=== PATIENT | male | born 1975 | race Caucasian/White ===

== ENCOUNTER 2020-06-25 10:58 | Outpatient (RCR) | payer OTHER, SELFPAY ==
[2019-12-23 09:50] VITALS: BMI 25.1
== END 2020-08-31 23:59 ==
LOC: IMMUN 10:58
PROVIDERS: PCP Nurse Practitioner; Visit Provider Family Medicine
DX: Z23 Encounter for immunization (principal)
CPT/HCPCS: 0001A; 0002A; 91300

== ENCOUNTER 2021-03-31 08:37 | Outpatient (CLI) | payer OTHER, SELFPAY ==
[2021-03-31 10:05] LABS: Absolute Lymphocyte Count 1.73 X10^3/uL (0.83-4.51); Absolute Neutrophil Count 3.6 X10^3/uL (2.0-7.7); Basophil# 0.06 X10^3/uL; Eosinophil# 0.15 X10^3/uL; Eosinophils% 2.5 % (0-5); Hematocrit 44.5 % (40-54); Lymphocyte # 1.73 X10^3/ul (0.83-4.51); Lymphocyte % 28.6 % (19-41); Mean Corp Hgb Conc 33.7 g/dL (32-36); Mean Corpuscular Hgb 28.5 pg (27.0-32.0); Mean Corpuscular Volume 84.6 fL (80-94); Mean Platelet Vol. 10.9 fl (6.2-12.0); Monocyte# 0.47 X10^3/uL; Monocyte% 7.8 % (0-10); NRBC Flagged by Analyzer 0 % (0-5); Neutrophil % 59.4 % (47-70); Platelet Count 275 K/mm3 (150-450); RBC Distribution Width CV 12.5 % (11.6-14.6); RBC Distribution Width SD 38.2 fl (35.1-43.9); Red Blood Count 5.26 M/mm3 (4.6-6.2); White Blood Count 6.1 K/mm3 (4.4-11.0)
[2021-03-31 10:33] LABS: AST(SGOT) 21 U/L (15-37); Alanine Aminotransfer ALT/SGPT 39 U/L (16-61); Alkaline Phosphatase 79 U/L (45-117); Anion Gap 7 (5-15); BUN 16 mg/dL (7-18); BUN/Creat Ratio 16.6 RATIO (10-20); Calcium,Total 9.4 mg/dL (8.5-10.1); Chloride 102 mmol/L (98-107); Creatinine, Serum 0.96 mg/dL (0.70-1.30); EST Glomerular Filtration Rate 91 mL/min (>60); Est Glom Filt Rate - Afr Amer 110 mL/min (>60); Glucose 110 mg/dL (74-106); Potassium 4.6 mmol/L (3.5-5.1); Sodium Level 137 mmol/L (136-145)
[2021-04-03 20:07] LABS: QNTFERON TB Mitogen Value > 10.00 IU/mL (.); QNTFERON TB Nil Value 0.02 IU/mL (.); QNTFERON TB1+ Ag Value 0.05 IU/mL (.); QNTFERON TB2+ Ag Value 0.09 IU/mL (.)
[2021-04-04 12:15] LABS: QNTIFERON TB Positive Criteria Negative (Negative)
== END 2021-03-31 23:59 | disposition short-term general hospital (02) ==
PROVIDERS: PCP Nurse Practitioner; Referring Provider Nurse Practitioner; Visit Provider Dermatology Pediatric Dermatology
DX: L40.0 Psoriasis vulgaris (principal); M25.50 Pain in unspecified joint; Z79.899 Other long term (current) drug therapy
CPT/HCPCS: 36415; 80053; 85025; 86480

== ENCOUNTER 2021-05-10 14:42 | Outpatient (CLI) | payer OTHER, SELFPAY | END 2021-05-10 23:59 | disposition home or self-care (01) | LOC: IMMUN 05-11 14:53 | PROVIDERS: PCP Nurse Practitioner; Visit Provider Family Medicine | DX: Z23 Encounter for immunization (principal) ==

== ENCOUNTER 2025-01-30 07:21 | Day surgery (SDC) | payer OTHER, SELFPAY ==
[2025-01-30] VITALS (9 sets, daily range): BP systolic 122–152; BP diastolic 82–95; PULSE 77–89; RESP 16–18; TEMP 36.1–36.7; O2SAT 95–97; BMI 26.1
--- OUTSIDE RECORDS SUMMARY | 2025-01-30 07:39 | XMS RPT_ITS | CCD ---
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 Name Role Phone Laura Lua Unavailable Daev Babb Unavailable Kymberly Mike Unavailable Unavailable Unavailable Unavailable Tom Clark Unavailable Unavailable BULL Garcia Unavailable Unavailable No Doctor Assigned, Nodr Admitting Unavail able No Doctor Assigned, Nodr Attending Unavail able No Doctor Assigned, Nodr Primary Care Unavail able Shirley Gibbs Unavailable Unavailable Nelly Johnson Unavailable Unavailable Grace West Unavailable Rhonda Meraz Unavailable Unavailable Keyla Haji Unavailable BULL Garcia Unavailable Unavailable Tom Clark Unavailable Unavailable Kelsy Juarez Unavailable Tom Tinoco Unavailable Unavailable Lillie Bradshaw Unavailable Unavailable Slarb, Kim Unavailable Unavailable Laura Lua CNP Unavailable Kelsy Juarez Unavailable Dave Babb MD Unavailable Tom Tinoco LPN Unavailable Unavailable Unavailable Unavailable Keyla Haji MD Unavailable Era Dunn Unavailable [phone] araceli Carvajal Unavailable Unavailable Chanell Laura Unavailable Dania Queen Unavailable Carla Ventura LPN Unavailable Unavailable Slarb HRIS COORDINATOR, Kim Unavailable Unavailable Sania Mobley CNP Unavailable Sania Mobley CNP Unavailable Chanell Laura Unavailable Itz WOODSKandyyn Unavailable Jack BRUNER, Janetteludya Unavailable Unavailable Keyla Haji MD Unavailable BEHZAD Bridges Unavailable Indira Staley CMA Unavailable Unavailable Chanell Laura Referring Unavailable Sania Mobley CNP Attending Unavailable Sania Mobley CNP Consulting Unavailable Friend, Ronny Attending Unavailable Care Physician, No Primary Referring Unava ilable Care Physician, No Primary Primary Care Unava ilable Medications Completed/Discontinued Medications Medication Drug Class(es) Dates Sig (Normalized) Sig (Original) amLODIPine 10 mg oral tablet (20 sources) Dihydropyridine Calcium Channel Rosendo Start: 07-31-2022 take 1 tablet by mouth once daily amLODIPine 10 mg oral tablet 1 (one) Tablet daily for 30 days Quantity: 30 {Tablet} Refills: 6 Ordered: 31-Jul-2022 Sania Mobley CNP Start : 31-Jul-2022 Active Start: 01-23-2022 take 1 tablet by jasvir th once daily amLODIPine Besylate 10 MG Oral Tablet 1 (one) Tablet daily for 30 days Quantity: 30 {Tablet} Refills: 3 Ordered: 23-Jan-2022 Sania Mobley CNP Start : 23-Jan-2022 Active Start: 12-07-2020 take 1 tablet by jasvir th once daily amLODIPine Besylate 10 MG Oral Tablet 1 (one) Tablet daily for 30 days Quantity: 30 {Tablet} Refills: 3 Ordered: 07-Dec-2020 Laura Lua Start : 07-Dec-2020 Active Start: 10-05-2020 take 1 tablet by jasvir th once daily amLODIPine Besylate 10 MG Oral Tablet 1 (one) Tablet daily for 30 days Quantity: 30 {Tablet} Refills: 3 Ordered: 05-Oct-2020 Keyla Haji MD Start : 05-Oct-2020 Active Start: 07-27-2020 take 1 tablet by jasvir th once daily amLODIPine Besylate 5 MG Oral Tablet 1 (one) Tablet daily for 30 days Quantity: 30 {Tablet} Refills: 3 Ordered: 27-Jul-2020 Laura Lua CNP, CNP, Mary E Start : 27-Jul-2020 Active Start: 03-30-2020 take 1 tablet by jasvir th once daily amLODIPine Besylate 5 MG Oral Tablet 1 (one) Tablet daily for 0 days Quantity: 30 {Tablet} Refills: 3 Ordered: 30-Mar-2020 Otto SIDDIQIKim Start : 30-Mar-2020 Active amoxicillin 500 mg oral tablet (15 sources) Penicillin-class Antibacterial Start: 05-01-2022 End: 07-04-2022 take 1 tablet by mouth twice daily amoxicillin 500 mg oral tablet 1 (one) tablet bid for 0 days Quantity: 20 {Tablet} Refills: 0 Ordered: 04-Jul-2022 Audrey NEERUCarla Start : 01-May-2022 End : 04-Jul-2022 Inactive amoxicillin 875 mg / clavulanate 125 mg oral tablet (20 sources) Penicillin-class Antibacterial Start: 01-02-2020 End: 01-12-2020 take 1 tablet by mouth twice daily Amoxicillin-Pot Clavulanate 875-125 MG Oral Tablet 1 (one) Tablet BID for 10 days Quantity: 20 {Tablet} Refills: 0 Ordered: 02-Jan-2020 Lillie Bradshaw LPN Start : 02-Jan-2020 End : 12-Jan-2020 Inactive Comments: J32.9 Start: 05-20-2018 End: 06-03-2018 take 1 tablet by mouth twice daily at mealtime Amoxicillin-Pot Clavulanate 875-125 MG Oral Tablet 1 (one) Tablet PO BID for 14 days Quantity: 28 {Tablet} Refills: 0 Ordered: 20-May-2018 Nelly Johnson Start : 20-May-2018 End : 03-Jun-2018 Inactive Comments: Take with food Comment on above: Take with food J32.9 24 hr amphetamine aspartate 2.5 mg / amphetamine sulfate 2.5 mg / dextroamphetamine saccharate 2.5 mg / dextroamphetamine sulfate 2.5 mg extended release oral capsule (20 sources) Central Nervous System Stimulant Start: take 1 capsule by mouth every twenty-four hours in the morning dextroamphetamin e-amphetamine 10 mg oral Capsule, Extended Release 24 hr 1 (one) Capsule in am for 0 days Quantity: 30 {Capsule} Refills: 0 Ordered: 08-Jan-2023 Keyla Haji MD Start : 08-Jan-2023 Active Comments: Disp: thirtyDx: F98.8fill for 03-06-23 Start: 10-05-2022 take 1 capsule by mo uth every twenty-four hours in the morning dextroamphetamine-amphetamine 10 mg oral Capsule, Extended Release 24 hr 1 (one) Capsule in am for 0 days Quantity: 30 {Capsule} Refills: 0 Ordered: 05-Oct-2022 Keyla Haji MD Start : 05-Oct-2022 Active Comments: Disp: thirtyDx: F98.8fill for 12-02-22 Start: 07-25-2022 take 1 capsule by mo ut every twenty-four hours in the morning dextroamphetamine-amphetamine 10 mg oral Capsule, Extended Release 24 hr 1 (one) Capsule in am and 12 pm for 0 days Quantity: 60 {Capsule} Refills: 0 Ordered: 25-Jul-2022 Keyla Haji MD Start : 25-Jul-2022 Active Comments: Disp: sixtyDx: F98.8OARS reviewed last filled 04-17 Start: 07-04-2022 take 1 capsule by mo ut every twenty-four hours in the morning dextroamphetamine-amphetamine 10 mg oral Capsule, Extended Release 24 hr 1 (one) Capsule in am and 12 pm for 0 days Quantity: 60 {Capsule} Refills: 0 Ordered: 04-Jul-2022 Keyla Haji MD Start : 04-Jul-2022 Active Comments: Disp: sixtyDx: F98.8 Start: 04-24-2022 take 1 capsule by mo ut every twenty-four hours in the morning dextroamphetamine-amphetamine 10 mg oral Capsule, Extended Release 24 hr 1 (one) Capsule in am and 12 pm for 0 days Quantity: 60 {Capsule} Refills: 0 Ordered: 24-Apr-2022 Keyla Haji MD Start : 24-Apr-2022 Active Comments: Disp: sixtyDx: F98.8pt not tolerate immediate release Start: 01-02-2022 take 1 capsule by mo ut every twenty-four hours in the morning Amphetamine-Dextroamphet ER 10 MG Oral Capsule Extended Release 24 Hour 1 (one) Capsule in am and 12 pm for 0 days Quantity: 60 {Capsule} Refills: 0 Ordered: 02-Jan-2022 Keyla Haji MD Start : 02-Jan-2022 Active Comments: Disp: sixtyDx: F98.8pt not tolerate immediate release Start: 11-23-2021 take 1 capsule by mo uth once daily Amphetamine-Dextroamphet ER 10 MG Oral Capsule Extended Release 24 Hour 1 (one) Capsule qd for 0 days Quantity: 30 {Capsule} Refills: 0 Ordered: 23-Nov-2021 Keyla Haji MD Start : 23-Nov-2021 Active Comments: Disp: ThirtyDx: F98.8 Start: 06-30-2021 take 1 capsule by mo uth once daily Amphetamine-Dextroamphet ER 10 MG Oral Capsule Extended Release 24 Hour 1 (one) Capsule qd for 0 days Quantity: 30 {Capsule} Refills: 0 Ordered: 30-Jun-2021 Keyla Haji MD Start : 30-Jun-2021 Active Comments: Disp: ThirtyDx: F98.8fill 08-26-21 Start: 11-15-2020 take 1 capsule by mo uth once daily Amphetamine-Dextroamphet ER 10 MG Oral Capsule Extended Release 24 Hour 1 (one) Capsule qd for 0 days Quantity: 30 {Capsule} Refills: 0 Ordered: 15-Nov-2020 Keyla Haji MD Start : 15-Nov-2020 Active Comments: Disp: ThirtyDx: F98.8 Start: 10-05-2020 take 1 capsule by mo ut once daily Amphetamine-Dextroamphet ER 10 MG Oral Capsule Extended Release 24 Hour 1 (one) Capsule qd for 0 days Quantity: 30 {Capsule} Refills: 0 Ordered: 05-Oct-2020 Keyla Haji MD Start : 05-Oct-2020 Active Comments: Disp: ThirtyDx: F98.8 Start: 03-09-2020 End: 03-30-2020 take 1 capsule by mouth once daily Amphetamine-Dextroamphet ER 10 MG Oral Capsule Extended Release 24 Hour 1 (one) Capsule daily as directed for 0 days Quantity: 30 {Capsule} Refills: 0 Ordered: 30-Mar-2020 Kim Menjivar LPN Start : 09-Mar-2020 End : 30-Mar-2020 Inactive Comments: Disp: ThirtyDx: F98.8 Start: 01-13-2020 take 1 capsule by mo uth once daily Adderall XR 10 MG Oral Capsule Extended Release 24 Hour 1 (one) Capsule daily as directed for 0 days Quantity: 14 {Capsule} Refills: 0 Ordered: 13-Jan-2020 Keyla Haji MD Start : 13-Jan-2020 Active Start: 11-03-2019 End: 01-07-2020 take 1 tablet by mouth once daily Amphetamine-Dextroamphetamine 10 MG Oral Tablet 1 (one) Tablet qd for 0 days Quantity: 30 {Tablet} Refills: 0 Ordered: 07-Jan-2020 BULL Garcia LPN Start : 03-Nov-2019 End : 07-Jan-2020 Inactive Comments: Dx: F98.8Disp: Thirty Start: 01-30-2019 take 1 tablet by jasvir th once daily Amphetamine-Dextroamphetamine 10 MG Oral Tablet 1 (one) Tablet qd for 0 days Quantity: 30 {Tablet} Refills: 0 Ordered: 30-Jan-2019 Keyla Haji MD Start : 30-Jan-2019 Active Comments: Dx: F98.8thirty Start: 05-02-2018 take 1 tablet by jasvir th once daily Amphetamine-Dextroamphetamine 10 MG Oral Tablet 1 (one) Tablet qd for 0 days Quantity: 30 {Tablet} Refills: 0 Ordered: 02-May-2018 BULL Garcia Start : 02-May-2018 Active Comments: Dx: F98.8thirty Comment on above: Dx: F98.8thirty Dx: F98.8Disp: Thirt y Disp: ThirtyDx: F98. 8 Disp: ThirtyDx: F98. 8fill 08-26-21 Disp: sixtyDx: F98.8 pt not tolerate immediate release Disp: sixtyDx: F98.8 Disp: sixtyDx: F98.8 OARS reviewed last filled 04-17 Disp: thirtyDx: F98. 8fill for 12-02-22 Disp: thirtyDx: F98. 8fill for 03-06-23 ascorbic acid 60 mg / beta carotene 5000 unt / copper sulfate 40 mg / dl-alpha tocopheryl acetate 30 unt / sodium selenite 0.04 mg / zinc oxide 40 mg oral tablet (20 sources) Vitamin C Start: 10-24-19 19 End: 03-30-19 21 take 1 tablet by mouth once daily QC Mens Daily Multivitamin Oral Tablet 1 (one) Tablet daily for 0 days Quantity: 30 {Tablet} Refills: 0 Ordered: 30-Mar-2020 Otto SIDDIQIKim Start : 23-Oct-2018 End : 30-Mar-2020 Inactive cholecalciferol 0.05 mg oral capsule (20 sources) Vitamin D Start: 11-24-19 20 End: 01-13-20 20 take 1 tablet by mouth once daily Vitamin D3 50 MCG (2000 UT) Oral Tablet Chewable 1 (one) Tablet daily for 0 days Quantity: 30 {Tablet} Refills: 0 Ordered: 13-Jan-2020 BULL Garcia LPN Start : 24-Nov-2019 End : 13-Jan-2020 Inactive Start: 10-23-2018 End: 06-27-2021 take 1 capsule by mouth once daily Vitamin D3 Super Strength 50 MCG (2000 UT) Oral Capsule 1 (one) Capsule daily for 0 days Quantity: 30 {Capsule} Refills: 0 Ordered: 27-Jun-2021 Otto SIDDIQIKim Start : 10-Feb-2020 End : 27-Jun-2021 Inactive clotrimazole 10 mg oral lozenge (20 sources) Azole Antifungal Start: 05-20-2018 End: 06-03-2018 Clotrimazole 10 MG Mouth/Throat Lozenge 1 (one) Jennifer PO 5 x daily for 14 days Quantity: 70 {Jennifer} Refills: 0 Ordered: 20-May-2018 Nelly Johnson Start : 20-May-2018 End : 03-Jun-2018 Inactive crisaborole 0.02 mg/mg topical ointment (20 sources) Start: 04-10-2018 End: 11-24-2019 Eucrisa 2 % External Ointment 1 (one) Application Application daily for 0 days Quantity: 2 {Applicator} Refills: 0 Ordered: 24-Nov-2019 Tom Tinoco LPN Start : 10-Apr-2018 End : 24-Nov-2019 Inactive DULoxetine 60 mg delayed release oral capsule (20 sources) Serotonin and Norepinephrine Reuptake Inhibitor Start: 12-06-2022 take 1 capsule by mouth once daily DULoxetine 60 mg oral capsule,delayed release (enteric coated) 1 Capsule daily for 0 days Quantity: 30 {Capsule} Refills: 6 Ordered: 06-Dec-2022 Sania Mobley CNP Start : 06-Dec-2022 Active Start: 10-10-2022 take 1 capsule by mo [facility] once daily DULoxetine 30 mg oral capsule,delayed release (enteric coated) 1 Capsule daily for 0 days Quantity: 30 {Capsule} Refills: 3 Ordered: 10-Oct-2022 Sania Mobley CNP Start : 10-Oct-2022 Active Start: 09-18-2022 take 1 capsule by [facility] once daily DULoxetine 30 mg oral capsule,delayed release (enteric coated) 1 Capsule daily for 0 days Quantity: 30 {Capsule} Refills: 0 Ordered: 18-Sep-2022 Sania Mobley CNP Start : 18-Sep-2022 Active Start: 04-21-2022 End: 07-31-2022 take 1 capsule by mouth once daily DULoxetine 60 mg oral capsule,delayed release (enteric coated) 1 (one) Capsule daily for 0 days Quantity: 30 {Capsule} Refills: 0 Ordered: 31-Jul-2022 Slarb NEERU Kim Start : 21-Apr-2022 End : 31-Jul-2022 Inactive Start: 01-23-2022 take 1 capsule by [facility] once daily DULoxetine HCl 60 MG Oral Capsule Delayed Release Particles 1 (one) Capsule daily for 0 days Quantity: 30 {Capsule} Refills: 0 Ordered: 23-Jan-2022 Sania Mobley CNP Start : 23-Jan-2022 Active Start: 10-31-2021 take 1 capsule by [facility] once daily DULoxetine HCl 60 MG Oral Capsule Delayed Release Particles 1 (one) Capsule daily for 0 days Quantity: 30 {Capsule} Refills: 0 Ordered: 31-Oct-2021 Sania Mobley CNP Start : 31-Oct-2021 Active Start: 09-20-2021 take 1 capsule by [facility] once daily DULoxetine HCl 60 MG Oral Capsule Delayed Release Particles 1 (one) Capsule daily for 0 days Quantity: 30 {Capsule} Refills: 0 Ordered: 20-Sep-2021 Sania Mobley CNP Start : 20-Sep-2021 Active Start: 06-27-2021 take 1 capsule by [facility] once daily DULoxetine HCl 60 MG Oral Capsule Delayed Release Particles 1 (one) Capsule daily for 0 days Quantity: 30 {Capsule} Refills: 0 Ordered: 27-Jun-2021 Slarb HRIS COORDINATOR, Kim Start : 27-Jun-2021 Active lactic acid 50 mg/ml topical lotion (20 sources) Start: 10-01-2020 End: 06-27-2021 Lac-Hydrin Five 5 % External Lotion 1 (one) Application bid for 0 days Quantity: 1 {Bottle} Refills: 0 Ordered: 27-Jun-2021 Kim Menjivar LPN Start : 01-Oct-2020 End : 27-Jun-2021 Inactive levothyroxine sodium 0.075 mg oral tablet (20 sources) l-Thyroxine Start: 08-12-2022 levothyroxine 75 mcg oral tablet 1 (one) tablet daily except 2 on Sundays for 0 days Quantity: 34 {Tablet} Refills: 6 Ordered: 12-Aug-2022 Sania Mobley CNP Start : 12-Aug-2022 Active Start: 07-31-2022 End: 07-31-2022 Synthroid 75 mcg oral tablet 1 (one) Tablet 1 daily except 2 on Sundays for 90 days Quantity: 94 {Tablet} Refills: 1 Ordered: 31-Jul-2022 Sania Mobley CNP Start : 31-Jul-2022 End : 31-Jul-2022 Discontinued Start: 04-21-2022 Synthroid 75 m cg oral tablet 1 (one) Tablet 1 daily except 2 on Sundays for 90 days Quantity: 94 {Tablet} Refills: 1 Ordered: 21-Apr-2022 Grace West DO Start : 21-Apr-2022 Active Comments: REYES No generics Start: 10-26-2021 Synthroid 75 M CG Oral Tablet 1 (one) Tablet 1 daily except 2 on Sundays for 90 days Quantity: 94 {Tablet} Refills: 1 Ordered: 26-Oct-2021 Sania Mobley CNP Start : 26-Oct-2021 Active Comments: REYES No generics Start: 07-04-2021 take 1 tablet by jasvir th once daily Synthroid 75 MCG Oral Tablet 1 (one) Tablet 1 daily for 90 days Quantity: 90 {Tablet} Refills: 1 Ordered: 04-Jul-2021 Yanaelida Laura Start : 04-Jul-2021 Active Comments: REYES No generics Start: 07-27-2020 take 1 tablet by jasvir th once daily, then take 2 tablets by mouth once Synthroid 75 MCG Oral Tablet 1 (one) Tablet 1 daily except 2 q MWF for 30 days Quantity: 112 {Tablet} Refills: 3 Ordered: 01-Oct-2020 Laura Lua CNP, CNP, Mary E Start : 01-Oct-2020 Active Comments: REYES No generics Start: 04-05-2020 take 1 tablet by jasvir th once daily, then take 2 tablets by mouth once Synthroid 75 MCG Oral Tablet 1 (one) Tablet 1 daily except 2 q MW for 0 days Quantity: 112 {Tablet} Refills: 3 Ordered: 05-Apr-2020 Laura Lua CNP, CNP, Mary E Start : 05-Apr-2020 Active Comments: REEYS No generics Start: 11-24-2019 take 1 tablet by jasvir th once daily, then take 2 tablets by mouth once, then take 2 tablets by mouth Synthroid 75 MCG Oral Tablet 1 (one) Tablet 1 daily except 2 q Sunday and 2 on Sun for 0 days Quantity: 112 {Tablet} Refills: 3 Ordered: 10-Feb-2020 Laura Lua CNP, CNP, Mary E Start : 10-Feb-2020 Active Comments: REYES No generics Start: 10-23-2018 take 1 tablet by jasvir th once daily, then take 2 tablets by mouth once Synthroid 75 MCG Oral Tablet 1 (one) Tablet 1 daily and 2 q Sunday for 0 days Quantity: 112 {Tablet} Refills: 3 Ordered: 23-Oct-2018 Laura Lua CNP, CNP, Mary E Start : 23-Oct-2018 Active Comments: REYES No generics Start: 07-15-2018 take 1 tablet by jasvir th once daily Synthroid 75 MCG Oral Tablet 1 (one) Tablet daily as directed for 0 days Quantity: 90 {Tablet} Refills: 3 Ordered: 15-Jul-2018 Laura Lua CNP, CNP, Mary E Start : 15-Jul-2018 Active Comments: REYES No generics Start: 10-17-2017 End: 04-10-2018 take 1 tablet by mouth once daily Levothyroxine Sodium 75 MCG Oral Tablet 1 (one) Tablet Tablet daily for 0 days Quantity: 30 {Tablet} Refills: 3 Ordered: 10-Apr-2018 Kymberly Mike Start : 17-Oct-2017 End : 10-Apr-2018 Discontinued Comment on above: REYES No generics lisinopril 10 mg oral tablet (11 sources) Angiotensin Converting Enzyme Inhibitor Start: 12-20-2022 take 1 tablet by mouth once daily lisinopriL 10 mg oral tablet 1 Tablet daily for 0 days Quantity: 30 {Tablet} Refills: 2 Ordered: 20-Dec-2022 Sania Mobley CNP Start : 20-Dec-2022 Active Start: 09-18-2022 take 1 tablet by jasvir th once daily lisinopriL 10 mg oral tablet 1 Tablet daily for 0 days Quantity: 30 {Tablet} Refills: 2 Ordered: 18-Sep-2022 Sania Mobley CNP Start : 18-Sep-2022 Active LORazepam 0.5 mg oral tablet (11 sources) Benzodiazepine Start: 01-09-2023 take 1 tablet by mouth once daily as needed LORazepam 0.5 mg oral tablet 1 (one) tablet daily as needed for anxiety for 0 days Quantity: 15 {Tablet} Refills: 0 Ordered: 09-Jan-2023 Sania Mobley CNP Start : 09-Jan-2023 Active Comments: Medication taken as needed. SANDRA bagley Start: 11-06-2022 take 1 tablet by jasvir th once daily as needed LORazepam 0.5 mg oral tablet 1 (one) tablet daily as needed for anxiety for 0 days Quantity: 15 {Tablet} Refills: 0 Ordered: 06-Dec-2022 Sania Mobley CNP Start : 06-Dec-2022 Active Comments: Medication taken as needed. SANDRA chasefteen Start: 09-18-2022 take 1 tablet by jasvir th once daily as needed LORazepam 0.5 mg oral tablet 1 (one) tablet daily as needed for anxiety for 0 days Quantity: 15 {Tablet} Refills: 0 Ordered: 18-Sep-2022 Sania Mobley CNP Start : 18-Sep-2022 Active Comments: Medication taken as needed. USMANRRS jeniferfihenrry Comment on above: Medication taken as needed. MAXIMOS yudi metroNIDAZOLE 500 mg oral tablet (20 sources) Nitroimidazole Antimicrobial Start: 06-28-19 19 End: 07-08-19 19 take 1 mg by mouth twice daily MetroNIDAZOLE 500 MG Oral Tablet 1 (one) Milligram bid for 10 days Quantity: 20 {Milligram} Refills: 0 Ordered: 27-Jun-2018 Grace West DO Start : 27-Jun-2018 End : 07-Jul-2018 Inactive QC Mens Daily Multivitamin Oral Tablet (20 sources) Start: 10-24-19 End: 03-30-19 21 take 1 tablet by mouth once daily QC Mens Daily Multivitamin Oral Tablet 1 (one) Tablet daily for 0 days Quantity: 30 {Tablet} Refills: 0 Ordered: 30-Mar-2020 Otto SIDDIQIKim Start : 23-Oct-2018 End : 30-Mar-2020 Inactive Start: 10-23-2018 take 1 tablet by jasvir th once daily QC Mens Daily Multivitamin Oral Tablet 1 (one) Tablet daily for 0 days Quantity: 30 {Tablet} Refills: 0 Ordered: 30-Jan-2019 BULL Garcia LPN Start : 23-Oct-2018 Active Start: 10-23-2018 take 1 tablet by jasvir th once daily QC Mens Daily Multivitamin Oral Tablet 1 (one) Tablet daily for 0 days Quantity: 30 {Tablet} Refills: 0 Ordered: 23-Oct-2018 Laura Lua CNP, CNP, Mary E Start : 23-Oct-2018 Active rosuvastatin calcium 5 mg oral tablet (20 sources) HMG-CoA Reductase Inhibitor Start: 09-18-2022 take 1 tablet by mouth at bedtime rosuvastatin 5 mg oral tablet 1 (one) Tablet at bedtime for 90 days Quantity: 45 {Tablet} Refills: 3 Ordered: 18-Sep-2022 Sania Mobley CNP Start : 18-Sep-2022 Active Comments: Mail order. Start: 07-31-2022 rosuvastatin 5 mg oral tablet 1 (one) Tablet every other night for 90 days Quantity: 45 {Tablet} Refills: 3 Ordered: 31-Jul-2022 Sania Mobley CNP Start : 31-Jul-2022 Active Comments: Mail order. Start: 07-31-2022 rosuvastatin 5 mg oral tablet 1 (one) Tablet every other night for 30 days Quantity: 30 {Tablet} Refills: 2 Ordered: 31-Jul-2022 Sania Mobley CNP Start : 31-Jul-2022 Active Start: 01-23-2022 Rosuvastatin C alcium 5 MG Oral Tablet 1 (one) every other night (5 MG) Start : 23-Jan-2022 Inactive Start: 07-04-2021 Rosuvastatin C alcium 5 MG Oral Tablet 1 (one) Tablet every other night for 90 days Quantity: 45 {Tablet} Refills: 3 Ordered: 04-Jul-2021 Laura Lua Start : 04-Jul-2021 Active Comments: Mail order. Start: 07-27-2020 Rosuvastatin C alcium 5 MG Oral Tablet 1 (one) Tablet every other night for 30 days Quantity: 30 {Tablet} Refills: 2 Ordered: 01-Oct-2020 Laura Lua CNP, CNP, Mary E Start : 01-Oct-2020 Active Start: 02-10-2020 take 1 tablet by jasvir th once, then take 2 tablets by mouth Rosuvastatin Calcium 5 MG Oral Tablet 1 (one) Tablet every other night for 0 days Quantity: 60 {Tablet} Refills: 2 Ordered: 10-Feb-2020 Otto SIDDIQI Kim Start : 10-Feb-2020 Active Comment on above: Mail order. sertraline 100 mg oral tablet (20 sources) Serotonin Reuptake Inhibitor Start: 12-07-2020 End: 01-06-2021 Sertraline HCl 100 MG Oral Tablet 1 1/2 (one and a half) Tablet daily for 30 days Quantity: 45 {Tablet} Refills: 0 Ordered: 07-Dec-2020 Laura Lua Start : 07-Dec-2020 End : 06-Jan-2021 Inactive Start: 07-27-2020 Sertraline HCl 100 MG Oral Tablet 1 1/2 (one and a half) Tablet daily for 30 days Quantity: 45 {Tablet} Refills: 3 Ordered: 27-Jul-2020 Laura Lua CNP, CNP, Mary E Start : 27-Jul-2020 Active Start: 11-24-2019 Sertraline HCl 100 MG Oral Tablet 1 1/2 (one and a half) Tablet daily for 30 days Quantity: 45 {Tablet} Refills: 3 Ordered: 24-Nov-2019 Laura Lua CNP, CNP, Mary E Start : 24-Nov-2019 Active Start: 10-23-2018 Sertraline HCl 100 MG Oral Tablet 1 1/2 (one and a half) Tablet daily for 30 days Quantity: 45 {Tablet} Refills: 3 Ordered: 23-Oct-2018 Laura Lua CNP, CNP, Mary E Start : 23-Oct-2018 Active Start: 07-15-2018 Sertraline HCl 100 MG Oral Tablet 1 1/2 (one and a half) Tablet daily for 30 days Quantity: 45 {Tablet} Refills: 3 Ordered: 15-Jul-2018 Laura Lua CNP, CNP, Mary E Start : 15-Jul-2018 Active Start: 04-10-2018 Sertraline HCl 100 MG Oral Tablet 1 1/2 (one and a half) Tablet daily for 30 days Quantity: 45 {Tablet} Refills: 3 Ordered: 10-Apr-2018 Laura Lua CNP, CNP, Mary E Start : 10-Apr-2018 Active tacrolimus 0.001 mg/mg topical ointment (20 sources) Calcineurin Inhibitor Immunosuppressant Tacrolimus 0.1 % External Ointment (0.1 %) Inactive Problems Active Problems Problem Classification Problem Date Documented Date Episodic/Chronic Abdominal pain (20 sources) Acute abdominal pain; Translations: [Abdominal pain, acute] Resolved: 9 06-27-2018 Episodic Allergic reactions (20 sources) Fingertip eczema; Translations: [Eczema of tip of finger] 02-10-2020 Episodic Comment on above: can use vaseline and cotton glove at night ,and or crazy glue and keep hands clean go back to derm, see if there is anything else they can do to help. 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 Anxiety disorders (20 sources) Anxiety; Translations: [Mixed anxiety and depressive disorder] 04-10-2018 Chronic Comment on above: continue sertralineS ees Carlie Mercado at [facility] continue sertralinen o longer sees Carlie daniels [facility] stable on duloxetine [facility]. restart duloxetine, increase to 60mg in 4-6 weeks if tolerating since 30mg dose was not completely effective-short course prn lorazepamno longer sees Carlie daniels [facility] given to Dr. Bridges to discuss medical marijuana (decided not to go) increase duloxetine 60mg - prn lorazepam has been effective. using sparinglyno longer sees Carlie Mercado at [facility] given to Dr. Bridges to discuss medical marijuana (decided not to go) Attention-deficit conduct and disruptive behavior disorders (20 sources) Adult attention deficit hyperactivity disorder ; Translations: [Attention deficit disorder (ADD) in adult] 04-10-2018 Chronic Comment on above: had adderall in [place], will have him retakequestionaire and then refer to DB had adderall in [facility] er, will have him retake questionaire and then refer to DB had Adderall in [facility] erOARRS reviewed not able to pull any information as far as when last filled bc was in [place] controlled substance signed 05-02-18 had Adderall in [facility] er, duran VyasOARMEKHI reviewed not able to pull any information as far as when last filled bc was in [place] controlled substance signed 05-02-18 had Adderall in [facility] er, duran Vyas talk about taking regularly take and work with .01-30-19 OARRS reviewed not able to pull any information as far as when last filled bc was in [place] controlled substance signed 05-02-18 had Adderall in [facility] er, duran Vyas right now off medication because BP up. he want try something different. not good at taking meds regularly talka federico whalen but he is not complaitn all the time and not good side effects thompson consider add vyvanse right now fujnction well with routine and need to work up rest with MARY07-31-19 OARRS reviewed not able to pull any information as far as when last filled bc was in [place] 07-31-19 drug sccreen and controlled substance will need to be done with next fu d/t Covid-19 pandemic patient doing virtual visit today had Adderall in [facility] er, will give3 him name on someone who does CBT. best is dolores. he feels perform okay but still having issues and notice not have the focus. willrecheck BP he wilmonitor at home will try XR amuybe not have as many side effects consider [id number] OARRS reviewed, controlled substance form completed and drug screen done had Adderall in [facility] er, sees Asael right now off medication because BP up. he want try something different. not good at taking meds regularly talka federico Whalen but he is not compliant all the time and not good side effects thompson consider add vyvanse right now fujnction well with routine and need to work up rest with [id number] OARRS reviewed, controlled substance form completed and drug screen done had Adderall in [place], will give him name on someone who does CBT. best is dolores. been off with higher Bp now better and treated noticing affecting work changed jobs really wants to get back on before start. if notice anxious on it will try -14-14 OARRS reviewed, controlled substance form completed had Adderall in [place], will give him name on someone who does CBT. best is dolores. been off with higher Bp now his lifestyole better and BP down. will try the second dose. the rapid relase makes hoffmann so have to do twice a day [id number] OARRS reviewed last filled 30 days -, controlled substance form completed 4- due for drug screen not taking second on e but knows should talk about vyvanse. not want to do right now07-16 OARRS reviewed last filled 30 days 8-, controlled substance form completed 4- due for drug screen not taking second on e but knows should talk about vyvanse. not want to do right now7 OARRS reviewed last filled 30 days 8-, controlled substance form completed - drug screen 4- Contraceptive and procreative management (20 sources) H/O: vasectomy; Translations: [History of vasectomy] 12-24-2017 Episodic Comment on above: 11-05-15 Dr. Da rodriguez Disorders of lipid metabolism (20 sources) Hypercholesterolemia; Translations: [Hypercholesteremia] 02-10-2020 Chronic Comment on above: was not consistent on rosuvastatin 5mg every other nightrecheck lipidsnot consistent with meds in past on rosuvastatin 5mg every other nightrecheck lipids - ordered Jan 2022, not done yetnot consistent with meds in past Essential hypertension (20 sources) Hypertensive disorder; Translations: [Hypertension] 03-30-2020 Chronic Comment on above: improved with BP med amlodipine 10mg-bp h igh today, going to check at home and call if stays elevatedimproved with BP med amlodipine 10mg qhs- bp still elevated. not consistent with taking med but is going to get new BP machine and start checking it routinely. he is to call if systolic remains >130. If so, would start 2nd agent if taking amlodipine consistently. would add lisinopril 5mg dailyimproved with BP med amlodipine 10mg qhs- bp still elevated. not consistent with taking med but is going to get new BP machine and start checking it routinely. he is to call if systolic remains >130. If so, would start 2nd agent if taking amlodipine consistently. would add lisinopril 10mg dailyimproved with BP med start 2nd agent if t aking amlodipine consistently. add lisinopril 10mg dailyamlodipine 10mg qhs-bp still elevated. not consistent with taking med, new BP machine and start checking it routinely. systolic has been >140-150 stable today, no ross nges in medamlodipine 10mg qhs-monitoring BP at home, improved after adding lisinopril Genitourinary symptoms and ill-defined conditions (20 sources) Increased frequency of urination; Translations: [Urinary frequency] 07-31-2022 Episodic Headache; including migraine (20 sources) Headache; Translations: [Headache] Resolved: 9 05-20-2018 Episodic Comment on above: uses aleve x3 then i mprove Intestinal infection (20 sources) Infectious diarrheal disease; Translations: [Diarrhea, infectious, adult] Resolved: 9 06-27-2018 Episodic Malaise and fatigue (20 sources) Fatigue; Translations: [Fatigue] Resolved: 9 10-31-2017 Episodic Comment on above: labs reviewed adding testosterone, noted low D Mycoses (20 sources) Candidiasis of mouth; Translations: [Thrush, oral] Resolved: 9 05-20-2018 Episodic Nutritional deficiencies (20 sources) Vitamin D deficiency; Translations: [Vitamin D deficiency] 04-10-2018 Chronic Comment on above: Adding Standard proc ess Vitamin D3 K Other circulatory disease (20 sources) Elevated blood pressure; Translations: [Elevated blood pressure reading] Resolved: 3 07-31-2019 Episodic Other ear and sense organ disorders (20 sources) Wax in ear canal; Translations: [Wax in ear] 04-05-2020 Episodic Comment on above: use debrox then come as nurse visit and clean out Other ear and sense organ disorders (20 sources) Excessive cerumen in ear canal ; Translations: [Ceruminosis] Resolved: 3 10-01-2020 Episodic Other eye disorders (20 sources) Red eye; Translations: [Red eye] Resolved: 9 10-31-2017 Episodic Other gastrointestinal disorders (20 sources) Hemorrhagic diarrhea ; Translations: [Bloody diarrhea] Resolved: 9 06-27-2018 Episodic Other infections; including parasitic (20 sources) Personal history of other infectious and parasitic diseases; Translations: [History of Clostridium difficile intestinal infection] 10-23-2018 Episodic Comment on above: related to amoxicill in for sinusitis Other lower respiratory disease (20 sources) Cough; Translations: [Cough] Resolved: 9 05-20-2018 Episodic Other nervous system disorders (20 sources) Numbness of upper limb; Translations: [Arm numbness] 07-31-2019 Episodic Comment on above: ? thoracic outlet Other non-traumatic joint disorders (20 sources) Joint pain; Translations: [Arthralgia] Resolved: 9 10-31-2017 Episodic Other non-traumatic joint disorders (20 sources) Hip pain; Translations: [Hip pain, left] Resolved: 2 11-24-2019 Episodic Other nutritional; endocrine; and metabolic disorders (20 sources) Body mass index 25-29 - overweight; Translations: [BMI 25.0-25.9,adult] Resolved: 0 04-10-2018 Chronic Other nutritional; endocrine; and metabolic disorders (20 sources) Body mass index 25-29 - overweight; Translations: [BMI 25.0-25.9,adult] Resolved: 2 06-01-2020 Episodic Other nutritional; endocrine; and metabolic disorders (20 sources) Overweight in adulthood with body mass index of 25 or more but less than 30; Translations: [BMI 25.0-25.9,adult] Resolved: 3 06-01-2020 Episodic Other screening for suspected conditions (not mental disorders or infectious disease) (20 sources) Elevated C-reactive protein; Translations: [CRP elevated] Resolved: 9 04-22-2019 Episodic Comment on above: on 06-27 was 9.3, will repeat in 6 weks, ? related to cdiff or thyroid Other skin disorders (20 sources) Changes in skin texture; Translations: [Skin texture changes] Resolved: 9 04-10-2018 Episodic Other skin disorders (20 sources) Dry skin; Translations: [Dry skin] 12-10-2020 Episodic Other skin disorders (20 sources) Xeroderma; Translations: [Dry skin] 07-31-2022 Episodic Other upper respiratory disease (20 sources) Allergic rhinitis; Translations: [Allergic rhinitis] 01-31-2022 Chronic Other upper respiratory disease (20 sources) Pain in throat Episodic Other upper respiratory infections (20 sources) Chronic sinusitis, unspecified; Translations: [Bacterial sinusitis] Resolved: 0 05-20-2018 Chronic Other upper respiratory infections (20 sources) Sore throat symptom; Translations: [Sinusitis] Resolved: 0 05-20-2018 Episodic Residual codes; unclassified (20 sources) Body mass index (BMI) 24.0-24.9, adult; Translations: [Body mass index 20-24 - normal] Resolved: 2 10-31-2017 Episodic Residual codes; unclassified (20 sources) Influenza-like symptoms; Translations: [Flu-like symptoms] Resolved: 9 05-20-2018 Episodic Residual codes; unclassified (20 sources) Non-smoker; Translations: [Nonsmoker] 06-01-2020 Episodic Residual codes; unclassified (6 sources) Viral syndrome; Translations: [Flu-like symptoms] Resolved: 9 07-01-2018 Episodic Spondylosis; intervertebral disc disorders; other back problems (20 sources) Low back pain; Translations: [Low back pain] Resolved: 9 10-31-2017 Episodic Comment on above: chronic for 5-6 year s has had MRI in past with bulging disc. was told to go to pt and exercise. chronic for 5-6 year s has had MRI in past with bulging disc. was told to go to pt and exercise, neg st leg Thyroid disorders (20 sources) Hypothyroidism; Translations: [Hypothyroid] 04-10-2018 Chronic Comment on above: Has not been taking thyroid med since Oct 2017 Has not been taking thyroid med since Oct 2017 , has not been taking for awhile pretty complaint on meds synthroid 75mcg exce pt Sundays takes 150mcg Unclassified (20 sources) Attention deficit disorder (ADD) in adult Unclassified (20 sources) BMI 24.0-24.9, adult; Translations: [Body mass index 20-24 - normal] Resolved: 0 06-27-2018 Unclassified (20 sources) Nonsmoker; Translations: [Non-smoker] 04-10-2018 Unclassified (20 sources) Unclassified (20 sources) BMI 25.0-25.9,adult Unclassified (20 sources) BMI 23.0-23.9, adult; Translations: [Body mass index 20-24 - normal] Resolved: 9 10-23-2018 Unclassified (20 sources) History of Clostridium difficile colitis Unclassified (20 sources) CRP elevated Unclassified (20 sources) Hip pain, left Unclassified (20 sources) Hypercholesteremia Unclassified (20 sources) Eczema of tip of finger Unclassified (9 sources) BMI 26.0-26.9,adult Unclassified (9 sources) Ceruminosis Unclassified (4 sources) BMI 21.0-21.9, adult Past or Other Problems Problem Classification Problem Date Documented Da te Episodic/Chronic Bacterial infection; unspecified site (1 source) Bacterial upper respiratory infection; Translations: [Sinusitis, bacterial] Resolved: 06-27-2018 07-01-2018 Episodic Chronic kidney disease (9 sources) Chronic kidney disease Mood disorders (20 sources) Mood disorders Other screening for suspected conditions (not mental disorders or infectious disease) (20 sources) Elevated C-reactive protein; Translations: [CRP elevated] Resolved: 10-23-2018 10-23-2018 Comment on above: on 06-27 was 9.3, will repeat in 6 weks, ? related to cdiff or thyroid Unclassified (20 sources) Arthralgia Unclassified (20 sources) Skin texture changes Unclassified (20 sources) Unspecified Diagnosis Resolved: 04-29-2018 04-10-2018 Unclassified (20 sources) Flu-like symptoms Unclassified (20 sources) Thrush, oral Unclassified (20 sources) Sinusitis, bacterial Unclassified (20 sources) Diarrhea, infectious, adult Unclassified (20 sources) Abdominal pain, acute Unclassified (20 sources) Elevated blood pressure reading Unclassified (20 sources) Arm numbness Unclassified (14 sources) Wax in ear Results Test Name Value Interpretation Reference Range Facility LIPID PANEL ([id number])Ordered B y: Bark Scaler on 08-11-2022 Cholesterol [Mass/Vol] 156 mg/dL Normal 100-199 [facility]; [facility] Work Phone: Comment on above: PATIENT WAS FASTINGP ERFORMED BY: LACEY [facility] [id number] Chen RoadDublin [place] [id number] Cholesterol in HDL [Mass/Vol] 39 mg/dL Abnormal [facility]; [facility] Work Phone: Comment on above: PATIENT WAS FASTINGP ERFORMED BY: CB [facility] [id number] RoadDublin [place] [id number] Triglyceride [Mass/Vol] 100 mg/dL Normal 0-149 [facility]; [facility] Work Phone: Comment on above: PATIENT WAS FASTINGP ERFORMED BY: CB [facility] [id number] [address] RoadDublin [place] [id number] LIPID PANEL ([id number]) 19 mg/dL Normal 5-40 Compr ehensive [facility]; [facility] Work Phone: Comment on above: PATIENT WAS FASTINGP ERFORMED BY: CB [facility] [id number] [address] RoadDublin [place] [id number] LIPID PANEL ([id number]) 98 mg/dL Normal 0-99 Compr ens[facility]; [facility] Work Phone: Comment on above: PATIENT WAS FASTINGP ERFORMED BY: CB [facility] [id number] RoadDublin [place] [id number] LIPID PANEL ([id number]) 2.5 {ratio} Normal 0.0-3.[address] [facility]; [facility] Work Phone: Comment on above: LDL/HDL Ratio Men Wo men 1/2 Avg.Risk 1.0 1.5 Avg.Risk 3.6 3.2 2X Avg.Risk 6.2 5.0 3X Avg.Risk 8.0 6.1 PATIENT WAS FASTINGP ERFORMED BY: LACEY [facility] [address] [facility] [place] [id number] METABOLIC PANEL, COMPREHENSI VE ([id number])Ordered By: Bark Scaler on 08-11-2022 Albumin [Mass/Vol] 4.5 g/dL Normal 4.0-5.0 [facility]; [facility] Work Phone: Comment on above: PATIENT WAS FASTINGP ERFORMED BY: LACEY [facility] Tywtgo[address] [facility] [place] [id number] Albumin/Globulin [Mass ratio] 1.8 {ratio} Normal 1.2-2.2 [facility]; [facility] Work Phone: Comment on above: PATIENT WAS FASTINGP ERFORMED BY: LACEY Nikolai Alvarezlin[address] [facility] [place] [id number] ALP [Catalytic activity/Vol] 80 U/L Normal 44-121 [facility]; [facility] Work Phone: Comment on above: PATIENT WAS FASTINGP ERFORMED BY: LACEY Alvarezlin[address] [facility] [place] [id number] ALT [Catalytic activity/Vol] 16 U/L Normal 0-44 [facility]; [facility] Work Phone: Comment on above: PATIENT WAS FASTINGP ERFORMED BY: LACEY [facility] [id number] [facility] [place] [id number] AST [Catalytic activity/Vol] 17 U/L Normal 0-40 [facility]; [facility] Work Phone: Comment on above: PATIENT WAS FASTINGP ERFORMED BY: LACEY [facility] Knahya[address] [facility] [place] [id number] Bilirubin [Mass/Vol] 0.7 mg/dL Normal 0.0-1.2 [facility]; [facility] Work Phone: Comment on above: PATIENT WAS FASTINGP ERFORMED BY: LACEY [facility] Xitdxg4099 [address] RoadAtrium Health Cabarrusin [place] [id number] Calcium [Mass/Vol] 9.8 mg/dL Normal 8.7-10.2 [facility]; [facility] Work Phone: Comment on above: PATIENT WAS FASTINGP ERFORMED BY: LACEY [facility] Rraadg69[address] RoadDublin [place] [id number] Chloride [Moles/Vol] 102 mmol/L Normal 96-106 [facility]; [facility] Work Phone: Comment on above: PATIENT WAS FASTINGP ERFORMED BY: [facility] [id number] RoadDublin [place] [id number] CO2 [Moles/Vol] 26 mmol/L Normal 20-29 [facility]; [facility] Work Phone: Comment on above: PATIENT WAS FASTINGP ERFORMED BY: [facility] [id number] RoadDublin [place] [id number] Creatinine [Mass/Vol] 1.00 mg/dL Normal 0.76-1.27 [facility]; [facility] Work Phone: Comment on above: PATIENT WAS FASTINGP ERFORMED BY: LACEY [facility] Mvbioe[address] [facility] [place] [id number] GFR/1.73 sq M.predicted among non-blacks MDRD (S/P/Bld) [Vol rate/Area] 95 mL/min/{1.73_m2} Normal Comprehensiv e [facility]; [facility] Work Phone: Comment on above: PATIENT WAS FASTINGP ERFORMED BY: [facility] Iehyei[address] RoadDublin [place] [id number] Globulin (S) [Mass/Vol] 2.5 g/dL Normal 1.5-4.5 [facility]; [facility] Work Phone: Comment on above: PATIENT WAS FASTINGP ERFORMED BY: [facility] Dnlbyg6992 [address] RoadDublin [place] [id number] Glucose [Mass/Vol] 87 mg/dL Normal 70-99 [facility]; [facility] Work Phone: Comment on above: PATIENT WAS FASTINGP ERFORMED BY: CB [facility] Xilxpt83[address] RoadDublin [place] [id number] Potassium [Moles/Vol] 4.8 mmol/L Normal 3.5-5.2 [facility]; [facility] Work Phone: Comment on above: PATIENT WAS FASTINGP ERFORMED BY: CB [facility] Iuotdc23[address] RoadDublin [place] [id number] Protein [Mass/Vol] 7.0 g/dL Normal 6.0-8.5 [facility]; [facility] Work Phone: Comment on above: PATIENT WAS FASTINGP ERFORMED BY: CB [facility] Kvibue[address] RoadDublin [place] [id number] Sodium [Moles/Vol] 141 mmol/L Normal 134-144 [facility]; [facility] Work Phone: Comment on above: PATIENT WAS FASTINGP ERFORMED BY: CB [facility] Penndd25[address] RoadDublin [place] [id number] Urea nitrogen [Mass/Vol] 11 mg/dL Normal 6-24 [facility]; [facility] Work Phone: Comment on above: PATIENT WAS FASTINGP ERFORMED BY: CB [facility] [id number] RoadDublin [place] [id number] Urea nitrogen/Creatinine [Mass ratio] 11 mg/mg Normal 9-20 [facility]; [facility] Work Phone: Comment on above: PATIENT WAS FASTINGP ERFORMED BY: CB [facility] Yxsfrm075[address] RoadDublin [place] [id number] TSH (THYROID STIMULATING HOR NIKI) ([id number])Ordered By: Bark Scaler on 08-11-2022 TSH Qn 4.330 {uIU/mL} Normal 0.450-4.500 [facility]; [facility] Work Phone: Comment on above: PATIENT WAS FASTINGP ERFORMED BY: CB [facility] [id number] RoadDublin [place] [id number] Urinalysis, Office ([id number])Or dered By: Kim Menjivar on 07-31-2022 Bilirubin Ql (U) Negative Normal Comprehe nsive [facility]; [facility] Work Phone: Glucose Test strip (U) [Mass/Vol] Negative Normal [facility]; [facility] Work Phone: Hemoglobin Ql (U) Negative Normal Compreh ensive [facility]; [facility] Work Phone: Ketones Ql (U) Negative Normal Comprehens rita [facility]; [facility] Work Phone: Leukocyte esterase Test strip Ql (U) Negative Normal [facility]; [facility] Work Phone: Nitrite Ql (U) Negative Normal Comprehens rita [facility]; [facility] Work Phone: pH (U) 6 [pH] Abnormal [facility]; [facility] Work Phone: Protein Ql (U) Negative Normal Comprehens rita [facility]; [facility] Work Phone: Specific gravity (U) [Rel density] 1.030 1 Abnormal [facility]; [facility] Work Phone: Urobilinogen (24H U) [Mass/Time] Normal Normal [facility]; [facility] Work Phone: Urine Drug Screen -Medicare (Office - Urine Drug Screen 9 Panel) ([id number])Ordered By: Indira Staley on 07-17-2022 Barbiturates Ql (S/P/Bld) n Normal [facility]; [facility] Work Phone: Benzodiazepines Ql (U) n Normal [facility]; [facility] Work Phone: Benzoylecgonine Confirm Ql n Normal [facility]; [facility] Work Phone: Cannabinoids Confirm Ql (U) n Normal [facility]; [facility] Work Phone: Methadone [Mass/Vol] n Normal [facility]; [facility] Work Phone: Methamphetamine Ql Positive Normal Compre hensive [facility]; [facility] Work Phone: Opiates Ql (U) n Normal Comprehens rita [facility]; [facility] Work Phone: TSH (THYROID STIMULATING HOR NIKI) ([id number])Ordered By: Bark Scaler on 10-24-2021 TSH Qn 5.570 {uIU/mL} Abnormal 0.450-4.500 Comprehen sive [facility]; [facility] Work Phone: Comment on above: August 23 repeat; PATIE NT NOT FASTINGPERFORMED BY: [facility] LabRagingWire[address] [place] [id number] CBC, Platelets & Auto Diff ( [id number])Ordered By: Bark Scaler on 06-30-2021 Basophils (Bld) [#/Vol] 0.1 10*3/uL Normal 0.0-0.2 [facility]; [facility] Work Phone: Comment on above: PATIENT WAS FASTINGP ERFORMED BY: [facility]Gly[facility] Kwfjfw[address] Homesin [place] [id number] Basophils/100 WBC (Bld) 1 % Normal [facility]; [facility] Work Phone: Comment on above: PATIENT WAS FASTINGP ERFORMED BY: [facility] LabGly[facility] Ghajaz[address] Homesblin [place] [id number] Eosinophils (Bld) [#/Vol] 0.2 10*3/uL Normal 0.0-0.4 [facility]; [facility] Work Phone: Comment on above: PATIENT WAS FASTINGP ERFORMED BY: [facility] LabGlySure Ydbmap[address] [employer] Information TechnologyDublin [place] [id number] Eosinophils/100 WBC (Bld) 3 % Normal [facility]; [facility] Work Phone: Comment on above: PATIENT WAS FASTINGP ERFORMED BY: Lil Monkey Butt[address] [place] [id number] Erythrocyte distribution width (RBC) [Ratio] 12.5 % Normal 11.6-15.4 [facility]; [facility] Work Phone: Comment on above: PATIENT WAS FASTINGP ERFORMED BY: [facility] Bftnvs7045 [address] RoadDublin [place] [id number] Hematocrit (Bld) [Volume fraction] 45.7 % Normal 37.5-51.0 [facility]; [facility] Work Phone: Comment on above: PATIENT WAS FASTINGP ERFORMED BY: [facility] Vssgnx26[address] Roadblin [place] [id number] Hemoglobin (Bld) [Mass/Vol] 15.6 g/dL Normal 13.0-17.7 [facility]; [facility] Work Phone: Comment on above: PATIENT WAS FASTINGP ERFORMED BY: [facility] Ujexrn22[address] Roadblin [place] [id number] Immature granulocytes (Bld) [#/Vol] 0.0 10*3/uL Normal 0.0-0.1 [facility]; [facility] Work Phone: Comment on above: PATIENT WAS FASTINGP ERFORMED BY: [facility] [id number] [address] RoadDublin [place] [id number] Immature granulocytes/100 WBC (Bld) 0 % Normal [facility]; [facility] Work Phone: Comment on above: PATIENT WAS FASTINGP ERFORMED BY: [facility] Daqbza5[address] RoadDublin [place] [id number] Lymphocytes (Bld) [#/Vol] 2.1 10*3/uL Normal 0.7-3.1 [facility]; [facility] Work Phone: Comment on above: PATIENT WAS FASTINGP ERFORMED BY: [facility] Aqpyvp0752 [address] RoadDublin [place] [id number] Lymphocytes/100 WBC (Bld) 35 % Normal [facility]; [facility] Work Phone: Comment on above: PATIENT WAS FASTINGP ERFORMED BY: CB [facility] [id number] [address] RoadDublin [place] [id number] MCH (RBC) [Entitic mass] 29.4 pg Normal 26.6-33.0 [facility]; [facility] Work Phone: Comment on above: PATIENT WAS FASTINGP ERFORMED BY: LACEY [facility] Yplhmp1048 Chen RoadDublin [place] [id number] MCHC (RBC) [Mass/Vol] 34.1 g/dL Normal 31.5-35.7 [facility]; [facility] Work Phone: Comment on above: PATIENT WAS FASTINGP ERFORMED BY: CB [facility] Bweosm8779 Chen RoadDublin [place] [id number] MCV (RBC) [Entitic vol] 86 fL Normal 79-97 [facility]; [facility] Work Phone: Comment on above: PATIENT WAS FASTINGP ERFORMED BY: CB [facility] Eajulm9828 [address] RoadDublin [place] [id number] Monocytes (Bld) [#/Vol] 0.6 10*3/uL Normal 0.1-0.9 [facility]; [facility] Work Phone: Comment on above: PATIENT WAS FASTINGP ERFORMED BY: LACEY [facility] Rdghby2186 Chen RoadDublin [place] [id number] Monocytes/100 WBC (Bld) 9 % Normal [facility]; [facility] Work Phone: Comment on above: PATIENT WAS FASTINGP ERFORMED BY: CB [facility] Oqqrde5922 [address] RoadDublin [place] [id number] Neutrophils (Bld) [#/Vol] 3.1 10*3/uL Normal 1.4-7.0 [facility]; [facility] Work Phone: Comment on above: PATIENT WAS FASTINGP ERFORMED BY: CB [facility] Nqavta4892 [address] RoadDublin [place] [id number] Neutrophils/100 WBC (Bld) 52 % Normal [facility]; [facility] Work Phone: Comment on above: PATIENT WAS FASTINGP ERFORMED BY: CB [facility] Ylkosb4028 [address] RoadDublin [place] [id number] Platelets (Bld) [#/Vol] 266 10*3/uL Normal 150-450 [facility]; [facility] Work Phone: Comment on above: PATIENT WAS FASTINGP ERFORMED BY: LACEY Mariannefeli AlvarezYwqjlr3488 Chen RoadDublin [place] [id number] RBC (Bld) [#/Vol] 5.30 10*6/uL Normal 4.14-5.80 [facility]; [facility] Work Phone: Comment on above: PATIENT WAS FASTINGP ERFORMED BY: LACEY Mariannefeli AlvarezBecpul1276 [address] RoadDublin [place] [id number] WBC (Bld) [#/Vol] 6.0 10*3/uL Normal 3.4-10.8 [facility]; [facility] Work Phone: Comment on above: PATIENT WAS FASTINGP ERFORMED BY: LACEY Alvarezlin6370 [address] RoadDublin [place] [id number] LIPID PANEL (89337)Ordered B y: Bark Scaler on 06-30-2021 Cholesterol [Mass/Vol] 234 mg/dL Abnormal 100-199 [facility]; [facility] Work Phone: Comment on above: PATIENT WAS FASTINGP ERFORMED BY: LACEY Alvarezlin6370 [address] RoadDublin [place] [id number] Cholesterol in HDL [Mass/Vol] 42 mg/dL Normal [facility]; [facility] Work Phone: Comment on above: PATIENT WAS FASTINGP ERFORMED BY: LACEY Alvarezlin6370 [address] RoadDublin [place] [id number] Triglyceride [Mass/Vol] 116 mg/dL Normal 0-149 [facility]; [facility] Work Phone: Comment on above: PATIENT WAS FASTINGP ERFORMED BY: LACEY Labfeli AlvarezJiqfzu0952 [address] RoadDublin [place] [id number] LIPID PANEL (30582) 21 mg/dL Normal 5-40 [facility]; [facility] Work Phone: Comment on above: PATIENT WAS FASTINGP ERFORMED BY: LACEY Alvarezlin6370 [address] RoadDublin [place] [id number] LIPID PANEL (52320) 171 mg/dL Abnormal 0-99 [facility]; [facility] Work Phone: Comment on above: PATIENT WAS FASTINGP ERFORMED BY: LACEY Mariannefeli AlvarezIhonak7801 [facility] [id number] LIPID PANEL (85044) 4.1 {ratio} Abnormal 0.0-3.6 [facility]; [facility] Work Phone: Comment on above: LDL/HDL Ratio Men Wo men 1/2 Avg.Risk 1.0 1.5 Avg.Risk 3.6 3.2 2X Avg.Risk 6.2 5.0 3X Avg.Risk 8.0 6.1 PATIENT WAS FASTINGP ERFORMED BY: LACEY Alvarezlin6370 [facility] [id number] Metabolic Panel, Comprehensi ve (24144)Ordered By: Bark Scaler on 06-30-2021 Albumin [Mass/Vol] 4.6 g/dL Normal 4.0-5.0 [facility]; [facility] Work Phone: Comment on above: PATIENT WAS FASTINGP ERFORMED BY: LACEY Alvarezlin6370 [facility] [id number] Albumin/Globulin [Mass ratio] 1.7 {ratio} Normal 1.2-2.2 [facility]; [facility] Work Phone: Comment on above: PATIENT WAS FASTINGP ERFORMED BY: LACEY Labfeli AlvarezIxkmip9847 [facility] [id number] ALP [Catalytic activity/Vol] 77 U/L Normal 44-121 [facility]; [facility] Work Phone: Comment on above: PATIENT WAS FASTINGP ERFORMED BY: LACEY Labfeli AlvarezJclagd8743 [facility] [id number] ALT [Catalytic activity/Vol] 18 U/L Normal 0-44 [facility]; [facility] Work Phone: Comment on above: PATIENT WAS FASTINGP ERFORMED BY: LACEY Labnarciso Eagrhc8054 [facility] [id number] AST [Catalytic activity/Vol] 18 U/L Normal 0-40 [facility]; [facility] Work Phone: Comment on above: PATIENT WAS FASTINGP ERFORMED BY: LACEY Gomez6370 [address] [facility] [id number] Bilirubin [Mass/Vol] 0.6 mg/dL Normal 0.0-1.2 [facility]; [facility] Work Phone: Comment on above: PATIENT WAS FASTINGP ERFORMED BY: [facility]6370 [facility] [id number] Calcium [Mass/Vol] 9.8 mg/dL Normal 8.7-10.2 [facility]; [facility] Work Phone: Comment on above: PATIENT WAS FASTINGP ERFORMED BY: [facility] Ehvhqd6587 [facility] [id number] Chloride [Moles/Vol] 100 mmol/L Normal 96-106 [facility]; [facility] Work Phone: Comment on above: PATIENT WAS FASTINGP ERFORMED BY: [facility] Iddvob8419 [address] [facility]in [place] [id number] CO2 [Moles/Vol] 24 mmol/L Normal 20-29 [facility]; [facility] Work Phone: Comment on above: PATIENT WAS FASTINGP ERFORMED BY: [facility] Gjvfqn3300 [facility] [id number] Creatinine [Mass/Vol] 0.98 mg/dL Normal 0.76-1.27 [facility]; [facility] Work Phone: Comment on above: PATIENT WAS FASTINGP ERFORMED BY: [facility] Adpquj4867 [facility] [id number] GFR/1.73 sq M.predicted among non-blacks MDRD (S/P/Bld) [Vol rate/Area] 98 mL/min/{1.73_m2} Normal Com[facility]; [facility] Work Phone: Comment on above: PATIENT WAS FASTINGP ERFORMED BY: [facility] Bsszsg9963 Chen RoadDublin [place] [id number] Globulin (S) [Mass/Vol] 2.7 g/dL Normal 1.5-4.5 [facility]; [facility] Work Phone: Comment on above: PATIENT WAS FASTINGP ERFORMED BY: [facility] Smpnlq2571 Chen RoadDublin [place] [id number] Glucose [Mass/Vol] 93 mg/dL Normal 65-99 [facility]; [facility] Work Phone: Comment on above: PATIENT WAS FASTINGP ERFORMED BY: CB [facility] Pvrjrk1945 [address] RoadDublin [place] [id number] Potassium [Moles/Vol] 4.9 mmol/L Normal 3.5-5.2 [facility]; [facility] Work Phone: Comment on above: PATIENT WAS FASTINGP ERFORMED BY: [facility] Cdobuz4758 Chen RoadDublin [place] [id number] Protein [Mass/Vol] 7.3 g/dL Normal 6.0-8.5 [facility]; [facility] Work Phone: Comment on above: PATIENT WAS FASTINGP ERFORMED BY: [facility] Nrpojw8471 [address] RoadDublin [place] [id number] Sodium [Moles/Vol] 141 mmol/L Normal 134-144 [facility]; [facility] Work Phone: Comment on above: PATIENT WAS FASTINGP ERFORMED BY: [facility] Sxnswf6378 [address] RoadDublin [place] [id number] Urea nitrogen [Mass/Vol] 12 mg/dL Normal 6-24 [facility]; [facility] Work Phone: Comment on above: PATIENT WAS FASTINGP ERFORMED BY: CB [facility] Ntcsxx5806 [address] RoadDublin [place] [id number] Urea nitrogen/Creatinine [Mass ratio] 12 mg/mg Normal 9-20 [facility]; [facility] Work Phone: Comment on above: PATIENT WAS FASTINGP ERFORMED BY: LACEY [facility] Bzrztp1547 Chen RoadDublin [place] [id number] TSH (THYROID STIMULATING HOR NIKI) ([id number])Ordered By: Bark Scaler on 06-30-2021 TSH Qn 9.510 {uIU/mL} Abnormal 0.450-4.500 [facility]; [facility] Work Phone: Comment on above: PATIENT WAS FASTINGP ERFORMED BY: [facility] Uvuyaq7116 [address] RoadD[place] [id number] CALCIFEDIOL ([id number])Ordered B y: Bark Scaler on 05-28-2020 25-Hydroxyvitamin D2+25-Hydroxyvitami n D3 [Mass/Vol] 44.7 ng/mL Normal 30.0-100.0 [facility]; [facility] Work Phone: Comment on above: Vitamin D deficiency has been defined by the Harris of[place] Healthcarecine and an Endocrine Society practice guideline as alevel of serum 25-OH vitamin D less than 20 ng/mL (1,2).The Endocrine Society went on to further define vitamin Dinsufficiency as a level between 21 and 29 ng/mL (2).1. IOM (Harris of Medicine). 2010. Dietary reference intakes for calcium and D. [place]: The National Academies Press.2. Megha MF, Keysha NC, Agapito VENTURA, et al. Evaluation, treatment, and prevention of vitamin D deficiency: an Endocrine Society clinical practice guideline. JCEM. 2010; 96(7):1911-30. PATIENT NOT FASTINGP ERFORMED BY: [facility] Kxpwar0924 [address] RoadDublin [place] [id number] TSH (THYROID STIMULATING HOR NIKI) ([id number])Ordered By: Bark Scaler on 05-28-2020 TSH Qn 3.220 {uIU/mL} Normal 0.450-4.500 [facility]; [facility] Work Phone: Comment on above: PATIENT NOT FASTINGP ERFORMED BY: [facility] Nwlpdy5317 [address] RoadDublin [place] [id number] LIPID PANEL (26847)Ordered B y: Bark Scaler on 03-30-2020 Cholesterol [Mass/Vol] 208 mg/dL Abnormal 100-199 [facility]; [facility] Work Phone: Comment on above: Mar 28, 2020; PATIENT WAS FASTINGPERFORMED BY: LACEY [facility] Wfqtws5706 [address] RoadDublin [place] [id number] Cholesterol in HDL [Mass/Vol] 43 mg/dL Normal [facility]; [facility] Work Phone: Comment on above: Mar 28, 2020; PATIENT WAS FASTINGPERFORMED BY: CB [facility] Rjmteb4097 Chen RoadDublin [place] [id number] Cholesterol in LDL/Cholesterol in HDL [Mass ratio] 3.3 {ratio} Normal 0.0-3.6 [facility]; [facility] Work Phone: Comment on above: LDL/HDL Ratio Men Wo men 1/2 Avg.Risk 1.0 1.5 Avg.Risk 3.6 3.2 2X Avg.Risk 6.2 5.0 3X Avg.Risk 8.0 6.1 Mar 28, 2020; PATIENT WAS FASTINGPERFORMED BY: LACEY [facility] Aqkppz4933 Chen RoadDublin [place] [id number] Triglyceride [Mass/Vol] 129 mg/dL Normal 0-149 [facility]; [facility] Work Phone: Comment on above: Mar 28, 2020; PATIENT WAS FASTINGPERFORMED BY: CB [facility] Yukcwg8897 [address] RoadDublin [place] [id number] LIPID PANEL (39496) 23 mg/dL Normal 5-40 Compr ehensive Internal Medicine; [facility] Work Phone: Comment on above: Mar 28, 2020; PATIENT WAS FASTINGPERFORMED BY: CB [facility] Ryeajq5977 [address] RoadDublin [place] [id number] LIPID PANEL (75100) 142 mg/dL Abnormal 0-99 Compr ehensive [facility] Medicine; [facility] Work Phone: Comment on above: Mar 28, 2020; PATIENT WAS FASTINGPERFORMED BY: CB [facility] Ikxpfl2283 [facility] [id number] LIPID PANEL (46018) 3.3 {ratio} Normal 0.0-3.6 Comp rehensive Internal Medicine; [facility] Work Phone: Comment on above: LDL/HDL Ratio Men Wo men 1/2 Avg.Risk 1.0 1.5 Avg.Risk 3.6 3.2 2X Avg.Risk 6.2 5.0 3X Avg.Risk 8.0 6.1 Mar 28, 2020; PATIENT WAS FASTINGPERFORMED BY: Roller6370 [facility] [id number] TSH (THYROID STIMULATING HOR NIKI) (49250)Ordered By: Bark Scaler on 03-30-2020 TSH Qn 6.510 {uIU/mL} Abnormal 0.450-4.500 [facility]; [facility] Work Phone: Comment on above: Mar 28 2020; PATIENT WAS FASTINGPERFORMED BY: [facility] Tolqop1300 [facility] [id number] CALCIFEDIOL (02411)Ordered B y: Bark Scaler on 01-23-2020 25-Hydroxyvitamin D2+25-Hydroxyvitami n D3 [Mass/Vol] 27.6 ng/mL Abnormal 30.0-100.0 [facility] Work Phone: Comment on above: Vitamin D deficiency has been defined by the Harris of[place] Healthcarecine and an Endocrine Society practice guideline as alevel of serum 25-OH vitamin D less than 20 ng/mL (1,2).The Endocrine Society went on to further define vitamin Dinsufficiency as a level between 21 and 29 ng/mL (2).1. IOM (Harris of Medicine). 2010. Dietary reference intakes for calcium and D. [place]: The National Academies Press.2. Megha MF, Keysha MCCLURE, Agapito VENTURA, et al. Evaluation, treatment, and prevention of vitamin D deficiency: an Endocrine Society clinical practice guideline. JCEM. 2010; 96(7):1911-30. Dec 31; PATIENT WAS FASTINGPERFORMED BY: Roller6370 [facility] [id number] CBC, Platelets & Auto Diff ( 14884)Ordered By: Bark Scaler on 01-23-2020 Basophils (Bld) [#/Vol] 0.1 {x10E3/uL} Normal 0.0-0.2 [facility] Work Phone: Comment on above: Dec 31; PATIENT WAS FASTINGPERFORMED BY: [facility] Vwczxm6947 [address] [facility] [id number] Basophils (Bld) [#/Vol] 0.1 10*3/uL Normal 0.0-0.2 [facility]; [facility] Work Phone: Comment on above: Dec 31; PATIENT WAS FASTINGPERFORMED BY: [facility] Ceyzlh7966 [facility] [id number] Basophils/100 WBC (Bld) 1 % Normal [facility] Work Phone: Comment on above: Dec 31; PATIENT WAS FASTINGPERFORMED BY: [facility] Rsowsg0240 [facility] [id number] Eosinophils (Bld) [#/Vol] 0.2 {x10E3/uL} Normal 0.0-0.4 [facility] Work Phone: Comment on above: Dec 31; PATIENT WAS FASTINGPERFORMED BY: [facility] Chxbgn9322 [facility] [id number] Eosinophils (Bld) [#/Vol] 0.2 10*3/uL Normal 0.0-0.4 [facility]; [facility] Work Phone: Comment on above: Dec 31; PATIENT WAS FASTINGPERFORMED BY: [facility] Iuzkhi8868 [address] [facility] [id number] Eosinophils/100 WBC (Bld) 3 % Normal [facility] Work Phone: Comment on above: Dec 31; PATIENT WAS FASTINGPERFORMED BY: [facility] Wyhwzm7733 [facility] [id number] Erythrocyte distribution width (RBC) [Ratio] 12.7 % Normal 11.6-15.4 [facility] Work Phone: Comment on above: Dec 31; PATIENT WAS FASTINGPERFORMED BY: CB [facility] Imuwky5303 Chen RoadDublin [place] [id number] Hematocrit (Bld) [Volume fraction] 45.4 % Normal 37.5-51.0 [facility] Work Phone: Comment on above: Dec 31; PATIENT WAS FASTINGPERFORMED BY: CB [facility] Sbwxtp2492 Chen RoadDublin [place] [id number] Hemoglobin (Bld) [Mass/Vol] 15.0 g/dL Normal 13.0-17.7 [facility] Work Phone: Comment on above: Dec 31; PATIENT WAS FASTINGPERFORMED BY: CB [facility] Tpmlch5363 Chen RoadDublin [place] [id number] Immature granulocytes (Bld) [#/Vol] 0.1 {x10E3/uL} Normal 0.0-0.1 [facility] Work Phone: Comment on above: Dec 31; PATIENT WAS FASTINGPERFORMED BY: CB [facility] Kzqpmf6035 Chen RoadDublin [place] [id number] Immature granulocytes (Bld) [#/Vol] 0.1 10*3/uL Normal 0.0-0.1 [facility]; [facility] Work Phone: Comment on above: Dec 31; PATIENT WAS FASTINGPERFORMED BY: CB [facility] Akfwyv6112 Chen RoadDublin [place] [id number] Immature granulocytes/100 WBC (Bld) 1 % Normal [facility] Work Phone: Comment on above: Dec 31; PATIENT WAS FASTINGPERFORMED BY: CB [facility] Nplcxa8850 [address] RoadDublin [place] [id number] Lymphocytes (Bld) [#/Vol] 2.0 {x10E3/uL} Normal 0.7-3.1 [facility] Work Phone: Comment on above: Dec 31; PATIENT WAS FASTINGPERFORMED BY: CB [facility] Pwykij1322 Chen RoadDublin [place] [id number] Lymphocytes (Bld) [#/Vol] 2.0 10*3/uL Normal 0.7-3.1 [facility]; [facility] Work Phone: Comment on above: Dec 31; PATIENT WAS FASTINGPERFORMED BY: CB [facility] Rvxacs5608 [address] RoadD[place] [id number] Lymphocytes/100 WBC (Bld) 30 % Normal [facility] Work Phone: Comment on above: Dec 31; PATIENT WAS FASTINGPERFORMED BY: CB [facility] Nmlfxg9263 Chen RoadDublin [place] [id number] MCH (RBC) [Entitic mass] 27.9 pg Normal 26.6-33.0 [facility] Work Phone: Comment on above: Dec 31; PATIENT WAS FASTINGPERFORMED BY: CB [facility] Ermwix5922 [address] RoadDublin [place] [id number] MCHC (RBC) [Mass/Vol] 33.0 g/dL Normal 31.5-35.7 [facility] Work Phone: Comment on above: Dec 31; PATIENT WAS FASTINGPERFORMED BY: CB [facility] Aeuhpk0422 [address] RoadDublin [place] [id number] MCV (RBC) [Entitic vol] 85 fL Normal 79-97 [facility] Work Phone: Comment on above: Dec 31; PATIENT WAS FASTINGPERFORMED BY: CB [facility] Nuwndf9497 [address] RoadDublin [place] [id number] Monocytes (Bld) [#/Vol] 0.6 {x10E3/uL} Normal 0.1-0.9 [facility] Work Phone: Comment on above: Dec 31; PATIENT WAS FASTINGPERFORMED BY: CB [facility] Ivuvnh8737 [address] RoadDublin [place] [id number] Monocytes (Bld) [#/Vol] 0.6 10*3/uL Normal 0.1-0.9 [facility]; [facility] Work Phone: Comment on above: Dec 31; PATIENT WAS FASTINGPERFORMED BY: CB [facility] Tsxbnn3293 Chen RoadDublin [place] [id number] Monocytes/100 WBC (Bld) 8 % Normal [facility] Work Phone: Comment on above: Dec 31; PATIENT WAS FASTINGPERFORMED BY: CB [facility] Kkcqeb1442 Chen RoadDublin [place] [id number] Neutrophils (Bld) [#/Vol] 3.9 {x10E3/uL} Normal 1.4-7.0 [facility] Work Phone: Comment on above: Dec 31; PATIENT WAS FASTINGPERFORMED BY: CB [facility] Msxfky8036 [address] RoadDublin [place] [id number] Neutrophils (Bld) [#/Vol] 3.9 10*3/uL Normal 1.4-7.0 [facility]; [facility] Work Phone: Comment on above: Dec 31; PATIENT WAS FASTINGPERFORMED BY: LACEY [facility] Wzkjty4950 Chen RoadDublin [place] [id number] Neutrophils/100 WBC (Bld) 57 % Normal [facility] Work Phone: Comment on above: Dec 31; PATIENT WAS FASTINGPERFORMED BY: CB [facility] Mawwnr7757 [address] RoadD[place] [id number] Platelets (Bld) [#/Vol] 278 {x10E3/uL} Normal 150-450 [facility] Work Phone: Comment on above: Dec 31; PATIENT WAS FASTINGPERFORMED BY: CB [facility] Whqfkp6721 Chen RoadDublin [place] [id number] Platelets (Bld) [#/Vol] 278 10*3/uL Normal 150-450 [facility]; [facility] Work Phone: Comment on above: Dec 31; PATIENT WAS FASTINGPERFORMED BY: CB [facility] Queytm4621 Chen RoadDublin [place] [id number] RBC (Bld) [#/Vol] 5.37 {x10E6/uL} Normal 4.14-5.80 [facility] Internal Medicine Work Phone: Comment on above: Dec 31; PATIENT WAS FASTINGPERFORMED BY: CB [facility] Afuxzm7677 Chen RoadDublin [place] [id number] RBC (Bld) [#/Vol] 5.37 10*6/uL Normal 4.14-5.80 [facility]; [facility] Work Phone: Comment on above: Dec 31; PATIENT WAS FASTINGPERFORMED BY: CB [facility] Djuode4946 Chen RoadDublin [place] [id number] WBC (Bld) [#/Vol] 6.8 {x10E3/uL} Normal 3.4-10.8 [facility] Work Phone: Comment on above: Dec 31; PATIENT WAS FASTINGPERFORMED BY: CB [facility] Yljkgr2087 [address] RoadDublin [place] [id number] WBC (Bld) [#/Vol] 6.8 10*3/uL Normal 3.4-10.8 [facility]; [facility] Work Phone: Comment on above: Dec 31; PATIENT WAS FASTINGPERFORMED BY: CB [facility] Wirrxu5118 [address] [facility] [place] [id number] LIPID PANEL (22154)Ordered B y: Bark Scaler on 01-23-2020 Cholesterol [Mass/Vol] 256 mg/dL Abnormal 100-199 [facility] Work Phone: Comment on above: Dec 31; PATIENT WAS FASTINGPERFORMED BY: CB [facility] Plqirc8767 [address] [facility]in [place] [id number] Cholesterol in HDL [Mass/Vol] 38 mg/dL Abnormal [facility] Work Phone: Comment on above: Dec 31; PATIENT WAS FASTINGPERFORMED BY: CB [facility] Dvgjui0415 Chen Roadblin [place] [id number] Cholesterol in LDL/Cholesterol in HDL [Mass ratio] 4.9 {ratio} Abnormal 0.0-3.6 [facility] Work Phone: Comment on above: LDL/HDL Ratio Men Wo men 1/2 Avg.Risk 1.0 1.5 Avg.Risk 3.6 3.2 2X Avg.Risk 6.2 5.0 3X Avg.Risk 8.0 6.1 Dec 31; PATIENT WAS FASTINGPERFORMED BY: LAECY LabCohernandez Lpgsia7003 [facility] [id number] Triglyceride [Mass/Vol] 174 mg/dL Abnormal 0-149 [facility] Work Phone: Comment on above: Dec 31; PATIENT WAS FASTINGPERFORMED BY: LACEY LabCohernandez Ujqfyx1770 [facility] [id number] LIPID PANEL (93207) 33 mg/dL Normal 5-40 [facility] Internal Medicine Work Phone: Comment on above: Dec 31; PATIENT WAS FASTINGPERFORMED BY: LACEY LabCohernandez Ndjcbo6556 [facility] [id number] LIPID PANEL (41309) 185 mg/dL Abnormal 0-99 [facility] Internal Medicine Work Phone: Comment on above: Dec 31; PATIENT WAS FASTINGPERFORMED BY: LACEY LabCohernandez AlvarezBobjme9152 [facility] [id number] LIPID PANEL (60254) 4.9 {ratio} Abnormal 0.0-3.6 [facility] Internal Medicine; [facility] Work Phone: Comment on above: LDL/HDL Ratio Men Wo men 1/2 Avg.Risk 1.0 1.5 Avg.Risk 3.6 3.2 2X Avg.Risk 6.2 5.0 3X Avg.Risk 8.0 6.1 Dec 31; PATIENT WAS FASTINGPERFORMED BY: LACEY LabFeli Tfrixe3325 [facility] [id number] Metabolic Panel, Comprehensi ve (69382)Ordered By: Bark Scaler on 01-23-2020 Albumin [Mass/Vol] 4.6 g/dL Normal 4.0-5.0 [facility] Internal Medicine Work Phone: Comment on above: Dec 31; PATIENT WAS FASTINGPERFORMED BY: LACEY [facility] Slanxr3279 [facility] [id number] Albumin/Globulin [Mass ratio] 1.8 {ratio} Normal 1.2-2.2 [facility] Work Phone: Comment on above: Dec 31; PATIENT WAS FASTINGPERFORMED BY: CB [facility] Dctzll8160 [address] RoadDublin [place] [id number] ALP [Catalytic activity/Vol] 84 [iU]/L Normal 39-117 [facility] Work Phone: Comment on above: Dec 31; PATIENT WAS FASTINGPERFORMED BY: CB [facility] Nssyen8957 [address] RoadDublin [place] [id number] ALP [Catalytic activity/Vol] 84 U/L Normal 39-117 [facility]; [facility] Work Phone: Comment on above: Dec 31; PATIENT WAS FASTINGPERFORMED BY: CB [facility] Fhplkn3205 [address] RoadDublin [place] [id number] ALT [Catalytic activity/Vol] 31 [iU]/L Normal 0-44 [facility] Work Phone: Comment on above: Dec 31; PATIENT WAS FASTINGPERFORMED BY: CB [facility] Ylpmny3962 [address] RoadDublin [place] [id number] ALT [Catalytic activity/Vol] 31 U/L Normal 0-44 [facility]; [facility] Work Phone: Comment on above: Dec 31; PATIENT WAS FASTINGPERFORMED BY: CB [facility] Ogmwqx4768 [address] RoadDublin [place] [id number] AST [Catalytic activity/Vol] 25 [iU]/L Normal 0-40 [facility] Work Phone: Comment on above: Dec 31; PATIENT WAS FASTINGPERFORMED BY: CB [facility] Fmmrst8128 Chen RoadDublin [place] [id number] AST [Catalytic activity/Vol] 25 U/L Normal 0-40 [facility]; [facility] Work Phone: Comment on above: Dec 31; PATIENT WAS FASTINGPERFORMED BY: CB [facility] Gavegw7657 [address] RoadDublin [place] [id number] Bilirubin [Mass/Vol] 0.4 mg/dL Normal 0.0-1.2 [facility] Work Phone: Comment on above: Dec 31; PATIENT WAS FASTINGPERFORMED BY: CB [facility] Hbvndh6992 [address] RoadDublin [place] [id number] Calcium [Mass/Vol] 9.5 mg/dL Normal 8.7-10.2 [facility] Internal Medicine Work Phone: Comment on above: Dec 31; PATIENT WAS FASTINGPERFORMED BY: CB [facility] Bxwkzz4600 [address] RoadDublin [place] [id number] Chloride [Moles/Vol] 101 mmol/L Normal 96-106 [facility] Work Phone: Comment on above: Dec 31; PATIENT WAS FASTINGPERFORMED BY: CB [facility] Vpdiki5244 [address] RoadDublin [place] [id number] CO2 [Moles/Vol] 26 mmol/L Normal 20-29 [facility] Internal Medicine Work Phone: Comment on above: Dec 31; PATIENT WAS FASTINGPERFORMED BY: CB [facility] Iacxfm5140 [address] RoadDublin [place] [id number] Creatinine [Mass/Vol] 1.01 mg/dL Normal 0.76-1.27 [facility] Work Phone: Comment on above: Dec 31; PATIENT WAS FASTINGPERFORMED BY: CB [facility] Fjlcsh7564 [address] RoadDublin [place] [id number] GFR/1.73 sq M predicted among blacks CKD-EPI (S/P/Bld) [Vol rate/Area] 106 mL/min/1.73 Normal [facility] Work Phone: Comment on above: Dec 31; PATIENT WAS FASTINGPERFORMED BY: CB [facility] Oalhnu7803 [address] RoadDublin [place] [id number] GFR/1.73 sq M predicted among non-blacks CKD-EPI (S/P/Bld) [Vol rate/Area] 91 mL/min/1.73 Normal [facility] Work Phone: Comment on above: Dec 31; PATIENT WAS FASTINGPERFORMED BY: CB [facility] Bpxcir7436 [address] RoadDublin [place] [id number] Globulin (S) [Mass/Vol] 2.5 g/dL Normal 1.5-4.5 [facility] Internal Medicine Work Phone: Comment on above: Dec 31; PATIENT WAS FASTINGPERFORMED BY: CB [facility] Njilas75[address] RoadDublin [place] [id number] Glucose [Mass/Vol] 94 mg/dL Normal 65-99 [facility] Internal Medicine Work Phone: Comment on above: Dec 31; PATIENT WAS FASTINGPERFORMED BY: CB [facility] Mltlya2707 [address] RoadDublin [place] [id number] Potassium [Moles/Vol] 4.7 mmol/L Normal 3.5-5.2 [facility] Internal Medicine Work Phone: Comment on above: Dec 31; PATIENT WAS FASTINGPERFORMED BY: CB [facility] Cftvyj1471 [address] RoadDublin [place] [id number] Protein [Mass/Vol] 7.1 g/dL Normal 6.0-8.5 [facility] Medicine Work Phone: Comment on above: Dec 31; PATIENT WAS FASTINGPERFORMED BY: CB [facility] Nqkpuc4657 [address] RoadDublin [place] [id number] Sodium [Moles/Vol] 138 mmol/L Normal 134-144 [facility] Medicine Work Phone: Comment on above: Dec 31; PATIENT WAS FASTINGPERFORMED BY: CB [facility] Fhbyds8495 [address] RoadDublin [place] [id number] Urea nitrogen [Mass/Vol] 14 mg/dL Normal 6-24 [facility] Work Phone: Comment on above: Dec 31; PATIENT WAS FASTINGPERFORMED BY: CB [facility] Xkbtou3709 Chen RoadDublin [place] [id number] Urea nitrogen/Creatinine [Mass ratio] 14 mg/mg Normal 9-20 [facility] Work Phone: Comment on above: Dec 31; PATIENT WAS FASTINGPERFORMED BY: CB [facility] Eottgw8821 Chen RoadDublin [place] [id number] TSH (THYROID STIMULATING HOR NIKI) (52542)Ordered By: Bark Scaler on 01-23-2020 TSH Qn 9.510 {uIU/mL} Abnormal 0.450-4.500 [facility] Work Phone: Comment on above: dec 31; PATIENT WAS FASTINGPERFORMED BY: LACEY Gomez6370 Chen RoadDublin [place] [id number] Drug Screen (7drug + Alcohol ) (28550)Ordered By: BULL Garcia on 01-13-2020 Drug Screen (7drug + Alcohol) (65062) Negative Normal [facility] Work Phone: Drug Screen (7drug + Alcohol) (78543) Negative Normal [facility]; [facility] Work Phone: C-Reactive Protein (00424)Or dered By: Bark Scaler on 10-11-2018 CRP [Mass/Vol] mg/L Normal 0-10 Comprehens rita Internal Medicine Work Phone: Comment on above: PATIENT NOT FASTINGP ERFORMED BY: LACEY LabCohernandez AlvarezCaszwg0563 Chen RoadDublin [place] [id number] CRP [Mass/Vol] mg/L Normal 0-10 [facility]prehens [facility]; [facility] Work Phone: Comment on above: PATIENT NOT FASTINGP ERFORMED BY: LACEY LabeFli AlvarezJceyku9422 Chen RoadDublin [place] [id number] TSH (THYROID STIMULATING HOR NIKI) (01374)Ordered By: Bark Scaler on 10-11-2018 TSH Qn 4.770 {uIU/mL} Abnormal 0.450-4.500 [facility] Internal Medicine Work Phone: Comment on above: PATIENT NOT FASTINGP ERFORMED BY: LACEY [facility] Oihbdr6608 [address] RoadDublin [place] [id number] C-DIFFICILE, STOOL (81695)Or dered By: Bark Scaler on 06-28-2018 C. difficile toxin A+B IA Ql (Stl) Positive Abnormal [facility] Work Phone: Comment on above: PATIENT NOT FASTINGP ERFORMED BY: LACEY LabCohernandez AlvarezKnuxmh4842 Chen RoadDublin [place] [id number] Information: SRC:ST SRC:ST C. difficile toxin A+B IA Ql (Stl) Positive Abnormal [facility]; [facility] Work Phone: Comment on above: PATIENT NOT FASTINGP ERFORMED BY: LACEY [facility] Snjsxz7729 Chen RoadDublin [place] [id number] Information: SRC:ST SRC:ST LEUKOCYTE COUNT, FECAL (8905 5)Ordered By: Bark Scaler on 06-28-2018 WBC LM Ql (Stl) Final report Abnormal Compreh ensive Internal Medicine Work Phone: Comment on above: PATIENT NOT FASTINGP ERFORMED BY: CB [facility] Pxszjd9165 [address] RoadDublin [place] [id number] WBC LM Ql (Stl) WCM Abnormal Comprehen sive Internal Medicine Work Phone: Comment on above: Moderate amount of w johny blood cells. PATIENT NOT FASTINGP ERFORMED BY: LACEY [facility] Nzovnt[address] [facility] Hospitalblin [place] [id number] C-REACTIVE PROTEIN (76689)on 06-27-2018 CRP mass conc 9.3 mg/L Abnormal 0.0-4.9 Comprehensi ve Internal Medicine Work Phone: Comment on above: PATIENT NOT FASTINGP ERFORMED BY: LACEY [facility] Ulgopc[address] [facility] Hospitalblin [place] [id number] CBC W/AUTO DIFF WBC (99035)o n 06-27-2018 Basophils #/vol (Bld) 0.0 {x10E3/uL} Normal 0.0-0.2 [facility] Work Phone: Comment on above: PATIENT NOT FASTINGP ERFORMED BY: CB [facility] Hipvgw6614 [address] RoadDublin [place] [id number] Basophils/100 WBC (Bld) 0 % Normal [facility] Work Phone: Comment on above: PATIENT NOT FASTINGP ERFORMED BY: CB [facility] Tzrzvl2674 Chen RoadDublin [place] [id number] Eosinophils #/vol (Bld) 0.2 {x10E3/uL} Normal 0.0-0.4 [facility] Work Phone: Comment on above: PATIENT NOT FASTINGP ERFORMED BY: LACEY LabCohernandez GomezOqdtpo9929 [address] [facility] [id number] Eosinophils/100 WBC (Bld) 2 % Normal [facility] Work Phone: Comment on above: PATIENT NOT FASTINGP ERFORMED BY: LACEY [facility] Nhqyxc2004 [address] [facility] [id number] Erythrocyte distribution width Ratio (RBC) 13.4 % Normal 12.3-15.4 [facility] Work Phone: Comment on above: PATIENT NOT FASTINGP ERFORMED BY: LACEY LabCohernandez GomezHhqzbg8283 [facility] [id number] Hematocrit Volume Fraction (Bld) 41.5 % Normal 37.5-51.0 [facility] Work Phone: Comment on above: PATIENT NOT FASTINGP ERFORMED BY: LACEY Alvarezlin6370 [facility] [id number] Hemoglobin mass conc (Bld) 13.7 g/dL Normal 13.0-17.7 [facility] Work Phone: Comment on above: PATIENT NOT FASTINGP ERFORMED BY: LACEY Gomez6370 [facility] [id number] Immature granulocytes #/vol (Bld) 0.0 {x10E3/uL} Normal 0.0-0.1 [facility] Work Phone: Comment on above: PATIENT NOT FASTINGP ERFORMED BY: LACEY [facility] Pkdbpl3389 [address] [facility] [id number] Immature granulocytes/100 WBC (Bld) 0 % Normal [facility] Work Phone: Comment on above: PATIENT NOT FASTINGP ERFORMED BY: LACEY [facility] Lmzmih2797 [address] [facility] [id number] Lymphocytes #/vol (Bld) 1.4 {x10E3/uL} Normal 0.7-3.1 [facility] Work Phone: Comment on above: PATIENT NOT FASTINGP ERFORMED BY: LACEY [facility] Frmzmi2359 [address] RoadDublin [place] [id number] Lymphocytes/100 WBC (Bld) 15 % Normal [facility] Work Phone: Comment on above: PATIENT NOT FASTINGP ERFORMED BY: CB [facility] Oaevdf7399 [address] RoadDublin [place] [id number] MCH Entitic mass (RBC) 28.3 pg Normal 26.6-33.0 [facility] Work Phone: Comment on above: PATIENT NOT FASTINGP ERFORMED BY: CB [facility] Iolzkx3749 [address] RoadDublin [place] [id number] MCHC mass conc (RBC) 33.0 g/dL Normal 31.5-35.7 [facility] Work Phone: Comment on above: PATIENT NOT FASTINGP ERFORMED BY: [facility] Wygmjy2871 Chen RoadAtrium Health Cabarrusin [place] [id number] MCV Entitic volume (RBC) 86 fL Normal 79-97 [facility] Work Phone: Comment on above: PATIENT NOT FASTINGP ERFORMED BY: [facility] Ixskhr4534 [address] RoadDublin [place] [id number] Monocytes #/vol (Bld) 1.3 {x10E3/uL} Abnormal 0.1-0.9 [facility] Work Phone: Comment on above: PATIENT NOT FASTINGP ERFORMED BY: [facility] Rizlih1715 Chen Roadblin [place] [id number] Monocytes/100 WBC (Bld) 14 % Normal [facility] Work Phone: Comment on above: PATIENT NOT FASTINGP ERFORMED BY: CB [facility] Ywyvlc1504 [address] RoadDublin [place] [id number] Neutrophils #/vol (Bld) 6.3 {x10E3/uL} Normal 1.4-7.0 [facility] Work Phone: Comment on above: PATIENT NOT FASTINGP ERFORMED BY: CB [facility] Woqdce3493 [address] RoadDublin [place] [id number] Neutrophils/100 WBC (Bld) 69 % Normal [facility] Work Phone: Comment on above: PATIENT NOT FASTINGP ERFORMED BY: LACEY Gomez6370 [facility] [id number] Platelets #/vol (Bld) 270 {x10E3/uL} Normal 150-379 [facility] Work Phone: Comment on above: PATIENT NOT FASTINGP ERFORMED BY: LACEY Tan Aobhtf2419 [facility] [id number] RBC #/vol (Bld) 4.84 {x10E6/uL} Normal 4.14-5.80 [facility] Internal Medicine Work Phone: Comment on above: PATIENT NOT FASTINGP ERFORMED BY: LACEY Alvarezlin6370 [facility] [id number] WBC #/vol (Bld) 9.3 {x10E3/uL} Normal 3.4-10.8 [facility] Internal Medicine Work Phone: Comment on above: PATIENT NOT FASTINGP ERFORMED BY: LACEY Tan Ywrahu4302 [facility] [id number] CBC W/AUTO DIFF WBC (68963)O rdered By: Bark Scaler on 06-27-2018 Basophils (Bld) [#/Vol] 0.0 10*3/uL Normal 0.0-0.2 [facility]; [facility] Work Phone: Comment on above: PATIENT NOT FASTINGP ERFORMED BY: LACEY LabNarciso Hiaakb9511 [facility] [id number] Eosinophils (Bld) [#/Vol] 0.2 10*3/uL Normal 0.0-0.4 [facility]; [facility] Work Phone: Comment on above: PATIENT NOT FASTINGP ERFORMED BY: LACEY LabNarciso Kyvacm7106 [facility] [id number] Immature granulocytes (Bld) [#/Vol] 0.0 10*3/uL Normal 0.0-0.1 [facility]; [facility] Work Phone: Comment on above: PATIENT NOT FASTINGP ERFORMED BY: CB [facility] Hjgptx2032 [address] RoadDublin [place] [id number] Lymphocytes (Bld) [#/Vol] 1.4 10*3/uL Normal 0.7-3.1 [facility]; [facility] Work Phone: Comment on above: PATIENT NOT FASTINGP ERFORMED BY: CB [facility] Jgbxec6336 [address] RoadDublin [place] [id number] Monocytes (Bld) [#/Vol] 1.3 10*3/uL Abnormal 0.1-0.9 [facility]; [facility] Work Phone: Comment on above: PATIENT NOT FASTINGP ERFORMED BY: CB [facility] Ahughk2643 Chen RoadDublin [place] [id number] Neutrophils (Bld) [#/Vol] 6.3 10*3/uL Normal 1.4-7.0 [facility]; [facility] Work Phone: Comment on above: PATIENT NOT FASTINGP ERFORMED BY: CB [facility] Inqykr3891 [address] RoadDublin [place] [id number] Platelets (Bld) [#/Vol] 270 10*3/uL Normal 150-379 [facility]; [facility] Work Phone: Comment on above: PATIENT NOT FASTINGP ERFORMED BY: CB [facility] Dchxqm6592 [address] RoadDublin [place] [id number] RBC (Bld) [#/Vol] 4.84 10*6/uL Normal 4.14-5.80 Compr ehensive Internal Medicine; [facility] Work Phone: Comment on above: PATIENT NOT FASTINGP ERFORMED BY: CB [facility] Icpufd0450 [address] RoadDublin [place] [id number] WBC (Bld) [#/Vol] 9.3 10*3/uL Normal 3.4-10.8 Compre hensive [facility] Medicine; [facility] Work Phone: Comment on above: PATIENT NOT FASTINGP ERFORMED BY: CB [facility] Ryihqn1842 Chen RoadDublin [place] [id number] SED RATE ERYTHROCYTE (79235) on 06-27-2018 ESR Velocity (Bld) 10 mm/h Normal 0-[address] [facility] Internal Medicine Work Phone: Comment on above: PATIENT NOT FASTINGP ERFORMED BY: Lab[facility] Inbras4823 [facility] [id number] Influenza A&B Viral Culture (90950)on 05-20-2018 FLUV identified Org specific cx Nom (Unsp spec) FLUABN Normal [facility] Work Phone: Comment on above: Negative:No Influenz a A or B detected. PATIENT NOT FASTINGP ERFORMED BY: [facility] Ehhgcr1722 [facility] [id number] Information: SRC:NL THROAT CULTURE (54308)on Bacteria identified Respiratory culture Nom (Unsp spec) RRF Normal [facility] Work Phone: Comment on above: Routine respiratory ab PATIENT NOT FASTINGP ERFORMED BY: [facility] Llkzxf5236 [facility] [id number] Information: SRC:TH Bacteria identified Respiratory culture Nom (Unsp spec) Final report Normal [facility] Work Phone: Comment on above: PATIENT NOT FASTINGP ERFORMED BY: [facility] Obyuta4065 [facility] [id number] Information: SRC:TH Urine Drug Screen -Medicare (Office - Urine Drug Screen 9 Panel) (86122)Ordered By: BULL Garcia on 05-02-2018 Barbiturates Ql (S/P/Bld) Negative Normal [facility] Work Phone: Barbiturates Ql (S/P/Bld) Negative Normal [facility]; [facility] Work Phone: Benzodiazepines Ql (U) Negative Normal [facility] Work Phone: Benzodiazepines Ql (U) Negative Normal [facility]; [facility] Work Phone: Benzoylecgonine Confirm Ql Negative Normal [facility] Work Phone: Benzoylecgonine Confirm Ql Negative Normal [facility]; [facility] Work Phone: Cannabinoids Confirm Ql (U) Negative Normal [facility] Work Phone: Cannabinoids Confirm Ql (U) Negative Normal [facility]; [facility] Work Phone: Methadone [Mass/Vol] Negative Normal [facility]; [facility] Work Phone: Methadone mass conc Negative Normal Compr ehensive Internal Medicine Work Phone: Methamphetamine Ql Positive Normal Compre hensive Internal Medicine Work Phone: Methamphetamine Ql Positive Normal Compre hensive Internal Medicine; [facility] Work Phone: Opiates Ql (U) Negative Normal Comprehens rita Internal Medicine Work Phone: Opiates Ql (U) Negative Normal Comprehens rita [facility]; [facility] Work Phone: CALCIFEDIOL (02870)on 2018 25-Hydroxyvitamin D2+25-Hydroxyvitami n D3 mass conc 24.4 ng/mL Abnormal 30.0-100.0 [facility] Work Phone: Comment on above: Vitamin D deficiency has been defined by the Harris ofMedicine and an Endocrine Society practice guideline as alevel of serum 25-OH vitamin D less than 20 ng/mL (1,2).The Endocrine Society went on to further define vitamin Dinsufficiency as a level between 21 and 29 ng/mL (2).1. IOM (Harris of Medicine). 2010. Dietary reference intakes for calcium and D. [place]: The National Academies Press.2. Megha MF, Keysha [place], Nayely-Jaime VENTURA, et al. Evaluation, treatment, and prevention of vitamin D deficiency: an Endocrine Society clinical practice guideline. JCEM. 2010; 96(7):1911-30. PATIENT NOT FASTINGP ERFORMED BY: [facility] Kmfybi3209 [facility] [id number] CBC & PLATELETS (AUTO) (8502 7)on 04-10-2018 Erythrocyte distribution width Ratio (RBC) 13.4 % Normal 12.3-15.4 [facility] Work Phone: Comment on above: PATIENT NOT FASTINGP ERFORMED BY: LACEY [facility] Noidps0807 [address] [facility] [id number] Hematocrit Volume Fraction (Bld) 45.1 % Normal 37.5-51.0 [facility] Work Phone: Comment on above: PATIENT NOT FASTINGP ERFORMED BY: CB [facility] Enzonv6298 [address] [facility] [id number] Hemoglobin mass conc (Bld) 15.3 g/dL Normal 13.0-17.7 [facility] Work Phone: Comment on above: PATIENT NOT FASTINGP ERFORMED BY: CB [facility] Vzczcw2269 Chen RoadNov[facility] [id number] MCH Entitic mass (RBC) 29.0 pg Normal 26.6-33.0 [facility] Work Phone: Comment on above: PATIENT NOT FASTINGP ERFORMED BY: CB [facility] Dwqqaq0673 [address] [facility] [id number] MCHC mass conc (RBC) 33.9 g/dL Normal 31.5-35.7 [facility] Work Phone: Comment on above: PATIENT NOT FASTINGP ERFORMED BY: CB [facility] Jpjarb3054 [address] [facility] [id number] MCV Entitic volume (RBC) 85 fL Normal 79-97 [facility] Work Phone: Comment on above: PATIENT NOT FASTINGP ERFORMED BY: CB [facility] Nwtssd3561 Chen [facility] [place] [id number] Platelets #/vol (Bld) 271 {x10E3/uL} Normal 150-379 [facility] Work Phone: Comment on above: PATIENT NOT FASTINGP ERFORMED BY: CB [facility] Zervps1564 Chen RoadAtrium Health Cabarrusin [place] [id number] RBC #/vol (Bld) 5.28 {x10E6/uL} Normal 4.14-5.80 Comp [facility] Internal Medicine Work Phone: Comment on above: PATIENT NOT FASTINGP ERFORMED BY: LACEY Gomez6370 Chen Kandiecblin [place] [id number] WBC #/vol (Bld) 7.3 {x10E3/uL} Normal 3.4-10.8 [facility] Internal Medicine Work Phone: Comment on above: PATIENT NOT FASTINGP ERFORMED BY: LACEY [facility] Osmcmt[address] [facility]bl[facility] [place] [id number] CBC & PLATELETS (AUTO) (8505 7)Ordered By: Bark Scaler on 04-10-2018 Platelets (Bld) [#/Vol] 271 10*3/uL Normal 150-379 [facility]; [facility] Work Phone: Comment on above: PATIENT NOT FASTINGP ERFORMED BY: LACEY Gomez6370 Chen [facility] [place] [id number] RBC (Bld) [#/Vol] 5.28 10*6/uL Normal 4.14-5.80 [facility] Internal Medicine; [facility] Work Phone: Comment on above: PATIENT NOT FASTINGP ERFORMED BY: LACEY Gomez6370 Chen [facility]in [place] [id number] WBC (Bld) [#/Vol] 7.3 10*3/uL Normal 3.4-10.8 [facility]; [facility] Work Phone: Comment on above: PATIENT NOT FASTINGP ERFORMED BY: LACEY [facility] Irthxt9744 Chen [facility] [place] [id number] T3, FREE (TRIDOTHYRONINE) (3 8222)on 04-10-2018 T3 free mass conc 3.7 pg/mL Normal 2.0-4.4 [facility] Internal Medicine Work Phone: Comment on above: PATIENT NOT FASTINGP ERFORMED BY: LACEY [facility] Dcwlgc4836 Chen [facility] [place] [id number] T4, FREE (THYROXINE) (35306) on 04-10-2018 T4 free mass conc 0.76 ng/dL Abnormal 0.82-1.77 Compreh ensive Internal Medicine Work Phone: Comment on above: PATIENT NOT FASTINGP ERFORMED BY: CB [facility] Oirpjb[address] [facility] [place] [id number] TSH (THYROID STIMULATING HOR NIKI) (70721)on 04-10-2018 Thyrotropin Qn 11.970 {uIU/mL} Abnormal 0.450-4.500 Comp rehensive Internal Medicine Work Phone: Comment on above: PATIENT NOT FASTINGP ERFORMED BY: CB [facility] Lefcyv9528 Chen RoadDublin [place] [id number] TESTOSTERONE FREE (15754)on 11-13-2017 Testosterone Free mass conc 10.8 pg/mL Normal 8.7-25.1 [facility] Work Phone: Comment on above: PATIENT NOT FASTINGP ERFORMED BY: TouchLocal[address] [id number] CALCIFIDIOL (43123) VIT D 25 on 10-17-2017 25-Hydroxyvitamin D2+25-Hydroxyvitami n D3 mass conc 23.0 ng/mL Abnormal 30.0-100.0 [facility] Work Phone: Comment on above: Vitamin D deficiency has been defined by the Harris ofUk Healthcarecine and an Endocrine Society practice guideline as alevel of serum 25-OH vitamin D less than 20 ng/mL (1,2).The Endocrine Society went on to further define vitamin Dinsufficiency as a level between 21 and 29 ng/mL (2).1. IOM (Harris of Medicine). 2010. Dietary reference intakes for calcium and D. [place]: The National Academies Press.2. Megha MF, Keysha [place], Agapito VENTURA, et al. Evaluation, treatment, and prevention of vitamin D deficiency: an Endocrine Society clinical practice guideline. JCEM. 2010; 96(7):1911-30. PATIENT NOT FASTINGP ERFORMED BY: CB [facility] Mxhyrb4772 [address] [facility] [id number] BY: [employer] Ialobjyddm70[address] [id number] CBC (AUTO) (59119)on 018 Erythrocyte distribution width Ratio (RBC) 13.2 % Normal 12.3-15.4 [facility] Work Phone: Comment on above: PATIENT NOT FASTINGP ERFORMED BY: CB [facility] Wneqlc1907 [address] [facility] [id number] BY: [address] [id number] Hematocrit Volume Fraction (Bld) 42.8 % Normal 37.5-51.0 [facility] Work Phone: Comment on above: PATIENT NOT FASTINGP ERFORMED BY: CB [facility] Nyrtwb4350 [address] [facility] [id number] BY: [address] [id number] Hemoglobin mass conc (Bld) 14.5 g/dL Normal 13.0-17.7 [facility] Work Phone: Comment on above: PATIENT NOT FASTINGP ERFORMED BY: CB [facility] Jdfsmi7966 [address] [facility] [id number] BY: [address] [id number] MCH Entitic mass (RBC) 29.1 pg Normal 26.6-33.0 [facility] Work Phone: Comment on above: PATIENT NOT FASTINGP ERFORMED BY: CB [facility] Cempzi9519 [address] [facility] [id number] BY: Lab[address] [id number] MCHC mass conc (RBC) 33.9 g/dL Normal 31.5-35.7 [facility] Work Phone: Comment on above: PATIENT NOT FASTINGP ERFORMED BY: CB [facility] Wqjknx4740 [address] [facility] [id number] BY: [address] [id number] MCV Entitic volume (RBC) 86 fL Normal 79-97 [facility] Work Phone: Comment on above: PATIENT NOT FASTINGP ERFORMED BY: LACEY [facility] Fzfkzu3810 [facility] [id number] BY: LabCo[address] [id number] Platelets #/vol (Bld) 255 {x10E3/uL} Normal 150-379 [facility] Internal Medicine Work Phone: Comment on above: PATIENT NOT FASTINGP ERFORMED BY: LACEY [facility] Rkarpn3804 [address] [facility] [id number] BY: LabCo[address] [id number] RBC #/vol (Bld) 4.99 {x10E6/uL} Normal 4.14-5.80 [facility] Internal Medicine Work Phone: Comment on above: PATIENT NOT FASTINGP ERFORMED BY: LACEY [facility] Uaztir4330 [facility] [id number] BY: Lab[address] [id number] WBC #/vol (Bld) 6.9 {x10E3/uL} Normal 3.4-10.8 [facility] Internal Medicine Work Phone: Comment on above: PATIENT NOT FASTINGP ERFORMED BY: LACEY [facility] Tfgbpc4428 [facility] [id number] BY: [facility] [id number] CBC (AUTO) ([id number])Ordered By : Bark Scaler on 10-17-2017 Platelets (Bld) [#/Vol] 255 10*3/uL Normal 150-379 [facility]; [facility] Work Phone: Comment on above: PATIENT NOT FASTINGP ERFORMED BY: LACEY [facility] Kmhhdv0543 [facility] [id number] BY: Lab[address] [id number] RBC (Bld) [#/Vol] 4.99 10*6/uL Normal 4.14-5.80 Compr ehensive Internal Medicine; [facility] Work Phone: Comment on above: PATIENT NOT FASTINGP ERFORMED BY: LACEY [facility] Ihcywt6438 [facility] [id number] BY: [facility] [id number] WBC (Bld) [#/Vol] 6.9 10*3/uL Normal 3.4-10.8 Compre hensive Internal Medicine; [facility] Work Phone: Comment on above: PATIENT NOT FASTINGP ERFORMED BY: LACEY Ce[employer]hex Wipsle0840 [facility] [id number] BY: [employer] [address] [id number] CCP ANTIBODY (11562)on 10-17 Cyclic citrullinated peptide IgA+IgG IA Qn 5 {units} Normal 0-19 [facility] Work Phone: Comment on above: Negative <20 Weak po sitive 20 - 39 Moderate positive 40 - 59 Strong positive >59 PATIENT NOT FASTINGP ERFORMED BY: LACEY [employer] Svjepb6166 [facility] [id number] BY: [employer] [address] [id number] Folate (88583)on 10-17-2017 Folate mass conc ng/mL Normal Comprehe nsive Internal Medicine Work Phone: Comment on above: A serum folate lupe ntration of less than 3.1 ng/mL isconsidered to represent clinical deficiency. PATIENT NOT FASTINGP ERFORMED BY: Info[employer]ate Bmdwup8687 [facility] [id number] BY: [facility] [id number] METABOLIC PANEL, COMPREHENSI VE (90605)on 10-17-2017 Albumin mass conc 4.5 g/dL Normal 3.5-5.5 Compreh ensive Internal Medicine Work Phone: Comment on above: PATIENT NOT FASTINGP ERFORMED BY: CB [facility] Hxkwlf0178 Chen RoadDublin [place] [id number] BY: [facility] [address] [id number] Albumin/Globulin mass ratio 1.7 {ratio} Normal 1.2-2.2 [facility] Work Phone: Comment on above: PATIENT NOT FASTINGP ERFORMED BY: CB [facility] Rwempo5658 [facility] [id number] BY: [facility] [id number] ALP enzyme act/vol 69 [iU]/L Normal 39-117 [facility] Internal Medicine Work Phone: Comment on above: PATIENT NOT FASTINGP ERFORMED BY: CB [facility] Colwun5237 [facility] [place] [id number] BY: [facility] [id number] ALT enzyme act/vol 19 [iU]/L Normal 0-44 [facility] Internal Medicine Work Phone: Comment on above: PATIENT NOT FASTINGP ERFORMED BY: CB [facility] Klmgfo9946 [facility] [place] [id number] BY: Lab[address] [id number] AST enzyme act/vol 18 [iU]/L Normal 0-40 [facility] Internal Medicine Work Phone: Comment on above: PATIENT NOT FASTINGP ERFORMED BY: CB [facility] Argafz8862 [facility] [place] [id number] BY: Lab[address] [id number] Bilirubin mass conc 0.3 mg/dL Normal 0.0-1.2 [facility] Internal Medicine Work Phone: Comment on above: PATIENT NOT FASTINGP ERFORMED BY: CB [facility] Lwtoty7312 Chen [facility] [id number] BY: [facility] [address] [id number] Calcium mass conc 9.7 mg/dL Normal 8.7-10.2 Compreh ensive Internal Medicine Work Phone: Comment on above: PATIENT NOT FASTINGP ERFORMED BY: LACEY [facility] Efmthz8841 Chen [facility] [id number] BY: BN [facility] [address] [id number] Chloride molar conc 102 mmol/L Normal 96-106 Compr ehensive Internal Medicine Work Phone: Comment on above: PATIENT NOT FASTINGP ERFORMED BY: LACEY [facility] Gvkxev2014 Chen [facility] [id number] BY: [facility] [address] [id number] CO2 molar conc 24 mmol/L Normal 20-29 Comprehens rita Internal Medicine Work Phone: Comment on above: PATIENT NOT FASTINGP ERFORMED BY: LACEY [facility] Cmykct5202 [facility] [id number] BY: [facility] [address] [id number] Creatinine mass conc 0.94 mg/dL Normal 0.76-1.27 [facility] Work Phone: Comment on above: PATIENT NOT FASTINGP ERFORMED BY: LACEY [facility] Xegqnt7587 [facility] [id number] BY: [facility] [address] [id number] GFR/1.73 sq M predicted among blacks CKD-EPI vol rate/area (S/P/Bld) 118 mL/min/1.73 Normal Comprehensiv e Internal Medicine Work Phone: Comment on above: PATIENT NOT FASTINGP ERFORMED BY: LACEY [facility] Jsymhq0394 Chen [facility] [id number] BY: [facility] [id number] GFR/1.73 sq M predicted among non-blacks CKD-EPI vol rate/area (S/P/Bld) 102 mL/min/1.73 Normal [facility] Work Phone: Comment on above: PATIENT NOT FASTINGP ERFORMED BY: CB [facility] Yuosws3706 [facility] [id number] BY: Lab[address] [id number] Globulin mass conc (S) 2.6 g/dL Normal 1.5-4.5 [facility] Work Phone: Comment on above: PATIENT NOT FASTINGP ERFORMED BY: CB [facility] Fpdacu5548 [facility] [id number] BY: [address] [id number] Glucose mass conc 75 mg/dL Normal 65-99 Compreh ensive Internal Medicine Work Phone: Comment on above: PATIENT NOT FASTINGP ERFORMED BY: [facility] Mvkqkt3043 [facility] [id number] BY: [address] [id number] Potassium molar conc 4.8 mmol/L Normal 3.5-5.2 [facility] Work Phone: Comment on above: PATIENT NOT FASTINGP ERFORMED BY: [facility] Mystgv6952 [facility] [id number] BY: Lab[address] [id number] Protein mass conc 7.1 g/dL Normal 6.0-8.5 Compreh ensive Internal Medicine Work Phone: Comment on above: PATIENT NOT FASTINGP ERFORMED BY: CB [facility] Rdmqdq3364 [place] [facility] [place] [id number] BY: [address] [id number] Sodium molar conc 141 mmol/L Normal 134-144 Compreh ensive Internal Medicine Work Phone: Comment on above: PATIENT NOT FASTINGP ERFORMED BY: CB [facility] Jkrtil9473 Chen [facility] [id number] BY: Lab[address] [id number] Urea nitrogen mass conc 13 mg/dL Normal 6-20 [facility] Work Phone: Comment on above: PATIENT NOT FASTINGP ERFORMED BY: CB [facility] Bqmlvg4310 Chen [facility] [id number] BY: Lab[address] [id number] Urea nitrogen/Creatinine mass ratio 14 mg/mg Normal 9-20 [facility] Work Phone: Comment on above: PATIENT NOT FASTINGP ERFORMED BY: CB [facility] Ndlkuh5989 Chen [facility] [id number] BY: Lab[address] [id number] METABOLIC PANEL, COMPREHENSI VE (73767)Ordered By: Bark Scaler on 10-17-2017 ALP [Catalytic activity/Vol] 69 U/L Normal 39-117 [facility]; [facility] Work Phone: Comment on above: PATIENT NOT FASTINGP ERFORMED BY: CB [facility] Ukhpyw7581 Chen [facility] [id number] BY: Lab[address] [id number] ALT [Catalytic activity/Vol] 19 U/L Normal 0-44 [facility]; [facility] Work Phone: Comment on above: PATIENT NOT FASTINGP ERFORMED BY: CB [facility] Sxpkjh2634 Chen [facility] [id number] BY: Lab[address] [id number] AST [Catalytic activity/Vol] 18 U/L Normal 0-40 [facility]; [facility] Work Phone: Comment on above: PATIENT NOT FASTINGP ERFORMED BY: CB [facility] Aoubsd1085 Chen RoadDublin [place] [id number] BY: [address] [id number] RHEUMATOID FACTOR-QUANT (666 31)on 10-17-2017 Rheumatoid factor Qn [IU]/mL Normal 0.0-13.9 [facility] Work Phone: Comment on above: PATIENT NOT FASTINGP ERFORMED BY: CB [facility] Vbjxio2057 Chen RoadDuin [place] [id number] BY: [address] [id number] RHEUMATOID FACTOR-QUANT (890 01)Ordered By: Bark Scaler on 10-17-2017 Rheumatoid factor Qn [IU]/mL Normal 0.0-13.9 [facility]; [facility] Work Phone: Comment on above: PATIENT NOT FASTINGP ERFORMED BY: LACEY [facility] Mgwyrp4695 Chen [facility] [id number] BY: [address] [id number] SED RATE ERYTHROCYTE ([id number]) on 10-17-2017 ESR Velocity (Bld) 2 mm/h Normal 0-[address] [facility] Internal Medicine Work Phone: Comment on above: PATIENT NOT FASTINGP ERFORMED BY: CB [facility] Avkcka2323 Chen [facility] [id number] BY: Lab[address] [id number] T3, FREE (TRIDOTHYRONINE) (8 6416)on 10-17-2017 T3 free mass conc 3.5 pg/mL Normal 2.0-4.4 [facility]pre[facility] Internal [facility] Work Phone: Comment on above: PATIENT NOT FASTINGP ERFORMED BY: CB [facility] Zirkma8471 Chen [facility] [id number] BY: [address] [id number] T4, FREE (THYROXINE) (30791) on 10-17-2017 T4 free mass conc 0.96 ng/dL Normal 0.82-1.77 [facility] Work Phone: Comment on above: PATIENT NOT FASTINGP ERFORMED BY: InfoRematerp Ddjwda5557 [facility] [id number] BY: [facility] [id number] TSH (THYROID STIMULATING HOR NIKI) (23355)on 10-17-2017 Thyrotropin Qn 3.580 {uIU/mL} Normal 0.450-4.500 Compr [facility] Internal Medicine Work Phone: Comment on above: PATIENT NOT FASTINGP ERFORMED BY: InfoRematerp Oeupjw4784 [facility] [id number] BY: [facility] [id number] VITAMIN B-12 (CYANOCOBALAMIN ) (47204)on 10-17-2017 Cobalamin (Vitamin B12) mass conc 871 pg/mL Normal 232-1245 [facility] Work Phone: Comment on above: PATIENT NOT FASTINGP ERFORMED BY: InfoRematerp Pbrdcr7957 [facility] [id number] BY: [facility] [id number] Vital Signs Date Time Vital Sign Value Performing Clinician Facility 12-06-2022 15:33-0400 Body height 185.42 cm Kim Menjivar HRIS COORDINATOR [facility]; [facility] Work Phone: 12-06-2022 15:33-0400 Body mass index (BMI) [Ratio] 24.01 kg/m2 Kim Menjivar HRIS COORDINATOR [facility]; [facility] Work Phone: 12-06-2022 15:33-0400 Body surface area Derived from formula 2.07 m2 Kim Menjivar HRIS COORDINATOR [facility]; [facility] Work Phone: 12-06-2022 15:33-0400 Body temperature 97.6 [degF] Kim Slarb HRIS COORDINATOR [facility]; [facility] Work Phone: Comment on above: Method: Temporal 12-06-2022 15:33-0400 Body weight 82.56 kg Kim Slarb HRIS COORDINATOR [facility]; [facility] Work Phone: 12-06-2022 15:33-0400 Diastolic blood pressure 86 mm[Hg] Kim Slarb HRIS COORDINATOR [facility]; [facility] Work Phone: Comment on above: Patient Position: Sitting; Cuff Location : Left Arm; Cuff Size: Standard 12-06-2022 15:33-0400 Heart rate 96 /min Kim Slarb HRIS COORDINATOR [facility]; [facility] Work Phone: Comment on above: Pattern: Regular 12-06-2022 15:33-0400 Respiratory rate 15 /min Kim Slarb HRIS COORDINATOR [facility]; [facility] Work Phone: Comment on above: Pattern: Unlabored 12-06-2022 15:33-0400 SaO2% (BldA) [Mass fraction] 98 % Kim Slarb HRIS COORDINATOR [facility]; [facility] Work Phone: Comment on above: Room air 12-06-2022 15:33-0400 Systolic blood pressure 142 mm[Hg] Kim Slarb HRIS COORDINATOR [facility]; [facility] Work Phone: Comment on above: Patient Position: Sitting; Cuff Location : Left Arm; Cuff Size: Standard 09-18-2022 14:42-0400 Body height 185.42 cm Kim Slarb HRIS COORDINATOR [facility]; [facility] Work Phone: 09-18-2022 14:42-0400 Body mass index (BMI) [Ratio] 25.07 kg/m2 Kim Slarb HRIS COORDINATOR [facility]; [facility] Work Phone: 09-18-2022 14:42-0400 Body surface area Derived from formula 2.11 m2 Kim Slarb HRIS COORDINATOR [facility]; [facility] Work Phone: 09-18-2022 14:42-0400 Body temperature 97.9 [degF] Kim Slarb HRIS COORDINATOR [facility]; [facility] Work Phone: Comment on above: Method: Temporal 09-18-2022 14:42-0400 Body weight 86.18 kg Kim Krishnanrb HRIS COORDINATOR [facility]; [facility] Work Phone: 09-18-2022 14:42-0400 Diastolic blood pressure 90 mm[Hg] Kim Slarb HRIS COORDINATOR [facility]; [facility] Work Phone: Comment on above: Patient Position: Sitting; Cuff Location : Left Arm; Cuff Size: Standard 09-18-2022 14:42-0400 Heart rate 97 /min Kim Ariellarb HRIS COORDINATOR [facility]; [facility] Work Phone: Comment on above: Pattern: Regular 09-18-2022 14:42-0400 Respiratory rate 17 /min Kim Slarb HRIS COORDINATOR [facility]; [facility] Work Phone: Comment on above: Pattern: Unlabored 09-18-2022 14:42-0400 SaO2% (BldA) [Mass fraction] 97 % Kim Slarb HRIS COORDINATOR [facility]; [facility] Work Phone: Comment on above: Room air 09-18-2022 14:42-0400 Systolic blood pressure 150 mm[Hg] Kim Slarb HRIS COORDINATOR [facility]; [facility] Work Phone: Comment on above: Patient Position: Sitting; Cuff Location : Left Arm; Cuff Size: Standard 07-31-2022 08:41-0400 Diastolic blood pressure 98 mm[Hg] Sania Mobley [employer]HW[employer] TRAFFIC CONTROL TECHNICIAN Work Phone: [facility]; [facility] Work Phone: Comment on above: Patient Position: Sitting; Cuff Location : Left Arm; Cuff Size: Standard 07-31-2022 08:41-0400 Systolic blood pressure 148 mm[Hg] Sania Mobley [employer]HW[employer] TRAFFIC CONTROL TECHNICIAN Work Phone: [facility]; [facility] Work Phone: Comment on above: Patient Position: Sitting; Cuff Location : Left Arm; Cuff Size: Standard 07-31-2022 08:10-0400 Body height 185.42 cm Kim Slarb HRIS COORDINATOR [facility]; [facility] Work Phone: 07-31-2022 08:10-0400 Body mass index (BMI) [Ratio] 25.07 kg/m2 Kim Slarb HRIS COORDINATOR [facility]; [facility] Work Phone: 07-31-2022 08:10-0400 Body surface area Derived from formula 2.11 m2 Kim Slarb HRIS COORDINATOR [facility]; [facility] Work Phone: 07-31-2022 08:10-0400 Body temperature 97.3 [degF] Kim Slarb HRIS COORDINATOR [facility]; [facility] Work Phone: Comment on above: Method: Temporal 07-31-2022 08:10-0400 Body weight 86.18 kg Kim Slarb HRIS COORDINATOR [facility]; [facility] Work Phone: 07-31-2022 08:10-0400 Diastolic blood pressure 90 mm[Hg] Kim Slarb HRIS COORDINATOR [facility]; [facility] Work Phone: Comment on above: Patient Position: Sitting; Cuff Location : Left Arm; Cuff Size: Standard 07-31-2022 08:10-0400 Heart rate 73 /min Kim Slarb HRIS COORDINATOR [facility]; [facility] Work Phone: Comment on above: Pattern: Regular 07-31-2022 08:10-0400 Respiratory rate 16 /min Kim Slarb HRIS COORDINATOR [facility]; [facility] Work Phone: Comment on above: Pattern: Unlabored 07-31-2022 08:10-0400 SaO2% (BldA) [Mass fraction] 99 % Kim Slarb HRIS COORDINATOR [facility]; [facility] Work Phone: Comment on above: Room air 07-31-2022 08:10-0400 Systolic blood pressure 150 mm[Hg] Kim Slarb HRIS COORDINATOR [facility]; [facility] Work Phone: Comment on above: Patient Position: Sitting; Cuff Location : Left Arm; Cuff Size: Standard 07-04-2022 07:54-0400 Body height 185.42 cm Carla Ventura NEERU [facility]; [facility] Work Phone: 07-04-2022 07:54-0400 Body mass index (BMI) [Ratio] 25.35 kg/m2 Carla Audrey SIDDIQI [facility]; [facility] Work Phone: 07-04-2022 07:54-0400 Body surface area Derived from formula 2.12 m2 Carlaroni Ventura LPN [facility]; [facility] Work Phone: 07-04-2022 07:54-0400 Body temperature 97.8 [degF] Carla Ventura LPN [facility]; [facility] Work Phone: 07-04-2022 07:54-0400 Body weight 87.15 kg Carla Audrey SIDDIQI [facility]; [facility] Work Phone: 07-04-2022 07:54-0400 Diastolic blood pressure 82 mm[Hg] Carla Gallardochiara SIDDIQI [facility]; [facility] Work Phone: Comment on above: Patient Position: Sitting; Cuff Location : Left Arm; Cuff Size: Standard 07-04-2022 07:54-0400 Heart rate 80 /min Carla Ventura LPN [facility]; [facility] Work Phone: Comment on above: Pattern: Regular 07-04-2022 07:54-0400 Respiratory rate 16 /min Carla Gallardochiara SIDDIQI [facility]; [facility] Work Phone: Comment on above: Pattern: Unlabored 07-04-2022 07:54-0400 SaO2% (BldA) [Mass fraction] 98 % Carla Audrey LPN [facility]; [facility] Work Phone: Comment on above: Room air 07-04-2022 07:54-0400 Systolic blood pressure 146 mm[Hg] Carla Ventura HRIS COORDINATOR [facility]; [facility] Work Phone: Comment on above: Patient Position: Sitting; Cuff Location : Left Arm; Cuff Size: Standard 01-31-2022 08:24-0500 Body height 185.42 cm Kim Menjivar HRIS COORDINATOR [facility]; [facility] Work Phone: 01-31-2022 08:24-0500 Body mass index (BMI) [Ratio] 25.33 kg/m2 Kim Slarb HRIS COORDINATOR [facility]; [facility] Work Phone: 01-31-2022 08:24-0500 Body surface area Derived from formula 2.11 m2 Kim Slarb HRIS COORDINATOR [facility]; [facility] Work Phone: 01-31-2022 08:24-0500 Body temperature 96.7 [degF] Kim Slarb HRIS COORDINATOR [facility]; [facility] Work Phone: 01-31-2022 08:24-0500 Body weight 87.09 kg Kim Slarb HRIS COORDINATOR [facility]; [facility] Work Phone: 01-31-2022 08:24-0500 Diastolic blood pressure 86 mm[Hg] Kim Slarb HRIS COORDINATOR [facility]; [facility] Work Phone: Comment on above: Patient Position: Sitting; Cuff Location : Left Arm; Cuff Size: Standard 01-31-2022 08:24-0500 Heart rate 90 /min Kim Slarb HRIS COORDINATOR [facility]; [facility] Work Phone: Comment on above: Pattern: Regular 01-31-2022 08:24-0500 Respiratory rate 16 /min Kim Slarb HRIS COORDINATOR [facility]; [facility] Work Phone: Comment on above: Pattern: Unlabored 01-31-2022 08:24-0500 SaO2% (BldA) [Mass fraction] 97 % Kim Slarb HRIS COORDINATOR [facility]; [facility] Work Phone: Comment on above: Room air 01-31-2022 08:24-0500 Systolic blood pressure 142 mm[Hg] Kim Menjivar HRIS COORDINATOR [facility]; [facility] Work Phone: Comment on above: Patient Position: Sitting; Cuff Location : Left Arm; Cuff Size: Standard 01-02-2022 08:40-0400 Body height 185.42 cm [facility]; [facility] Work Phone: 01-02-2022 08:40-0400 Body mass index (BMI) [Ratio] 25.64 kg/m2 [facility]; [facility] Work Phone: 01-02-2022 08:40-0400 Body surface area Derived from formula 2.13 m2 Alphonse [facility] Internal Medicine; [facility] Work Phone: 01-02-2022 08:40-0400 Body temperature 96.9 [degF] [facility] Comprehensiv e Internal Medicine; [facility] Work Phone: 01-02-2022 08:40-0400 Body weight 88.17 kg [facility]; [facility] Work Phone: 01-02-2022 08:40-0400 Diastolic blood pressure 80 mm[Hg] [facility]; [facility] Work Phone: Comment on above: Patient Position: Sitting; Cuff Location : Left Arm; Cuff Size: Standard 01-02-2022 08:40-0400 Heart rate 89 /min [facility]JackS[facility]; [facility] Work Phone: Comment on above: Pattern: Regular 01-02-2022 08:40-0400 Respiratory rate 16 /min [facility] Comprehensiv e Internal Medicine; [facility] Work Phone: Comment on above: Pattern: Unlabored 01-02-2022 08:40-0400 SaO2% (BldA) [Mass fraction] 97 % [facility]; [facility] Work Phone: Comment on above: Room air 01-02-2022 08:40-0400 Systolic blood pressure 124 mm[Hg] Alphonse Santiago [facility]; [facility] Work Phone: Comment on above: Patient Position: Sitting; Cuff Location : Left Arm; Cuff Size: Standard 07-04-2021 14:12-0400 Body height 185.42 cm Carla Audrey HRIS COORDINATOR [facility]; [facility] Work Phone: Comment on above: virtual, none reported 07-04-2021 14:12-0400 Body mass index (BMI) [Ratio] 25.86 kg/m2 Carla Audrey HRIS COORDINATOR [facility]; [facility] Work Phone: Comment on above: virtual, none reported 07-04-2021 14:12-0400 Body surface area Derived from formula 2.13 m2 Carla Audrey HRIS COORDINATOR [facility]; [facility] Work Phone: Comment on above: virtual, none reported 07-04-2021 14:12-0400 Body weight 88.91 kg Carla Audrey HRIS COORDINATOR [facility]; [facility] Work Phone: Comment on above: virtual, none reported 06-30-2021 08:39-0400 Body height 185.42 cm Kim Slarb HRIS COORDINATOR [facility]; [facility] Work Phone: 06-30-2021 08:39-0400 Body mass index (BMI) [Ratio] 25.86 kg/m2 Kim Slarb HRIS COORDINATOR [facility]; [facility] Work Phone: 06-30-2021 08:39-0400 Body surface area Derived from formula 2.13 m2 Kim Slarb HRIS COORDINATOR [facility]; [facility] Work Phone: 06-30-2021 08:39-0400 Body temperature 97.1 [degF] Kim Slarb HRIS COORDIN[facility]; [facility] Work Phone: 06-30-2021 08:39-0400 Body weight 88.91 kg Kim Slarb HRIS COORDINATOR [facility]; [facility] Work Phone: 06-30-2021 08:39-0400 Diastolic blood pressure 84 mm[Hg] Kim Slarb HRIS COORDINATOR [facility]; [facility] Work Phone: Comment on above: Patient Position: Sitting; Cuff Location : Left Arm; Cuff Size: Standard 06-30-2021 08:39-0400 Heart rate 96 /min Kim Slarb HRIS COORDINATOR [facility]; [facility] Work Phone: Comment on above: Pattern: Regular 06-30-2021 08:39-0400 Respiratory rate 16 /min Kim Slarb HRIS COORDINATOR [facility]; [facility] Work Phone: Comment on above: Pattern: Unlabored 06-30-2021 08:39-0400 SaO2% (BldA) [Mass fraction] 97 % Kim Slarb HRIS COORDINATOR [facility]; [facility] Work Phone: Comment on above: Room air 06-30-2021 08:39-0400 Systolic blood pressure 142 mm[Hg] Kim Slarb HRIS COORDINATOR [facility]; [facility] Work Phone: Comment on above: Patient Position: Sitting; Cuff Location : Left Arm; Cuff Size: Standard 06-27-2021 16:16-0400 Body height 185.42 cm Kim Slarb HRIS COORDINATOR [facility]; [facility] Work Phone: 06-27-2021 16:16-0400 Body mass index (BMI) [Ratio] 25.86 kg/m2 Kim Slarb HRIS COORDINATOR [facility]; [facility] Work Phone: 06-27-2021 16:16-0400 Body surface area Derived from formula 2.13 m2 Kim Slarb HRIS COORDINATOR [facility]; [facility] Work Phone: 06-27-2021 16:16-0400 Body temperature 97.1 [degF] Kim Slarb HRIS COORDINATOR [facility]; [facility] Work Phone: 06-27-2021 16:16-0400 Body weight 88.91 kg Kim Slarb HRIS COORDINATOR [facility]; [facility] Work Phone: 06-27-2021 16:16-0400 Diastolic blood pressure 90 mm[Hg] Kim Otto NAVAN [facility]; [facility] Work Phone: Comment on above: Patient Position: Sitting; Cuff Location : Left Arm; Cuff Size: Standard 06-27-2021 16:16-0400 Heart rate 100 /min Kim Menjivar LPN [facility]; [facility] Work Phone: Comment on above: Pattern: Regular 06-27-2021 16:16-0400 Respiratory rate 16 /min Kim Menjivar LPN [facility]; [facility] Work Phone: Comment on above: Pattern: Unlabored 06-27-2021 16:16-0400 SaO2% (BldA) [Mass fraction] 98 % Kim Menjivar LPN [facility]; [facility] Work Phone: Comment on above: Room air 06-27-2021 16:16-0400 Systolic blood pressure 160 mm[Hg] Kim Menjivar LPN [facility]; [facility] Work Phone: Comment on above: Patient Position: Sitting; Cuff Location : Left Arm; Cuff Size: Standard 10-05-2020 14:50-0400 Body height 185.42 cm BULL Garcia LPN [facility]; [facility] Work Phone: 10-05-2020 14:50-0400 Body mass index (BMI) [Ratio] 26.12 kg/m2 BULL Garcia LPN [facility]; [facility] Work Phone: 10-05-2020 14:50-0400 Body surface area Derived from formula 2.14 m2 BULL Garcia LPN [facility]; [facility] Work Phone: 10-05-2020 14:50-0400 Body temperature 97.6 [degF] BULL Garcia LPN [facility]; [facility] Work Phone: Comment on above: Method: Temporal 10-05-2020 14:50-0400 Body weight 89.81 kg BULL Garcia LPN [facility]; [facility] Work Phone: 10-05-2020 14:50-0400 Diastolic blood pressure 84 mm[Hg] BULL Garcia LPN [facility]; [facility] Work Phone: Comment on above: Patient Position: Sitting; Cuff Location : Left Arm; Cuff Size: Large 10-05-2020 14:50-0400 Heart rate 84 /min BULL Garcia LPN [facility]; [facility] Work Phone: Comment on above: Pattern: Regular 10-05-2020 14:50-0400 Respiratory rate 18 /min BULL Garcia LPN [facility]; [facility] Work Phone: Comment on above: Pattern: Unlabored 10-05-2020 14:50-0400 SaO2% (BldA) [Mass fraction] 98 % BULL Garcia LPN [facility]; [facility] Work Phone: Comment on above: Room air 10-05-2020 14:50-0400 Systolic blood pressure 142 mm[Hg] BULL Garcia LPN [facility]; [facility] Work Phone: Comment on above: Patient Position: Sitting; Cuff Location : Left Arm; Cuff Size: Large 10-01-2020 10:56-0400 Body height 185.42 cm Tom Tinoco LPN [facility]; [facility] Work Phone: 10-01-2020 10:56-0400 Body mass index (BMI) [Ratio] 25.2 kg/m2 Tom Tinoco LPN [facility]; [facility] Work Phone: 10-01-2020 10:56-0400 Body mass index (BMI) [Ratio] 26.26 kg/m2 Tom Tinoco LPN [facility]; [facility] Work Phone: 10-01-2020 10:56-0400 Body surface area Derived from formula 2.11 m2 Tom Tinoco LPN [facility]; [facility] Work Phone: 10-01-2020 10:56-0400 Body surface area Derived from formula 2.15 m2 Tom Tinoco LPN [facility]; [facility] Work Phone: 10-01-2020 10:56-0400 Body temperature 97.4 [degF] Tom Tinoco LPN [facility]; [facility] Work Phone: Comment on above: Method: Infrared 10-01-2020 10:56-0400 Body weight 86.64 kg Tom Tinoco LPN [facility]; [facility] Work Phone: 10-01-2020 10:56-0400 Body weight 90.29 kg Tom Tinoco LPN [facility]; [facility] Work Phone: 10-01-2020 10:56-0400 Diastolic blood pressure 76 mm[Hg] Tom Tinoco LPN [facility]; [facility] Work Phone: Comment on above: Patient Position: Sitting; Cuff Location : Left Arm; Cuff Size: Standard 10-01-2020 10:56-0400 Heart rate 78 /min Tom Tinoco LPN [facility]; [facility] Work Phone: Comment on above: Pattern: Regular 10-01-2020 10:56-0400 Respiratory rate 16 /min Tom Tinoco LPN [facility]; [facility] Work Phone: Comment on above: Pattern: Unlabored 10-01-2020 10:56-0400 SaO2% (BldA) [Mass fraction] 98 % Tom Tinoco LPN [facility]; [facility] Work Phone: Comment on above: Room air 10-01-2020 10:56-0400 Systolic blood pressure 132 mm[Hg] Tom Tinoco LPN [facility]; [facility] Work Phone: Comment on above: Patient Position: Sitting; Cuff Location : Left Arm; Cuff Size: Standard 06-01-2020 13:18-0500 BMI (Body Mass Index) 25.2 kg/m2 Laura Lua [employer] TECH[employer]ICIAN Work Phone: [facility]; [facility] Work Phone: 06-01-2020 13:18-0500 Body weight 86.64 kg Laura Lua [employer] [employer] TECHNICIAN Work Phone: [facility]; [facility] Work Phone: 06-01-2020 13:18-0500 BP Diastolic 75 mm[Hg] Laura Lua CNP Work Phone: [facility]; [facility] Work Phone: Comment on above: Patient Position: Supine; Cuff Location: Right Arm; Cuff Size: Standard 06-01-2020 13:18-0500 BP Systolic 133 mm[Hg] Laura Lua CNP Work Phone: [facility]; [facility] Work Phone: Comment on above: Patient Position: Supine; Cuff Location: Right Arm; Cuff Size: Standard 06-01-2020 13:18-0500 BSA (Body Surface Area) 2.11 m2 Laura Lua CNP Work Phone: [facility]; [facility] Work Phone: 06-01-2020 13:18-0500 Height 185.42 cm Laura Lua CNP Work Phone: [facility]; [facility] Work Phone: 04-05-2020 15:31-0500 BMI (Body Mass Index) 25.2 kg/m2 Laura Lua CNP Work Phone: [facility]; [facility] Work Phone: 04-05-2020 15:31-0500 Body weight 86.64 kg Laura Lau CNP Work Phone: [facility]; [facility] Work Phone: 04-05-2020 15:31-0500 BP Diastolic 79 mm[Hg] Laura Lua CNP Work Phone: [facility]; [facility] Work Phone: Comment on above: Patient Position: Sitting; Cuff Location : Left Arm; Cuff Size: Standard 04-05-2020 15:31-0500 BP Systolic 138 mm[Hg] Laura Lua CNP Work Phone: [facility]; [facility] Work Phone: Comment on above: Patient Position: Sitting; Cuff Location : Left Arm; Cuff Size: Standard 04-05-2020 15:31-0500 BSA (Body Surface Area) 2.[address]ua [employer] [employer] TECHNICIAN Work Phone: [facility]; [facility] Work Phone: 04-05-2020 15:31-0500 Height 185.42 cm [address] Lua [employer] [employer] TECHNICIAN Work Phone: [facility]; [facility] Work Phone: 04-05-2020 15:31-0500 Pulse (Heart Rate) 71 /min Laura Lua [employer] TECHNICIAN Work Phone: [facility]; [facility] Work Phone: Comment on above: Pattern: Regular 03-30-2020 09:38-0500 BMI (Body Mass Index) 25.2 kg/m2 Kim Slarb HRIS COORDINATOR [facility]; [facility] Work Phone: 03-30-2020 09:38-0500 Body Temperature 98 [degF] Kim Slarb HRIS COORDINATOR [facility]; [facility] Work Phone: 03-30-2020 09:38-0500 Body weight 86.64 kg Kim Slarb HRIS COORDINATOR [facility]; [facility] Work Phone: 03-30-2020 09:38-0500 BP Diastolic 100 mm[Hg] Kim Slarb HRIS COORDINATOR [facility]; [facility] Work Phone: Comment on above: Patient Position: Sitting; Cuff Location : Left Arm; Cuff Size: Standard 03-30-2020 09:38-0500 BP Systolic 162 mm[Hg] Kim Slarb HRIS COORDINATOR [facility]; [facility] Work Phone: Comment on above: Patient Position: Sitting; Cuff Location : Left Arm; Cuff Size: Standard 03-30-2020 09:38-0500 BSA (Body Surface Area) 2.11 m2 Kim Slarb HRIS COORDINATOR [facility]; [facility] Work Phone: 03-30-2020 09:38-0500 Height 185.42 cm Kim Menjivar LPN [facility]; [facility] Work Phone: 03-30-2020 09:38-0500 Pulse (Heart Rate) 83 /min Kim Menjivar LPN [facility]; [facility] Work Phone: Comment on above: Pattern: Regular 03-30-2020 09:38-0500 Pulse Oximetry 98 % Laura Lua [facility]; [facility] Work Phone: Comment on above: Room air 03-30-2020 09:38-0500 Respiratory Rate 16 /min Kim Menjivar LPN [facility]; [facility] Work Phone: Comment on above: Pattern: Unlabored 03-30-2020 09:38-0500 SaO2% (BldA) [Mass fraction] 98 % Kim Menjivar LPN [facility]; [facility] Work Phone: Comment on above: Room air 02-10-2020 09:06-0500 BMI (Body Mass Index) 25.2 kg/m2 Tom Tinoco LPN [facility] Work Phone: 02-10-2020 09:06-0500 Body weight 86.64 kg Tom Tinoco LPN [facility] Work Phone: 02-10-2020 09:06-0500 BSA (Body Surface Area) 2.11 m2 Tom Tinoco LPN [facility] Work Phone: 02-10-2020 09:06-0500 Height 185.42 cm Tom Tinoco LPN [facility] Work Phone: 01-27-2020 16:42-0500 BP Diastolic 84 mm[Hg] Keyla Haji MD Work Phone: [facility] Work Phone: Comment on above: Patient Position: Sitting at home 120-140/ 60- 80's 01-27-2020 16:42-0500 BP Systolic 138 mm[Hg] Keyla Haji MD Work Phone: [facility] Work Phone: Comment on above: Patient Position: Sitting at home 120-140/ 60- 80's 01-13-2020 14:57-0400 BMI (Body Mass Index) 25.2 kg/m2 BULL Garcia LPN [facility] Work Phone: 01-13-2020 14:57-0400 Body Temperature 97.9 [degF] BULL Garcia LPN [facility] Work Phone: Comment on above: Method: Temporal 01-13-2020 14:57-0400 Body weight 86.64 kg BULL Garcia LPN [facility] Work Phone: 01-13-2020 14:57-0400 BP Diastolic 100 mm[Hg] BULL Garcia LPN [facility] Work Phone: Comment on above: Patient Position: Sitting; Cuff Location : Left Arm; Cuff Size: Standard 01-13-2020 14:57-0400 BP Systolic 160 mm[Hg] BULL Garcia LPN [facility] Work Phone: Comment on above: Patient Position: Sitting; Cuff Location : Left Arm; Cuff Size: Standard 01-13-2020 14:57-0400 BSA (Body Surface Area) 2.11 m2 BULL Garcia LPN [facility] Work Phone: 01-13-2020 14:57-0400 Height 185.42 cm BULL Garcia LPN [facility] Work Phone: 01-13-2020 14:57-0400 Pulse (Heart Rate) 94 /min BULL Garcia LPN [facility] Work Phone: Comment on above: Pattern: Regular 01-13-2020 14:57-0400 Pulse Oximetry 94 % Laura Millanshereestacie [facility] Work Phone: Comment on above: Room air 01-13-2020 14:57-0400 Respiratory Rate 20 /min BULL Garcia LPN [facility] Work Phone: Comment on above: Pattern: Unlabored 01-13-2020 14:57-0400 SaO2% (BldA) [Mass fraction] 94 % BULL Garcia LPN [facility]; [facility] Work Phone: Comment on above: Room air 11-24-2019 11:52-0400 Body weight 83.92 kg Tom Tinoco NEERU [facility] Work Phone: 07-31-2019 09:00-0400 Body weight 83.92 kg Keyla Haji MD Work Phone: [facility] Work Phone: 07-31-2019 09:00-0400 BP Diastolic 80 mm[Hg] Keyla Haji MD Work Phone: [facility] Work Phone: Comment on above: Patient Position: Sitting 07-31-2019 09:00-0400 BP Systolic 142 mm[Hg] Keyla Haji MD Work Phone: [facility] Work Phone: Comment on above: Patient Position: Sitting 01-30-2019 08:08-0500 BMI (Body Mass Index) 24.67 kg/m2 BULL Garcia LPN [facility] Work Phone: 01-30-2019 08:08-0500 Body Temperature 97.9 [degF] BULL Garcia LPN [facility] Work Phone: Comment on above: Method: Temporal 01-30-2019 08:08-0500 Body weight 84.82 kg BULL Garcia LPN [facility] Work Phone: 01-30-2019 08:08-0500 BP Diastolic 76 mm[Hg] BULL Garcia LPN [facility] Work Phone: Comment on above: Patient Position: Sitting; Cuff Location : Left Arm; Cuff Size: Standard 01-30-2019 08:08-0500 BP Systolic 114 mm[Hg] BULL Garcia LPN [facility] Work Phone: Comment on above: Patient Position: Sitting; Cuff Location : Left Arm; Cuff Size: Standard 01-30-2019 08:08-0500 BSA (Body Surface Area) 2.09 m2 BULL Garcia LPN [facility] Work Phone: 01-30-2019 08:08-0500 Height 185.42 cm BULL Garcia LPN [facility] Work Phone: 01-30-2019 08:08-0500 Pulse (Heart Rate) 78 /min BULL Garcia LPN [facility] Work Phone: Comment on above: Pattern: Regular 01-30-2019 08:08-0500 Pulse Oximetry 98 % Laura Lua [facility] Work Phone: Comment on above: Room air 01-30-2019 08:08-0500 Respiratory Rate 20 /min BULL Garcia LPN [facility] Work Phone: Comment on above: Pattern: Unlabored 01-30-2019 08:08-0500 SaO2% (BldA) [Mass fraction] 98 % BULL Garcia LPN [facility]; [facility] Work Phone: Comment on above: Room air 10-23-2018 15:19-0400 BMI (Body Mass Index) 23.62 kg/m2 Clementina Hoyos RN [facility] Work Phone: 10-23-2018 15:19-0400 Body Temperature 96.7 [degF] Clementina Hoyos RN [facility] Work Phone: Comment on above: Method: Temporal 10-23-2018 15:19-0400 Body weight 81.19 kg Clementina Hoyos RN [facility] Work Phone: 10-23-2018 15:19-0400 BP Diastolic 74 mm[Hg] Clementina Hoyos RN [facility] Work Phone: Comment on above: Patient Position: Sitting; Cuff Location : Left Arm; Cuff Size: Standard 10-23-2018 15:19-0400 BP Systolic 130 mm[Hg] Clementina Hoyos RN [facility] Work Phone: Comment on above: Patient Position: Sitting; Cuff Location : Left Arm; Cuff Size: Standard 10-23-2018 15:19-0400 BSA (Body Surface Area) 2.05 m2 Clementina Hoyos RN [facility] Work Phone: 10-23-2018 15:19-0400 Height 185.42 cm Clementina Hoyos RN [facility] Work Phone: 10-23-2018 15:19-0400 Pulse (Heart Rate) 94 /min Clementina Hoyos RN [facility] Work Phone: Comment on above: Pattern: Regular 10-23-2018 15:19-0400 Pulse Oximetry 97 % Laura Lua [facility] Work Phone: Comment on above: Room air 10-23-2018 15:19-0400 Respiratory Rate 16 /min Clementina Hoyos RN [facility] Work Phone: Comment on above: Pattern: Unlabored 10-23-2018 15:19-0400 SaO2% (BldA) [Mass fraction] 97 % Clementina Hoyos RN [facility]; [facility] Work Phone: Comment on above: Room air 07-15-2018 16:31-0400 BMI (Body Mass Index) 25.2 kg/m2 Tom Tinoco LPN [facility] Work Phone: 07-15-2018 16:31-0400 Body Temperature 98 [degF] Tom Tinoco LPN [facility] Work Phone: Comment on above: Method: Temporal 07-15-2018 16:31-0400 Body weight 86.65 kg Tom Tinoco LPN [facility] Work Phone: 07-15-2018 16:31-0400 BP Diastolic 90 mm[Hg] Tom Tinoco LPN [facility] Work Phone: Comment on above: Patient Position: Sitting; Cuff Location : Left Arm; Cuff Size: Standard 07-15-2018 16:31-0400 BP Systolic 120 mm[Hg] Tom Tinoco LPN [facility] Work Phone: Comment on above: Patient Position: Sitting; Cuff Location : Left Arm; Cuff Size: Standard 07-15-2018 16:31-0400 BSA (Body Surface Area) 2.11 m2 Tom Tinoco LPN [facility] Work Phone: 07-15-2018 16:31-0400 Height 185.42 cm Tom Tinoco LPN [facility] Work Phone: 07-15-2018 16:31-0400 Pulse (Heart Rate) 98 /min Tom Tinoco LPN [facility] Work Phone: Comment on above: Pattern: Regular 07-15-2018 16:31-0400 Pulse Oximetry 96 % Laura Lua [facility] Work Phone: Comment on above: Room air 07-15-2018 16:31-0400 Respiratory Rate 16 /min Tom Tinoco LPN [facility] Work Phone: Comment on above: Pattern: Unlabored 07-15-2018 16:31-0400 SaO2% (BldA) [Mass fraction] 96 % Tom Tinoco LPN [facility]; [facility] Work Phone: Comment on above: Room air 06-27-2018 12:35-0400 BMI (Body Mass Index) 25.07 kg/m2 Tom Tinoco LPN [facility] Work Phone: 06-27-2018 12:35-0400 Body Temperature 98.2 [degF] Tom Tinoco LPN [facility] Work Phone: Comment on above: Method: Temporal 06-27-2018 12:35-0400 Body weight 86.18 kg Tom Tinoco LPN [facility] Work Phone: 06-27-2018 12:35-0400 BP Diastolic 82 mm[Hg] Tom Tinoco LPN [facility] Work Phone: Comment on above: Patient Position: Sitting; Cuff Location : Left Arm; Cuff Size: Standard 06-27-2018 12:35-0400 BP Systolic 140 mm[Hg] Tom Tinoco LPN [facility] Work Phone: Comment on above: Patient Position: Sitting; Cuff Location : Left Arm; Cuff Size: Standard 06-27-2018 12:35-0400 BSA (Body Surface Area) 2.11 m2 Tom Tinoco LPN [facility] Work Phone: 06-27-2018 12:35-0400 Height 185.42 cm Tom Tinoco LPN [facility] Work Phone: 06-27-2018 12:35-0400 Pulse (Heart Rate) 88 /min Tom Earnest SIDDIQI [facility] Work Phone: Comment on above: Pattern: Regular 06-27-2018 12:35-0400 Pulse Oximetry 98 % Laura Millanshereestacie [facility] Work Phone: Comment on above: Room air 06-27-2018 12:35-0400 Respiratory Rate 16 /min Tom Tinoco LPN [facility] Work Phone: Comment on above: Pattern: Unlabored 06-27-2018 12:35-0400 SaO2% (BldA) [Mass fraction] 98 % Tom Tinoco LPN [facility]; [facility] Work Phone: Comment on above: Room air 06-27-2018 12:35-0400 Weight 86.18 kg Laura Lua [facility] Work Phone: 05-20-2018 11:49-0500 BMI (Body Mass Index) 25.07 kg/m2 Nelly Johnson [facility] Work Phone: 05-20-2018 11:49-0500 Body Temperature 99.7 [degF] Nelly Johnson [facility] Work Phone: Comment on above: Method: Oral 05-20-2018 11:49-0500 Body weight 86.18 kg Nelly Johnson [facility] Work Phone: 05-20-2018 11:49-0500 BP Diastolic 84 mm[Hg] Nelly Johnson [facility] Work Phone: Comment on above: Patient Position: Sitting; Cuff Location : Left Arm; Cuff Size: Standard 05-20-2018 11:49-0500 BP Systolic 118 mm[Hg] Nelly Johnson [facility] Work Phone: Comment on above: Patient Position: Sitting; Cuff Location : Left Arm; Cuff Size: Standard 05-20-2018 11:49-0500 BSA (Body Surface Area) 2.11 m2 Nelly Johnson [facility] Work Phone: 05-20-2018 11:49-0500 Height 185.42 cm Nelly Johnson [facility] Work Phone: 05-20-2018 11:49-0500 Pulse (Heart Rate) 90 /min Nelly Johnson [facility] Work Phone: Comment on above: Pattern: Regular 05-20-2018 11:49-0500 Pulse Oximetry 96 % Laura Millanshereestacie [facility] Work Phone: Comment on above: Room air 05-20-2018 11:49-0500 Respiratory Rate 18 /min Nelly Johnson [facility] Work Phone: Comment on above: Pattern: Unlabored 05-20-2018 11:49-0500 SaO2% (BldA) [Mass fraction] 96 % Nelly Johnson [facility]; [facility] Work Phone: Comment on above: Room air 05-20-2018 11:49-0500 Weight 86.18 kg Laura Lua [facility] Work Phone: 05-02-2018 13:51-0500 BMI (Body Mass Index) 25.07 kg/m2 BULL Garcia LPN [facility] Work Phone: 05-02-2018 13:51-0500 Body Temperature 97.9 [degF] BULL Garcia LPN [facility] Work Phone: Comment on above: Method: Temporal 05-02-2018 13:51-0500 Body weight 86.18 kg BULL Garcia LPN [facility] Work Phone: 05-02-2018 13:51-0500 BP Diastolic 76 mm[Hg] BULL Garcia LPN [facility] Work Phone: Comment on above: Patient Position: Sitting; Cuff Location : Left Arm; Cuff Size: Standard 05-02-2018 13:51-0500 BP Systolic 122 mm[Hg] BULL Garcia LPN [facility] Work Phone: Comment on above: Patient Position: Sitting; Cuff Location : Left Arm; Cuff Size: Standard 05-02-2018 13:51-0500 BSA (Body Surface Area) 2.11 m2 BULL Garcia LPN [facility] Work Phone: 05-02-2018 13:51-0500 Height 185.42 cm BULL Garcia LPN [facility] Work Phone: 05-02-2018 13:51-0500 Pulse (Heart Rate) 100 /min BULL Garcia LPN [facility] Work Phone: Comment on above: Pattern: Regular 05-02-2018 13:51-0500 Pulse Oximetry 98 % Laura Lua [facility] Work Phone: Comment on above: Room air 05-02-2018 13:51-0500 Respiratory Rate 20 /min BULL Garcia LPN [facility] Work Phone: Comment on above: Pattern: Unlabored 05-02-2018 13:51-0500 SaO2% (BldA) [Mass fraction] 98 % BULL Garcia LPN [facility]; [facility] Work Phone: Comment on above: Room air 05-02-2018 13:51-0500 Weight 86.18 kg Laura Lua [facility] Work Phone: 04-10-2018 10:50-0500 BMI (Body Mass Index) 25.13 kg/m2 Kymberly Mike [facility] Work Phone: 04-10-2018 10:50-0500 Body Temperature 98.2 [degF] Kymberly Mike [facility] Work Phone: Comment on above: Method: Temporal 04-10-2018 10:50-0500 Body weight 86.41 kg Kymberly Mike [facility] Work Phone: 04-10-2018 10:50-0500 BP Diastolic 84 mm[Hg] Kymberly Mike [facility] Work Phone: Comment on above: Patient Position: Sitting; Cuff Location : Left Arm; Cuff Size: Standard 04-10-2018 10:50-0500 BP Systolic 130 mm[Hg] Kymberly Mike [facility] Work Phone: Comment on above: Patient Position: Sitting; Cuff Location : Left Arm; Cuff Size: Standard 04-10-2018 10:50-0500 BSA (Body Surface Area) 2.11 m2 Kymberly Mike [facility] Work Phone: 04-10-2018 10:50-0500 Height 185.42 cm Kymberly Mike [facility] Work Phone: 04-10-2018 10:50-0500 Pulse (Heart Rate) 78 /min Kymberly Mike [facility] Work Phone: Comment on above: Pattern: Regular 04-10-2018 10:50-0500 Pulse Oximetry 97 % Laura Lua [facility] Work Phone: Comment on above: Room air 04-10-2018 10:50-0500 Respiratory Rate 16 /min Kymberly Mike [facility] Work Phone: Comment on above: Pattern: Unlabored 04-10-2018 10:50-0500 SaO2% (BldA) [Mass fraction] 97 % Kymberly Mike [facility]; [facility] Work Phone: Comment on above: Room air 04-10-2018 10:50-0500 Weight 86.41 kg Laura Lua [facility] Work Phone: 10-31-2017 12:49-0400 BMI (Body Mass Index) 24.41 kg/m2 Kymberly Mike [facility] Work Phone: 10-31-2017 12:49-0400 Body Temperature 99.4 [degF] Kymberly Mike [facility] Work Phone: 10-31-2017 12:49-0400 Body weight 83.92 kg Kymberly Mike [facility] Work Phone: 10-31-2017 12:49-0400 BP Diastolic 88 mm[Hg] Kymberly Mike [facility] Work Phone: Comment on above: Patient Position: Sitting; Cuff Location : Left Arm; Cuff Size: Standard 10-31-2017 12:49-0400 BP Systolic 138 mm[Hg] Kymberly Mike [facility] Work Phone: Comment on above: Patient Position: Sitting; Cuff Location : Left Arm; Cuff Size: Standard 10-31-2017 12:49-0400 BSA (Body Surface Area) 2.08 m2 Kymberly Mike [facility] Work Phone: 10-31-2017 12:49-0400 Height 185.42 cm Kymberly Mike [facility] Work Phone: 10-31-2017 12:49-0400 Pulse (Heart Rate) 80 /min Kymberly Mike [facility] Work Phone: Comment on above: Pattern: Regular 10-31-2017 12:49-0400 Pulse Oximetry 99 % Laura Lua [facility] Work Phone: Comment on above: Room air 10-31-2017 12:49-0400 Respiratory Rate 16 /min Kymberly Mike [facility] Work Phone: Comment on above: Pattern: Unlabored 10-31-2017 12:49-0400 SaO2% (BldA) [Mass fraction] 99 % Kymberly Mike [facility]; [facility] Work Phone: Comment on above: Room air 10-31-2017 12:49-0400 Weight 83.92 kg Laura Lua [facility] Work Phone: 10-17-2017 14:48-0400 BMI (Body Mass Index) 24.41 kg/m2 Kim Krishnanrb HRIS COORDINATOR [facility] Work Phone: 10-17-2017 14:48-0400 Body Temperature 98.2 [degF] Kim Slarb HRIS COORDINATOR [facility] Work Phone: 10-17-2017 14:48-0400 Body weight 83.92 kg Kim Slarb HRIS COORDINATOR [facility] Work Phone: 10-17-2017 14:48-0400 BP Diastolic 86 mm[Hg] Kim Slarb HRIS COORDINATOR [facility] Work Phone: Comment on above: Patient Position: Sitting; Cuff Location : Left Arm; Cuff Size: Standard 10-17-2017 14:48-0400 BP Systolic 142 mm[Hg] Kim Slarb HRIS COORDINATOR [facility] Work Phone: Comment on above: Patient Position: Sitting; Cuff Location : Left Arm; Cuff Size: Standard 10-17-2017 14:48-0400 BSA (Body Surface Area) 2.08 m2 Kim Krishnanmariposa SIDDIQI [facility] Work Phone: 10-17-2017 14:48-0400 Height 185.42 cm Kim Krishnanmariposa SIDDIQI [facility] Work Phone: 10-17-2017 14:48-0400 Pulse (Heart Rate) 83 /min Kim Krishnanmariposa SIDDIQI [facility] Work Phone: Comment on above: Pattern: Regular 10-17-2017 14:48-0400 Pulse Oximetry 97 % Laura Lua [facility] Work Phone: Comment on above: Room air 10-17-2017 14:48-0400 Respiratory Rate 17 /min Kim Krishnanmariposa SIDDIQI [facility] Work Phone: Comment on above: Pattern: Unlabored 10-17-2017 14:48-0400 SaO2% (BldA) [Mass fraction] 97 % Kim Otto SIDDIQI [facility]; [facility] Work Phone: Comment on above: Room air 10-17-2017 14:48-0400 Weight 83.92 kg Laura Lua [facility] Work Phone: Encounters Encounter Date Encounter Type Care Provider Facility Start: 01-30-2025 ambulatory [facility] Facility :[facility] Start: 01-08-2023 End: 01-08-2023 Office outpatient visit 10 minutes Sanai Mobley CNP Work Phone: [facility] Start: 12-06-2022 End: 12-07-2022 Office outpatient visit 15 minutes Sania Mobley CNP Work Phone: [facility] Start: 12-06-2022 Review Sania Mobley CNP Work Phone: [facility] Start: 10-05-2022 End: 10-05-2022 Office outpatient visit 5 minutes Sania Mobley CNP Work Phone: [facility] Start: 09-18-2022 End: 09-27-2022 Office outpatient visit 15 minutes Sania Mobley CNP Work Phone: [facility] Start: 09-18-2022 Review Sania Mobley CNP Work Phone: [facility] Start: 08-12-2022 End: 08-12-2022 Patient encounter procedure Saniabell Mobley PEGGY Work Phone: [facility] Start: 07-31-2022 ambulatory Laura Lua [facility] Start: 07-31-2022 End: 07-31-2022 Office outpatient visit 15 minutes Sania Mobley CNP Work Phone: [facility] Start: 07-31-2022 Review Sania Mobley CNP Work Phone: [facility] Start: 07-17-2022 End: 07-25-2022 Office outpatient visit 5 minutes Sania Mobley CNP Work Phone: [facility] Start: 07-04-2022 End: 07-04-2022 Office outpatient visit 15 minutes Sania Mobley CNP Work Phone: [facility] Start: 05-01-2022 End: 05-01-2022 Annotation/Addendum Sania Itz PEGGY Work Phone: [facility] Start: 01-31-2022 End: 02-07-2022 Office outpatient visit 25 minutes Sania Mobley CNP Work Phone: [facility] Start: 01-31-2022 Review Sania Mobley CNP Work Phone: [facility] Start: 01-23-2022 End: 01-23-2022 Annotation/Addendum Sania Itz WOODS Work Phone: [facility] Start: 01-02-2022 End: 01-02-2022 Office outpatient visit 15 minutes Sania Mobley CNP Work Phone: [facility] Start: 10-26-2021 End: 10-26-2021 Lab Order Sania Mobley CNP Work Phone: [facility] Start: 07-04-2021 End: 07-04-2021 Office outpatient visit 15 minutes Laura Lua Work Phone: [facility] Start: 06-30-2021 End: 06-30-2021 Office outpatient visit 25 minutes Laura Lua Work Phone: [facility] Start: 06-27-2021 End: 06-27-2021 Office outpatient visit 15 minutes Laura Lua Work Phone: [facility] Start: 12-10-2020 End: 12-10-2020 Annotation/Addendum Laura Lua [employer] TRAFFIC CONTROL TECHNICIAN Work Phone: [facility] Start: 10-05-2020 End: 10-05-2020 Office outpatient visit 40 minutes Laura Lua [address] TRAFFIC CONTROL TECHNICIAN Work Phone: [facility] Start: 10-01-2020 End: 10-01-2020 Office outpatient visit 25 minutes Laura Lua [address] TRAFFIC CONTROL TECHNICIAN Work Phone: [facility] Start: 10-01-2020 Review [address] Lua [address] TRAFFIC CONTROL TECHNICIAN Work Phone: [facility] Start: 06-01-2020 End: 06-01-2020 Office outpatient visit 15 minutes [address] Lua [address] TRAFFIC CONTROL TECHNICIAN Work Phone: [facility] Start: 06-01-2020 Review Laura Lua [facility] Start: 04-05-2020 End: 04-05-2020 Office outpatient visit 15 minutes Laura Yanaelida [facility] Start: 03-30-2020 End: 03-30-2020 Office outpatient visit 15 minutes Laura Alanstacie [facility] Start: 03-30-2020 Review Laura Lua [facility] Start: 02-10-2020 End: 02-10-2020 Office outpatient visit 15 minutes Laura Millanshereestacie [facility] Start: 01-27-2020 End: 01-27-2020 Office outpatient new 45 minutes Laura Lua [facility] Start: 01-13-2020 End: 01-13-2020 Office outpatient visit 25 minutes Laura Chanell [facility] Start: 01-13-2020 Review Laura Chanell L[facility]ens [facility] Start: 01-02-2020 End: 01-02-2020 Annotation/Addendum Laura Lua [facility] Senior Manager Insurance al [facility] Start: 11-24-2019 End: 11-24-2019 Office outpatient visit 25 minutes Laura Alanstacie [facility] Start: 11-24-2019 Review Laura De La Fuente [facility] Start: 07-31-2019 End: 07-31-2019 Office outpatient visit 40 minutes Laura Alanstacie [facility] Start: 01-30-2019 End: 01-30-2019 Periodic preventive med est patient 40-64yrs Laura Chanell [facility] Start: 10-23-2018 End: 10-23-2018 Office outpatient visit 25 minutes Laura [facility] Start: 07-15-2018 End: 07-15-2018 Office outpatient visit 15 minutes Laura Miller [facility] Start: 06-27-2018 End: 06-27-2018 Office outpatient visit 15 minutes Laura Miller [facility] Start: 06-18-2018 End: 06-19-2018 Patient encounter procedure Nodr No Doctor Assigned Facility:[facility] Start: 06-18-2018 Patient encounter procedure Facility:[id number] Start: 05-20-2018 End: 05-20-2018 Office outpatient visit 15 minutes Laura [facility] Start: 05-02-2018 End: 05-02-2018 Office outpatient visit 15 minutes Laura Miller [facility] Start: 04-12-2018 End: 04-12-2018 Lab Order Laura Alanstacie [facility] Senior Manager Insurance [facility] Start: 04-10-2018 End: 04-10-2018 Annotation/Addendum Laura Lua [facility] Senior Manager Insurance [facility] Start: 04-10-2018 Review Laura De La Fuente [facility] Start: 04-10-2018 End: 04-10-2018 Office outpatient visit 25 minutes Laura Dayannastacie [facility] Start: 04-10-2018 Review Laura De La Fuente r[facility] Start: 12-24-2017 End: 12-24-2017 Annotation/Addendum Laura Dayannastacie [facility] Senior Manager Insurance al Medicine Start: 10-31-2017 End: 10-31-2017 Office outpatient visit 15 minutes Laura [facility] Start: 10-17-2017 End: 10-17-2017 Office outpatient new 45 minutes Laura [facility] Procedures Date Procedure Procedure Detail Performing Clinician H/O: vasectomy History of vasectomy Jean Tinoco LPN Comment on above: 11-05-15 Dr. Da rodriguez H/O: vasectomy History of vasectomy Laura Lua [address] TRAFFIC CONTROL TECHNICIAN Work Phone: H/O: vasectomy History of vasectomy Jean Tinoco LPN Comment on above: 11-05-15 Dr. Da rodriguez H/O: vasectomy History of vasectomy Keyla Haji MD Work Phone: Comment on above: 11-05-15 Dr. Da rordiguez H/O: vasectomy History of vasectomy Carla Ventura HRIS COORDINATOR Comment on above: 11-05-15 Dr. Da rodriguez H/O: vasectomy History of vasectomy Florence Santiago [facility] Comment on above: 11-05-15 Dr. Da rodriguez H/O: vasectomy History of vasectomy Popeye a Slarb HRIS COORDINATOR Comment on above: 11-05-15 Dr. Da rodriguez H/O: vasectomy History of vasectomy Carla Ventura HRIS COORDINATOR Comment on above: 11-05-15 Dr. Da rodriguez H/O: vasectomy History of vasectomy Kandy Mobley [employer] TRAFFIC CONTROL TECHNICIAN Work Phone: Comment on above: 11-05-15 Dr. Da rodriguez H/O: vasectomy History of vasectomy Kandy Mobley [address] TRAFFIC CONTROL TECHNICIAN Work Phone: Comment on above: 11-05-15 Dr. Da rodriguez H/O: vasectomy History of vasectomy Popeye a Slarb HRIS COORDINATOR Comment on above: 11-05-15 Dr. Da Mike Comment on above: lymph node inflammat ion neck BULL Garcia Comment on above: lymph node inflammat ion neck Shirley Gravius Comment on above: lymph node inflammat ion neck Shirley Gravius Comment on above: lymph node inflammat ion neck Rhonda Meraz Comment on above: lymph node inflammat ion neck BULL Garcia Comment on above: lymph node inflammat ion neck BULL Garcia Comment on above: lymph node inflammat ion neck Tom Clark Comment on above: lymph node inflammat ion neck BULL Garcia Comment on above: lymph node inflammat ion neck Tom Tinoco Comment on above: lymph node inflammat ion neck Kim Slarb Comment on above: lymph node inflammat ion neck Kim Slarb Comment on above: lymph node inflammat ion neck Tom Tinoco Comment on above: lymph node inflammat ion neck Tom Clark Comment on above: lymph node inflammat ion neck Tom Tinoco LP N Comment on above: lymph node inflammat ion neck Keyla Haji MD Work Phone: Comment on above: lymph node inflammat ion neck Carla Caruso PN Comment on above: lymph node inflammat ion neck Alphonse Santiago OUTPATIENT COORDINATOR Comment on above: lymph node inflammat ion neck Kim Ariellarb LP N Comment on above: lymph node inflammat ion neck Carla Caruso PN Comment on above: lymph node inflammat ion neck Sania Mobley [employer] TRAFFIC CONTROL TECHNICIAN Work Phone: Comment on above: lymph node inflammat ion neck Sania Mobley [employer] TRAFFIC CONTROL TECHNICIAN Work Phone: Comment on above: lymph node inflammat ion neck Kim Ariellarb LP N Comment on above: lymph node inflammat ion right armpit Kymberly Leallear Comment on above: x 2 inflammation right armpit BULL Jose Comment on above: x 2 inflammation right armpit Shirley Gravius Comment on above: x 2 inflammation right armpit Shirley Gravius Comment on above: x 2 inflammation right armpit Rhonda Meraz Comment on above: x 2 inflammation right armpit BULL Jose Comment on above: x 2 inflammation right armpit BULL Jose Comment on above: x 2 inflammation right armpit Tom Clark Comment on above: x 2 inflammation right armpit BULL Jose Comment on above: x 2 inflammation right armpit Tom Tinoco Comment on above: x 2 inflammation right armpit Kim Slamariposa Comment on above: x 2 inflammation right armpit Kim Menjivar Comment on above: x 2 inflammation right armpit Tom Tinoco Comment on above: x 2 inflammation right armpit Tom Clark Comment on above: x 2 inflammation right armpit Tom Tinoco LP N Comment on above: x 2 inflammation right armpit Keyla Haji MD Work Phone: Comment on above: x 2 inflammation right armpit Carla Caruso PN Comment on above: x 2 inflammation right armpit Alphonse Santiago CMA Comment on above: x 2 inflammation right armpit Kim Slarb LP N Comment on above: x 2 inflammation right armpit Carla Caruso PN Comment on above: x 2 inflammation right armpit Sania Mobley [employer] TRAFFIC CONTROL TECHNICIAN Work Phone: Comment on above: x 2 inflammation right armpit Sania Mobley [employer] TRAFFIC CONTROL TECHNICIAN Work Phone: Comment on above: x 2 inflammation right armpit Kim Menjivar LP N Comment on above: x 2 inflammation Plan of Treatment Date Care Activity Detail Author Start: 12-06-2022 Procedure Education Eprescribe d prescriptions (G8553) [facility]; [facility] Work Phone: Start: 12-06-2022 Provider Instruction s for Treatment Follow up as needed [facility]; [facility] Work Phone: Start: 09-27-2022 Patient Education Sleeping Pil ls: benzodiazepines [facility]; [facility] Work Phone: Start: 09-18-2022 Procedure Education Eprescribe d prescriptions (G8553) [facility]; [facility] Work Phone: Start: 09-18-2022 Provider Instruction s for Treatment Follow up in 1 month [facility]; [facility] Work Phone: Start: 07-31-2022 Assay of thyroid stimulating hormone tsh TSH (THYROID STIMULATING HORMONE) (63069) [facility]; [facility] Work Phone: Start: 07-31-2022 Lipid panel LIPID PANEL (8 0061) : fasting [facility]; [facility] Work Phone: Start: 07-31-2022 Procedure Education Eprescribe d prescriptions (G8553) [facility]; [facility] Work Phone: Start: 07-31-2022 Provider Instruction s for Treatment Follow up in 3 months for hypertension [facility]; [facility] Work Phone: Start: 07-31-2022 Urnls dip stick/tabl et reagent auto microscopy Urinalysis, Complete W/ Microscopic Examination with reflex to urine culture, routine (02359) [facility]; [facility] Work Phone: Start: 07-31-2022 Comprehensive metabolic panel METABOLIC PANEL, COMPREHENSIVE (44654) [facility]; [facility] Work Phone: Start: 07-04-2022 Procedure Education Eprescribe d prescriptions (G8553) [facility]; [facility] Work Phone: Start: 02-07-2022 Provider Instruction s for Treatment [facility]; [facility] Work Phone: Start: 01-31-2022 Procedure Education Eprescribe d prescriptions (G8553) [facility]; [facility] Work Phone: Start: 01-31-2022 Provider Instruction s for Treatment Follow up in 6 months [facility]; [facility] Work Phone: Start: 01-31-2022 Assay of thyroid stimulating hormone tsh TSH (THYROID STIMULATING HORMONE) (75709) [facility]; [facility] Work Phone: Start: 01-31-2022 End: 01-31-2022 Behav assmt w/score & docd/stand instrument ADMINISTRATION OF PATIENT HEALTH QUESTIONNAIRE-9 (PHQ-9) DEPRESSION SURVEY (80102) [facility]; [facility] Work Phone: Comment on above: Score 5 Start: 01-31-2022 Lipid panel LIPID PANEL (39210) [facility]; [facility] Work Phone: Start: 01-02-2022 Procedure Education Eprescribe d prescriptions (G8553) [facility]; [facility] Work Phone: Start: 10-26-2021 Assay of thyroid stimulating hormone tsh TSH (THYROID STIMULATING HORMONE) (00453) [facility]; [facility] Work Phone: Start: 07-04-2021 Assay of thyroid stimulating hormone tsh TSH (THYROID STIMULATING HORMONE) (53910) [facility]; [facility] Work Phone: Comment on above: August 23 repeat Start: 07-04-2021 Procedure Education Eprescribe d prescriptions (G8553) [facility]; [facility] Work Phone: Start: 07-04-2021 Provider Instruction s for Treatment Follow up in 3 months put on waiting list for new provider [facility]; [facility] Work Phone: Start: 06-30-2021 Procedure Education Eprescribe d prescriptions (G8553) [facility]; [facility] Work Phone: Start: 06-27-2021 Procedure Education Eprescribe d prescriptions (G8553) [facility]; [facility] Work Phone: Start: 06-27-2021 Provider Instruction s for Treatment Follow up in 3 months with CIM replacement or new provider [facility]; [facility] Work Phone: Start: 10-01-2020 Procedure Education Eprescribe d prescriptions (G8553) [facility]; [facility] Work Phone: Start: 10-01-2020 Provider Instruction s for Treatment Follow up in 4 months [facility]; [facility] Work Phone: Start: 06-01-2020 Procedure Education Eprescribe d prescriptions (G8553) [facility]; [facility] Work Phone: Start: 06-01-2020 Provider Instruction s for Treatment [facility]; [facility] Work Phone: Start: 05-24-2020 25 hydroxy includes fractions if performed CALCIFEDIOL (83365) [facility]; [facility] Work Phone: Start: 05-24-2020 TSH Qn TSH (THYROID S TIMULATING HORMONE) (11259) [facility]; [facility] Work Phone: Start: 04-05-2020 Procedure Education Eprescribe d prescriptions (G8553) [facility]; [facility] Work Phone: Start: 04-05-2020 Provider Instruction s for Treatment Follow up in 2 months virtual [facility]; [facility] Work Phone: Start: 03-30-2020 Procedure Education Eprescribe d prescriptions (G8553) [facility]; [facility] Work Phone: Start: 03-30-2020 Provider Instruction s for Treatment [facility]; [facility] Work Phone: Start: 02-10-2020 Procedure Education Eprescribe d prescriptions (G8553) [facility] Work Phone: Start: 02-10-2020 Provider Instruction s for Treatment Follow up in office week of Apr 01 assistant front desk manager to make follow up in the office [facility] Work Phone: Start: 02-10-2020 Lipid panel LIPID PANEL (23935) [facility] Work Phone: Comment on above: Mar 28, 2020 Start: 02-10-2020 TSH Qn TSH (THYROID S TIMULATING HORMONE) (72789) [facility] Work Phone: Comment on above: Mar 28 2020 Start: 01-13-[address] a Drug Screen (7drug + Alcohol) (16590) [facility] Work Phone: Start: 11-24-2019 25 hydroxy includes fractions if performed CALCIFEDIOL (30465) [facility] Work Phone: Comment on above: Dec 31 Start: 11-24-2019 Lipid panel LIPID PANEL (73760) [facility] Work Phone: Comment on above: Dec 31 Start: 11-24-2019 Comprehensive metabolic panel Metabolic Panel, Comprehensive (87361) [facility] Work Phone: Comment on above: Dec 31 Start: 11-24-2019 Blood count complete auto&auto difrntl wbc CBC, Platelets & Auto Diff (41934) [facility] Work Phone: Comment on above: Dec 31 Start: 11-24-2019 TSH Qn TSH (THYROID S TIMULATING HORMONE) (24034) [facility] Work Phone: Comment on above: dec 31 Start: 11-24-2019 Procedure Education Eprescribe d prescriptions (G8553) [facility] Work Phone: Start: 11-24-2019 Provider Instruction s for Treatment Follow up in 6 weeks assistant front desk manager to schedule with [facility] Week of Jan 04 [facility] Work Phone: Start: 07-31-2019 Urine albumin quantitative MICROALBUMIN: CREATININE RATIO (16135) AND (35871) [facility] Work Phone: Start: 07-31-2019 Comprehensive metabolic panel METABOLIC PANEL, COMPREHENSIVE (65076) [facility] Work Phone: Start: 07-31-2019 Blood count manual cell count each CBC with auto diff (43950) [facility] Work Phone: Start: 07-31-2019 Assay of free thyroxine T4, FREE (THYROXINE) (43714) [facility]; [facility] Work Phone: Start: 07-31-2019 Free T4 [Mass/Vol] T4, FREE (T HYROXINE) (42201) [facility] Work Phone: Start: 07-31-2019 25 hydroxy includes fractions if performed CALCIFIDIOL (67140) VIT D 25 [facility] Work Phone: Start: 07-31-2019 Assay of thyroid stimulating hormone tsh TSH (08702) [facility]; [facility] Work Phone: Start: 07-31-2019 TSH Qn TSH (59007) [facility] Work Phone: Start: 12-04-2018 TSH Qn TSH (THYROID S TIMULATING HORMONE) (02764) [facility] Work Phone: Start: 12-04-2018 Assay of thyroid stimulating hormone tsh TSH (THYROID STIMULATING HORMONE) (75197) [facility]; [facility] Work Phone: Start: 10-23-2018 Procedure Education Eprescribe d prescriptions (G8553) [facility] Work Phone: Start: 10-23-2018 Provider Instruction s for Treatment Follow up in 6 months [facility] Work Phone: Start: 09-09-2018 CRP [Mass/Vol] C-Reactive Pro tein (23526) [facility] Work Phone: Start: 09-09-2018 TSH Qn TSH (THYROID S TIMULATING HORMONE) (05162) [facility] Work Phone: Start: 07-15-2018 Procedure Education Eprescribe d prescriptions (G8553) [facility] Work Phone: Start: 07-15-2018 Provider Instruction s for Treatment Follow up in 3 months [facility] Work Phone: Start: 06-27-2018 Procedure Education Eprescribe d prescriptions (G8553) [facility] Work Phone: Start: 06-27-2018 Provider Instruction s for Treatment [facility] Work Phone: Start: 06-27-2018 Sedimentation rate r bc non-automated SED RATE ERYTHROCYTE (86400) [facility] Work Phone: Start: 06-27-2018 CRP mass conc C-REACTIVE PRO TEIN (76549) [facility] Work Phone: Start: 06-27-2018 Leukocyte assmt feca l qual/semiquantitative LEUKOCYTE COUNT, FECAL (92986) [facility] Work Phone: Start: 06-27-2018 Culture bacterial an y source anaerobic iso&id C-DIFFICILE, STOOL (75882) [facility] Work Phone: Start: 06-27-2018 Blood count complete auto&auto difrntl wbc CBC W/AUTO DIFF WBC (57852) [facility] Work Phone: Start: 05-20-2018 Procedure Education Eprescribe d prescriptions (G8553) [facility] Work Phone: Start: 05-20-2018 Provider Instruction s for Treatment Follow up if no improvement or if symptoms worsen [facility] Work Phone: Start: 05-20-2018 [place] influenza Rapid Flu (60474 x 2) [facility] Work Phone: Comment on above: negative Start: 05-20-2018 [place] streptococcus group a Rapid Strep Test, Office (06214) [facility]; [facility] Work Phone: Comment on above: negative Start: 05-20-2018 S. pyogenes Ag IA Ql (Unsp spec) Rapid Strep Test, Office (92267) [facility] Work Phone: Comment on above: negative Start: 05-20-2018 Virus centrifuge enhncd id imfluor stain ea Influenza A&B Viral Culture (57147) [facility] Work Phone: Start: 05-20-2018 Throat culture THROAT CULTURE (67135 ) [facility] Work Phone: Start: 04-12-2018 Assay of thyroid stimulating hormone tsh TSH (THYROID STIMULATING HORMONE) (60484) [facility]; [facility] Work Phone: Start: 04-12-2018 Thyrotropin Qn TSH (THYROID S TIMULATING HORMONE) (41821) [facility] Work Phone: Start: 04-10-2018 Procedure Education Eprescribe d prescriptions (G8553) [facility] Work Phone: Start: 04-10-2018 Provider Instruction s for Treatment Follow up in 3 months [facility] Work Phone: Start: 04-10-2018 Blood count complete automated CBC & PLATELETS (AUTO) (55428) [facility] Work Phone: Start: 04-10-2018 25 hydroxy includes fractions if performed CALCIFEDIOL (12870) [facility] Work Phone: Start: 04-10-2018 T4 free mass conc T4, FREE (TH YROXINE) (44939) [facility] Work Phone: Start: 04-10-2018 T3 free mass conc T3, FREE (TRIDOTHYRONINE) (96454) [facility] Work Phone: Start: 04-10-2018 Thyrotropin Qn TSH (THYROID S TIMULATING HORMONE) (74478) [facility] Work Phone: Start: 10-31-2017 Procedure Education Eprescribe d prescriptions (G8553) [facility] Work Phone: Start: 10-31-2017 Provider Instruction s for Treatment [facility] Work Phone: Start: 10-17-2017 Procedure Education Eprescribe d prescriptions (G8553) [facility] Work Phone: Start: 10-17-2017 Provider Instruction s for Treatment [facility] Work Phone: [facility] Work [facility]: [facility] Work Phone: [facility] Work Phone: [facility]; [facility] Work Phone: [facility]; [facility] Work Phone: [facility]; [facility] Work Phone: [facility]; [facility] Work Phone: Immunizations Immunization Date Immunization Notes Care Provider Kishore bill 09-04-2013 tetanus toxoid, redu shannen diphtheria toxoid, and acellular pertussis vaccine, adsorbed Laura Lua [facility] Senior Manager [facility] Work Phone: Payers Date Payer Category Payer Self-pay 2024 Unknown [id number] 2021 Unknown [id number] 02 2018 Unknown 1977 Unknown [id number] 1977 Unknown [id number] 1977 Unknown [id number] Unknown [id number] Unknown [id number] Social History Date Type Detail Facility Alcohol use: Moderate alcohol use. 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 Alcohol use: Alcohol use: [facility]; [facility] Work Phone: Alcohol use: Alcohol use: [facility]; [facility] Work Phone: Comment on above: couple a month Clinical Notes Note Date & Type Note Facility Instructions Name Patient Instructions Indication:BMI 25.0-25.9,adult Start:01-Jun-2020 Instruction Type:Provider Instructions for Treatment How to Access Health Information Online using Patient Portal and 3rd [employer] Apps Indication:BMI 25.0-25.9,adult Start:01-Jun-2020 Instruction Type:Patient Education Patient Instructions Indication:Nonsmoker Start: Instruction Type:Provider Instructions for Treatment How to Access Health Information Online using Patient Portal and [employer]rd [employer] Apps Indication:Nonsmoker Start: Instruction Type:Patient Education Patient Instructions Indication:Nonsmoker Start:30-Mar-2020 Instruction Type:Provider Instructions for Treatment How to Access Health Information Online using Patient Portal and [employer]rd [employer] Apps Indication:Nonsmoker Start:30-Mar-2020 Instruction Type:Patient Education How to access health information online Indication:Nonsmoker Start: 0 Instruction Type:Patient Education How to access health information online - Detail Indication:Nonsmoker Start: 0 Instruction Type:Patient Education Patient Instructions Indication:Hypercholesteremi a Start: 0 Instruction Type:Provider Instructions for Treatment How to access health information online Indication:Attention deficit disorder (ADD) in adult Start: 0 Instruction Type:Patient Education How to access health information online - Detail Indication:Attention deficit disorder (ADD) in adult Start: 0 Instruction Type:Patient Education Patient Instructions Indication:Attention deficit disorder (ADD) in adult Start: 0 Instruction Type:Provider Instructions for Treatment How to access health information online Indication:Nonsmoker Start: 0 Instruction Type:Patient Education How to access health information online - Detail Indication:Nonsmoker Start: 0 Instruction Type:Patient Education Instructions Indication:BMI 24.0-24.9, adult Start: 0 Instruction Type:Provider Instructions for Treatment How to access health information online Indication:Attention deficit disorder (ADD) in adult Start:31-Jul-2019 Instruction Type:Patient Education How to access health information online - Detail Indication:Attention deficit disorder (ADD) in adult Start:31-Jul-2019 Instruction Type:Patient Education Patient Instructions Indication:Attention deficit disorder (ADD) in adult Start:31-Jul-2019 Instruction Type:Provider Instructions for Treatment How to access health information online Indication:Attention deficit disorder (ADD) in adult Start:30-Jan-2019 Instruction Type:Patient Education How to access health information online - Detail Indication:Attention deficit disorder (ADD) in adult Start:30-Jan-2019 Instruction Type:Patient Education Patient Instructions Indication:Attention deficit disorder (ADD) in adult Start:30-Jan-2019 Instruction Type:Provider Instructions for Treatment How to access health information online Indication:Nonsmoker Start: Instruction Type:Patient Education How to access health information online - Detail Indication:Nonsmoker Start: Instruction Type:Patient Education Patient Instructions Indication:Depression with anxiety Start: Instruction Type:Provider Instructions for Treatment How to access health information online Indication:BMI 25.0-25.9,adult Start: 9 Instruction Type:Patient Education How to access health information online - Detail Indication:BMI 25.0-25.9,adult Start: 9 Instruction Type:Patient Education Patient Instructions Indication:BMI 25.0-25.9,adult Start: 9 Instruction Type:Provider Instructions for Treatment How to access health information online Indication:Nonsmoker Start:27-Jun-2018 Instruction Type:Patient Education How to access health information online - Detail Indication:Nonsmoker Start:27-Jun-2018 Instruction Type:Patient Education Patient Instructions Indication:Nonsmoker Start:27-Jun-2018 Instruction Type:Provider Instructions for Treatment How to access health information online Indication:Nonsmoker Start: 9 Instruction Type:Patient Education How to access health information online - Detail Indication:Nonsmoker Start: Instruction Type:Patient Education Patient Instructions Indication:Sore throat Start: 9 Instruction Type:Provider Instructions for Treatment How to access health information online Indication:Attention deficit disorder (ADD) in adult Start:02-May-2018 Instruction Type:Patient Education How to access health information online - Detail Indication:Attention deficit disorder (ADD) in adult Start:02-May-2018 Instruction Type:Patient Education Patient Instructions Indication:Attention deficit disorder (ADD) in adult Start:02-May-2018 Instruction Type:Provider Instructions for Treatment How to access health information online Indication:Nonsmoker Start: 9 Instruction Type:Patient Education How to access health information online - Detail Indication:Nonsmoker Start: 9 Instruction Type:Patient Education Patient Instructions Indication:Nonsmoker Start: 9 Instruction Type:Provider Instructions for Treatment How to access health information online Indication:Nonsmoker Start:31-Oct-2017 Instruction Type:Patient Education How to access health information online - Detail Indication:Nonsmoker Start:31-Oct-2017 Instruction Type:Patient Education Patient Instructions Indication:Nonsmoker Start:31-Oct-2017 Instruction Type:Provider Instructions for Treatment How to access health information online Indication:Hypothyroid Start: Instruction Type:Patient Education How to access health information online - Detail Indication:Hypothyroid Start: 8 Instruction Type:Patient Education Patient Instructions Indication:BMI 24.0-24.9, adult Start: 8 Instruction Type:Provider Instructions for Treatment [facility]; [facility] Work Phone: Instructions* Name Dates Details Patient Instructions Indication:Nonsmoker Start:01-Oct-2020 Instruction Type:Provider Instructions for Treatment How to Access Health Informa tion Online using Patient Portal and [employer]rd [employer] Apps Indication:Nonsmoker Start:01-Oct-2020 Instruction Type:Patient Education Patient Instructions Indication:BMI 25.0-25.9,adult Start:01-Jun-2020 Instruction Type:Provider Instructions for Treatment How to Access Health Informa tion Online using Patient Portal and [employer]rd [employer] Apps Indication:BMI 25.0-25.9,adult Start:01-Jun-2020 Instruction Type:Patient Education Patient Instructions Indication:Nonsmoker Start:05-Apr-2020 Instruction Type:Provider Instructions for Treatment How to Access Health Informa tion Online using Patient Portal and [employer]rd [employer] Apps Indication:Nonsmoker Start:05-Apr-2020 Instruction Type:Patient Education Patient Instructions Indication:Nonsmoker Start:30-Mar-2020 Instruction Type:Provider Instructions for Treatment How to Access Health Informa tion Online using Patient Portal and [employer]rd [employer] Apps Indication:Nonsmoker Start:30-Mar-2020 Instruction Type:Patient Education How to access health informa tion online Indication:Nonsmoker Start:10-Feb-2020 Instruction Type:Patient Education How to access health informa tion online - Detail Indication:Nonsmoker Start:10-Feb-2020 Instruction Type:Patient Education Patient Instructions Indication:Hypercholesteremia Start:10-Feb-2020 Instruction Type:Provider Instructions for Treatment How to access health informa tion online Indication:Attention deficit disorder (ADD) in adult Start:13-Jan-2020 Instruction Type:Patient Education How to access health informa tion online - Detail Indication:Attention deficit disorder (ADD) in adult Start:13-Jan-2020 Instruction Type:Patient Education Patient Instructions Indication:Attention deficit disorder (ADD) in adult Start:13-Jan-2020 Instruction Type:Provider Instructions for Treatment How to access health informa tion online Indication:Nonsmoker Start:24-Nov-2019 Instruction Type:Patient Education How to access health informa tion online - Detail Indication:Nonsmoker Start:24-Nov-2019 Instruction Type:Patient Education Instructions Indication:BMI 24.0-24.9, adult Start:24-Nov-2019 Instruction Type:Provider Instructions for Treatment How to access health informa tion online Indication:Attention deficit disorder (ADD) in adult Start:31-Jul-2019 Instruction Type:Patient Education How to access health informa tion online - Detail Indication:Attention deficit disorder (ADD) in adult Start:31-Jul-2019 Instruction Type:Patient Education Patient Instructions Indication:Attention deficit disorder (ADD) in adult Start:31-Jul-2019 Instruction Type:Provider Instructions for Treatment How to access health informa tion online Indication:Attention deficit disorder (ADD) in adult Start:30-Jan-2019 Instruction Type:Patient Education How to access health informa tion online - Detail Indication:Attention deficit disorder (ADD) in adult Start:30-Jan-2019 Instruction Type:Patient Education Patient Instructions Indication:Attention deficit disorder (ADD) in adult Start:30-Jan-2019 Instruction Type:Provider Instructions for Treatment How to access health informa tion online Indication:Nonsmoker Start:23-Oct-2018 Instruction Type:Patient Education How to access health informa tion online - Detail Indication:Nonsmoker Start:23-Oct-2018 Instruction Type:Patient Education Patient Instructions Indication:Depression with anxiety Start:23-Oct-2018 Instruction Type:Provider Instructions for Treatment How to access health informa tion online Indication:BMI 25.0-25.9,adult Start:15-Jul-2018 Instruction Type:Patient Education How to access health informa tion online - Detail Indication:BMI 25.0-25.9,adult Start:15-Jul-2018 Instruction Type:Patient Education Patient Instructions Indication:BMI 25.0-25.9,adult Start:15-Jul-2018 Instruction Type:Provider Instructions for Treatment How to access health informa tion online Indication:Nonsmoker Start:27-Jun-2018 Instruction Type:Patient Education How to access health informa tion online - Detail Indication:Nonsmoker Start:27-Jun-2018 Instruction Type:Patient Education Patient Instructions Indication:Nonsmoker Start:27-Jun-2018 Instruction Type:Provider Instructions for Treatment How to access health informa tion online Indication:Nonsmoker Start:20-May-2018 Instruction Type:Patient Education How to access health informa tion online - Detail Indication:Nonsmoker Start:20-May-2018 Instruction Type:Patient Education Patient Instructions Indication:Sore throat Start:20-May-2018 Instruction Type:Provider Instructions for Treatment How to access health informa tion online Indication:Attention deficit disorder (ADD) in adult Start:02-May-2018 Instruction Type:Patient Education How to access health informa tion online - Detail Indication:Attention deficit disorder (ADD) in adult Start:02-May-2018 Instruction Type:Patient Education Patient Instructions Indication:Attention deficit disorder (ADD) in adult Start:02-May-2018 Instruction Type:Provider Instructions for Treatment How to access health informa tion online Indication:Nonsmoker Start:10-Apr-2018 Instruction Type:Patient Education How to access health informa tion online - Detail Indication:Nonsmoker Start:10-Apr-2018 Instruction Type:Patient Education Patient Instructions Indication:Nonsmoker Start:10-Apr-2018 Instruction Type:Provider Instructions for Treatment How to access health informa tion online Indication:Nonsmoker Start:31-Oct-2017 Instruction Type:Patient Education How to access health informa tion online - Detail Indication:Nonsmoker Start:31-Oct-2017 Instruction Type:Patient Education Patient Instructions Indication:Nonsmoker Start:31-Oct-2017 Instruction Type:Provider Instructions for Treatment How to access health informa tion online Indication:Hypothyroid Start:17-Oct-2017 Instruction Type:Patient Education How to access health informa tion online - Detail Indication:Hypothyroid Start:17-Oct-2017 Instruction Type:Patient Education Patient Instructions Indication:BMI 24.0-24.9, adult Start:17-Oct-2017 Instruction Type:Provider Instructions for Treatment [facility]; [facility] Work Phone: Instructions* Name Dates Details Patient Instructions Indication:Nonsmoker Start:01-Oct-2020 Instruction Type:Provider Instructions for Treatment How to Access Health Informa tion Online using Patient Portal and [employer]rd [employer] Apps Indication:Nonsmoker Start:01-Oct-2020 Instruction Type:Patient Education Patient Instructions Indication:BMI 25.0-25.9,adult Start:01-Jun-2020 Instruction Type:Provider Instructions for Treatment How to Access Health Informa tion Online using Patient Portal and [employer]rd [employer] Apps Indication:BMI 25.0-25.9,adult Start:01-Jun-2020 Instruction Type:Patient Education Patient Instructions Indication:Nonsmoker Start:05-Apr-2020 Instruction Type:Provider Instructions for Treatment How to Access Health Informa tion Online using Patient Portal and [employer]rd [employer] Apps Indication:Nonsmoker Start:05-Apr-2020 Instruction Type:Patient Education Patient Instructions Indication:Nonsmoker Start:30-Mar-2020 Instruction Type:Provider Instructions for Treatment How to Access Health Informa tion Online using Patient Portal and [employer]rd [employer] Apps Indication:Nonsmoker Start:30-Mar-2020 Instruction Type:Patient Education How to access health informa tion online Indication:Nonsmoker Start:10-Feb-2020 Instruction Type:Patient Education How to access health informa tion online - Detail Indication:Nonsmoker Start:10-Feb-2020 Instruction Type:Patient Education Patient Instructions Indication:Hypercholesteremia Start:10-Feb-2020 Instruction Type:Provider Instructions for Treatment How to access health informa tion online Indication:Attention deficit disorder (ADD) in adult Start:13-Jan-2020 Instruction Type:Patient Education How to access health informa tion online - Detail Indication:Attention deficit disorder (ADD) in adult Start:13-Jan-2020 Instruction Type:Patient Education Patient Instructions Indication:Attention deficit disorder (ADD) in adult Start:13-Jan-2020 Instruction Type:Provider Instructions for Treatment How to access health informa tion online Indication:Nonsmoker Start:24-Nov-2019 Instruction Type:Patient Education How to access health informa tion online - Detail Indication:Nonsmoker Start:24-Nov-2019 Instruction Type:Patient Education Instructions Indication:BMI 24.0-24.9, adult Start:24-Nov-2019 Instruction Type:Provider Instructions for Treatment How to access health informa tion online Indication:Attention deficit disorder (ADD) in adult Start:31-Jul-2019 Instruction Type:Patient Education How to access health informa tion online - Detail Indication:Attention deficit disorder (ADD) in adult Start:31-Jul-2019 Instruction Type:Patient Education Patient Instructions Indication:Attention deficit disorder (ADD) in adult Start:31-Jul-2019 Instruction Type:Provider Instructions for Treatment How to access health informa tion online Indication:Attention deficit disorder (ADD) in adult Start:30-Jan-2019 Instruction Type:Patient Education How to access health informa tion online - Detail Indication:Attention deficit disorder (ADD) in adult Start:30-Jan-2019 Instruction Type:Patient Education Patient Instructions Indication:Attention deficit disorder (ADD) in adult Start:30-Jan-2019 Instruction Type:Provider Instructions for Treatment How to access health informa tion online Indication:Nonsmoker Start:23-Oct-2018 Instruction Type:Patient Education How to access health informa tion online - Detail Indication:Nonsmoker Start:23-Oct-2018 Instruction Type:Patient Education Patient Instructions Indication:Depression with anxiety Start:23-Oct-2018 Instruction Type:Provider Instructions for Treatment How to access health informa tion online Indication:BMI 25.0-25.9,adult Start:15-Jul-2018 Instruction Type:Patient Education How to access health informa tion online - Detail Indication:BMI 25.0-25.9,adult Start:15-Jul-2018 Instruction Type:Patient Education Patient Instructions Indication:BMI 25.0-25.9,adult Start:15-Jul-2018 Instruction Type:Provider Instructions for Treatment How to access health informa tion online Indication:Nonsmoker Start:27-Jun-2018 Instruction Type:Patient Education How to access health informa tion online - Detail Indication:Nonsmoker Start:27-Jun-2018 Instruction Type:Patient Education Patient Instructions Indication:Nonsmoker Start:27-Jun-2018 Instruction Type:Provider Instructions for Treatment How to access health informa tion online Indication:Nonsmoker Start:20-May-2018 Instruction Type:Patient Education How to access health informa tion online - Detail Indication:Nonsmoker Start:20-May-2018 Instruction Type:Patient Education Patient Instructions Indication:Sore throat Start:20-May-2018 Instruction Type:Provider Instructions for Treatment How to access health informa tion online Indication:Attention deficit disorder (ADD) in adult Start:02-May-2018 Instruction Type:Patient Education How to access health informa tion online - Detail Indication:Attention deficit disorder (ADD) in adult Start:02-May-2018 Instruction Type:Patient Education Patient Instructions Indication:Attention deficit disorder (ADD) in adult Start:02-May-2018 Instruction Type:Provider Instructions for Treatment How to access health informa tion online Indication:Nonsmoker Start:10-Apr-2018 Instruction Type:Patient Education How to access health informa tion online - Detail Indication:Nonsmoker Start:10-Apr-2018 Instruction Type:Patient Education Patient Instructions Indication:Nonsmoker Start:10-Apr-2018 Instruction Type:Provider Instructions for Treatment How to access health informa tion online Indication:Nonsmoker Start:31-Oct-2017 Instruction Type:Patient Education How to access health informa tion online - Detail Indication:Nonsmoker Start:31-Oct-2017 Instruction Type:Patient Education Patient Instructions Indication:Nonsmoker Start:31-Oct-2017 Instruction Type:Provider Instructions for Treatment How to access health informa tion online Indication:Hypothyroid Start:17-Oct-2017 Instruction Type:Patient Education How to access health informa tion online - Detail Indication:Hypothyroid Start:17-Oct-2017 Instruction Type:Patient Education Patient Instructions Indication:BMI 24.0-24.9, adult Start:17-Oct-2017 Instruction Type:Provider Instructions for Treatment [facility]; [facility] Work Phone: Instructions* Name Dates Details Patient Instructions Indication:Nonsmoker Start:01-Oct-2020 Instruction Type:Provider Instructions for Treatment How to Access Health Informa tion Online using Patient Portal and [employer] Apps Indication:Nonsmoker Start:01-Oct-2020 Instruction Type:Patient Education Patient Instructions Indication:BMI 25.0-25.9,adult Start:01-Jun-2020 Instruction Type:Provider Instructions for Treatment How to Access Health Informa tion Online using Patient Portal and [employer]rd [employer] Apps Indication:BMI 25.0-25.9,adult Start:01-Jun-2020 Instruction Type:Patient Education Patient Instructions Indication:Nonsmoker Start:05-Apr-2020 Instruction Type:Provider Instructions for Treatment How to Access Health Informa tion Online using Patient Portal and [employer]rd [employer] Apps Indication:Nonsmoker Start:05-Apr-2020 Instruction Type:Patient Education Patient Instructions Indication:Nonsmoker Start:30-Mar-2020 Instruction Type:Provider Instructions for Treatment How to Access Health Informa tion Online using Patient Portal and [employer]rd [employer] Apps Indication:Nonsmoker Start:30-Mar-2020 Instruction Type:Patient Education How to access health informa tion online Indication:Nonsmoker Start:10-Feb-2020 Instruction Type:Patient Education How to access health informa tion online - Detail Indication:Nonsmoker Start:10-Feb-2020 Instruction Type:Patient Education Patient Instructions Indication:Hypercholesteremia Start:10-Feb-2020 Instruction Type:Provider Instructions for Treatment How to access health informa tion online Indication:Attention deficit disorder (ADD) in adult Start:13-Jan-2020 Instruction Type:Patient Education How to access health informa tion online - Detail Indication:Attention deficit disorder (ADD) in adult Start:13-Jan-2020 Instruction Type:Patient Education Patient Instructions Indication:Attention deficit disorder (ADD) in adult Start:13-Jan-2020 Instruction Type:Provider Instructions for Treatment How to access health informa tion online Indication:Nonsmoker Start:24-Nov-2019 Instruction Type:Patient Education How to access health informa tion online - Detail Indication:Nonsmoker Start:24-Nov-2019 Instruction Type:Patient Education Instructions Indication:BMI 24.0-24.9, adult Start:24-Nov-2019 Instruction Type:Provider Instructions for Treatment How to access health informa tion online Indication:Attention deficit disorder (ADD) in adult Start:31-Jul-2019 Instruction Type:Patient Education How to access health informa tion online - Detail Indication:Attention deficit disorder (ADD) in adult Start:31-Jul-2019 Instruction Type:Patient Education Patient Instructions Indication:Attention deficit disorder (ADD) in adult Start:31-Jul-2019 Instruction Type:Provider Instructions for Treatment How to access health informa tion online Indication:Attention deficit disorder (ADD) in adult Start:30-Jan-2019 Instruction Type:Patient Education How to access health informa tion online - Detail Indication:Attention deficit disorder (ADD) in adult Start:30-Jan-2019 Instruction Type:Patient Education Patient Instructions Indication:Attention deficit disorder (ADD) in adult Start:30-Jan-2019 Instruction Type:Provider Instructions for Treatment How to access health informa tion online Indication:Nonsmoker Start:23-Oct-2018 Instruction Type:Patient Education How to access health informa tion online - Detail Indication:Nonsmoker Start:23-Oct-2018 Instruction Type:Patient Education Patient Instructions Indication:Depression with anxiety Start:23-Oct-2018 Instruction Type:Provider Instructions for Treatment How to access health informa tion online Indication:BMI 25.0-25.9,adult Start:15-Jul-2018 Instruction Type:Patient Education How to access health informa tion online - Detail Indication:BMI 25.0-25.9,adult Start:15-Jul-2018 Instruction Type:Patient Education Patient Instructions Indication:BMI 25.0-25.9,adult Start:15-Jul-2018 Instruction Type:Provider Instructions for Treatment How to access health informa tion online Indication:Nonsmoker Start:27-Jun-2018 Instruction Type:Patient Education How to access health informa tion online - Detail Indication:Nonsmoker Start:27-Jun-2018 Instruction Type:Patient Education Patient Instructions Indication:Nonsmoker Start:27-Jun-2018 Instruction Type:Provider Instructions for Treatment How to access health informa tion online Indication:Nonsmoker Start:20-May-2018 Instruction Type:Patient Education How to access health informa tion online - Detail Indication:Nonsmoker Start:20-May-2018 Instruction Type:Patient Education Patient Instructions Indication:Sore throat Start:20-May-2018 Instruction Type:Provider Instructions for Treatment How to access health informa tion online Indication:Attention deficit disorder (ADD) in adult Start:02-May-2018 Instruction Type:Patient Education How to access health informa tion online - Detail Indication:Attention deficit disorder (ADD) in adult Start:02-May-2018 Instruction Type:Patient Education Patient Instructions Indication:Attention deficit disorder (ADD) in adult Start:02-May-2018 Instruction Type:Provider Instructions for Treatment How to access health informa tion online Indication:Nonsmoker Start:10-Apr-2018 Instruction Type:Patient Education How to access health informa tion online - Detail Indication:Nonsmoker Start:10-Apr-2018 Instruction Type:Patient Education Patient Instructions Indication:Nonsmoker Start:10-Apr-2018 Instruction Type:Provider Instructions for Treatment How to access health informa tion online Indication:Nonsmoker Start:31-Oct-2017 Instruction Type:Patient Education How to access health informa tion online - Detail Indication:Nonsmoker Start:31-Oct-2017 Instruction Type:Patient Education Patient Instructions Indication:Nonsmoker Start:31-Oct-2017 Instruction Type:Provider Instructions for Treatment How to access health informa tion online Indication:Hypothyroid Start:17-Oct-2017 Instruction Type:Patient Education How to access health informa tion online - Detail Indication:Hypothyroid Start:17-Oct-2017 Instruction Type:Patient Education Patient Instructions Indication:BMI 24.0-24.9, adult Start:17-Oct-2017 Instruction Type:Provider Instructions for Treatment [facility]; [facility] Work Phone: Instructions* Name Dates Details Patient Instructions Indication:Attention deficit disorder (ADD) in adult Start:05-Oct-2020 Instruction Type:Provider Instructions for Treatment How to Access Health Informa tion Online using Patient Portal and [employer] Apps Indication:Attention deficit disorder (ADD) in adult Start:05-Oct-2020 Instruction Type:Patient Education Patient Instructions Indication:Nonsmoker Start:01-Oct-2020 Instruction Type:Provider Instructions for Treatment How to Access Health Informa tion Online using Patient Portal and [employer] Apps Indication:Nonsmoker Start:01-Oct-2020 Instruction Type:Patient Education Patient Instructions Indication:BMI 25.0-25.9,adult Start:01-Jun-2020 Instruction Type:Provider Instructions for Treatment How to Access Health Informa tion Online using Patient Portal and [employer] Apps Indication:BMI 25.0-25.9,adult Start:01-Jun-2020 Instruction Type:Patient Education Patient Instructions Indication:Nonsmoker Start:05-Apr-2020 Instruction Type:Provider Instructions for Treatment How to Access Health Informa tion Online using Patient Portal and [employer] Apps Indication:Nonsmoker Start:05-Apr-2020 Instruction Type:Patient Education Patient Instructions Indication:Nonsmoker Start:30-Mar-2020 Instruction Type:Provider Instructions for Treatment How to Access Health Informa tion Online using Patient Portal and [employer] Apps Indication:Nonsmoker Start:30-Mar-2020 Instruction Type:Patient Education How to access health informa tion online Indication:Nonsmoker Start:10-Feb-2020 Instruction Type:Patient Education How to access health informa tion online - Detail Indication:Nonsmoker Start:10-Feb-2020 Instruction Type:Patient Education Patient Instructions Indication:Hypercholesteremia Start:10-Feb-2020 Instruction Type:Provider Instructions for Treatment How to access health informa tion online Indication:Attention deficit disorder (ADD) in adult Start:13-Jan-2020 Instruction Type:Patient Education How to access health informa tion online - Detail Indication:Attention deficit disorder (ADD) in adult Start:13-Jan-2020 Instruction Type:Patient Education Patient Instructions Indication:Attention deficit disorder (ADD) in adult Start:13-Jan-2020 Instruction Type:Provider Instructions for Treatment How to access health informa tion online Indication:Nonsmoker Start:24-Nov-2019 Instruction Type:Patient Education How to access health informa tion online - Detail Indication:Nonsmoker Start:24-Nov-2019 Instruction Type:Patient Education Instructions Indication:BMI 24.0-24.9, adult Start:24-Nov-2019 Instruction Type:Provider Instructions for Treatment How to access health informa tion online Indication:Attention deficit disorder (ADD) in adult Start:31-Jul-2019 Instruction Type:Patient Education How to access health informa tion online - Detail Indication:Attention deficit disorder (ADD) in adult Start:31-Jul-2019 Instruction Type:Patient Education Patient Instructions Indication:Attention deficit disorder (ADD) in adult Start:31-Jul-2019 Instruction Type:Provider Instructions for Treatment How to access health informa tion online Indication:Attention deficit disorder (ADD) in adult Start:30-Jan-2019 Instruction Type:Patient Education How to access health informa tion online - Detail Indication:Attention deficit disorder (ADD) in adult Start:30-Jan-2019 Instruction Type:Patient Education Patient Instructions Indication:Attention deficit disorder (ADD) in adult Start:30-Jan-2019 Instruction Type:Provider Instructions for Treatment How to access health informa tion online Indication:Nonsmoker Start:23-Oct-2018 Instruction Type:Patient Education How to access health informa tion online - Detail Indication:Nonsmoker Start:23-Oct-2018 Instruction Type:Patient Education Patient Instructions Indication:Depression with anxiety Start:23-Oct-2018 Instruction Type:Provider Instructions for Treatment How to access health informa tion online Indication:BMI 25.0-25.9,adult Start:15-Jul-2018 Instruction Type:Patient Education How to access health informa tion online - Detail Indication:BMI 25.0-25.9,adult Start:15-Jul-2018 Instruction Type:Patient Education Patient Instructions Indication:BMI 25.0-25.9,adult Start:15-Jul-2018 Instruction Type:Provider Instructions for Treatment How to access health informa tion online Indication:Nonsmoker Start:27-Jun-2018 Instruction Type:Patient Education How to access health informa tion online - Detail Indication:Nonsmoker Start:27-Jun-2018 Instruction Type:Patient Education Patient Instructions Indication:Nonsmoker Start:27-Jun-2018 Instruction Type:Provider Instructions for Treatment How to access health informa tion online Indication:Nonsmoker Start:20-May-2018 Instruction Type:Patient Education How to access health informa tion online - Detail Indication:Nonsmoker Start:20-May-2018 Instruction Type:Patient Education Patient Instructions Indication:Sore throat Start:20-May-2018 Instruction Type:Provider Instructions for Treatment How to access health informa tion online Indication:Attention deficit disorder (ADD) in adult Start:02-May-2018 Instruction Type:Patient Education How to access health informa tion online - Detail Indication:Attention deficit disorder (ADD) in adult Start:02-May-2018 Instruction Type:Patient Education Patient Instructions Indication:Attention deficit disorder (ADD) in adult Start:02-May-2018 Instruction Type:Provider Instructions for Treatment How to access health informa tion online Indication:Nonsmoker Start:10-Apr-2018 Instruction Type:Patient Education How to access health informa tion online - Detail Indication:Nonsmoker Start:10-Apr-2018 Instruction Type:Patient Education Patient Instructions Indication:Nonsmoker Start:10-Apr-2018 Instruction Type:Provider Instructions for Treatment How to access health informa tion online Indication:Nonsmoker Start:31-Oct-2017 Instruction Type:Patient Education How to access health informa tion online - Detail Indication:Nonsmoker Start:31-Oct-2017 Instruction Type:Patient Education Patient Instructions Indication:Nonsmoker Start:31-Oct-2017 Instruction Type:Provider Instructions for Treatment How to access health informa tion online Indication:Hypothyroid Start:17-Oct-2017 Instruction Type:Patient Education How to access health informa tion online - Detail Indication:Hypothyroid Start:17-Oct-2017 Instruction Type:Patient Education Patient Instructions Indication:BMI 24.0-24.9, adult Start:17-Oct-2017 Instruction Type:Provider Instructions for Treatment [facility]; [facility] Work Phone: Instructions* Name Dates Details Patient Instructions Indication:Attention deficit disorder (ADD) in adult Start:05-Oct-2020 Instruction Type:Provider Instructions for Treatment How to Access Health Informa tion Online using Patient Portal and [employer] Apps Indication:Attention deficit disorder (ADD) in adult Start:05-Oct-2020 Instruction Type:Patient Education Patient Instructions Indication:Nonsmoker Start:01-Oct-2020 Instruction Type:Provider Instructions for Treatment How to Access Health Informa tion Online using Patient Portal and [employer] Apps Indication:Nonsmoker Start:01-Oct-2020 Instruction Type:Patient Education Patient Instructions Indication:BMI 25.0-25.9,adult Start:01-Jun-2020 Instruction Type:Provider Instructions for Treatment How to Access Health Informa tion Online using Patient Portal and [employer] Apps Indication:BMI 25.0-25.9,adult Start:01-Jun-2020 Instruction Type:Patient Education Patient Instructions Indication:Nonsmoker Start:05-Apr-2020 Instruction Type:Provider Instructions for Treatment How to Access Health Informa tion Online using Patient Portal and [employer] Apps Indication:Nonsmoker Start:05-Apr-2020 Instruction Type:Patient Education Patient Instructions Indication:Nonsmoker Start:30-Mar-2020 Instruction Type:Provider Instructions for Treatment How to Access Health Informa tion Online using Patient Portal and [employer] Apps Indication:Nonsmoker Start:30-Mar-2020 Instruction Type:Patient Education How to access health informa tion online Indication:Nonsmoker Start:10-Feb-2020 Instruction Type:Patient Education How to access health informa tion online - Detail Indication:Nonsmoker Start:10-Feb-2020 Instruction Type:Patient Education Patient Instructions Indication:Hypercholesteremia Start:10-Feb-2020 Instruction Type:Provider Instructions for Treatment How to access health informa tion online Indication:Attention deficit disorder (ADD) in adult Start:13-Jan-2020 Instruction Type:Patient Education How to access health informa tion online - Detail Indication:Attention deficit disorder (ADD) in adult Start:13-Jan-2020 Instruction Type:Patient Education Patient Instructions Indication:Attention deficit disorder (ADD) in adult Start:13-Jan-2020 Instruction Type:Provider Instructions for Treatment How to access health informa tion online Indication:Nonsmoker Start:24-Nov-2019 Instruction Type:Patient Education How to access health informa tion online - Detail Indication:Nonsmoker Start:24-Nov-2019 Instruction Type:Patient Education Instructions Indication:BMI 24.0-24.9, adult Start:24-Nov-2019 Instruction Type:Provider Instructions for Treatment How to access health informa tion online Indication:Attention deficit disorder (ADD) in adult Start:31-Jul-2019 Instruction Type:Patient Education How to access health informa tion online - Detail Indication:Attention deficit disorder (ADD) in adult Start:31-Jul-2019 Instruction Type:Patient Education Patient Instructions Indication:Attention deficit disorder (ADD) in adult Start:31-Jul-2019 Instruction Type:Provider Instructions for Treatment How to access health informa tion online Indication:Attention deficit disorder (ADD) in adult Start:30-Jan-2019 Instruction Type:Patient Education How to access health informa tion online - Detail Indication:Attention deficit disorder (ADD) in adult Start:30-Jan-2019 Instruction Type:Patient Education Patient Instructions Indication:Attention deficit disorder (ADD) in adult Start:30-Jan-2019 Instruction Type:Provider Instructions for Treatment How to access health informa tion online Indication:Nonsmoker Start:23-Oct-2018 Instruction Type:Patient Education How to access health informa tion online - Detail Indication:Nonsmoker Start:23-Oct-2018 Instruction Type:Patient Education Patient Instructions Indication:Depression with anxiety Start:23-Oct-2018 Instruction Type:Provider Instructions for Treatment How to access health informa tion online Indication:BMI 25.0-25.9,adult Start:15-Jul-2018 Instruction Type:Patient Education How to access health informa tion online - Detail Indication:BMI 25.0-25.9,adult Start:15-Jul-2018 Instruction Type:Patient Education Patient Instructions Indication:BMI 25.0-25.9,adult Start:15-Jul-2018 Instruction Type:Provider Instructions for Treatment How to access health informa tion online Indication:Nonsmoker Start:27-Jun-2018 Instruction Type:Patient Education How to access health informa tion online - Detail Indication:Nonsmoker Start:27-Jun-2018 Instruction Type:Patient Education Patient Instructions Indication:Nonsmoker Start:27-Jun-2018 Instruction Type:Provider Instructions for Treatment How to access health informa tion online Indication:Nonsmoker Start:20-May-2018 Instruction Type:Patient Education How to access health informa tion online - Detail Indication:Nonsmoker Start:20-May-2018 Instruction Type:Patient Education Patient Instructions Indication:Sore throat Start:20-May-2018 Instruction Type:Provider Instructions for Treatment How to access health informa tion online Indication:Attention deficit disorder (ADD) in adult Start:02-May-2018 Instruction Type:Patient Education How to access health informa tion online - Detail Indication:Attention deficit disorder (ADD) in adult Start:02-May-2018 Instruction Type:Patient Education Patient Instructions Indication:Attention deficit disorder (ADD) in adult Start:02-May-2018 Instruction Type:Provider Instructions for Treatment How to access health informa tion online Indication:Nonsmoker Start:10-Apr-2018 Instruction Type:Patient Education How to access health informa tion online - Detail Indication:Nonsmoker Start:10-Apr-2018 Instruction Type:Patient Education Patient Instructions Indication:Nonsmoker Start:10-Apr-2018 Instruction Type:Provider Instructions for Treatment How to access health informa tion online Indication:Nonsmoker Start:31-Oct-2017 Instruction Type:Patient Education How to access health informa tion online - Detail Indication:Nonsmoker Start:31-Oct-2017 Instruction Type:Patient Education Patient Instructions Indication:Nonsmoker Start:31-Oct-2017 Instruction Type:Provider Instructions for Treatment How to access health informa tion online Indication:Hypothyroid Start:17-Oct-2017 Instruction Type:Patient Education How to access health informa tion online - Detail Indication:Hypothyroid Start:17-Oct-2017 Instruction Type:Patient Education Patient Instructions Indication:BMI 24.0-24.9, adult Start:17-Oct-2017 Instruction Type:Provider Instructions for Treatment [facility]; [facility] Work Phone: Instructions* Name Dates Details Patient Instructions Indication:BMI 25.0-25.9,adult Start:04-Jul-2021 Instruction Type:Provider Instructions for Treatment How to Access Health Informa tion Online using Patient Portal and [employer] Apps Indication:BMI 25.0-25.9,adult Start:04-Jul-2021 Instruction Type:Patient Education Patient Instructions Indication:Attention deficit disorder (ADD) in adult Start:30-Jun-2021 Instruction Type:Provider Instructions for Treatment How to Access Health Informa tion Online using Patient Portal and [employer] Apps Indication:Attention deficit disorder (ADD) in adult Start:30-Jun-2021 Instruction Type:Patient Education Patient Instructions Indication:Nonsmoker Start:27-Jun-2021 Instruction Type:Provider Instructions for Treatment How to Access Health Informa tion Online using Patient Portal and [employer] Apps Indication:Nonsmoker Start:27-Jun-2021 Instruction Type:Patient Education Patient Instructions Indication:Attention deficit disorder (ADD) in adult Start:05-Oct-2020 Instruction Type:Provider Instructions for Treatment How to Access Health Informa tion Online using Patient Portal and [employer] Apps Indication:Attention deficit disorder (ADD) in adult Start:05-Oct-2020 Instruction Type:Patient Education Patient Instructions Indication:Nonsmoker Start:01-Oct-2020 Instruction Type:Provider Instructions for Treatment How to Access Health Informa tion Online using Patient Portal and [employer] Apps Indication:Nonsmoker Start:01-Oct-2020 Instruction Type:Patient Education Patient Instructions Indication:BMI 25.0-25.9,adult Start:01-Jun-2020 Instruction Type:Provider Instructions for Treatment How to Access Health Informa tion Online using Patient Portal and [employer] Apps Indication:BMI 25.0-25.9,adult Start:01-Jun-2020 Instruction Type:Patient Education Patient Instructions Indication:Nonsmoker Start:05-Apr-2020 Instruction Type:Provider Instructions for Treatment How to Access Health Informa tion Online using Patient Portal and [employer] Apps Indication:Nonsmoker Start:05-Apr-2020 Instruction Type:Patient Education Patient Instructions Indication:Nonsmoker Start:30-Mar-2020 Instruction Type:Provider Instructions for Treatment How to Access Health Informa tion Online using Patient Portal and [employer] Apps Indication:Nonsmoker Start:30-Mar-2020 Instruction Type:Patient Education How to access health informa tion online Indication:Nonsmoker Start:10-Feb-2020 Instruction Type:Patient Education How to access health informa tion online - Detail Indication:Nonsmoker Start:10-Feb-2020 Instruction Type:Patient Education Patient Instructions Indication:Hypercholesteremia Start:10-Feb-2020 Instruction Type:Provider Instructions for Treatment How to access health informa tion online Indication:Attention deficit disorder (ADD) in adult Start:13-Jan-2020 Instruction Type:Patient Education How to access health informa tion online - Detail Indication:Attention deficit disorder (ADD) in adult Start:13-Jan-2020 Instruction Type:Patient Education Patient Instructions Indication:Attention deficit disorder (ADD) in adult Start:13-Jan-2020 Instruction Type:Provider Instructions for Treatment How to access health informa tion online Indication:Nonsmoker Start:24-Nov-2019 Instruction Type:Patient Education How to access health informa tion online - Detail Indication:Nonsmoker Start:24-Nov-2019 Instruction Type:Patient Education Instructions Indication:BMI 24.0-24.9, adult Start:24-Nov-2019 Instruction Type:Provider Instructions for Treatment How to access health informa tion online Indication:Attention deficit disorder (ADD) in adult Start:31-Jul-2019 Instruction Type:Patient Education How to access health informa tion online - Detail Indication:Attention deficit disorder (ADD) in adult Start:31-Jul-2019 Instruction Type:Patient Education Patient Instructions Indication:Attention deficit disorder (ADD) in adult Start:31-Jul-2019 Instruction Type:Provider Instructions for Treatment How to access health informa tion online Indication:Attention deficit disorder (ADD) in adult Start:30-Jan-2019 Instruction Type:Patient Education How to access health informa tion online - Detail Indication:Attention deficit disorder (ADD) in adult Start:30-Jan-2019 Instruction Type:Patient Education Patient Instructions Indication:Attention deficit disorder (ADD) in adult Start:30-Jan-2019 Instruction Type:Provider Instructions for Treatment How to access health informa tion online Indication:Nonsmoker Start:23-Oct-2018 Instruction Type:Patient Education How to access health informa tion online - Detail Indication:Nonsmoker Start:23-Oct-2018 Instruction Type:Patient Education Patient Instructions Indication:Depression with anxiety Start:23-Oct-2018 Instruction Type:Provider Instructions for Treatment How to access health informa tion online Indication:BMI 25.0-25.9,adult Start:15-Jul-2018 Instruction Type:Patient Education How to access health informa tion online - Detail Indication:BMI 25.0-25.9,adult Start:15-Jul-2018 Instruction Type:Patient Education Patient Instructions Indication:BMI 25.0-25.9,adult Start:15-Jul-2018 Instruction Type:Provider Instructions for Treatment How to access health informa tion online Indication:Nonsmoker Start:27-Jun-2018 Instruction Type:Patient Education How to access health informa tion online - Detail Indication:Nonsmoker Start:27-Jun-2018 Instruction Type:Patient Education Patient Instructions Indication:Nonsmoker Start:27-Jun-2018 Instruction Type:Provider Instructions for Treatment How to access health informa tion online Indication:Nonsmoker Start:20-May-2018 Instruction Type:Patient Education How to access health informa tion online - Detail Indication:Nonsmoker Start:20-May-2018 Instruction Type:Patient Education Patient Instructions Indication:Sore throat Start:20-May-2018 Instruction Type:Provider Instructions for Treatment How to access health informa tion online Indication:Attention deficit disorder (ADD) in adult Start:02-May-2018 Instruction Type:Patient Education How to access health informa tion online - Detail Indication:Attention deficit disorder (ADD) in adult Start:02-May-2018 Instruction Type:Patient Education Patient Instructions Indication:Attention deficit disorder (ADD) in adult Start:02-May-2018 Instruction Type:Provider Instructions for Treatment How to access health informa tion online Indication:Nonsmoker Start:10-Apr-2018 Instruction Type:Patient Education How to access health informa tion online - Detail Indication:Nonsmoker Start:10-Apr-2018 Instruction Type:Patient Education Patient Instructions Indication:Nonsmoker Start:10-Apr-2018 Instruction Type:Provider Instructions for Treatment How to access health informa tion online Indication:Nonsmoker Start:31-Oct-2017 Instruction Type:Patient Education How to access health informa tion online - Detail Indication:Nonsmoker Start:31-Oct-2017 Instruction Type:Patient Education Patient Instructions Indication:Nonsmoker Start:31-Oct-2017 Instruction Type:Provider Instructions for Treatment How to access health informa tion online Indication:Hypothyroid Start:17-Oct-2017 Instruction Type:Patient Education How to access health informa tion online - Detail Indication:Hypothyroid Start:17-Oct-2017 Instruction Type:Patient Education Patient Instructions Indication:BMI 24.0-24.9, adult Start:17-Oct-2017 Instruction Type:Provider Instructions for Treatment [facility]; [facility] Work Phone: Instructions* Name Dates Details Patient Instructions Indication:BMI 25.0-25.9,adult Start:04-Jul-2021 Instruction Type:Provider Instructions for Treatment How to Access Health Informa tion Online using Patient Portal and [employer]rd [employer] Apps Indication:BMI 25.0-25.9,adult Start:04-Jul-2021 Instruction Type:Patient Education Patient Instructions Indication:Attention deficit disorder (ADD) in adult Start:30-Jun-2021 Instruction Type:Provider Instructions for Treatment How to Access Health Informa tion Online using Patient Portal and [employer]rd [employer] Apps Indication:Attention deficit disorder (ADD) in adult Start:30-Jun-2021 Instruction Type:Patient Education Patient Instructions Indication:Nonsmoker Start:27-Jun-2021 Instruction Type:Provider Instructions for Treatment How to Access Health Informa tion Online using Patient Portal and [employer]rd [employer] Apps Indication:Nonsmoker Start:27-Jun-2021 Instruction Type:Patient Education Patient Instructions Indication:Attention deficit disorder (ADD) in adult Start:05-Oct-2020 Instruction Type:Provider Instructions for Treatment How to Access Health Informa tion Online using Patient Portal and [employer]rd [employer] Apps Indication:Attention deficit disorder (ADD) in adult Start:05-Oct-2020 Instruction Type:Patient Education Patient Instructions Indication:Nonsmoker Start:01-Oct-2020 Instruction Type:Provider Instructions for Treatment How to Access Health Informa tion Online using Patient Portal and [employer]rd [employer] Apps Indication:Nonsmoker Start:01-Oct-2020 Instruction Type:Patient Education Patient Instructions Indication:BMI 25.0-25.9,adult Start:01-Jun-2020 Instruction Type:Provider Instructions for Treatment How to Access Health Informa tion Online using Patient Portal and [employer]rd [employer] Apps Indication:BMI 25.0-25.9,adult Start:01-Jun-2020 Instruction Type:Patient Education Patient Instructions Indication:Nonsmoker Start:05-Apr-2020 Instruction Type:Provider Instructions for Treatment How to Access Health Informa tion Online using Patient Portal and [employer] Apps Indication:Nonsmoker Start:05-Apr-2020 Instruction Type:Patient Education Patient Instructions Indication:Nonsmoker Start:30-Mar-2020 Instruction Type:Provider Instructions for Treatment How to Access Health Informa tion Online using Patient Portal and [employer] Apps Indication:Nonsmoker Start:30-Mar-2020 Instruction Type:Patient Education How to access health informa tion online Indication:Nonsmoker Start:10-Feb-2020 Instruction Type:Patient Education How to access health informa tion online - Detail Indication:Nonsmoker Start:10-Feb-2020 Instruction Type:Patient Education Patient Instructions Indication:Hypercholesteremia Start:10-Feb-2020 Instruction Type:Provider Instructions for Treatment How to access health informa tion online Indication:Attention deficit disorder (ADD) in adult Start:13-Jan-2020 Instruction Type:Patient Education How to access health informa tion online - Detail Indication:Attention deficit disorder (ADD) in adult Start:13-Jan-2020 Instruction Type:Patient Education Patient Instructions Indication:Attention deficit disorder (ADD) in adult Start:13-Jan-2020 Instruction Type:Provider Instructions for Treatment How to access health informa tion online Indication:Nonsmoker Start:24-Nov-2019 Instruction Type:Patient Education How to access health informa tion online - Detail Indication:Nonsmoker Start:24-Nov-2019 Instruction Type:Patient Education Instructions Indication:BMI 24.0-24.9, adult Start:24-Nov-2019 Instruction Type:Provider Instructions for Treatment How to access health informa tion online Indication:Attention deficit disorder (ADD) in adult Start:31-Jul-2019 Instruction Type:Patient Education How to access health informa tion online - Detail Indication:Attention deficit disorder (ADD) in adult Start:31-Jul-2019 Instruction Type:Patient Education Patient Instructions Indication:Attention deficit disorder (ADD) in adult Start:31-Jul-2019 Instruction Type:Provider Instructions for Treatment How to access health informa tion online Indication:Attention deficit disorder (ADD) in adult Start:30-Jan-2019 Instruction Type:Patient Education How to access health informa tion online - Detail Indication:Attention deficit disorder (ADD) in adult Start:30-Jan-2019 Instruction Type:Patient Education Patient Instructions Indication:Attention deficit disorder (ADD) in adult Start:30-Jan-2019 Instruction Type:Provider Instructions for Treatment How to access health informa tion online Indication:Nonsmoker Start:23-Oct-2018 Instruction Type:Patient Education How to access health informa tion online - Detail Indication:Nonsmoker Start:23-Oct-2018 Instruction Type:Patient Education Patient Instructions Indication:Depression with anxiety Start:23-Oct-2018 Instruction Type:Provider Instructions for Treatment How to access health informa tion online Indication:BMI 25.0-25.9,adult Start:15-Jul-2018 Instruction Type:Patient Education How to access health informa tion online - Detail Indication:BMI 25.0-25.9,adult Start:15-Jul-2018 Instruction Type:Patient Education Patient Instructions Indication:BMI 25.0-25.9,adult Start:15-Jul-2018 Instruction Type:Provider Instructions for Treatment How to access health informa tion online Indication:Nonsmoker Start:27-Jun-2018 Instruction Type:Patient Education How to access health informa tion online - Detail Indication:Nonsmoker Start:27-Jun-2018 Instruction Type:Patient Education Patient Instructions Indication:Nonsmoker Start:27-Jun-2018 Instruction Type:Provider Instructions for Treatment How to access health informa tion online Indication:Nonsmoker Start:20-May-2018 Instruction Type:Patient Education How to access health informa tion online - Detail Indication:Nonsmoker Start:20-May-2018 Instruction Type:Patient Education Patient Instructions Indication:Sore throat Start:20-May-2018 Instruction Type:Provider Instructions for Treatment How to access health informa tion online Indication:Attention deficit disorder (ADD) in adult Start:02-May-2018 Instruction Type:Patient Education How to access health informa tion online - Detail Indication:Attention deficit disorder (ADD) in adult Start:02-May-2018 Instruction Type:Patient Education Patient Instructions Indication:Attention deficit disorder (ADD) in adult Start:02-May-2018 Instruction Type:Provider Instructions for Treatment How to access health informa tion online Indication:Nonsmoker Start:10-Apr-2018 Instruction Type:Patient Education How to access health informa tion online - Detail Indication:Nonsmoker Start:10-Apr-2018 Instruction Type:Patient Education Patient Instructions Indication:Nonsmoker Start:10-Apr-2018 Instruction Type:Provider Instructions for Treatment How to access health informa tion online Indication:Nonsmoker Start:31-Oct-2017 Instruction Type:Patient Education How to access health informa tion online - Detail Indication:Nonsmoker Start:31-Oct-2017 Instruction Type:Patient Education Patient Instructions Indication:Nonsmoker Start:31-Oct-2017 Instruction Type:Provider Instructions for Treatment How to access health informa tion online Indication:Hypothyroid Start:17-Oct-2017 Instruction Type:Patient Education How to access health informa tion online - Detail Indication:Hypothyroid Start:17-Oct-2017 Instruction Type:Patient Education Patient Instructions Indication:BMI 24.0-24.9, adult Start:17-Oct-2017 Instruction Type:Provider Instructions for Treatment [facility]; [facility] Work Phone: Instructions* Name Dates Details Patient Instructions Indication:BMI 25.0-25.9,adult Start:04-Jul-2021 Instruction Type:Provider Instructions for Treatment How to Access Health Informa tion Online using Patient Portal and [employer]rd [employer] Apps Indication:BMI 25.0-25.9,adult Start:04-Jul-2021 Instruction Type:Patient Education Patient Instructions Indication:Attention deficit disorder (ADD) in adult Start:30-Jun-2021 Instruction Type:Provider Instructions for Treatment How to Access Health Informa tion Online using Patient Portal and [employer]rd [employer] Apps Indication:Attention deficit disorder (ADD) in adult Start:30-Jun-2021 Instruction Type:Patient Education Patient Instructions Indication:Nonsmoker Start:27-Jun-2021 Instruction Type:Provider Instructions for Treatment How to Access Health Informa tion Online using Patient Portal and [employer]rd [employer] Apps Indication:Nonsmoker Start:27-Jun-2021 Instruction Type:Patient Education Patient Instructions Indication:Attention deficit disorder (ADD) in adult Start:05-Oct-2020 Instruction Type:Provider Instructions for Treatment How to Access Health Informa tion Online using Patient Portal and [employer]rd [employer] Apps Indication:Attention deficit disorder (ADD) in adult Start:05-Oct-2020 Instruction Type:Patient Education Patient Instructions Indication:Nonsmoker Start:01-Oct-2020 Instruction Type:Provider Instructions for Treatment How to Access Health Informa tion Online using Patient Portal and [employer]rd [employer] Apps Indication:Nonsmoker Start:01-Oct-2020 Instruction Type:Patient Education Patient Instructions Indication:BMI 25.0-25.9,adult Start:01-Jun-2020 Instruction Type:Provider Instructions for Treatment How to Access Health Informa tion Online using Patient Portal and [employer]rd [employer] Apps Indication:BMI 25.0-25.9,adult Start:01-Jun-2020 Instruction Type:Patient Education Patient Instructions Indication:Nonsmoker Start:05-Apr-2020 Instruction Type:Provider Instructions for Treatment How to Access Health Informa tion Online using Patient Portal and [employer]rd [employer] Apps Indication:Nonsmoker Start:05-Apr-2020 Instruction Type:Patient Education Patient Instructions Indication:Nonsmoker Start:30-Mar-2020 Instruction Type:Provider Instructions for Treatment How to Access Health Informa tion Online using Patient Portal and [employer]rd [employer] Apps Indication:Nonsmoker Start:30-Mar-2020 Instruction Type:Patient Education How to access health informa tion online Indication:Nonsmoker Start:10-Feb-2020 Instruction Type:Patient Education How to access health informa tion online - Detail Indication:Nonsmoker Start:10-Feb-2020 Instruction Type:Patient Education Patient Instructions Indication:Hypercholesteremia Start:10-Feb-2020 Instruction Type:Provider Instructions for Treatment How to access health informa tion online Indication:Attention deficit disorder (ADD) in adult Start:13-Jan-2020 Instruction Type:Patient Education How to access health informa tion online - Detail Indication:Attention deficit disorder (ADD) in adult Start:13-Jan-2020 Instruction Type:Patient Education Patient Instructions Indication:Attention deficit disorder (ADD) in adult Start:13-Jan-2020 Instruction Type:Provider Instructions for Treatment How to access health informa tion online Indication:Nonsmoker Start:24-Nov-2019 Instruction Type:Patient Education How to access health informa tion online - Detail Indication:Nonsmoker Start:24-Nov-2019 Instruction Type:Patient Education Instructions Indication:BMI 24.0-24.9, adult Start:24-Nov-2019 Instruction Type:Provider Instructions for Treatment How to access health informa tion online Indication:Attention deficit disorder (ADD) in adult Start:31-Jul-2019 Instruction Type:Patient Education How to access health informa tion online - Detail Indication:Attention deficit disorder (ADD) in adult Start:31-Jul-2019 Instruction Type:Patient Education Patient Instructions Indication:Attention deficit disorder (ADD) in adult Start:31-Jul-2019 Instruction Type:Provider Instructions for Treatment How to access health informa tion online Indication:Attention deficit disorder (ADD) in adult Start:30-Jan-2019 Instruction Type:Patient Education How to access health informa tion online - Detail Indication:Attention deficit disorder (ADD) in adult Start:30-Jan-2019 Instruction Type:Patient Education Patient Instructions Indication:Attention deficit disorder (ADD) in adult Start:30-Jan-2019 Instruction Type:Provider Instructions for Treatment How to access health informa tion online Indication:Nonsmoker Start:23-Oct-2018 Instruction Type:Patient Education How to access health informa tion online - Detail Indication:Nonsmoker Start:23-Oct-2018 Instruction Type:Patient Education Patient Instructions Indication:Depression with anxiety Start:23-Oct-2018 Instruction Type:Provider Instructions for Treatment How to access health informa tion online Indication:BMI 25.0-25.9,adult Start:15-Jul-2018 Instruction Type:Patient Education How to access health informa tion online - Detail Indication:BMI 25.0-25.9,adult Start:15-Jul-2018 Instruction Type:Patient Education Patient Instructions Indication:BMI 25.0-25.9,adult Start:15-Jul-2018 Instruction Type:Provider Instructions for Treatment How to access health informa tion online Indication:Nonsmoker Start:27-Jun-2018 Instruction Type:Patient Education How to access health informa tion online - Detail Indication:Nonsmoker Start:27-Jun-2018 Instruction Type:Patient Education Patient Instructions Indication:Nonsmoker Start:27-Jun-2018 Instruction Type:Provider Instructions for Treatment How to access health informa tion online Indication:Nonsmoker Start:20-May-2018 Instruction Type:Patient Education How to access health informa tion online - Detail Indication:Nonsmoker Start:20-May-2018 Instruction Type:Patient Education Patient Instructions Indication:Sore throat Start:20-May-2018 Instruction Type:Provider Instructions for Treatment How to access health informa tion online Indication:Attention deficit disorder (ADD) in adult Start:02-May-2018 Instruction Type:Patient Education How to access health informa tion online - Detail Indication:Attention deficit disorder (ADD) in adult Start:02-May-2018 Instruction Type:Patient Education Patient Instructions Indication:Attention deficit disorder (ADD) in adult Start:02-May-2018 Instruction Type:Provider Instructions for Treatment How to access health informa tion online Indication:Nonsmoker Start:10-Apr-2018 Instruction Type:Patient Education How to access health informa tion online - Detail Indication:Nonsmoker Start:10-Apr-2018 Instruction Type:Patient Education Patient Instructions Indication:Nonsmoker Start:10-Apr-2018 Instruction Type:Provider Instructions for Treatment How to access health informa tion online Indication:Nonsmoker Start:31-Oct-2017 Instruction Type:Patient Education How to access health informa tion online - Detail Indication:Nonsmoker Start:31-Oct-2017 Instruction Type:Patient Education Patient Instructions Indication:Nonsmoker Start:31-Oct-2017 Instruction Type:Provider Instructions for Treatment How to access health informa tion online Indication:Hypothyroid Start:17-Oct-2017 Instruction Type:Patient Education How to access health informa tion online - Detail Indication:Hypothyroid Start:17-Oct-2017 Instruction Type:Patient Education Patient Instructions Indication:BMI 24.0-24.9, adult Start:17-Oct-2017 Instruction Type:Provider Instructions for Treatment [facility]; [facility] Work Phone: Instructions* Name Dates Details Patient Instructions Indication:BMI 25.0-25.9,adult Start:04-Jul-2021 Instruction Type:Provider Instructions for Treatment How to Access Health Informa tion Online using Patient Portal and [employer]rd [employer] Apps Indication:BMI 25.0-25.9,adult Start:04-Jul-2021 Instruction Type:Patient Education Patient Instructions Indication:Attention deficit disorder (ADD) in adult Start:30-Jun-2021 Instruction Type:Provider Instructions for Treatment How to Access Health Informa tion Online using Patient Portal and [employer]rd [employer] Apps Indication:Attention deficit disorder (ADD) in adult Start:30-Jun-2021 Instruction Type:Patient Education Patient Instructions Indication:Nonsmoker Start:27-Jun-2021 Instruction Type:Provider Instructions for Treatment How to Access Health Informa tion Online using Patient Portal and [employer] Apps Indication:Nonsmoker Start:27-Jun-2021 Instruction Type:Patient Education Patient Instructions Indication:Attention deficit disorder (ADD) in adult Start:05-Oct-2020 Instruction Type:Provider Instructions for Treatment How to Access Health Informa tion Online using Patient Portal and [employer]rd [employer] Apps Indication:Attention deficit disorder (ADD) in adult Start:05-Oct-2020 Instruction Type:Patient Education Patient Instructions Indication:Nonsmoker Start:01-Oct-2020 Instruction Type:Provider Instructions for Treatment How to Access Health Informa tion Online using Patient Portal and [employer]rd [employer] Apps Indication:Nonsmoker Start:01-Oct-2020 Instruction Type:Patient Education Patient Instructions Indication:BMI 25.0-25.9,adult Start:01-Jun-2020 Instruction Type:Provider Instructions for Treatment How to Access Health Informa tion Online using Patient Portal and [employer]rd [employer] Apps Indication:BMI 25.0-25.9,adult Start:01-Jun-2020 Instruction Type:Patient Education Patient Instructions Indication:Nonsmoker Start:05-Apr-2020 Instruction Type:Provider Instructions for Treatment How to Access Health Informa tion Online using Patient Portal and [employer]rd [employer] Apps Indication:Nonsmoker Start:05-Apr-2020 Instruction Type:Patient Education Patient Instructions Indication:Nonsmoker Start:30-Mar-2020 Instruction Type:Provider Instructions for Treatment How to Access Health Informa tion Online using Patient Portal and [employer]rd [employer] Apps Indication:Nonsmoker Start:30-Mar-2020 Instruction Type:Patient Education How to access health informa tion online Indication:Nonsmoker Start:10-Feb-2020 Instruction Type:Patient Education How to access health informa tion online - Detail Indication:Nonsmoker Start:10-Feb-2020 Instruction Type:Patient Education Patient Instructions Indication:Hypercholesteremia Start:10-Feb-2020 Instruction Type:Provider Instructions for Treatment How to access health informa tion online Indication:Attention deficit disorder (ADD) in adult Start:13-Jan-2020 Instruction Type:Patient Education How to access health informa tion online - Detail Indication:Attention deficit disorder (ADD) in adult Start:13-Jan-2020 Instruction Type:Patient Education Patient Instructions Indication:Attention deficit disorder (ADD) in adult Start:13-Jan-2020 Instruction Type:Provider Instructions for Treatment How to access health informa tion online Indication:Nonsmoker Start:24-Nov-2019 Instruction Type:Patient Education How to access health informa tion online - Detail Indication:Nonsmoker Start:24-Nov-2019 Instruction Type:Patient Education Instructions Indication:BMI 24.0-24.9, adult Start:24-Nov-2019 Instruction Type:Provider Instructions for Treatment How to access health informa tion online Indication:Attention deficit disorder (ADD) in adult Start:31-Jul-2019 Instruction Type:Patient Education How to access health informa tion online - Detail Indication:Attention deficit disorder (ADD) in adult Start:31-Jul-2019 Instruction Type:Patient Education Patient Instructions Indication:Attention deficit disorder (ADD) in adult Start:31-Jul-2019 Instruction Type:Provider Instructions for Treatment How to access health informa tion online Indication:Attention deficit disorder (ADD) in adult Start:30-Jan-2019 Instruction Type:Patient Education How to access health informa tion online - Detail Indication:Attention deficit disorder (ADD) in adult Start:30-Jan-2019 Instruction Type:Patient Education Patient Instructions Indication:Attention deficit disorder (ADD) in adult Start:30-Jan-2019 Instruction Type:Provider Instructions for Treatment How to access health informa tion online Indication:Nonsmoker Start:23-Oct-2018 Instruction Type:Patient Education How to access health informa tion online - Detail Indication:Nonsmoker Start:23-Oct-2018 Instruction Type:Patient Education Patient Instructions Indication:Depression with anxiety Start:23-Oct-2018 Instruction Type:Provider Instructions for Treatment How to access health informa tion online Indication:BMI 25.0-25.9,adult Start:15-Jul-2018 Instruction Type:Patient Education How to access health informa tion online - Detail Indication:BMI 25.0-25.9,adult Start:15-Jul-2018 Instruction Type:Patient Education Patient Instructions Indication:BMI 25.0-25.9,adult Start:15-Jul-2018 Instruction Type:Provider Instructions for Treatment How to access health informa tion online Indication:Nonsmoker Start:27-Jun-2018 Instruction Type:Patient Education How to access health informa tion online - Detail Indication:Nonsmoker Start:27-Jun-2018 Instruction Type:Patient Education Patient Instructions Indication:Nonsmoker Start:27-Jun-2018 Instruction Type:Provider Instructions for Treatment How to access health informa tion online Indication:Nonsmoker Start:20-May-2018 Instruction Type:Patient Education How to access health informa tion online - Detail Indication:Nonsmoker Start:20-May-2018 Instruction Type:Patient Education Patient Instructions Indication:Sore throat Start:20-May-2018 Instruction Type:Provider Instructions for Treatment How to access health informa tion online Indication:Attention deficit disorder (ADD) in adult Start:02-May-2018 Instruction Type:Patient Education How to access health informa tion online - Detail Indication:Attention deficit disorder (ADD) in adult Start:02-May-2018 Instruction Type:Patient Education Patient Instructions Indication:Attention deficit disorder (ADD) in adult Start:02-May-2018 Instruction Type:Provider Instructions for Treatment How to access health informa tion online Indication:Nonsmoker Start:10-Apr-2018 Instruction Type:Patient Education How to access health informa tion online - Detail Indication:Nonsmoker Start:10-Apr-2018 Instruction Type:Patient Education Patient Instructions Indication:Nonsmoker Start:10-Apr-2018 Instruction Type:Provider Instructions for Treatment How to access health informa tion online Indication:Nonsmoker Start:31-Oct-2017 Instruction Type:Patient Education How to access health informa tion online - Detail Indication:Nonsmoker Start:31-Oct-2017 Instruction Type:Patient Education Patient Instructions Indication:Nonsmoker Start:31-Oct-2017 Instruction Type:Provider Instructions for Treatment How to access health informa tion online Indication:Hypothyroid Start:17-Oct-2017 Instruction Type:Patient Education How to access health informa tion online - Detail Indication:Hypothyroid Start:17-Oct-2017 Instruction Type:Patient Education Patient Instructions Indication:BMI 24.0-24.9, adult Start:17-Oct-2017 Instruction Type:Provider Instructions for Treatment [facility]; [facility] Work Phone: Instructions* Name Dates Details Patient Instructions Indication:BMI 25.0-25.9,adult Start:02-Jan-2022 Instruction Type:Provider Instructions for Treatment How to Access Health Informa tion Online using Patient Portal and [employer] Apps Indication:BMI 25.0-25.9,adult Start:02-Jan-2022 Instruction Type:Patient Education Patient Instructions Indication:BMI 25.0-25.9,adult Start:04-Jul-2021 Instruction Type:Provider Instructions for Treatment How to Access Health Informa tion Online using Patient Portal and [employer] Apps Indication:BMI 25.0-25.9,adult Start:04-Jul-2021 Instruction Type:Patient Education Patient Instructions Indication:Attention deficit disorder (ADD) in adult Start:30-Jun-2021 Instruction Type:Provider Instructions for Treatment How to Access Health Informa tion Online using Patient Portal and [employer] Apps Indication:Attention deficit disorder (ADD) in adult Start:30-Jun-2021 Instruction Type:Patient Education Patient Instructions Indication:Nonsmoker Start:27-Jun-2021 Instruction Type:Provider Instructions for Treatment How to Access Health Informa tion Online using Patient Portal and [employer] Apps Indication:Nonsmoker Start:27-Jun-2021 Instruction Type:Patient Education Patient Instructions Indication:Attention deficit disorder (ADD) in adult Start:05-Oct-2020 Instruction Type:Provider Instructions for Treatment How to Access Health Informa tion Online using Patient Portal and [employer] Apps Indication:Attention deficit disorder (ADD) in adult Start:05-Oct-2020 Instruction Type:Patient Education Patient Instructions Indication:Nonsmoker Start:01-Oct-2020 Instruction Type:Provider Instructions for Treatment How to Access Health Informa tion Online using Patient Portal and [employer] Apps Indication:Nonsmoker Start:01-Oct-2020 Instruction Type:Patient Education Patient Instructions Indication:BMI 25.0-25.9,adult Start:01-Jun-2020 Instruction Type:Provider Instructions for Treatment How to Access Health Informa tion Online using Patient Portal and [employer] Apps Indication:BMI 25.0-25.9,adult Start:01-Jun-2020 Instruction Type:Patient Education Patient Instructions Indication:Nonsmoker Start:05-Apr-2020 Instruction Type:Provider Instructions for Treatment How to Access Health Informa tion Online using Patient Portal and [employer] Apps Indication:Nonsmoker Start:05-Apr-2020 Instruction Type:Patient Education Patient Instructions Indication:Nonsmoker Start:30-Mar-2020 Instruction Type:Provider Instructions for Treatment How to Access Health Informa tion Online using Patient Portal and [employer] Apps Indication:Nonsmoker Start:30-Mar-2020 Instruction Type:Patient Education How to access health informa tion online Indication:Nonsmoker Start:10-Feb-2020 Instruction Type:Patient Education How to access health informa tion online - Detail Indication:Nonsmoker Start:10-Feb-2020 Instruction Type:Patient Education Patient Instructions Indication:Hypercholesteremia Start:10-Feb-2020 Instruction Type:Provider Instructions for Treatment How to access health informa tion online Indication:Attention deficit disorder (ADD) in adult Start:13-Jan-2020 Instruction Type:Patient Education How to access health informa tion online - Detail Indication:Attention deficit disorder (ADD) in adult Start:13-Jan-2020 Instruction Type:Patient Education Patient Instructions Indication:Attention deficit disorder (ADD) in adult Start:13-Jan-2020 Instruction Type:Provider Instructions for Treatment How to access health informa tion online Indication:Nonsmoker Start:24-Nov-2019 Instruction Type:Patient Education How to access health informa tion online - Detail Indication:Nonsmoker Start:24-Nov-2019 Instruction Type:Patient Education Instructions Indication:BMI 24.0-24.9, adult Start:24-Nov-2019 Instruction Type:Provider Instructions for Treatment How to access health informa tion online Indication:Attention deficit disorder (ADD) in adult Start:31-Jul-2019 Instruction Type:Patient Education How to access health informa tion online - Detail Indication:Attention deficit disorder (ADD) in adult Start:31-Jul-2019 Instruction Type:Patient Education Patient Instructions Indication:Attention deficit disorder (ADD) in adult Start:31-Jul-2019 Instruction Type:Provider Instructions for Treatment How to access health informa tion online Indication:Attention deficit disorder (ADD) in adult Start:30-Jan-2019 Instruction Type:Patient Education How to access health informa tion online - Detail Indication:Attention deficit disorder (ADD) in adult Start:30-Jan-2019 Instruction Type:Patient Education Patient Instructions Indication:Attention deficit disorder (ADD) in adult Start:30-Jan-2019 Instruction Type:Provider Instructions for Treatment How to access health informa tion online Indication:Nonsmoker Start:23-Oct-2018 Instruction Type:Patient Education How to access health informa tion online - Detail Indication:Nonsmoker Start:23-Oct-2018 Instruction Type:Patient Education Patient Instructions Indication:Depression with anxiety Start:23-Oct-2018 Instruction Type:Provider Instructions for Treatment How to access health informa tion online Indication:BMI 25.0-25.9,adult Start:15-Jul-2018 Instruction Type:Patient Education How to access health informa tion online - Detail Indication:BMI 25.0-25.9,adult Start:15-Jul-2018 Instruction Type:Patient Education Patient Instructions Indication:BMI 25.0-25.9,adult Start:15-Jul-2018 Instruction Type:Provider Instructions for Treatment How to access health informa tion online Indication:Nonsmoker Start:27-Jun-2018 Instruction Type:Patient Education How to access health informa tion online - Detail Indication:Nonsmoker Start:27-Jun-2018 Instruction Type:Patient Education Patient Instructions Indication:Nonsmoker Start:27-Jun-2018 Instruction Type:Provider Instructions for Treatment How to access health informa tion online Indication:Nonsmoker Start:20-May-2018 Instruction Type:Patient Education How to access health informa tion online - Detail Indication:Nonsmoker Start:20-May-2018 Instruction Type:Patient Education Patient Instructions Indication:Sore throat Start:20-May-2018 Instruction Type:Provider Instructions for Treatment How to access health informa tion online Indication:Attention deficit disorder (ADD) in adult Start:02-May-2018 Instruction Type:Patient Education How to access health informa tion online - Detail Indication:Attention deficit disorder (ADD) in adult Start:02-May-2018 Instruction Type:Patient Education Patient Instructions Indication:Attention deficit disorder (ADD) in adult Start:02-May-2018 Instruction Type:Provider Instructions for Treatment How to access health informa tion online Indication:Nonsmoker Start:10-Apr-2018 Instruction Type:Patient Education How to access health informa tion online - Detail Indication:Nonsmoker Start:10-Apr-2018 Instruction Type:Patient Education Patient Instructions Indication:Nonsmoker Start:10-Apr-2018 Instruction Type:Provider Instructions for Treatment How to access health informa tion online Indication:Nonsmoker Start:31-Oct-2017 Instruction Type:Patient Education How to access health informa tion online - Detail Indication:Nonsmoker Start:31-Oct-2017 Instruction Type:Patient Education Patient Instructions Indication:Nonsmoker Start:31-Oct-2017 Instruction Type:Provider Instructions for Treatment How to access health informa tion online Indication:Hypothyroid Start:17-Oct-2017 Instruction Type:Patient Education How to access health informa tion online - Detail Indication:Hypothyroid Start:17-Oct-2017 Instruction Type:Patient Education Patient Instructions Indication:BMI 24.0-24.9, adult Start:17-Oct-2017 Instruction Type:Provider Instructions for Treatment [facility]; [facility] Work Phone: Instructions* Name Dates Details Patient Instructions Indication:BMI 25.0-25.9,adult Start:02-Jan-2022 Instruction Type:Provider Instructions for Treatment How to Access Health Informa tion Online using Patient Portal and [employer] Apps Indication:BMI 25.0-25.9,adult Start:02-Jan-2022 Instruction Type:Patient Education Patient Instructions Indication:BMI 25.0-25.9,adult Start:04-Jul-2021 Instruction Type:Provider Instructions for Treatment How to Access Health Informa tion Online using Patient Portal and [employer] Apps Indication:BMI 25.0-25.9,adult Start:04-Jul-2021 Instruction Type:Patient Education Patient Instructions Indication:Attention deficit disorder (ADD) in adult Start:30-Jun-2021 Instruction Type:Provider Instructions for Treatment How to Access Health Informa tion Online using Patient Portal and [employer] Apps Indication:Attention deficit disorder (ADD) in adult Start:30-Jun-2021 Instruction Type:Patient Education Patient Instructions Indication:Nonsmoker Start:27-Jun-2021 Instruction Type:Provider Instructions for Treatment How to Access Health Informa tion Online using Patient Portal and [employer] Apps Indication:Nonsmoker Start:27-Jun-2021 Instruction Type:Patient Education Patient Instructions Indication:Attention deficit disorder (ADD) in adult Start:05-Oct-2020 Instruction Type:Provider Instructions for Treatment How to Access Health Informa tion Online using Patient Portal and [employer] Apps Indication:Attention deficit disorder (ADD) in adult Start:05-Oct-2020 Instruction Type:Patient Education Patient Instructions Indication:Nonsmoker Start:01-Oct-2020 Instruction Type:Provider Instructions for Treatment How to Access Health Informa tion Online using Patient Portal and [employer] Apps Indication:Nonsmoker Start:01-Oct-2020 Instruction Type:Patient Education Patient Instructions Indication:BMI 25.0-25.9,adult Start:01-Jun-2020 Instruction Type:Provider Instructions for Treatment How to Access Health Informa tion Online using Patient Portal and [employer] Apps Indication:BMI 25.0-25.9,adult Start:01-Jun-2020 Instruction Type:Patient Education Patient Instructions Indication:Nonsmoker Start:05-Apr-2020 Instruction Type:Provider Instructions for Treatment How to Access Health Informa tion Online using Patient Portal and [employer] Apps Indication:Nonsmoker Start:05-Apr-2020 Instruction Type:Patient Education Patient Instructions Indication:Nonsmoker Start:30-Mar-2020 Instruction Type:Provider Instructions for Treatment How to Access Health Informa tion Online using Patient Portal and [employer] Apps Indication:Nonsmoker Start:30-Mar-2020 Instruction Type:Patient Education How to access health informa tion online Indication:Nonsmoker Start:10-Feb-2020 Instruction Type:Patient Education How to access health informa tion online - Detail Indication:Nonsmoker Start:10-Feb-2020 Instruction Type:Patient Education Patient Instructions Indication:Hypercholesteremia Start:10-Feb-2020 Instruction Type:Provider Instructions for Treatment How to access health informa tion online Indication:Attention deficit disorder (ADD) in adult Start:13-Jan-2020 Instruction Type:Patient Education How to access health informa tion online - Detail Indication:Attention deficit disorder (ADD) in adult Start:13-Jan-2020 Instruction Type:Patient Education Patient Instructions Indication:Attention deficit disorder (ADD) in adult Start:13-Jan-2020 Instruction Type:Provider Instructions for Treatment How to access health informa tion online Indication:Nonsmoker Start:24-Nov-2019 Instruction Type:Patient Education How to access health informa tion online - Detail Indication:Nonsmoker Start:24-Nov-2019 Instruction Type:Patient Education Instructions Indication:BMI 24.0-24.9, adult Start:24-Nov-2019 Instruction Type:Provider Instructions for Treatment How to access health informa tion online Indication:Attention deficit disorder (ADD) in adult Start:31-Jul-2019 Instruction Type:Patient Education How to access health informa tion online - Detail Indication:Attention deficit disorder (ADD) in adult Start:31-Jul-2019 Instruction Type:Patient Education Patient Instructions Indication:Attention deficit disorder (ADD) in adult Start:31-Jul-2019 Instruction Type:Provider Instructions for Treatment How to access health informa tion online Indication:Attention deficit disorder (ADD) in adult Start:30-Jan-2019 Instruction Type:Patient Education How to access health informa tion online - Detail Indication:Attention deficit disorder (ADD) in adult Start:30-Jan-2019 Instruction Type:Patient Education Patient Instructions Indication:Attention deficit disorder (ADD) in adult Start:30-Jan-2019 Instruction Type:Provider Instructions for Treatment How to access health informa tion online Indication:Nonsmoker Start:23-Oct-2018 Instruction Type:Patient Education How to access health informa tion online - Detail Indication:Nonsmoker Start:23-Oct-2018 Instruction Type:Patient Education Patient Instructions Indication:Depression with anxiety Start:23-Oct-2018 Instruction Type:Provider Instructions for Treatment How to access health informa tion online Indication:BMI 25.0-25.9,adult Start:15-Jul-2018 Instruction Type:Patient Education How to access health informa tion online - Detail Indication:BMI 25.0-25.9,adult Start:15-Jul-2018 Instruction Type:Patient Education Patient Instructions Indication:BMI 25.0-25.9,adult Start:15-Jul-2018 Instruction Type:Provider Instructions for Treatment How to access health informa tion online Indication:Nonsmoker Start:27-Jun-2018 Instruction Type:Patient Education How to access health informa tion online - Detail Indication:Nonsmoker Start:27-Jun-2018 Instruction Type:Patient Education Patient Instructions Indication:Nonsmoker Start:27-Jun-2018 Instruction Type:Provider Instructions for Treatment How to access health informa tion online Indication:Nonsmoker Start:20-May-2018 Instruction Type:Patient Education How to access health informa tion online - Detail Indication:Nonsmoker Start:20-May-2018 Instruction Type:Patient Education Patient Instructions Indication:Sore throat Start:20-May-2018 Instruction Type:Provider Instructions for Treatment How to access health informa tion online Indication:Attention deficit disorder (ADD) in adult Start:02-May-2018 Instruction Type:Patient Education How to access health informa tion online - Detail Indication:Attention deficit disorder (ADD) in adult Start:02-May-2018 Instruction Type:Patient Education Patient Instructions Indication:Attention deficit disorder (ADD) in adult Start:02-May-2018 Instruction Type:Provider Instructions for Treatment How to access health informa tion online Indication:Nonsmoker Start:10-Apr-2018 Instruction Type:Patient Education How to access health informa tion online - Detail Indication:Nonsmoker Start:10-Apr-2018 Instruction Type:Patient Education Patient Instructions Indication:Nonsmoker Start:10-Apr-2018 Instruction Type:Provider Instructions for Treatment How to access health informa tion online Indication:Nonsmoker Start:31-Oct-2017 Instruction Type:Patient Education How to access health informa tion online - Detail Indication:Nonsmoker Start:31-Oct-2017 Instruction Type:Patient Education Patient Instructions Indication:Nonsmoker Start:31-Oct-2017 Instruction Type:Provider Instructions for Treatment How to access health informa tion online Indication:Hypothyroid Start:17-Oct-2017 Instruction Type:Patient Education How to access health informa tion online - Detail Indication:Hypothyroid Start:17-Oct-2017 Instruction Type:Patient Education Patient Instructions Indication:BMI 24.0-24.9, adult Start:17-Oct-2017 Instruction Type:Provider Instructions for Treatment [facility]; [facility] Work Phone: Instructions* Name Dates Details Patient Instructions Indication:BMI 25.0-25.9,adult Start:02-Jan-2022 Instruction Type:Provider Instructions for Treatment How to Access Health Informa tion Online using Patient Portal and [employer] Apps Indication:BMI 25.0-25.9,adult Start:02-Jan-2022 Instruction Type:Patient Education Patient Instructions Indication:BMI 25.0-25.9,adult Start:04-Jul-2021 Instruction Type:Provider Instructions for Treatment How to Access Health Informa tion Online using Patient Portal and [employer] Apps Indication:BMI 25.0-25.9,adult Start:04-Jul-2021 Instruction Type:Patient Education Patient Instructions Indication:Attention deficit disorder (ADD) in adult Start:30-Jun-2021 Instruction Type:Provider Instructions for Treatment How to Access Health Informa tion Online using Patient Portal and [employer] Apps Indication:Attention deficit disorder (ADD) in adult Start:30-Jun-2021 Instruction Type:Patient Education Patient Instructions Indication:Nonsmoker Start:27-Jun-2021 Instruction Type:Provider Instructions for Treatment How to Access Health Informa tion Online using Patient Portal and [employer] Apps Indication:Nonsmoker Start:27-Jun-2021 Instruction Type:Patient Education Patient Instructions Indication:Attention deficit disorder (ADD) in adult Start:05-Oct-2020 Instruction Type:Provider Instructions for Treatment How to Access Health Informa tion Online using Patient Portal and [employer] Apps Indication:Attention deficit disorder (ADD) in adult Start:05-Oct-2020 Instruction Type:Patient Education Patient Instructions Indication:Nonsmoker Start:01-Oct-2020 Instruction Type:Provider Instructions for Treatment How to Access Health Informa tion Online using Patient Portal and [employer] Apps Indication:Nonsmoker Start:01-Oct-2020 Instruction Type:Patient Education Patient Instructions Indication:BMI 25.0-25.9,adult Start:01-Jun-2020 Instruction Type:Provider Instructions for Treatment How to Access Health Informa tion Online using Patient Portal and [employer] Apps Indication:BMI 25.0-25.9,adult Start:01-Jun-2020 Instruction Type:Patient Education Patient Instructions Indication:Nonsmoker Start:05-Apr-2020 Instruction Type:Provider Instructions for Treatment How to Access Health Informa tion Online using Patient Portal and [employer] Apps Indication:Nonsmoker Start:05-Apr-2020 Instruction Type:Patient Education Patient Instructions Indication:Nonsmoker Start:30-Mar-2020 Instruction Type:Provider Instructions for Treatment How to Access Health Informa tion Online using Patient Portal and [employer] Apps Indication:Nonsmoker Start:30-Mar-2020 Instruction Type:Patient Education How to access health informa tion online Indication:Nonsmoker Start:10-Feb-2020 Instruction Type:Patient Education How to access health informa tion online - Detail Indication:Nonsmoker Start:10-Feb-2020 Instruction Type:Patient Education Patient Instructions Indication:Hypercholesteremia Start:10-Feb-2020 Instruction Type:Provider Instructions for Treatment How to access health informa tion online Indication:Attention deficit disorder (ADD) in adult Start:13-Jan-2020 Instruction Type:Patient Education How to access health informa tion online - Detail Indication:Attention deficit disorder (ADD) in adult Start:13-Jan-2020 Instruction Type:Patient Education Patient Instructions Indication:Attention deficit disorder (ADD) in adult Start:13-Jan-2020 Instruction Type:Provider Instructions for Treatment How to access health informa tion online Indication:Nonsmoker Start:24-Nov-2019 Instruction Type:Patient Education How to access health informa tion online - Detail Indication:Nonsmoker Start:24-Nov-2019 Instruction Type:Patient Education Instructions Indication:BMI 24.0-24.9, adult Start:24-Nov-2019 Instruction Type:Provider Instructions for Treatment How to access health informa tion online Indication:Attention deficit disorder (ADD) in adult Start:31-Jul-2019 Instruction Type:Patient Education How to access health informa tion online - Detail Indication:Attention deficit disorder (ADD) in adult Start:31-Jul-2019 Instruction Type:Patient Education Patient Instructions Indication:Attention deficit disorder (ADD) in adult Start:31-Jul-2019 Instruction Type:Provider Instructions for Treatment How to access health informa tion online Indication:Attention deficit disorder (ADD) in adult Start:30-Jan-2019 Instruction Type:Patient Education How to access health informa tion online - Detail Indication:Attention deficit disorder (ADD) in adult Start:30-Jan-2019 Instruction Type:Patient Education Patient Instructions Indication:Attention deficit disorder (ADD) in adult Start:30-Jan-2019 Instruction Type:Provider Instructions for Treatment How to access health informa tion online Indication:Nonsmoker Start:23-Oct-2018 Instruction Type:Patient Education How to access health informa tion online - Detail Indication:Nonsmoker Start:23-Oct-2018 Instruction Type:Patient Education Patient Instructions Indication:Depression with anxiety Start:23-Oct-2018 Instruction Type:Provider Instructions for Treatment How to access health informa tion online Indication:BMI 25.0-25.9,adult Start:15-Jul-2018 Instruction Type:Patient Education How to access health informa tion online - Detail Indication:BMI 25.0-25.9,adult Start:15-Jul-2018 Instruction Type:Patient Education Patient Instructions Indication:BMI 25.0-25.9,adult Start:15-Jul-2018 Instruction Type:Provider Instructions for Treatment How to access health informa tion online Indication:Nonsmoker Start:27-Jun-2018 Instruction Type:Patient Education How to access health informa tion online - Detail Indication:Nonsmoker Start:27-Jun-2018 Instruction Type:Patient Education Patient Instructions Indication:Nonsmoker Start:27-Jun-2018 Instruction Type:Provider Instructions for Treatment How to access health informa tion online Indication:Nonsmoker Start:20-May-2018 Instruction Type:Patient Education How to access health informa tion online - Detail Indication:Nonsmoker Start:20-May-2018 Instruction Type:Patient Education Patient Instructions Indication:Sore throat Start:20-May-2018 Instruction Type:Provider Instructions for Treatment How to access health informa tion online Indication:Attention deficit disorder (ADD) in adult Start:02-May-2018 Instruction Type:Patient Education How to access health informa tion online - Detail Indication:Attention deficit disorder (ADD) in adult Start:02-May-2018 Instruction Type:Patient Education Patient Instructions Indication:Attention deficit disorder (ADD) in adult Start:02-May-2018 Instruction Type:Provider Instructions for Treatment How to access health informa tion online Indication:Nonsmoker Start:10-Apr-2018 Instruction Type:Patient Education How to access health informa tion online - Detail Indication:Nonsmoker Start:10-Apr-2018 Instruction Type:Patient Education Patient Instructions Indication:Nonsmoker Start:10-Apr-2018 Instruction Type:Provider Instructions for Treatment How to access health informa tion online Indication:Nonsmoker Start:31-Oct-2017 Instruction Type:Patient Education How to access health informa tion online - Detail Indication:Nonsmoker Start:31-Oct-2017 Instruction Type:Patient Education Patient Instructions Indication:Nonsmoker Start:31-Oct-2017 Instruction Type:Provider Instructions for Treatment How to access health informa tion online Indication:Hypothyroid Start:17-Oct-2017 Instruction Type:Patient Education How to access health informa tion online - Detail Indication:Hypothyroid Start:17-Oct-2017 Instruction Type:Patient Education Patient Instructions Indication:BMI 24.0-24.9, adult Start:17-Oct-2017 Instruction Type:Provider Instructions for Treatment [facility]; [facility] Work Phone: Instructions* Name Dates Details Patient Instructions Indication:BMI 25.0-25.9,adult Start:02-Jan-2022 Instruction Type:Provider Instructions for Treatment How to Access Health Informa tion Online using Patient Portal and [employer] Apps Indication:BMI 25.0-25.9,adult Start:02-Jan-2022 Instruction Type:Patient Education Patient Instructions Indication:BMI 25.0-25.9,adult Start:04-Jul-2021 Instruction Type:Provider Instructions for Treatment How to Access Health Informa tion Online using Patient Portal and [employer] Apps Indication:BMI 25.0-25.9,adult Start:04-Jul-2021 Instruction Type:Patient Education Patient Instructions Indication:Attention deficit disorder (ADD) in adult Start:30-Jun-2021 Instruction Type:Provider Instructions for Treatment How to Access Health Informa tion Online using Patient Portal and [employer] Apps Indication:Attention deficit disorder (ADD) in adult Start:30-Jun-2021 Instruction Type:Patient Education Patient Instructions Start:27-Jun-2021 Instruction Type:Provider Instructions for Treatment How to Access Health Informa tion Online using Patient Portal and [employer] Apps Start:27-Jun-2021 Instruction Type:Patient Education Patient Instructions Indication:Attention deficit disorder (ADD) in adult Start:05-Oct-2020 Instruction Type:Provider Instructions for Treatment How to Access Health Informa tion Online using Patient Portal and [employer] Apps Indication:Attention deficit disorder (ADD) in adult Start:05-Oct-2020 Instruction Type:Patient Education Patient Instructions Start:01-Oct-2020 Instruction Type:Provider Instructions for Treatment How to Access Health Informa tion Online using Patient Portal and [employer] Apps Start:01-Oct-2020 Instruction Type:Patient Education Patient Instructions Indication:BMI 25.0-25.9,adult Start:01-Jun-2020 Instruction Type:Provider Instructions for Treatment How to Access Health Informa tion Online using Patient Portal and [employer] Apps Indication:BMI 25.0-25.9,adult Start:01-Jun-2020 Instruction Type:Patient Education Patient Instructions Start:05-Apr-2020 Instruction Type:Provider Instructions for Treatment How to Access Health Informa tion Online using Patient Portal and [employer] Apps Start:05-Apr-2020 Instruction Type:Patient Education Patient Instructions Start:30-Mar-2020 Instruction Type:Provider Instructions for Treatment How to Access Health Informa tion Online using Patient Portal and [employer] Apps Start:30-Mar-2020 Instruction Type:Patient Education How to access health informa tion online Start:10-Feb-2020 Instruction Type:Patient Education How to access health informa tion online - Detail Start:10-Feb-2020 Instruction Type:Patient Education Patient Instructions Start:10-Feb-2020 Instruction Type:Provider Instructions for Treatment How to access health informa tion online Indication:Attention deficit disorder (ADD) in adult Start:13-Jan-2020 Instruction Type:Patient Education How to access health informa tion online - Detail Indication:Attention deficit disorder (ADD) in adult Start:13-Jan-2020 Instruction Type:Patient Education Patient Instructions Indication:Attention deficit disorder (ADD) in adult Start:13-Jan-2020 Instruction Type:Provider Instructions for Treatment How to access health informa tion online Start:24-Nov-2019 Instruction Type:Patient Education How to access health informa tion online - Detail Start:24-Nov-2019 Instruction Type:Patient Education Instructions Indication:BMI 24.0-24.9, adult Start:24-Nov-2019 Instruction Type:Provider Instructions for Treatment How to access health informa tion online Indication:Attention deficit disorder (ADD) in adult Start:31-Jul-2019 Instruction Type:Patient Education How to access health informa tion online - Detail Indication:Attention deficit disorder (ADD) in adult Start:31-Jul-2019 Instruction Type:Patient Education Patient Instructions Indication:Attention deficit disorder (ADD) in adult Start:31-Jul-2019 Instruction Type:Provider Instructions for Treatment How to access health informa tion online Indication:Attention deficit disorder (ADD) in adult Start:30-Jan-2019 Instruction Type:Patient Education How to access health informa tion online - Detail Indication:Attention deficit disorder (ADD) in adult Start:30-Jan-2019 Instruction Type:Patient Education Patient Instructions Indication:Attention deficit disorder (ADD) in adult Start:30-Jan-2019 Instruction Type:Provider Instructions for Treatment How to access health informa tion online Start:23-Oct-2018 Instruction Type:Patient Education How to access health informa tion online - Detail Start:23-Oct-2018 Instruction Type:Patient Education Patient Instructions Start:23-Oct-2018 Instruction Type:Provider Instructions for Treatment How to access health informa tion online Indication:BMI 25.0-25.9,adult Start:15-Jul-2018 Instruction Type:Patient Education How to access health informa tion online - Detail Indication:BMI 25.0-25.9,adult Start:15-Jul-2018 Instruction Type:Patient Education Patient Instructions Indication:BMI 25.0-25.9,adult Start:15-Jul-2018 Instruction Type:Provider Instructions for Treatment How to access health informa tion online Start:27-Jun-2018 Instruction Type:Patient Education How to access health informa tion online - Detail Start:27-Jun-2018 Instruction Type:Patient Education Patient Instructions Start:27-Jun-2018 Instruction Type:Provider Instructions for Treatment How to access health informa tion online Start:20-May-2018 Instruction Type:Patient Education How to access health informa tion online - Detail Start:20-May-2018 Instruction Type:Patient Education Patient Instructions Indication:Sore throat Start:20-May-2018 Instruction Type:Provider Instructions for Treatment How to access health informa tion online Indication:Attention deficit disorder (ADD) in adult Start:02-May-2018 Instruction Type:Patient Education How to access health informa tion online - Detail Indication:Attention deficit disorder (ADD) in adult Start:02-May-2018 Instruction Type:Patient Education Patient Instructions Indication:Attention deficit disorder (ADD) in adult Start:02-May-2018 Instruction Type:Provider Instructions for Treatment How to access health informa tion online Start:10-Apr-2018 Instruction Type:Patient Education How to access health informa tion online - Detail Start:10-Apr-2018 Instruction Type:Patient Education Patient Instructions Start:10-Apr-2018 Instruction Type:Provider Instructions for Treatment How to access health informa tion online Start:31-Oct-2017 Instruction Type:Patient Education How to access health informa tion online - Detail Start:31-Oct-2017 Instruction Type:Patient Education Patient Instructions Start:31-Oct-2017 Instruction Type:Provider Instructions for Treatment How to access health informa tion online Start:17-Oct-2017 Instruction Type:Patient Education How to access health informa tion online - Detail Start:17-Oct-2017 Instruction Type:Patient Education Patient Instructions Indication:BMI 24.0-24.9, adult Start:17-Oct-2017 Instruction Type:Provider Instructions for Treatment [facility]; [facility] Work Phone: Instructions* Name Dates Details How to Access Health Informa tion Online using Patient Portal and [employer] Apps Indication:Nonsmoker Start:31-Jan-2022 Instruction Type:Patient Education Patient Instructions Indication:Nonsmoker Start:31-Jan-2022 Instruction Type:Provider Instructions for Treatment Patient Instructions Indication:BMI 25.0-25.9,adult Start:02-Jan-2022 Instruction Type:Provider Instructions for Treatment How to Access Health Informa tion Online using Patient Portal and [employer] Apps Indication:BMI 25.0-25.9,adult Start:02-Jan-2022 Instruction Type:Patient Education Patient Instructions Indication:BMI 25.0-25.9,adult Start:04-Jul-2021 Instruction Type:Provider Instructions for Treatment How to Access Health Informa tion Online using Patient Portal and [employer] Apps Indication:BMI 25.0-25.9,adult Start:04-Jul-2021 Instruction Type:Patient Education Patient Instructions Indication:Attention deficit disorder (ADD) in adult Start:30-Jun-2021 Instruction Type:Provider Instructions for Treatment How to Access Health Informa tion Online using Patient Portal and [employer] Apps Indication:Attention deficit disorder (ADD) in adult Start:30-Jun-2021 Instruction Type:Patient Education Patient Instructions Indication:Nonsmoker Start:27-Jun-2021 Instruction Type:Provider Instructions for Treatment How to Access Health Informa tion Online using Patient Portal and [employer] Apps Indication:Nonsmoker Start:27-Jun-2021 Instruction Type:Patient Education Patient Instructions Indication:Attention deficit disorder (ADD) in adult Start:05-Oct-2020 Instruction Type:Provider Instructions for Treatment How to Access Health Informa tion Online using Patient Portal and [employer] Apps Indication:Attention deficit disorder (ADD) in adult Start:05-Oct-2020 Instruction Type:Patient Education Patient Instructions Indication:Nonsmoker Start:01-Oct-2020 Instruction Type:Provider Instructions for Treatment How to Access Health Informa tion Online using Patient Portal and [employer] Apps Indication:Nonsmoker Start:01-Oct-2020 Instruction Type:Patient Education Patient Instructions Indication:BMI 25.0-25.9,adult Start:01-Jun-2020 Instruction Type:Provider Instructions for Treatment How to Access Health Informa tion Online using Patient Portal and [employer] Apps Indication:BMI 25.0-25.9,adult Start:01-Jun-2020 Instruction Type:Patient Education Patient Instructions Indication:Nonsmoker Start:05-Apr-2020 Instruction Type:Provider Instructions for Treatment How to Access Health Informa tion Online using Patient Portal and [employer] Apps Indication:Nonsmoker Start:05-Apr-2020 Instruction Type:Patient Education Patient Instructions Indication:Nonsmoker Start:30-Mar-2020 Instruction Type:Provider Instructions for Treatment How to Access Health Informa tion Online using Patient Portal and [employer] Apps Indication:Nonsmoker Start:30-Mar-2020 Instruction Type:Patient Education How to access health informa tion online Indication:Nonsmoker Start:10-Feb-2020 Instruction Type:Patient Education How to access health informa tion online - Detail Indication:Nonsmoker Start:10-Feb-2020 Instruction Type:Patient Education Patient Instructions Indication:Hypercholesteremia Start:10-Feb-2020 Instruction Type:Provider Instructions for Treatment How to access health informa tion online Indication:Attention deficit disorder (ADD) in adult Start:13-Jan-2020 Instruction Type:Patient Education How to access health informa tion online - Detail Indication:Attention deficit disorder (ADD) in adult Start:13-Jan-2020 Instruction Type:Patient Education Patient Instructions Indication:Attention deficit disorder (ADD) in adult Start:13-Jan-2020 Instruction Type:Provider Instructions for Treatment How to access health informa tion online Indication:Nonsmoker Start:24-Nov-2019 Instruction Type:Patient Education How to access health informa tion online - Detail Indication:Nonsmoker Start:24-Nov-2019 Instruction Type:Patient Education Instructions Indication:BMI 24.0-24.9, adult Start:24-Nov-2019 Instruction Type:Provider Instructions for Treatment How to access health informa tion online Indication:Attention deficit disorder (ADD) in adult Start:31-Jul-2019 Instruction Type:Patient Education How to access health informa tion online - Detail Indication:Attention deficit disorder (ADD) in adult Start:31-Jul-2019 Instruction Type:Patient Education Patient Instructions Indication:Attention deficit disorder (ADD) in adult Start:31-Jul-2019 Instruction Type:Provider Instructions for Treatment How to access health informa tion online Indication:Attention deficit disorder (ADD) in adult Start:30-Jan-2019 Instruction Type:Patient Education How to access health informa tion online - Detail Indication:Attention deficit disorder (ADD) in adult Start:30-Jan-2019 Instruction Type:Patient Education Patient Instructions Indication:Attention deficit disorder (ADD) in adult Start:30-Jan-2019 Instruction Type:Provider Instructions for Treatment How to access health informa tion online Indication:Nonsmoker Start:23-Oct-2018 Instruction Type:Patient Education How to access health informa tion online - Detail Indication:Nonsmoker Start:23-Oct-2018 Instruction Type:Patient Education Patient Instructions Indication:Depression with anxiety Start:23-Oct-2018 Instruction Type:Provider Instructions for Treatment How to access health informa tion online Indication:BMI 25.0-25.9,adult Start:15-Jul-2018 Instruction Type:Patient Education How to access health informa tion online - Detail Indication:BMI 25.0-25.9,adult Start:15-Jul-2018 Instruction Type:Patient Education Patient Instructions Indication:BMI 25.0-25.9,adult Start:15-Jul-2018 Instruction Type:Provider Instructions for Treatment How to access health informa tion online Indication:Nonsmoker Start:27-Jun-2018 Instruction Type:Patient Education How to access health informa tion online - Detail Indication:Nonsmoker Start:27-Jun-2018 Instruction Type:Patient Education Patient Instructions Indication:Nonsmoker Start:27-Jun-2018 Instruction Type:Provider Instructions for Treatment How to access health informa tion online Indication:Nonsmoker Start:20-May-2018 Instruction Type:Patient Education How to access health informa tion online - Detail Indication:Nonsmoker Start:20-May-2018 Instruction Type:Patient Education Patient Instructions Indication:Sore throat Start:20-May-2018 Instruction Type:Provider Instructions for Treatment How to access health informa tion online Indication:Attention deficit disorder (ADD) in adult Start:02-May-2018 Instruction Type:Patient Education How to access health informa tion online - Detail Indication:Attention deficit disorder (ADD) in adult Start:02-May-2018 Instruction Type:Patient Education Patient Instructions Indication:Attention deficit disorder (ADD) in adult Start:02-May-2018 Instruction Type:Provider Instructions for Treatment How to access health informa tion online Indication:Nonsmoker Start:10-Apr-2018 Instruction Type:Patient Education How to access health informa tion online - Detail Indication:Nonsmoker Start:10-Apr-2018 Instruction Type:Patient Education Patient Instructions Indication:Nonsmoker Start:10-Apr-2018 Instruction Type:Provider Instructions for Treatment How to access health informa tion online Indication:Nonsmoker Start:31-Oct-2017 Instruction Type:Patient Education How to access health informa tion online - Detail Indication:Nonsmoker Start:31-Oct-2017 Instruction Type:Patient Education Patient Instructions Indication:Nonsmoker Start:31-Oct-2017 Instruction Type:Provider Instructions for Treatment How to access health informa tion online Indication:Hypothyroid Start:17-Oct-2017 Instruction Type:Patient Education How to access health informa tion online - Detail Indication:Hypothyroid Start:17-Oct-2017 Instruction Type:Patient Education Patient Instructions Indication:BMI 24.0-24.9, adult Start:17-Oct-2017 Instruction Type:Provider Instructions for Treatment [facility]; [facility] Work Phone: Instructions* Name Dates Details How to Access Health Informa tion Online using Patient Portal and [employer] Apps Indication:Nonsmoker Start:31-Jan-2022 Instruction Type:Patient Education Patient Instructions Indication:Nonsmoker Start:31-Jan-2022 Instruction Type:Provider Instructions for Treatment Patient Instructions Indication:BMI 25.0-25.9,adult Start:02-Jan-2022 Instruction Type:Provider Instructions for Treatment How to Access Health Informa tion Online using Patient Portal and [employer] Apps Indication:BMI 25.0-25.9,adult Start:02-Jan-2022 Instruction Type:Patient Education Patient Instructions Indication:BMI 25.0-25.9,adult Start:04-Jul-2021 Instruction Type:Provider Instructions for Treatment How to Access Health Informa tion Online using Patient Portal and [employer] Apps Indication:BMI 25.0-25.9,adult Start:04-Jul-2021 Instruction Type:Patient Education Patient Instructions Indication:Attention deficit disorder (ADD) in adult Start:30-Jun-2021 Instruction Type:Provider Instructions for Treatment How to Access Health Informa tion Online using Patient Portal and [employer] Apps Indication:Attention deficit disorder (ADD) in adult Start:30-Jun-2021 Instruction Type:Patient Education Patient Instructions Indication:Nonsmoker Start:27-Jun-2021 Instruction Type:Provider Instructions for Treatment How to Access Health Informa tion Online using Patient Portal and [employer] Apps Indication:Nonsmoker Start:27-Jun-2021 Instruction Type:Patient Education Patient Instructions Indication:Attention deficit disorder (ADD) in adult Start:05-Oct-2020 Instruction Type:Provider Instructions for Treatment How to Access Health Informa tion Online using Patient Portal and [employer] Apps Indication:Attention deficit disorder (ADD) in adult Start:05-Oct-2020 Instruction Type:Patient Education Patient Instructions Indication:Nonsmoker Start:01-Oct-2020 Instruction Type:Provider Instructions for Treatment How to Access Health Informa tion Online using Patient Portal and [employer] Apps Indication:Nonsmoker Start:01-Oct-2020 Instruction Type:Patient Education Patient Instructions Indication:BMI 25.0-25.9,adult Start:01-Jun-2020 Instruction Type:Provider Instructions for Treatment How to Access Health Informa tion Online using Patient Portal and [employer] Apps Indication:BMI 25.0-25.9,adult Start:01-Jun-2020 Instruction Type:Patient Education Patient Instructions Indication:Nonsmoker Start:05-Apr-2020 Instruction Type:Provider Instructions for Treatment How to Access Health Informa tion Online using Patient Portal and [employer] Apps Indication:Nonsmoker Start:05-Apr-2020 Instruction Type:Patient Education Patient Instructions Indication:Nonsmoker Start:30-Mar-2020 Instruction Type:Provider Instructions for Treatment How to Access Health Informa tion Online using Patient Portal and [employer] Apps Indication:Nonsmoker Start:30-Mar-2020 Instruction Type:Patient Education How to access health informa tion online Indication:Nonsmoker Start:10-Feb-2020 Instruction Type:Patient Education How to access health informa tion online - Detail Indication:Nonsmoker Start:10-Feb-2020 Instruction Type:Patient Education Patient Instructions Indication:Hypercholesteremia Start:10-Feb-2020 Instruction Type:Provider Instructions for Treatment How to access health informa tion online Indication:Attention deficit disorder (ADD) in adult Start:13-Jan-2020 Instruction Type:Patient Education How to access health informa tion online - Detail Indication:Attention deficit disorder (ADD) in adult Start:13-Jan-2020 Instruction Type:Patient Education Patient Instructions Indication:Attention deficit disorder (ADD) in adult Start:13-Jan-2020 Instruction Type:Provider Instructions for Treatment How to access health informa tion online Indication:Nonsmoker Start:24-Nov-2019 Instruction Type:Patient Education How to access health informa tion online - Detail Indication:Nonsmoker Start:24-Nov-2019 Instruction Type:Patient Education Instructions Indication:BMI 24.0-24.9, adult Start:24-Nov-2019 Instruction Type:Provider Instructions for Treatment How to access health informa tion online Indication:Attention deficit disorder (ADD) in adult Start:31-Jul-2019 Instruction Type:Patient Education How to access health informa tion online - Detail Indication:Attention deficit disorder (ADD) in adult Start:31-Jul-2019 Instruction Type:Patient Education Patient Instructions Indication:Attention deficit disorder (ADD) in adult Start:31-Jul-2019 Instruction Type:Provider Instructions for Treatment How to access health informa tion online Indication:Attention deficit disorder (ADD) in adult Start:30-Jan-2019 Instruction Type:Patient Education How to access health informa tion online - Detail Indication:Attention deficit disorder (ADD) in adult Start:30-Jan-2019 Instruction Type:Patient Education Patient Instructions Indication:Attention deficit disorder (ADD) in adult Start:30-Jan-2019 Instruction Type:Provider Instructions for Treatment How to access health informa tion online Indication:Nonsmoker Start:23-Oct-2018 Instruction Type:Patient Education How to access health informa tion online - Detail Indication:Nonsmoker Start:23-Oct-2018 Instruction Type:Patient Education Patient Instructions Indication:Depression with anxiety Start:23-Oct-2018 Instruction Type:Provider Instructions for Treatment How to access health informa tion online Indication:BMI 25.0-25.9,adult Start:15-Jul-2018 Instruction Type:Patient Education How to access health informa tion online - Detail Indication:BMI 25.0-25.9,adult Start:15-Jul-2018 Instruction Type:Patient Education Patient Instructions Indication:BMI 25.0-25.9,adult Start:15-Jul-2018 Instruction Type:Provider Instructions for Treatment How to access health informa tion online Indication:Nonsmoker Start:27-Jun-2018 Instruction Type:Patient Education How to access health informa tion online - Detail Indication:Nonsmoker Start:27-Jun-2018 Instruction Type:Patient Education Patient Instructions Indication:Nonsmoker Start:27-Jun-2018 Instruction Type:Provider Instructions for Treatment How to access health informa tion online Indication:Nonsmoker Start:20-May-2018 Instruction Type:Patient Education How to access health informa tion online - Detail Indication:Nonsmoker Start:20-May-2018 Instruction Type:Patient Education Patient Instructions Indication:Sore throat Start:20-May-2018 Instruction Type:Provider Instructions for Treatment How to access health informa tion online Indication:Attention deficit disorder (ADD) in adult Start:02-May-2018 Instruction Type:Patient Education How to access health informa tion online - Detail Indication:Attention deficit disorder (ADD) in adult Start:02-May-2018 Instruction Type:Patient Education Patient Instructions Indication:Attention deficit disorder (ADD) in adult Start:02-May-2018 Instruction Type:Provider Instructions for Treatment How to access health informa tion online Indication:Nonsmoker Start:10-Apr-2018 Instruction Type:Patient Education How to access health informa tion online - Detail Indication:Nonsmoker Start:10-Apr-2018 Instruction Type:Patient Education Patient Instructions Indication:Nonsmoker Start:10-Apr-2018 Instruction Type:Provider Instructions for Treatment How to access health informa tion online Indication:Nonsmoker Start:31-Oct-2017 Instruction Type:Patient Education How to access health informa tion online - Detail Indication:Nonsmoker Start:31-Oct-2017 Instruction Type:Patient Education Patient Instructions Indication:Nonsmoker Start:31-Oct-2017 Instruction Type:Provider Instructions for Treatment How to access health informa tion online Indication:Hypothyroid Start:17-Oct-2017 Instruction Type:Patient Education How to access health informa tion online - Detail Indication:Hypothyroid Start:17-Oct-2017 Instruction Type:Patient Education Patient Instructions Indication:BMI 24.0-24.9, adult Start:17-Oct-2017 Instruction Type:Provider Instructions for Treatment [facility]; [facility] Work Phone: Instructions* Name Dates Details How to Access Health Informa tion Online using Patient Portal and [employer] Apps Indication:Nonsmoker Start:31-Jan-2022 Instruction Type:Patient Education Patient Instructions Indication:Nonsmoker Start:31-Jan-2022 Instruction Type:Provider Instructions for Treatment Patient Instructions Indication:BMI 25.0-25.9,adult Start:02-Jan-2022 Instruction Type:Provider Instructions for Treatment How to Access Health Informa tion Online using Patient Portal and [employer] Apps Indication:BMI 25.0-25.9,adult Start:02-Jan-2022 Instruction Type:Patient Education Patient Instructions Indication:BMI 25.0-25.9,adult Start:04-Jul-2021 Instruction Type:Provider Instructions for Treatment How to Access Health Informa tion Online using Patient Portal and [employer] Apps Indication:BMI 25.0-25.9,adult Start:04-Jul-2021 Instruction Type:Patient Education Patient Instructions Indication:Attention deficit disorder (ADD) in adult Start:30-Jun-2021 Instruction Type:Provider Instructions for Treatment How to Access Health Informa tion Online using Patient Portal and [employer]rd [employer] Apps Indication:Attention deficit disorder (ADD) in adult Start:30-Jun-2021 Instruction Type:Patient Education Patient Instructions Indication:Nonsmoker Start:27-Jun-2021 Instruction Type:Provider Instructions for Treatment How to Access Health Informa tion Online using Patient Portal and [employer] Apps Indication:Nonsmoker Start:27-Jun-2021 Instruction Type:Patient Education Patient Instructions Indication:Attention deficit disorder (ADD) in adult Start:05-Oct-2020 Instruction Type:Provider Instructions for Treatment How to Access Health Informa tion Online using Patient Portal and [employer] Apps Indication:Attention deficit disorder (ADD) in adult Start:05-Oct-2020 Instruction Type:Patient Education Patient Instructions Indication:Nonsmoker Start:01-Oct-2020 Instruction Type:Provider Instructions for Treatment How to Access Health Informa tion Online using Patient Portal and [employer] Apps Indication:Nonsmoker Start:01-Oct-2020 Instruction Type:Patient Education Patient Instructions Indication:BMI 25.0-25.9,adult Start:01-Jun-2020 Instruction Type:Provider Instructions for Treatment How to Access Health Informa tion Online using Patient Portal and [employer] Apps Indication:BMI 25.0-25.9,adult Start:01-Jun-2020 Instruction Type:Patient Education Patient Instructions Indication:Nonsmoker Start:05-Apr-2020 Instruction Type:Provider Instructions for Treatment How to Access Health Informa tion Online using Patient Portal and [employer] Apps Indication:Nonsmoker Start:05-Apr-2020 Instruction Type:Patient Education Patient Instructions Indication:Nonsmoker Start:30-Mar-2020 Instruction Type:Provider Instructions for Treatment How to Access Health Informa tion Online using Patient Portal and [employer] Apps Indication:Nonsmoker Start:30-Mar-2020 Instruction Type:Patient Education How to access health informa tion online Indication:Nonsmoker Start:10-Feb-2020 Instruction Type:Patient Education How to access health informa tion online - Detail Indication:Nonsmoker Start:10-Feb-2020 Instruction Type:Patient Education Patient Instructions Indication:Hypercholesteremia Start:10-Feb-2020 Instruction Type:Provider Instructions for Treatment How to access health informa tion online Indication:Attention deficit disorder (ADD) in adult Start:13-Jan-2020 Instruction Type:Patient Education How to access health informa tion online - Detail Indication:Attention deficit disorder (ADD) in adult Start:13-Jan-2020 Instruction Type:Patient Education Patient Instructions Indication:Attention deficit disorder (ADD) in adult Start:13-Jan-2020 Instruction Type:Provider Instructions for Treatment How to access health informa tion online Indication:Nonsmoker Start:24-Nov-2019 Instruction Type:Patient Education How to access health informa tion online - Detail Indication:Nonsmoker Start:24-Nov-2019 Instruction Type:Patient Education Instructions Indication:BMI 24.0-24.9, adult Start:24-Nov-2019 Instruction Type:Provider Instructions for Treatment How to access health informa tion online Indication:Attention deficit disorder (ADD) in adult Start:31-Jul-2019 Instruction Type:Patient Education How to access health informa tion online - Detail Indication:Attention deficit disorder (ADD) in adult Start:31-Jul-2019 Instruction Type:Patient Education Patient Instructions Indication:Attention deficit disorder (ADD) in adult Start:31-Jul-2019 Instruction Type:Provider Instructions for Treatment How to access health informa tion online Indication:Attention deficit disorder (ADD) in adult Start:30-Jan-2019 Instruction Type:Patient Education How to access health informa tion online - Detail Indication:Attention deficit disorder (ADD) in adult Start:30-Jan-2019 Instruction Type:Patient Education Patient Instructions Indication:Attention deficit disorder (ADD) in adult Start:30-Jan-2019 Instruction Type:Provider Instructions for Treatment How to access health informa tion online Indication:Nonsmoker Start:23-Oct-2018 Instruction Type:Patient Education How to access health informa tion online - Detail Indication:Nonsmoker Start:23-Oct-2018 Instruction Type:Patient Education Patient Instructions Indication:Depression with anxiety Start:23-Oct-2018 Instruction Type:Provider Instructions for Treatment How to access health informa tion online Indication:BMI 25.0-25.9,adult Start:15-Jul-2018 Instruction Type:Patient Education How to access health informa tion online - Detail Indication:BMI 25.0-25.9,adult Start:15-Jul-2018 Instruction Type:Patient Education Patient Instructions Indication:BMI 25.0-25.9,adult Start:15-Jul-2018 Instruction Type:Provider Instructions for Treatment How to access health informa tion online Indication:Nonsmoker Start:27-Jun-2018 Instruction Type:Patient Education How to access health informa tion online - Detail Indication:Nonsmoker Start:27-Jun-2018 Instruction Type:Patient Education Patient Instructions Indication:Nonsmoker Start:27-Jun-2018 Instruction Type:Provider Instructions for Treatment How to access health informa tion online Indication:Nonsmoker Start:20-May-2018 Instruction Type:Patient Education How to access health informa tion online - Detail Indication:Nonsmoker Start:20-May-2018 Instruction Type:Patient Education Patient Instructions Indication:Sore throat Start:20-May-2018 Instruction Type:Provider Instructions for Treatment How to access health informa tion online Indication:Attention deficit disorder (ADD) in adult Start:02-May-2018 Instruction Type:Patient Education How to access health informa tion online - Detail Indication:Attention deficit disorder (ADD) in adult Start:02-May-2018 Instruction Type:Patient Education Patient Instructions Indication:Attention deficit disorder (ADD) in adult Start:02-May-2018 Instruction Type:Provider Instructions for Treatment How to access health informa tion online Indication:Nonsmoker Start:10-Apr-2018 Instruction Type:Patient Education How to access health informa tion online - Detail Indication:Nonsmoker Start:10-Apr-2018 Instruction Type:Patient Education Patient Instructions Indication:Nonsmoker Start:10-Apr-2018 Instruction Type:Provider Instructions for Treatment How to access health informa tion online Indication:Nonsmoker Start:31-Oct-2017 Instruction Type:Patient Education How to access health informa tion online - Detail Indication:Nonsmoker Start:31-Oct-2017 Instruction Type:Patient Education Patient Instructions Indication:Nonsmoker Start:31-Oct-2017 Instruction Type:Provider Instructions for Treatment How to access health informa tion online Indication:Hypothyroid Start:17-Oct-2017 Instruction Type:Patient Education How to access health informa tion online - Detail Indication:Hypothyroid Start:17-Oct-2017 Instruction Type:Patient Education Patient Instructions Indication:BMI 24.0-24.9, adult Start:17-Oct-2017 Instruction Type:Provider Instructions for Treatment [facility]; [facility] Work Phone: Instructions* Name Dates Details How to Access Health Informa tion Online using Patient Portal and [employer] Apps Indication:Nonsmoker Start:31-Jan-2022 Instruction Type:Patient Education Patient Instructions Indication:Nonsmoker Start:31-Jan-2022 Instruction Type:Provider Instructions for Treatment Patient Instructions Indication:BMI 25.0-25.9,adult Start:02-Jan-2022 Instruction Type:Provider Instructions for Treatment How to Access Health Informa tion Online using Patient Portal and [employer] Apps Indication:BMI 25.0-25.9,adult Start:02-Jan-2022 Instruction Type:Patient Education Patient Instructions Indication:BMI 25.0-25.9,adult Start:04-Jul-2021 Instruction Type:Provider Instructions for Treatment How to Access Health Informa tion Online using Patient Portal and [employer] Apps Indication:BMI 25.0-25.9,adult Start:04-Jul-2021 Instruction Type:Patient Education Patient Instructions Indication:Attention deficit disorder (ADD) in adult Start:30-Jun-2021 Instruction Type:Provider Instructions for Treatment How to Access Health Informa tion Online using Patient Portal and [employer] Apps Indication:Attention deficit disorder (ADD) in adult Start:30-Jun-2021 Instruction Type:Patient Education Patient Instructions Indication:Nonsmoker Start:27-Jun-2021 Instruction Type:Provider Instructions for Treatment How to Access Health Informa tion Online using Patient Portal and [employer] Apps Indication:Nonsmoker Start:27-Jun-2021 Instruction Type:Patient Education Patient Instructions Indication:Attention deficit disorder (ADD) in adult Start:05-Oct-2020 Instruction Type:Provider Instructions for Treatment How to Access Health Informa tion Online using Patient Portal and [employer]rd [employer] Apps Indication:Attention deficit disorder (ADD) in adult Start:05-Oct-2020 Instruction Type:Patient Education Patient Instructions Indication:Nonsmoker Start:01-Oct-2020 Instruction Type:Provider Instructions for Treatment How to Access Health Informa tion Online using Patient Portal and [employer] Apps Indication:Nonsmoker Start:01-Oct-2020 Instruction Type:Patient Education Patient Instructions Indication:BMI 25.0-25.9,adult Start:01-Jun-2020 Instruction Type:Provider Instructions for Treatment How to Access Health Informa tion Online using Patient Portal and [employer] Apps Indication:BMI 25.0-25.9,adult Start:01-Jun-2020 Instruction Type:Patient Education Patient Instructions Indication:Nonsmoker Start:05-Apr-2020 Instruction Type:Provider Instructions for Treatment How to Access Health Informa tion Online using Patient Portal and [employer] Apps Indication:Nonsmoker Start:05-Apr-2020 Instruction Type:Patient Education Patient Instructions Indication:Nonsmoker Start:30-Mar-2020 Instruction Type:Provider Instructions for Treatment How to Access Health Informa tion Online using Patient Portal and [employer] Apps Indication:Nonsmoker Start:30-Mar-2020 Instruction Type:Patient Education How to access health informa tion online Indication:Nonsmoker Start:10-Feb-2020 Instruction Type:Patient Education How to access health informa tion online - Detail Indication:Nonsmoker Start:10-Feb-2020 Instruction Type:Patient Education Patient Instructions Indication:Hypercholesteremia Start:10-Feb-2020 Instruction Type:Provider Instructions for Treatment How to access health informa tion online Indication:Attention deficit disorder (ADD) in adult Start:13-Jan-2020 Instruction Type:Patient Education How to access health informa tion online - Detail Indication:Attention deficit disorder (ADD) in adult Start:13-Jan-2020 Instruction Type:Patient Education Patient Instructions Indication:Attention deficit disorder (ADD) in adult Start:13-Jan-2020 Instruction Type:Provider Instructions for Treatment How to access health informa tion online Indication:Nonsmoker Start:24-Nov-2019 Instruction Type:Patient Education How to access health informa tion online - Detail Indication:Nonsmoker Start:24-Nov-2019 Instruction Type:Patient Education Instructions Indication:BMI 24.0-24.9, adult Start:24-Nov-2019 Instruction Type:Provider Instructions for Treatment How to access health informa tion online Indication:Attention deficit disorder (ADD) in adult Start:31-Jul-2019 Instruction Type:Patient Education How to access health informa tion online - Detail Indication:Attention deficit disorder (ADD) in adult Start:31-Jul-2019 Instruction Type:Patient Education Patient Instructions Indication:Attention deficit disorder (ADD) in adult Start:31-Jul-2019 Instruction Type:Provider Instructions for Treatment How to access health informa tion online Indication:Attention deficit disorder (ADD) in adult Start:30-Jan-2019 Instruction Type:Patient Education How to access health informa tion online - Detail Indication:Attention deficit disorder (ADD) in adult Start:30-Jan-2019 Instruction Type:Patient Education Patient Instructions Indication:Attention deficit disorder (ADD) in adult Start:30-Jan-2019 Instruction Type:Provider Instructions for Treatment How to access health informa tion online Indication:Nonsmoker Start:23-Oct-2018 Instruction Type:Patient Education How to access health informa tion online - Detail Indication:Nonsmoker Start:23-Oct-2018 Instruction Type:Patient Education Patient Instructions Indication:Depression with anxiety Start:23-Oct-2018 Instruction Type:Provider Instructions for Treatment How to access health informa tion online Indication:BMI 25.0-25.9,adult Start:15-Jul-2018 Instruction Type:Patient Education How to access health informa tion online - Detail Indication:BMI 25.0-25.9,adult Start:15-Jul-2018 Instruction Type:Patient Education Patient Instructions Indication:BMI 25.0-25.9,adult Start:15-Jul-2018 Instruction Type:Provider Instructions for Treatment How to access health informa tion online Indication:Nonsmoker Start:27-Jun-2018 Instruction Type:Patient Education How to access health informa tion online - Detail Indication:Nonsmoker Start:27-Jun-2018 Instruction Type:Patient Education Patient Instructions Indication:Nonsmoker Start:27-Jun-2018 Instruction Type:Provider Instructions for Treatment How to access health informa tion online Indication:Nonsmoker Start:20-May-2018 Instruction Type:Patient Education How to access health informa tion online - Detail Indication:Nonsmoker Start:20-May-2018 Instruction Type:Patient Education Patient Instructions Indication:Sore throat Start:20-May-2018 Instruction Type:Provider Instructions for Treatment How to access health informa tion online Indication:Attention deficit disorder (ADD) in adult Start:02-May-2018 Instruction Type:Patient Education How to access health informa tion online - Detail Indication:Attention deficit disorder (ADD) in adult Start:02-May-2018 Instruction Type:Patient Education Patient Instructions Indication:Attention deficit disorder (ADD) in adult Start:02-May-2018 Instruction Type:Provider Instructions for Treatment How to access health informa tion online Indication:Nonsmoker Start:10-Apr-2018 Instruction Type:Patient Education How to access health informa tion online - Detail Indication:Nonsmoker Start:10-Apr-2018 Instruction Type:Patient Education Patient Instructions Indication:Nonsmoker Start:10-Apr-2018 Instruction Type:Provider Instructions for Treatment How to access health informa tion online Indication:Nonsmoker Start:31-Oct-2017 Instruction Type:Patient Education How to access health informa tion online - Detail Indication:Nonsmoker Start:31-Oct-2017 Instruction Type:Patient Education Patient Instructions Indication:Nonsmoker Start:31-Oct-2017 Instruction Type:Provider Instructions for Treatment How to access health informa tion online Indication:Hypothyroid Start:17-Oct-2017 Instruction Type:Patient Education How to access health informa tion online - Detail Indication:Hypothyroid Start:17-Oct-2017 Instruction Type:Patient Education Patient Instructions Indication:BMI 24.0-24.9, adult Start:17-Oct-2017 Instruction Type:Provider Instructions for Treatment [facility]; [facility] Work Phone: Instructions* Name Dates Details How to Access Health Informa tion Online using Patient Portal and [employer] Apps Indication:Nonsmoker Start:31-Jan-2022 Instruction Type:Patient Education Patient Instructions Indication:Nonsmoker Start:31-Jan-2022 Instruction Type:Provider Instructions for Treatment Patient Instructions Indication:BMI 25.0-25.9,adult Start:02-Jan-2022 Instruction Type:Provider Instructions for Treatment How to Access Health Informa tion Online using Patient Portal and [employer] Apps Indication:BMI 25.0-25.9,adult Start:02-Jan-2022 Instruction Type:Patient Education Patient Instructions Indication:BMI 25.0-25.9,adult Start:04-Jul-2021 Instruction Type:Provider Instructions for Treatment How to Access Health Informa tion Online using Patient Portal and [employer] Apps Indication:BMI 25.0-25.9,adult Start:04-Jul-2021 Instruction Type:Patient Education Patient Instructions Indication:Attention deficit disorder (ADD) in adult Start:30-Jun-2021 Instruction Type:Provider Instructions for Treatment How to Access Health Informa tion Online using Patient Portal and [employer] Apps Indication:Attention deficit disorder (ADD) in adult Start:30-Jun-2021 Instruction Type:Patient Education Patient Instructions Indication:Nonsmoker Start:27-Jun-2021 Instruction Type:Provider Instructions for Treatment How to Access Health Informa tion Online using Patient Portal and [employer] Apps Indication:Nonsmoker Start:27-Jun-2021 Instruction Type:Patient Education Patient Instructions Indication:Attention deficit disorder (ADD) in adult Start:05-Oct-2020 Instruction Type:Provider Instructions for Treatment How to Access Health Informa tion Online using Patient Portal and [employer] Apps Indication:Attention deficit disorder (ADD) in adult Start:05-Oct-2020 Instruction Type:Patient Education Patient Instructions Indication:Nonsmoker Start:01-Oct-2020 Instruction Type:Provider Instructions for Treatment How to Access Health Informa tion Online using Patient Portal and [employer] Apps Indication:Nonsmoker Start:01-Oct-2020 Instruction Type:Patient Education Patient Instructions Indication:BMI 25.0-25.9,adult Start:01-Jun-2020 Instruction Type:Provider Instructions for Treatment How to Access Health Informa tion Online using Patient Portal and [employer] Apps Indication:BMI 25.0-25.9,adult Start:01-Jun-2020 Instruction Type:Patient Education Patient Instructions Indication:Nonsmoker Start:05-Apr-2020 Instruction Type:Provider Instructions for Treatment How to Access Health Informa tion Online using Patient Portal and [employer] Apps Indication:Nonsmoker Start:05-Apr-2020 Instruction Type:Patient Education Patient Instructions Indication:Nonsmoker Start:30-Mar-2020 Instruction Type:Provider Instructions for Treatment How to Access Health Informa tion Online using Patient Portal and [employer] Apps Indication:Nonsmoker Start:30-Mar-2020 Instruction Type:Patient Education How to access health informa tion online Indication:Nonsmoker Start:10-Feb-2020 Instruction Type:Patient Education How to access health informa tion online - Detail Indication:Nonsmoker Start:10-Feb-2020 Instruction Type:Patient Education Patient Instructions Indication:Hypercholesteremia Start:10-Feb-2020 Instruction Type:Provider Instructions for Treatment How to access health informa tion online Indication:Attention deficit disorder (ADD) in adult Start:13-Jan-2020 Instruction Type:Patient Education How to access health informa tion online - Detail Indication:Attention deficit disorder (ADD) in adult Start:13-Jan-2020 Instruction Type:Patient Education Patient Instructions Indication:Attention deficit disorder (ADD) in adult Start:13-Jan-2020 Instruction Type:Provider Instructions for Treatment How to access health informa tion online Indication:Nonsmoker Start:24-Nov-2019 Instruction Type:Patient Education How to access health informa tion online - Detail Indication:Nonsmoker Start:24-Nov-2019 Instruction Type:Patient Education Instructions Indication:BMI 24.0-24.9, adult Start:24-Nov-2019 Instruction Type:Provider Instructions for Treatment How to access health informa tion online Indication:Attention deficit disorder (ADD) in adult Start:31-Jul-2019 Instruction Type:Patient Education How to access health informa tion online - Detail Indication:Attention deficit disorder (ADD) in adult Start:31-Jul-2019 Instruction Type:Patient Education Patient Instructions Indication:Attention deficit disorder (ADD) in adult Start:31-Jul-2019 Instruction Type:Provider Instructions for Treatment How to access health informa tion online Indication:Attention deficit disorder (ADD) in adult Start:30-Jan-2019 Instruction Type:Patient Education How to access health informa tion online - Detail Indication:Attention deficit disorder (ADD) in adult Start:30-Jan-2019 Instruction Type:Patient Education Patient Instructions Indication:Attention deficit disorder (ADD) in adult Start:30-Jan-2019 Instruction Type:Provider Instructions for Treatment How to access health informa tion online Indication:Nonsmoker Start:23-Oct-2018 Instruction Type:Patient Education How to access health informa tion online - Detail Indication:Nonsmoker Start:23-Oct-2018 Instruction Type:Patient Education Patient Instructions Indication:Depression with anxiety Start:23-Oct-2018 Instruction Type:Provider Instructions for Treatment How to access health informa tion online Indication:BMI 25.0-25.9,adult Start:15-Jul-2018 Instruction Type:Patient Education How to access health informa tion online - Detail Indication:BMI 25.0-25.9,adult Start:15-Jul-2018 Instruction Type:Patient Education Patient Instructions Indication:BMI 25.0-25.9,adult Start:15-Jul-2018 Instruction Type:Provider Instructions for Treatment How to access health informa tion online Indication:Nonsmoker Start:27-Jun-2018 Instruction Type:Patient Education How to access health informa tion online - Detail Indication:Nonsmoker Start:27-Jun-2018 Instruction Type:Patient Education Patient Instructions Indication:Nonsmoker Start:27-Jun-2018 Instruction Type:Provider Instructions for Treatment How to access health informa tion online Indication:Nonsmoker Start:20-May-2018 Instruction Type:Patient Education How to access health informa tion online - Detail Indication:Nonsmoker Start:20-May-2018 Instruction Type:Patient Education Patient Instructions Indication:Sore throat Start:20-May-2018 Instruction Type:Provider Instructions for Treatment How to access health informa tion online Indication:Attention deficit disorder (ADD) in adult Start:02-May-2018 Instruction Type:Patient Education How to access health informa tion online - Detail Indication:Attention deficit disorder (ADD) in adult Start:02-May-2018 Instruction Type:Patient Education Patient Instructions Indication:Attention deficit disorder (ADD) in adult Start:02-May-2018 Instruction Type:Provider Instructions for Treatment How to access health informa tion online Indication:Nonsmoker Start:10-Apr-2018 Instruction Type:Patient Education How to access health informa tion online - Detail Indication:Nonsmoker Start:10-Apr-2018 Instruction Type:Patient Education Patient Instructions Indication:Nonsmoker Start:10-Apr-2018 Instruction Type:Provider Instructions for Treatment How to access health informa tion online Indication:Nonsmoker Start:31-Oct-2017 Instruction Type:Patient Education How to access health informa tion online - Detail Indication:Nonsmoker Start:31-Oct-2017 Instruction Type:Patient Education Patient Instructions Indication:Nonsmoker Start:31-Oct-2017 Instruction Type:Provider Instructions for Treatment How to access health informa tion online Indication:Hypothyroid Start:17-Oct-2017 Instruction Type:Patient Education How to access health informa tion online - Detail Indication:Hypothyroid Start:17-Oct-2017 Instruction Type:Patient Education Patient Instructions Indication:BMI 24.0-24.9, adult Start:17-Oct-2017 Instruction Type:Provider Instructions for Treatment [facility]; [facility] Work Phone: Instructions* Name Dates Details Patient Instructions Indication:BMI 25.0-25.9,adult Start:04-Jul-2022 Instruction Type:Provider Instructions for Treatment How to Access Health Informa tion Online using Patient Portal and [employer]rd [employer] Apps Indication:BMI 25.0-25.9,adult Start:04-Jul-2022 Instruction Type:Patient Education How to Access Health Informa tion Online using Patient Portal and [employer]rd [employer] Apps Indication:Nonsmoker Start:31-Jan-2022 Instruction Type:Patient Education Patient Instructions Indication:Nonsmoker Start:31-Jan-2022 Instruction Type:Provider Instructions for Treatment Patient Instructions Indication:BMI 25.0-25.9,adult Start:02-Jan-2022 Instruction Type:Provider Instructions for Treatment How to Access Health Informa tion Online using Patient Portal and [employer]rd [employer] Apps Indication:BMI 25.0-25.9,adult Start:02-Jan-2022 Instruction Type:Patient Education Patient Instructions Indication:BMI 25.0-25.9,adult Start:04-Jul-2021 Instruction Type:Provider Instructions for Treatment How to Access Health Informa tion Online using Patient Portal and [employer]rd [employer] Apps Indication:BMI 25.0-25.9,adult Start:04-Jul-2021 Instruction Type:Patient Education Patient Instructions Indication:Attention deficit disorder (ADD) in adult Start:30-Jun-2021 Instruction Type:Provider Instructions for Treatment How to Access Health Informa tion Online using Patient Portal and [employer]rd [employer] Apps Indication:Attention deficit disorder (ADD) in adult Start:30-Jun-2021 Instruction Type:Patient Education Patient Instructions Indication:Nonsmoker Start:27-Jun-2021 Instruction Type:Provider Instructions for Treatment How to Access Health Informa tion Online using Patient Portal and [employer]rd [employer] Apps Indication:Nonsmoker Start:27-Jun-2021 Instruction Type:Patient Education Patient Instructions Indication:Attention deficit disorder (ADD) in adult Start:05-Oct-2020 Instruction Type:Provider Instructions for Treatment How to Access Health Informa tion Online using Patient Portal and [employer]rd [employer] Apps Indication:Attention deficit disorder (ADD) in adult Start:05-Oct-2020 Instruction Type:Patient Education Patient Instructions Indication:Nonsmoker Start:01-Oct-2020 Instruction Type:Provider Instructions for Treatment How to Access Health Informa tion Online using Patient Portal and [employer]rd [employer] Apps Indication:Nonsmoker Start:01-Oct-2020 Instruction Type:Patient Education Patient Instructions Indication:BMI 25.0-25.9,adult Start:01-Jun-2020 Instruction Type:Provider Instructions for Treatment How to Access Health Informa tion Online using Patient Portal and [employer]rd [employer] Apps Indication:BMI 25.0-25.9,adult Start:01-Jun-2020 Instruction Type:Patient Education Patient Instructions Indication:Nonsmoker Start:05-Apr-2020 Instruction Type:Provider Instructions for Treatment How to Access Health Informa tion Online using Patient Portal and [employer]rd [employer] Apps Indication:Nonsmoker Start:05-Apr-2020 Instruction Type:Patient Education Patient Instructions Indication:Nonsmoker Start:30-Mar-2020 Instruction Type:Provider Instructions for Treatment How to Access Health Informa tion Online using Patient Portal and [employer] Apps Indication:Nonsmoker Start:30-Mar-2020 Instruction Type:Patient Education How to access health informa tion online Indication:Nonsmoker Start:10-Feb-2020 Instruction Type:Patient Education How to access health informa tion online - Detail Indication:Nonsmoker Start:10-Feb-2020 Instruction Type:Patient Education Patient Instructions Indication:Hypercholesteremia Start:10-Feb-2020 Instruction Type:Provider Instructions for Treatment How to access health informa tion online Indication:Attention deficit disorder (ADD) in adult Start:13-Jan-2020 Instruction Type:Patient Education How to access health informa tion online - Detail Indication:Attention deficit disorder (ADD) in adult Start:13-Jan-2020 Instruction Type:Patient Education Patient Instructions Indication:Attention deficit disorder (ADD) in adult Start:13-Jan-2020 Instruction Type:Provider Instructions for Treatment How to access health informa tion online Indication:Nonsmoker Start:24-Nov-2019 Instruction Type:Patient Education How to access health informa tion online - Detail Indication:Nonsmoker Start:24-Nov-2019 Instruction Type:Patient Education Instructions Indication:BMI 24.0-24.9, adult Start:24-Nov-2019 Instruction Type:Provider Instructions for Treatment How to access health informa tion online Indication:Attention deficit disorder (ADD) in adult Start:31-Jul-2019 Instruction Type:Patient Education How to access health informa tion online - Detail Indication:Attention deficit disorder (ADD) in adult Start:31-Jul-2019 Instruction Type:Patient Education Patient Instructions Indication:Attention deficit disorder (ADD) in adult Start:31-Jul-2019 Instruction Type:Provider Instructions for Treatment How to access health informa tion online Indication:Attention deficit disorder (ADD) in adult Start:30-Jan-2019 Instruction Type:Patient Education How to access health informa tion online - Detail Indication:Attention deficit disorder (ADD) in adult Start:30-Jan-2019 Instruction Type:Patient Education Patient Instructions Indication:Attention deficit disorder (ADD) in adult Start:30-Jan-2019 Instruction Type:Provider Instructions for Treatment How to access health informa tion online Indication:Nonsmoker Start:23-Oct-2018 Instruction Type:Patient Education How to access health informa tion online - Detail Indication:Nonsmoker Start:23-Oct-2018 Instruction Type:Patient Education Patient Instructions Indication:Depression with anxiety Start:23-Oct-2018 Instruction Type:Provider Instructions for Treatment How to access health informa tion online Indication:BMI 25.0-25.9,adult Start:15-Jul-2018 Instruction Type:Patient Education How to access health informa tion online - Detail Indication:BMI 25.0-25.9,adult Start:15-Jul-2018 Instruction Type:Patient Education Patient Instructions Indication:BMI 25.0-25.9,adult Start:15-Jul-2018 Instruction Type:Provider Instructions for Treatment How to access health informa tion online Indication:Nonsmoker Start:27-Jun-2018 Instruction Type:Patient Education How to access health informa tion online - Detail Indication:Nonsmoker Start:27-Jun-2018 Instruction Type:Patient Education Patient Instructions Indication:Nonsmoker Start:27-Jun-2018 Instruction Type:Provider Instructions for Treatment How to access health informa tion online Indication:Nonsmoker Start:20-May-2018 Instruction Type:Patient Education How to access health informa tion online - Detail Indication:Nonsmoker Start:20-May-2018 Instruction Type:Patient Education Patient Instructions Indication:Sore throat Start:20-May-2018 Instruction Type:Provider Instructions for Treatment How to access health informa tion online Indication:Attention deficit disorder (ADD) in adult Start:02-May-2018 Instruction Type:Patient Education How to access health informa tion online - Detail Indication:Attention deficit disorder (ADD) in adult Start:02-May-2018 Instruction Type:Patient Education Patient Instructions Indication:Attention deficit disorder (ADD) in adult Start:02-May-2018 Instruction Type:Provider Instructions for Treatment How to access health informa tion online Indication:Nonsmoker Start:10-Apr-2018 Instruction Type:Patient Education How to access health informa tion online - Detail Indication:Nonsmoker Start:10-Apr-2018 Instruction Type:Patient Education Patient Instructions Indication:Nonsmoker Start:10-Apr-2018 Instruction Type:Provider Instructions for Treatment How to access health informa tion online Indication:Nonsmoker Start:31-Oct-2017 Instruction Type:Patient Education How to access health informa tion online - Detail Indication:Nonsmoker Start:31-Oct-2017 Instruction Type:Patient Education Patient Instructions Indication:Nonsmoker Start:31-Oct-2017 Instruction Type:Provider Instructions for Treatment How to access health informa tion online Indication:Hypothyroid Start:17-Oct-2017 Instruction Type:Patient Education How to access health informa tion online - Detail Indication:Hypothyroid Start:17-Oct-2017 Instruction Type:Patient Education Patient Instructions Indication:BMI 24.0-24.9, adult Start:17-Oct-2017 Instruction Type:Provider Instructions for Treatment [facility]; [facility] Work Phone: Instructions* Name Dates Details Patient Instructions Indication:BMI 25.0-25.9,adult Start:04-Jul-2022 Instruction Type:Provider Instructions for Treatment How to Access Health Informa tion Online using Patient Portal and [employer]rd [employer] Apps Indication:BMI 25.0-25.9,adult Start:04-Jul-2022 Instruction Type:Patient Education How to Access Health Informa tion Online using Patient Portal and [employer]rd [employer] Apps Indication:Nonsmoker Start:31-Jan-2022 Instruction Type:Patient Education Patient Instructions Indication:Nonsmoker Start:31-Jan-2022 Instruction Type:Provider Instructions for Treatment Patient Instructions Indication:BMI 25.0-25.9,adult Start:02-Jan-2022 Instruction Type:Provider Instructions for Treatment How to Access Health Informa tion Online using Patient Portal and [employer]rd [employer] Apps Indication:BMI 25.0-25.9,adult Start:02-Jan-2022 Instruction Type:Patient Education Patient Instructions Indication:BMI 25.0-25.9,adult Start:04-Jul-2021 Instruction Type:Provider Instructions for Treatment How to Access Health Informa tion Online using Patient Portal and [employer]rd [employer] Apps Indication:BMI 25.0-25.9,adult Start:04-Jul-2021 Instruction Type:Patient Education Patient Instructions Indication:Attention deficit disorder (ADD) in adult Start:30-Jun-2021 Instruction Type:Provider Instructions for Treatment How to Access Health Informa tion Online using Patient Portal and [employer]rd [employer] Apps Indication:Attention deficit disorder (ADD) in adult Start:30-Jun-2021 Instruction Type:Patient Education Patient Instructions Indication:Nonsmoker Start:27-Jun-2021 Instruction Type:Provider Instructions for Treatment How to Access Health Informa tion Online using Patient Portal and [employer] Apps Indication:Nonsmoker Start:27-Jun-2021 Instruction Type:Patient Education Patient Instructions Indication:Attention deficit disorder (ADD) in adult Start:05-Oct-2020 Instruction Type:Provider Instructions for Treatment How to Access Health Informa tion Online using Patient Portal and [employer]rd [employer] Apps Indication:Attention deficit disorder (ADD) in adult Start:05-Oct-2020 Instruction Type:Patient Education Patient Instructions Indication:Nonsmoker Start:01-Oct-2020 Instruction Type:Provider Instructions for Treatment How to Access Health Informa tion Online using Patient Portal and [employer]rd [employer] Apps Indication:Nonsmoker Start:01-Oct-2020 Instruction Type:Patient Education Patient Instructions Indication:BMI 25.0-25.9,adult Start:01-Jun-2020 Instruction Type:Provider Instructions for Treatment How to Access Health Informa tion Online using Patient Portal and [employer] Apps Indication:BMI 25.0-25.9,adult Start:01-Jun-2020 Instruction Type:Patient Education Patient Instructions Indication:Nonsmoker Start:05-Apr-2020 Instruction Type:Provider Instructions for Treatment How to Access Health Informa tion Online using Patient Portal and [employer]rd [employer] Apps Indication:Nonsmoker Start:05-Apr-2020 Instruction Type:Patient Education Patient Instructions Indication:Nonsmoker Start:30-Mar-2020 Instruction Type:Provider Instructions for Treatment How to Access Health Informa tion Online using Patient Portal and [employer] Apps Indication:Nonsmoker Start:30-Mar-2020 Instruction Type:Patient Education How to access health informa tion online Indication:Nonsmoker Start:10-Feb-2020 Instruction Type:Patient Education How to access health informa tion online - Detail Indication:Nonsmoker Start:10-Feb-2020 Instruction Type:Patient Education Patient Instructions Indication:Hypercholesteremia Start:10-Feb-2020 Instruction Type:Provider Instructions for Treatment How to access health informa tion online Indication:Attention deficit disorder (ADD) in adult Start:13-Jan-2020 Instruction Type:Patient Education How to access health informa tion online - Detail Indication:Attention deficit disorder (ADD) in adult Start:13-Jan-2020 Instruction Type:Patient Education Patient Instructions Indication:Attention deficit disorder (ADD) in adult Start:13-Jan-2020 Instruction Type:Provider Instructions for Treatment How to access health informa tion online Indication:Nonsmoker Start:24-Nov-2019 Instruction Type:Patient Education How to access health informa tion online - Detail Indication:Nonsmoker Start:24-Nov-2019 Instruction Type:Patient Education Instructions Indication:BMI 24.0-24.9, adult Start:24-Nov-2019 Instruction Type:Provider Instructions for Treatment How to access health informa tion online Indication:Attention deficit disorder (ADD) in adult Start:31-Jul-2019 Instruction Type:Patient Education How to access health informa tion online - Detail Indication:Attention deficit disorder (ADD) in adult Start:31-Jul-2019 Instruction Type:Patient Education Patient Instructions Indication:Attention deficit disorder (ADD) in adult Start:31-Jul-2019 Instruction Type:Provider Instructions for Treatment How to access health informa tion online Indication:Attention deficit disorder (ADD) in adult Start:30-Jan-2019 Instruction Type:Patient Education How to access health informa tion online - Detail Indication:Attention deficit disorder (ADD) in adult Start:30-Jan-2019 Instruction Type:Patient Education Patient Instructions Indication:Attention deficit disorder (ADD) in adult Start:30-Jan-2019 Instruction Type:Provider Instructions for Treatment How to access health informa tion online Indication:Nonsmoker Start:23-Oct-2018 Instruction Type:Patient Education How to access health informa tion online - Detail Indication:Nonsmoker Start:23-Oct-2018 Instruction Type:Patient Education Patient Instructions Indication:Depression with anxiety Start:23-Oct-2018 Instruction Type:Provider Instructions for Treatment How to access health informa tion online Indication:BMI 25.0-25.9,adult Start:15-Jul-2018 Instruction Type:Patient Education How to access health informa tion online - Detail Indication:BMI 25.0-25.9,adult Start:15-Jul-2018 Instruction Type:Patient Education Patient Instructions Indication:BMI 25.0-25.9,adult Start:15-Jul-2018 Instruction Type:Provider Instructions for Treatment How to access health informa tion online Indication:Nonsmoker Start:27-Jun-2018 Instruction Type:Patient Education How to access health informa tion online - Detail Indication:Nonsmoker Start:27-Jun-2018 Instruction Type:Patient Education Patient Instructions Indication:Nonsmoker Start:27-Jun-2018 Instruction Type:Provider Instructions for Treatment How to access health informa tion online Indication:Nonsmoker Start:20-May-2018 Instruction Type:Patient Education How to access health informa tion online - Detail Indication:Nonsmoker Start:20-May-2018 Instruction Type:Patient Education Patient Instructions Indication:Sore throat Start:20-May-2018 Instruction Type:Provider Instructions for Treatment How to access health informa tion online Indication:Attention deficit disorder (ADD) in adult Start:02-May-2018 Instruction Type:Patient Education How to access health informa tion online - Detail Indication:Attention deficit disorder (ADD) in adult Start:02-May-2018 Instruction Type:Patient Education Patient Instructions Indication:Attention deficit disorder (ADD) in adult Start:02-May-2018 Instruction Type:Provider Instructions for Treatment How to access health informa tion online Indication:Nonsmoker Start:10-Apr-2018 Instruction Type:Patient Education How to access health informa tion online - Detail Indication:Nonsmoker Start:10-Apr-2018 Instruction Type:Patient Education Patient Instructions Indication:Nonsmoker Start:10-Apr-2018 Instruction Type:Provider Instructions for Treatment How to access health informa tion online Indication:Nonsmoker Start:31-Oct-2017 Instruction Type:Patient Education How to access health informa tion online - Detail Indication:Nonsmoker Start:31-Oct-2017 Instruction Type:Patient Education Patient Instructions Indication:Nonsmoker Start:31-Oct-2017 Instruction Type:Provider Instructions for Treatment How to access health informa tion online Indication:Hypothyroid Start:17-Oct-2017 Instruction Type:Patient Education How to access health informa tion online - Detail Indication:Hypothyroid Start:17-Oct-2017 Instruction Type:Patient Education Patient Instructions Indication:BMI 24.0-24.9, adult Start:17-Oct-2017 Instruction Type:Provider Instructions for Treatment [facility]; [facility] Work Phone: Instructions* Name Dates Details Patient Instructions Indication:Hypertension Start:31-Jul-2022 Instruction Type:Provider Instructions for Treatment How to Access Health Informa tion Online using Patient Portal and [employer]rd [employer] Apps Indication:Hypertension Start:31-Jul-2022 Instruction Type:Patient Education Patient Instructions Indication:BMI 25.0-25.9,adult Start:04-Jul-2022 Instruction Type:Provider Instructions for Treatment How to Access Health Informa tion Online using Patient Portal and [employer]rd [employer] Apps Indication:BMI 25.0-25.9,adult Start:04-Jul-2022 Instruction Type:Patient Education How to Access Health Informa tion Online using Patient Portal and [employer]rd [employer] Apps Indication:Nonsmoker Start:31-Jan-2022 Instruction Type:Patient Education Patient Instructions Indication:Nonsmoker Start:31-Jan-2022 Instruction Type:Provider Instructions for Treatment Patient Instructions Indication:BMI 25.0-25.9,adult Start:02-Jan-2022 Instruction Type:Provider Instructions for Treatment How to Access Health Informa tion Online using Patient Portal and [employer]rd [employer] Apps Indication:BMI 25.0-25.9,adult Start:02-Jan-2022 Instruction Type:Patient Education Patient Instructions Indication:BMI 25.0-25.9,adult Start:04-Jul-2021 Instruction Type:Provider Instructions for Treatment How to Access Health Informa tion Online using Patient Portal and [employer]rd [employer] Apps Indication:BMI 25.0-25.9,adult Start:04-Jul-2021 Instruction Type:Patient Education Patient Instructions Indication:Attention deficit disorder (ADD) in adult Start:30-Jun-2021 Instruction Type:Provider Instructions for Treatment How to Access Health Informa tion Online using Patient Portal and [employer]rd [employer] Apps Indication:Attention deficit disorder (ADD) in adult Start:30-Jun-2021 Instruction Type:Patient Education Patient Instructions Indication:Nonsmoker Start:27-Jun-2021 Instruction Type:Provider Instructions for Treatment How to Access Health Informa tion Online using Patient Portal and [employer]rd [employer] Apps Indication:Nonsmoker Start:27-Jun-2021 Instruction Type:Patient Education Patient Instructions Indication:Attention deficit disorder (ADD) in adult Start:05-Oct-2020 Instruction Type:Provider Instructions for Treatment How to Access Health Informa tion Online using Patient Portal and [employer]rd [employer] Apps Indication:Attention deficit disorder (ADD) in adult Start:05-Oct-2020 Instruction Type:Patient Education Patient Instructions Indication:Nonsmoker Start:01-Oct-2020 Instruction Type:Provider Instructions for Treatment How to Access Health Informa tion Online using Patient Portal and [employer]rd [employer] Apps Indication:Nonsmoker Start:01-Oct-2020 Instruction Type:Patient Education Patient Instructions Indication:BMI 25.0-25.9,adult Start:01-Jun-2020 Instruction Type:Provider Instructions for Treatment How to Access Health Informa tion Online using Patient Portal and [employer]rd [employer] Apps Indication:BMI 25.0-25.9,adult Start:01-Jun-2020 Instruction Type:Patient Education Patient Instructions Indication:Nonsmoker Start:05-Apr-2020 Instruction Type:Provider Instructions for Treatment How to Access Health Informa tion Online using Patient Portal and [employer]rd [employer] Apps Indication:Nonsmoker Start:05-Apr-2020 Instruction Type:Patient Education Patient Instructions Indication:Nonsmoker Start:30-Mar-2020 Instruction Type:Provider Instructions for Treatment How to Access Health Informa tion Online using Patient Portal and [employer]rd [employer] Apps Indication:Nonsmoker Start:30-Mar-2020 Instruction Type:Patient Education How to access health informa tion online Indication:Nonsmoker Start:10-Feb-2020 Instruction Type:Patient Education How to access health informa tion online - Detail Indication:Nonsmoker Start:10-Feb-2020 Instruction Type:Patient Education Patient Instructions Indication:Hypercholesteremia Start:10-Feb-2020 Instruction Type:Provider Instructions for Treatment How to access health informa tion online Indication:Attention deficit disorder (ADD) in adult Start:13-Jan-2020 Instruction Type:Patient Education How to access health informa tion online - Detail Indication:Attention deficit disorder (ADD) in adult Start:13-Jan-2020 Instruction Type:Patient Education Patient Instructions Indication:Attention deficit disorder (ADD) in adult Start:13-Jan-2020 Instruction Type:Provider Instructions for Treatment How to access health informa tion online Indication:Nonsmoker Start:24-Nov-2019 Instruction Type:Patient Education How to access health informa tion online - Detail Indication:Nonsmoker Start:24-Nov-2019 Instruction Type:Patient Education Instructions Indication:BMI 24.0-24.9, adult Start:24-Nov-2019 Instruction Type:Provider Instructions for Treatment How to access health informa tion online Indication:Attention deficit disorder (ADD) in adult Start:31-Jul-2019 Instruction Type:Patient Education How to access health informa tion online - Detail Indication:Attention deficit disorder (ADD) in adult Start:31-Jul-2019 Instruction Type:Patient Education Patient Instructions Indication:Attention deficit disorder (ADD) in adult Start:31-Jul-2019 Instruction Type:Provider Instructions for Treatment How to access health informa tion online Indication:Attention deficit disorder (ADD) in adult Start:30-Jan-2019 Instruction Type:Patient Education How to access health informa tion online - Detail Indication:Attention deficit disorder (ADD) in adult Start:30-Jan-2019 Instruction Type:Patient Education Patient Instructions Indication:Attention deficit disorder (ADD) in adult Start:30-Jan-2019 Instruction Type:Provider Instructions for Treatment How to access health informa tion online Indication:Nonsmoker Start:23-Oct-2018 Instruction Type:Patient Education How to access health informa tion online - Detail Indication:Nonsmoker Start:23-Oct-2018 Instruction Type:Patient Education Patient Instructions Indication:Depression with anxiety Start:23-Oct-2018 Instruction Type:Provider Instructions for Treatment How to access health informa tion online Indication:BMI 25.0-25.9,adult Start:15-Jul-2018 Instruction Type:Patient Education How to access health informa tion online - Detail Indication:BMI 25.0-25.9,adult Start:15-Jul-2018 Instruction Type:Patient Education Patient Instructions Indication:BMI 25.0-25.9,adult Start:15-Jul-2018 Instruction Type:Provider Instructions for Treatment How to access health informa tion online Indication:Nonsmoker Start:27-Jun-2018 Instruction Type:Patient Education How to access health informa tion online - Detail Indication:Nonsmoker Start:27-Jun-2018 Instruction Type:Patient Education Patient Instructions Indication:Nonsmoker Start:27-Jun-2018 Instruction Type:Provider Instructions for Treatment How to access health informa tion online Indication:Nonsmoker Start:20-May-2018 Instruction Type:Patient Education How to access health informa tion online - Detail Indication:Nonsmoker Start:20-May-2018 Instruction Type:Patient Education Patient Instructions Indication:Sore throat Start:20-May-2018 Instruction Type:Provider Instructions for Treatment How to access health informa tion online Indication:Attention deficit disorder (ADD) in adult Start:02-May-2018 Instruction Type:Patient Education How to access health informa tion online - Detail Indication:Attention deficit disorder (ADD) in adult Start:02-May-2018 Instruction Type:Patient Education Patient Instructions Indication:Attention deficit disorder (ADD) in adult Start:02-May-2018 Instruction Type:Provider Instructions for Treatment How to access health informa tion online Indication:Nonsmoker Start:10-Apr-2018 Instruction Type:Patient Education How to access health informa tion online - Detail Indication:Nonsmoker Start:10-Apr-2018 Instruction Type:Patient Education Patient Instructions Indication:Nonsmoker Start:10-Apr-2018 Instruction Type:Provider Instructions for Treatment How to access health informa tion online Indication:Nonsmoker Start:31-Oct-2017 Instruction Type:Patient Education How to access health informa tion online - Detail Indication:Nonsmoker Start:31-Oct-2017 Instruction Type:Patient Education Patient Instructions Indication:Nonsmoker Start:31-Oct-2017 Instruction Type:Provider Instructions for Treatment How to access health informa tion online Indication:Hypothyroid Start:17-Oct-2017 Instruction Type:Patient Education How to access health informa tion online - Detail Indication:Hypothyroid Start:17-Oct-2017 Instruction Type:Patient Education Patient Instructions Indication:BMI 24.0-24.9, adult Start:17-Oct-2017 Instruction Type:Provider Instructions for Treatment [facility]; [facility] Work Phone: Instructions* Name Dates Details Patient Instructions Indication:Hypertension Start:18-Sep-2022 Instruction Type:Provider Instructions for Treatment How to Access Health Informa tion Online using Patient Portal and [employer]rd [employer] Apps Indication:Hypertension Start:18-Sep-2022 Instruction Type:Patient Education Patient Instructions Indication:Hypertension Start:31-Jul-2022 Instruction Type:Provider Instructions for Treatment How to Access Health Informa tion Online using Patient Portal and [employer]rd [employer] Apps Indication:Hypertension Start:31-Jul-2022 Instruction Type:Patient Education Patient Instructions Indication:BMI 25.0-25.9,adult Start:04-Jul-2022 Instruction Type:Provider Instructions for Treatment How to Access Health Informa tion Online using Patient Portal and [employer]rd [employer] Apps Indication:BMI 25.0-25.9,adult Start:04-Jul-2022 Instruction Type:Patient Education How to Access Health Informa tion Online using Patient Portal and [employer]rd [employer] Apps Indication:Nonsmoker Start:31-Jan-2022 Instruction Type:Patient Education Patient Instructions Indication:Nonsmoker Start:31-Jan-2022 Instruction Type:Provider Instructions for Treatment Patient Instructions Indication:BMI 25.0-25.9,adult Start:02-Jan-2022 Instruction Type:Provider Instructions for Treatment How to Access Health Informa tion Online using Patient Portal and [employer]rd [employer] Apps Indication:BMI 25.0-25.9,adult Start:02-Jan-2022 Instruction Type:Patient Education Patient Instructions Indication:BMI 25.0-25.9,adult Start:04-Jul-2021 Instruction Type:Provider Instructions for Treatment How to Access Health Informa tion Online using Patient Portal and [employer]rd [employer] Apps Indication:BMI 25.0-25.9,adult Start:04-Jul-2021 Instruction Type:Patient Education Patient Instructions Indication:Attention deficit disorder (ADD) in adult Start:30-Jun-2021 Instruction Type:Provider Instructions for Treatment How to Access Health Informa tion Online using Patient Portal and [employer]rd [employer] Apps Indication:Attention deficit disorder (ADD) in adult Start:30-Jun-2021 Instruction Type:Patient Education Patient Instructions Indication:Nonsmoker Start:27-Jun-2021 Instruction Type:Provider Instructions for Treatment How to Access Health Informa tion Online using Patient Portal and [employer] Apps Indication:Nonsmoker Start:27-Jun-2021 Instruction Type:Patient Education Patient Instructions Indication:Attention deficit disorder (ADD) in adult Start:05-Oct-2020 Instruction Type:Provider Instructions for Treatment How to Access Health Informa tion Online using Patient Portal and [employer]rd [employer] Apps Indication:Attention deficit disorder (ADD) in adult Start:05-Oct-2020 Instruction Type:Patient Education Patient Instructions Indication:Nonsmoker Start:01-Oct-2020 Instruction Type:Provider Instructions for Treatment How to Access Health Informa tion Online using Patient Portal and [employer] Apps Indication:Nonsmoker Start:01-Oct-2020 Instruction Type:Patient Education Patient Instructions Indication:BMI 25.0-25.9,adult Start:01-Jun-2020 Instruction Type:Provider Instructions for Treatment How to Access Health Informa tion Online using Patient Portal and [employer]rd [employer] Apps Indication:BMI 25.0-25.9,adult Start:01-Jun-2020 Instruction Type:Patient Education Patient Instructions Indication:Nonsmoker Start:05-Apr-2020 Instruction Type:Provider Instructions for Treatment How to Access Health Informa tion Online using Patient Portal and [employer] Apps Indication:Nonsmoker Start:05-Apr-2020 Instruction Type:Patient Education Patient Instructions Indication:Nonsmoker Start:30-Mar-2020 Instruction Type:Provider Instructions for Treatment How to Access Health Informa tion Online using Patient Portal and [employer] Apps Indication:Nonsmoker Start:30-Mar-2020 Instruction Type:Patient Education How to access health informa tion online Indication:Nonsmoker Start:10-Feb-2020 Instruction Type:Patient Education How to access health informa tion online - Detail Indication:Nonsmoker Start:10-Feb-2020 Instruction Type:Patient Education Patient Instructions Indication:Hypercholesteremia Start:10-Feb-2020 Instruction Type:Provider Instructions for Treatment How to access health informa tion online Indication:Attention deficit disorder (ADD) in adult Start:13-Jan-2020 Instruction Type:Patient Education How to access health informa tion online - Detail Indication:Attention deficit disorder (ADD) in adult Start:13-Jan-2020 Instruction Type:Patient Education Patient Instructions Indication:Attention deficit disorder (ADD) in adult Start:13-Jan-2020 Instruction Type:Provider Instructions for Treatment How to access health informa tion online Indication:Nonsmoker Start:24-Nov-2019 Instruction Type:Patient Education How to access health informa tion online - Detail Indication:Nonsmoker Start:24-Nov-2019 Instruction Type:Patient Education Instructions Indication:BMI 24.0-24.9, adult Start:24-Nov-2019 Instruction Type:Provider Instructions for Treatment How to access health informa tion online Indication:Attention deficit disorder (ADD) in adult Start:31-Jul-2019 Instruction Type:Patient Education How to access health informa tion online - Detail Indication:Attention deficit disorder (ADD) in adult Start:31-Jul-2019 Instruction Type:Patient Education Patient Instructions Indication:Attention deficit disorder (ADD) in adult Start:31-Jul-2019 Instruction Type:Provider Instructions for Treatment How to access health informa tion online Indication:Attention deficit disorder (ADD) in adult Start:30-Jan-2019 Instruction Type:Patient Education How to access health informa tion online - Detail Indication:Attention deficit disorder (ADD) in adult Start:30-Jan-2019 Instruction Type:Patient Education Patient Instructions Indication:Attention deficit disorder (ADD) in adult Start:30-Jan-2019 Instruction Type:Provider Instructions for Treatment How to access health informa tion online Indication:Nonsmoker Start:23-Oct-2018 Instruction Type:Patient Education How to access health informa tion online - Detail Indication:Nonsmoker Start:23-Oct-2018 Instruction Type:Patient Education Patient Instructions Indication:Depression with anxiety Start:23-Oct-2018 Instruction Type:Provider Instructions for Treatment How to access health informa tion online Indication:BMI 25.0-25.9,adult Start:15-Jul-2018 Instruction Type:Patient Education How to access health informa tion online - Detail Indication:BMI 25.0-25.9,adult Start:15-Jul-2018 Instruction Type:Patient Education Patient Instructions Indication:BMI 25.0-25.9,adult Start:15-Jul-2018 Instruction Type:Provider Instructions for Treatment How to access health informa tion online Indication:Nonsmoker Start:27-Jun-2018 Instruction Type:Patient Education How to access health informa tion online - Detail Indication:Nonsmoker Start:27-Jun-2018 Instruction Type:Patient Education Patient Instructions Indication:Nonsmoker Start:27-Jun-2018 Instruction Type:Provider Instructions for Treatment How to access health informa tion online Indication:Nonsmoker Start:20-May-2018 Instruction Type:Patient Education How to access health informa tion online - Detail Indication:Nonsmoker Start:20-May-2018 Instruction Type:Patient Education Patient Instructions Indication:Sore throat Start:20-May-2018 Instruction Type:Provider Instructions for Treatment How to access health informa tion online Indication:Attention deficit disorder (ADD) in adult Start:02-May-2018 Instruction Type:Patient Education How to access health informa tion online - Detail Indication:Attention deficit disorder (ADD) in adult Start:02-May-2018 Instruction Type:Patient Education Patient Instructions Indication:Attention deficit disorder (ADD) in adult Start:02-May-2018 Instruction Type:Provider Instructions for Treatment How to access health informa tion online Indication:Nonsmoker Start:10-Apr-2018 Instruction Type:Patient Education How to access health informa tion online - Detail Indication:Nonsmoker Start:10-Apr-2018 Instruction Type:Patient Education Patient Instructions Indication:Nonsmoker Start:10-Apr-2018 Instruction Type:Provider Instructions for Treatment How to access health informa tion online Indication:Nonsmoker Start:31-Oct-2017 Instruction Type:Patient Education How to access health informa tion online - Detail Indication:Nonsmoker Start:31-Oct-2017 Instruction Type:Patient Education Patient Instructions Indication:Nonsmoker Start:31-Oct-2017 Instruction Type:Provider Instructions for Treatment How to access health informa tion online Indication:Hypothyroid Start:17-Oct-2017 Instruction Type:Patient Education How to access health informa tion online - Detail Indication:Hypothyroid Start:17-Oct-2017 Instruction Type:Patient Education Patient Instructions Indication:BMI 24.0-24.9, adult Start:17-Oct-2017 Instruction Type:Provider Instructions for Treatment [facility]; [facility] Work Phone: Instructions* Name Dates Details Patient Instructions Indication:Hypertension Start:18-Sep-2022 Instruction Type:Provider Instructions for Treatment How to Access Health Informa tion Online using Patient Portal and [employer]rd [employer] Apps Indication:Hypertension Start:18-Sep-2022 Instruction Type:Patient Education Patient Instructions Indication:Hypertension Start:31-Jul-2022 Instruction Type:Provider Instructions for Treatment How to Access Health Informa tion Online using Patient Portal and [employer] Apps Indication:Hypertension Start:31-Jul-2022 Instruction Type:Patient Education Patient Instructions Indication:BMI 25.0-25.9,adult Start:04-Jul-2022 Instruction Type:Provider Instructions for Treatment How to Access Health Informa tion Online using Patient Portal and [employer] Apps Indication:BMI 25.0-25.9,adult Start:04-Jul-2022 Instruction Type:Patient Education How to Access Health Informa tion Online using Patient Portal and [employer] Apps Indication:Nonsmoker Start:31-Jan-2022 Instruction Type:Patient Education Patient Instructions Indication:Nonsmoker Start:31-Jan-2022 Instruction Type:Provider Instructions for Treatment Patient Instructions Indication:BMI 25.0-25.9,adult Start:02-Jan-2022 Instruction Type:Provider Instructions for Treatment How to Access Health Informa tion Online using Patient Portal and [employer] Apps Indication:BMI 25.0-25.9,adult Start:02-Jan-2022 Instruction Type:Patient Education Patient Instructions Indication:BMI 25.0-25.9,adult Start:04-Jul-2021 Instruction Type:Provider Instructions for Treatment How to Access Health Informa tion Online using Patient Portal and [employer] Apps Indication:BMI 25.0-25.9,adult Start:04-Jul-2021 Instruction Type:Patient Education Patient Instructions Indication:Attention deficit disorder (ADD) in adult Start:30-Jun-2021 Instruction Type:Provider Instructions for Treatment How to Access Health Informa tion Online using Patient Portal and [employer] Apps Indication:Attention deficit disorder (ADD) in adult Start:30-Jun-2021 Instruction Type:Patient Education Patient Instructions Indication:Nonsmoker Start:27-Jun-2021 Instruction Type:Provider Instructions for Treatment How to Access Health Informa tion Online using Patient Portal and [employer] Apps Indication:Nonsmoker Start:27-Jun-2021 Instruction Type:Patient Education Patient Instructions Indication:Attention deficit disorder (ADD) in adult Start:05-Oct-2020 Instruction Type:Provider Instructions for Treatment How to Access Health Informa tion Online using Patient Portal and [employer] Apps Indication:Attention deficit disorder (ADD) in adult Start:05-Oct-2020 Instruction Type:Patient Education Patient Instructions Indication:Nonsmoker Start:01-Oct-2020 Instruction Type:Provider Instructions for Treatment How to Access Health Informa tion Online using Patient Portal and [employer] Apps Indication:Nonsmoker Start:01-Oct-2020 Instruction Type:Patient Education Patient Instructions Indication:BMI 25.0-25.9,adult Start:01-Jun-2020 Instruction Type:Provider Instructions for Treatment How to Access Health Informa tion Online using Patient Portal and [employer] Apps Indication:BMI 25.0-25.9,adult Start:01-Jun-2020 Instruction Type:Patient Education Patient Instructions Indication:Nonsmoker Start:05-Apr-2020 Instruction Type:Provider Instructions for Treatment How to Access Health Informa tion Online using Patient Portal and [employer] Apps Indication:Nonsmoker Start:05-Apr-2020 Instruction Type:Patient Education Patient Instructions Indication:Nonsmoker Start:30-Mar-2020 Instruction Type:Provider Instructions for Treatment How to Access Health Informa tion Online using Patient Portal and [employer] Apps Indication:Nonsmoker Start:30-Mar-2020 Instruction Type:Patient Education How to access health informa tion online Indication:Nonsmoker Start:10-Feb-2020 Instruction Type:Patient Education How to access health informa tion online - Detail Indication:Nonsmoker Start:10-Feb-2020 Instruction Type:Patient Education Patient Instructions Indication:Hypercholesteremia Start:10-Feb-2020 Instruction Type:Provider Instructions for Treatment How to access health informa tion online Indication:Attention deficit disorder (ADD) in adult Start:13-Jan-2020 Instruction Type:Patient Education How to access health informa tion online - Detail Indication:Attention deficit disorder (ADD) in adult Start:13-Jan-2020 Instruction Type:Patient Education Patient Instructions Indication:Attention deficit disorder (ADD) in adult Start:13-Jan-2020 Instruction Type:Provider Instructions for Treatment How to access health informa tion online Indication:Nonsmoker Start:24-Nov-2019 Instruction Type:Patient Education How to access health informa tion online - Detail Indication:Nonsmoker Start:24-Nov-2019 Instruction Type:Patient Education Instructions Indication:BMI 24.0-24.9, adult Start:24-Nov-2019 Instruction Type:Provider Instructions for Treatment How to access health informa tion online Indication:Attention deficit disorder (ADD) in adult Start:31-Jul-2019 Instruction Type:Patient Education How to access health informa tion online - Detail Indication:Attention deficit disorder (ADD) in adult Start:31-Jul-2019 Instruction Type:Patient Education Patient Instructions Indication:Attention deficit disorder (ADD) in adult Start:31-Jul-2019 Instruction Type:Provider Instructions for Treatment How to access health informa tion online Indication:Attention deficit disorder (ADD) in adult Start:30-Jan-2019 Instruction Type:Patient Education How to access health informa tion online - Detail Indication:Attention deficit disorder (ADD) in adult Start:30-Jan-2019 Instruction Type:Patient Education Patient Instructions Indication:Attention deficit disorder (ADD) in adult Start:30-Jan-2019 Instruction Type:Provider Instructions for Treatment How to access health informa tion online Indication:Nonsmoker Start:23-Oct-2018 Instruction Type:Patient Education How to access health informa tion online - Detail Indication:Nonsmoker Start:23-Oct-2018 Instruction Type:Patient Education Patient Instructions Indication:Depression with anxiety Start:23-Oct-2018 Instruction Type:Provider Instructions for Treatment How to access health informa tion online Indication:BMI 25.0-25.9,adult Start:15-Jul-2018 Instruction Type:Patient Education How to access health informa tion online - Detail Indication:BMI 25.0-25.9,adult Start:15-Jul-2018 Instruction Type:Patient Education Patient Instructions Indication:BMI 25.0-25.9,adult Start:15-Jul-2018 Instruction Type:Provider Instructions for Treatment How to access health informa tion online Indication:Nonsmoker Start:27-Jun-2018 Instruction Type:Patient Education How to access health informa tion online - Detail Indication:Nonsmoker Start:27-Jun-2018 Instruction Type:Patient Education Patient Instructions Indication:Nonsmoker Start:27-Jun-2018 Instruction Type:Provider Instructions for Treatment How to access health informa tion online Indication:Nonsmoker Start:20-May-2018 Instruction Type:Patient Education How to access health informa tion online - Detail Indication:Nonsmoker Start:20-May-2018 Instruction Type:Patient Education Patient Instructions Indication:Sore throat Start:20-May-2018 Instruction Type:Provider Instructions for Treatment How to access health informa tion online Indication:Attention deficit disorder (ADD) in adult Start:02-May-2018 Instruction Type:Patient Education How to access health informa tion online - Detail Indication:Attention deficit disorder (ADD) in adult Start:02-May-2018 Instruction Type:Patient Education Patient Instructions Indication:Attention deficit disorder (ADD) in adult Start:02-May-2018 Instruction Type:Provider Instructions for Treatment How to access health informa tion online Indication:Nonsmoker Start:10-Apr-2018 Instruction Type:Patient Education How to access health informa tion online - Detail Indication:Nonsmoker Start:10-Apr-2018 Instruction Type:Patient Education Patient Instructions Indication:Nonsmoker Start:10-Apr-2018 Instruction Type:Provider Instructions for Treatment How to access health informa tion online Indication:Nonsmoker Start:31-Oct-2017 Instruction Type:Patient Education How to access health informa tion online - Detail Indication:Nonsmoker Start:31-Oct-2017 Instruction Type:Patient Education Patient Instructions Indication:Nonsmoker Start:31-Oct-2017 Instruction Type:Provider Instructions for Treatment How to access health informa tion online Indication:Hypothyroid Start:17-Oct-2017 Instruction Type:Patient Education How to access health informa tion online - Detail Indication:Hypothyroid Start:17-Oct-2017 Instruction Type:Patient Education Patient Instructions Indication:BMI 24.0-24.9, adult Start:17-Oct-2017 Instruction Type:Provider Instructions for Treatment [facility]; [facility] Work Phone: Instructions* Name Dates Details Patient Instructions Indication:Hypertension Start:18-Sep-2022 Instruction Type:Provider Instructions for Treatment How to Access Health Informa tion Online using Patient Portal and [employer] Apps Indication:Hypertension Start:18-Sep-2022 Instruction Type:Patient Education Patient Instructions Indication:Hypertension Start:31-Jul-2022 Instruction Type:Provider Instructions for Treatment How to Access Health Informa tion Online using Patient Portal and [employer] Apps Indication:Hypertension Start:31-Jul-2022 Instruction Type:Patient Education Patient Instructions Indication:BMI 25.0-25.9,adult Start:04-Jul-2022 Instruction Type:Provider Instructions for Treatment How to Access Health Informa tion Online using Patient Portal and [employer] Apps Indication:BMI 25.0-25.9,adult Start:04-Jul-2022 Instruction Type:Patient Education How to Access Health Informa tion Online using Patient Portal and [employer] Apps Indication:Nonsmoker Start:31-Jan-2022 Instruction Type:Patient Education Patient Instructions Indication:Nonsmoker Start:31-Jan-2022 Instruction Type:Provider Instructions for Treatment Patient Instructions Indication:BMI 25.0-25.9,adult Start:02-Jan-2022 Instruction Type:Provider Instructions for Treatment How to Access Health Informa tion Online using Patient Portal and [employer] Apps Indication:BMI 25.0-25.9,adult Start:02-Jan-2022 Instruction Type:Patient Education Patient Instructions Indication:BMI 25.0-25.9,adult Start:04-Jul-2021 Instruction Type:Provider Instructions for Treatment How to Access Health Informa tion Online using Patient Portal and [employer] Apps Indication:BMI 25.0-25.9,adult Start:04-Jul-2021 Instruction Type:Patient Education Patient Instructions Indication:Attention deficit disorder (ADD) in adult Start:30-Jun-2021 Instruction Type:Provider Instructions for Treatment How to Access Health Informa tion Online using Patient Portal and [employer]rd [employer] Apps Indication:Attention deficit disorder (ADD) in adult Start:30-Jun-2021 Instruction Type:Patient Education Patient Instructions Indication:Nonsmoker Start:27-Jun-2021 Instruction Type:Provider Instructions for Treatment How to Access Health Informa tion Online using Patient Portal and [employer]rd [employer] Apps Indication:Nonsmoker Start:27-Jun-2021 Instruction Type:Patient Education Patient Instructions Indication:Attention deficit disorder (ADD) in adult Start:05-Oct-2020 Instruction Type:Provider Instructions for Treatment How to Access Health Informa tion Online using Patient Portal and [employer]rd [employer] Apps Indication:Attention deficit disorder (ADD) in adult Start:05-Oct-2020 Instruction Type:Patient Education Patient Instructions Indication:Nonsmoker Start:01-Oct-2020 Instruction Type:Provider Instructions for Treatment How to Access Health Informa tion Online using Patient Portal and [employer]rd [employer] Apps Indication:Nonsmoker Start:01-Oct-2020 Instruction Type:Patient Education Patient Instructions Indication:BMI 25.0-25.9,adult Start:01-Jun-2020 Instruction Type:Provider Instructions for Treatment How to Access Health Informa tion Online using Patient Portal and [employer]rd [employer] Apps Indication:BMI 25.0-25.9,adult Start:01-Jun-2020 Instruction Type:Patient Education Patient Instructions Indication:Nonsmoker Start:05-Apr-2020 Instruction Type:Provider Instructions for Treatment How to Access Health Informa tion Online using Patient Portal and [employer]rd [employer] Apps Indication:Nonsmoker Start:05-Apr-2020 Instruction Type:Patient Education Patient Instructions Indication:Nonsmoker Start:30-Mar-2020 Instruction Type:Provider Instructions for Treatment How to Access Health Informa tion Online using Patient Portal and [employer]rd [employer] Apps Indication:Nonsmoker Start:30-Mar-2020 Instruction Type:Patient Education How to access health informa tion online Indication:Nonsmoker Start:10-Feb-2020 Instruction Type:Patient Education How to access health informa tion online - Detail Indication:Nonsmoker Start:10-Feb-2020 Instruction Type:Patient Education Patient Instructions Indication:Hypercholesteremia Start:10-Feb-2020 Instruction Type:Provider Instructions for Treatment How to access health informa tion online Indication:Attention deficit disorder (ADD) in adult Start:13-Jan-2020 Instruction Type:Patient Education How to access health informa tion online - Detail Indication:Attention deficit disorder (ADD) in adult Start:13-Jan-2020 Instruction Type:Patient Education Patient Instructions Indication:Attention deficit disorder (ADD) in adult Start:13-Jan-2020 Instruction Type:Provider Instructions for Treatment How to access health informa tion online Indication:Nonsmoker Start:24-Nov-2019 Instruction Type:Patient Education How to access health informa tion online - Detail Indication:Nonsmoker Start:24-Nov-2019 Instruction Type:Patient Education Instructions Indication:BMI 24.0-24.9, adult Start:24-Nov-2019 Instruction Type:Provider Instructions for Treatment How to access health informa tion online Indication:Attention deficit disorder (ADD) in adult Start:31-Jul-2019 Instruction Type:Patient Education How to access health informa tion online - Detail Indication:Attention deficit disorder (ADD) in adult Start:31-Jul-2019 Instruction Type:Patient Education Patient Instructions Indication:Attention deficit disorder (ADD) in adult Start:31-Jul-2019 Instruction Type:Provider Instructions for Treatment How to access health informa tion online Indication:Attention deficit disorder (ADD) in adult Start:30-Jan-2019 Instruction Type:Patient Education How to access health informa tion online - Detail Indication:Attention deficit disorder (ADD) in adult Start:30-Jan-2019 Instruction Type:Patient Education Patient Instructions Indication:Attention deficit disorder (ADD) in adult Start:30-Jan-2019 Instruction Type:Provider Instructions for Treatment How to access health informa tion online Indication:Nonsmoker Start:23-Oct-2018 Instruction Type:Patient Education How to access health informa tion online - Detail Indication:Nonsmoker Start:23-Oct-2018 Instruction Type:Patient Education Patient Instructions Indication:Depression with anxiety Start:23-Oct-2018 Instruction Type:Provider Instructions for Treatment How to access health informa tion online Indication:BMI 25.0-25.9,adult Start:15-Jul-2018 Instruction Type:Patient Education How to access health informa tion online - Detail Indication:BMI 25.0-25.9,adult Start:15-Jul-2018 Instruction Type:Patient Education Patient Instructions Indication:BMI 25.0-25.9,adult Start:15-Jul-2018 Instruction Type:Provider Instructions for Treatment How to access health informa tion online Indication:Nonsmoker Start:27-Jun-2018 Instruction Type:Patient Education How to access health informa tion online - Detail Indication:Nonsmoker Start:27-Jun-2018 Instruction Type:Patient Education Patient Instructions Indication:Nonsmoker Start:27-Jun-2018 Instruction Type:Provider Instructions for Treatment How to access health informa tion online Indication:Nonsmoker Start:20-May-2018 Instruction Type:Patient Education How to access health informa tion online - Detail Indication:Nonsmoker Start:20-May-2018 Instruction Type:Patient Education Patient Instructions Indication:Sore throat Start:20-May-2018 Instruction Type:Provider Instructions for Treatment How to access health informa tion online Indication:Attention deficit disorder (ADD) in adult Start:02-May-2018 Instruction Type:Patient Education How to access health informa tion online - Detail Indication:Attention deficit disorder (ADD) in adult Start:02-May-2018 Instruction Type:Patient Education Patient Instructions Indication:Attention deficit disorder (ADD) in adult Start:02-May-2018 Instruction Type:Provider Instructions for Treatment How to access health informa tion online Indication:Nonsmoker Start:10-Apr-2018 Instruction Type:Patient Education How to access health informa tion online - Detail Indication:Nonsmoker Start:10-Apr-2018 Instruction Type:Patient Education Patient Instructions Indication:Nonsmoker Start:10-Apr-2018 Instruction Type:Provider Instructions for Treatment How to access health informa tion online Indication:Nonsmoker Start:31-Oct-2017 Instruction Type:Patient Education How to access health informa tion online - Detail Indication:Nonsmoker Start:31-Oct-2017 Instruction Type:Patient Education Patient Instructions Indication:Nonsmoker Start:31-Oct-2017 Instruction Type:Provider Instructions for Treatment How to access health informa tion online Indication:Hypothyroid Start:17-Oct-2017 Instruction Type:Patient Education How to access health informa tion online - Detail Indication:Hypothyroid Start:17-Oct-2017 Instruction Type:Patient Education Patient Instructions Indication:BMI 24.0-24.9, adult Start:17-Oct-2017 Instruction Type:Provider Instructions for Treatment [facility]; [facility] Work Phone: Instructions* Name Dates Details Patient Instructions Indication:Hypertension Start:18-Sep-2022 Instruction Type:Provider Instructions for Treatment How to Access Health Informa tion Online using Patient Portal and [employer]rd [employer] Apps Indication:Hypertension Start:18-Sep-2022 Instruction Type:Patient Education Patient Instructions Indication:Hypertension Start:31-Jul-2022 Instruction Type:Provider Instructions for Treatment How to Access Health Informa tion Online using Patient Portal and [employer]rd [employer] Apps Indication:Hypertension Start:31-Jul-2022 Instruction Type:Patient Education Patient Instructions Indication:BMI 25.0-25.9,adult Start:04-Jul-2022 Instruction Type:Provider Instructions for Treatment How to Access Health Informa tion Online using Patient Portal and [employer]rd [employer] Apps Indication:BMI 25.0-25.9,adult Start:04-Jul-2022 Instruction Type:Patient Education How to Access Health Informa tion Online using Patient Portal and [employer]rd [employer] Apps Indication:Nonsmoker Start:31-Jan-2022 Instruction Type:Patient Education Patient Instructions Indication:Nonsmoker Start:31-Jan-2022 Instruction Type:Provider Instructions for Treatment Patient Instructions Indication:BMI 25.0-25.9,adult Start:02-Jan-2022 Instruction Type:Provider Instructions for Treatment How to Access Health Informa tion Online using Patient Portal and [employer]rd [employer] Apps Indication:BMI 25.0-25.9,adult Start:02-Jan-2022 Instruction Type:Patient Education Patient Instructions Indication:BMI 25.0-25.9,adult Start:04-Jul-2021 Instruction Type:Provider Instructions for Treatment How to Access Health Informa tion Online using Patient Portal and [employer]rd [employer] Apps Indication:BMI 25.0-25.9,adult Start:04-Jul-2021 Instruction Type:Patient Education Patient Instructions Indication:Attention deficit disorder (ADD) in adult Start:30-Jun-2021 Instruction Type:Provider Instructions for Treatment How to Access Health Informa tion Online using Patient Portal and [employer]rd [employer] Apps Indication:Attention deficit disorder (ADD) in adult Start:30-Jun-2021 Instruction Type:Patient Education Patient Instructions Indication:Nonsmoker Start:27-Jun-2021 Instruction Type:Provider Instructions for Treatment How to Access Health Informa tion Online using Patient Portal and [employer] Apps Indication:Nonsmoker Start:27-Jun-2021 Instruction Type:Patient Education Patient Instructions Indication:Attention deficit disorder (ADD) in adult Start:05-Oct-2020 Instruction Type:Provider Instructions for Treatment How to Access Health Informa tion Online using Patient Portal and [employer]rd [employer] Apps Indication:Attention deficit disorder (ADD) in adult Start:05-Oct-2020 Instruction Type:Patient Education Patient Instructions Indication:Nonsmoker Start:01-Oct-2020 Instruction Type:Provider Instructions for Treatment How to Access Health Informa tion Online using Patient Portal and [employer]rd [employer] Apps Indication:Nonsmoker Start:01-Oct-2020 Instruction Type:Patient Education Patient Instructions Indication:BMI 25.0-25.9,adult Start:01-Jun-2020 Instruction Type:Provider Instructions for Treatment How to Access Health Informa tion Online using Patient Portal and [employer]rd [employer] Apps Indication:BMI 25.0-25.9,adult Start:01-Jun-2020 Instruction Type:Patient Education Patient Instructions Indication:Nonsmoker Start:05-Apr-2020 Instruction Type:Provider Instructions for Treatment How to Access Health Informa tion Online using Patient Portal and [employer]rd [employer] Apps Indication:Nonsmoker Start:05-Apr-2020 Instruction Type:Patient Education Patient Instructions Indication:Nonsmoker Start:30-Mar-2020 Instruction Type:Provider Instructions for Treatment How to Access Health Informa tion Online using Patient Portal and [employer]rd [employer] Apps Indication:Nonsmoker Start:30-Mar-2020 Instruction Type:Patient Education How to access health informa tion online Indication:Nonsmoker Start:10-Feb-2020 Instruction Type:Patient Education How to access health informa tion online - Detail Indication:Nonsmoker Start:10-Feb-2020 Instruction Type:Patient Education Patient Instructions Indication:Hypercholesteremia Start:10-Feb-2020 Instruction Type:Provider Instructions for Treatment How to access health informa tion online Indication:Attention deficit disorder (ADD) in adult Start:13-Jan-2020 Instruction Type:Patient Education How to access health informa tion online - Detail Indication:Attention deficit disorder (ADD) in adult Start:13-Jan-2020 Instruction Type:Patient Education Patient Instructions Indication:Attention deficit disorder (ADD) in adult Start:13-Jan-2020 Instruction Type:Provider Instructions for Treatment How to access health informa tion online Indication:Nonsmoker Start:24-Nov-2019 Instruction Type:Patient Education How to access health informa tion online - Detail Indication:Nonsmoker Start:24-Nov-2019 Instruction Type:Patient Education Instructions Indication:BMI 24.0-24.9, adult Start:24-Nov-2019 Instruction Type:Provider Instructions for Treatment How to access health informa tion online Indication:Attention deficit disorder (ADD) in adult Start:31-Jul-2019 Instruction Type:Patient Education How to access health informa tion online - Detail Indication:Attention deficit disorder (ADD) in adult Start:31-Jul-2019 Instruction Type:Patient Education Patient Instructions Indication:Attention deficit disorder (ADD) in adult Start:31-Jul-2019 Instruction Type:Provider Instructions for Treatment How to access health informa tion online Indication:Attention deficit disorder (ADD) in adult Start:30-Jan-2019 Instruction Type:Patient Education How to access health informa tion online - Detail Indication:Attention deficit disorder (ADD) in adult Start:30-Jan-2019 Instruction Type:Patient Education Patient Instructions Indication:Attention deficit disorder (ADD) in adult Start:30-Jan-2019 Instruction Type:Provider Instructions for Treatment How to access health informa tion online Indication:Nonsmoker Start:23-Oct-2018 Instruction Type:Patient Education How to access health informa tion online - Detail Indication:Nonsmoker Start:23-Oct-2018 Instruction Type:Patient Education Patient Instructions Indication:Depression with anxiety Start:23-Oct-2018 Instruction Type:Provider Instructions for Treatment How to access health informa tion online Indication:BMI 25.0-25.9,adult Start:15-Jul-2018 Instruction Type:Patient Education How to access health informa tion online - Detail Indication:BMI 25.0-25.9,adult Start:15-Jul-2018 Instruction Type:Patient Education Patient Instructions Indication:BMI 25.0-25.9,adult Start:15-Jul-2018 Instruction Type:Provider Instructions for Treatment How to access health informa tion online Indication:Nonsmoker Start:27-Jun-2018 Instruction Type:Patient Education How to access health informa tion online - Detail Indication:Nonsmoker Start:27-Jun-2018 Instruction Type:Patient Education Patient Instructions Indication:Nonsmoker Start:27-Jun-2018 Instruction Type:Provider Instructions for Treatment How to access health informa tion online Indication:Nonsmoker Start:20-May-2018 Instruction Type:Patient Education How to access health informa tion online - Detail Indication:Nonsmoker Start:20-May-2018 Instruction Type:Patient Education Patient Instructions Indication:Sore throat Start:20-May-2018 Instruction Type:Provider Instructions for Treatment How to access health informa tion online Indication:Attention deficit disorder (ADD) in adult Start:02-May-2018 Instruction Type:Patient Education How to access health informa tion online - Detail Indication:Attention deficit disorder (ADD) in adult Start:02-May-2018 Instruction Type:Patient Education Patient Instructions Indication:Attention deficit disorder (ADD) in adult Start:02-May-2018 Instruction Type:Provider Instructions for Treatment How to access health informa tion online Indication:Nonsmoker Start:10-Apr-2018 Instruction Type:Patient Education How to access health informa tion online - Detail Indication:Nonsmoker Start:10-Apr-2018 Instruction Type:Patient Education Patient Instructions Indication:Nonsmoker Start:10-Apr-2018 Instruction Type:Provider Instructions for Treatment How to access health informa tion online Indication:Nonsmoker Start:31-Oct-2017 Instruction Type:Patient Education How to access health informa tion online - Detail Indication:Nonsmoker Start:31-Oct-2017 Instruction Type:Patient Education Patient Instructions Indication:Nonsmoker Start:31-Oct-2017 Instruction Type:Provider Instructions for Treatment How to access health informa tion online Indication:Hypothyroid Start:17-Oct-2017 Instruction Type:Patient Education How to access health informa tion online - Detail Indication:Hypothyroid Start:17-Oct-2017 Instruction Type:Patient Education Patient Instructions Indication:BMI 24.0-24.9, adult Start:17-Oct-2017 Instruction Type:Provider Instructions for Treatment [facility]; [facility] Work Phone: Instructions* Name Dates Details Patient Instructions Indication:Hypertension Start:18-Sep-2022 Instruction Type:Provider Instructions for Treatment How to Access Health Informa tion Online using Patient Portal and [employer]rd [employer] Apps Indication:Hypertension Start:18-Sep-2022 Instruction Type:Patient Education Patient Instructions Indication:Hypertension Start:31-Jul-2022 Instruction Type:Provider Instructions for Treatment How to Access Health Informa tion Online using Patient Portal and [employer]rd [employer] Apps Indication:Hypertension Start:31-Jul-2022 Instruction Type:Patient Education Patient Instructions Indication:BMI 25.0-25.9,adult Start:04-Jul-2022 Instruction Type:Provider Instructions for Treatment How to Access Health Informa tion Online using Patient Portal and [employer]rd [employer] Apps Indication:BMI 25.0-25.9,adult Start:04-Jul-2022 Instruction Type:Patient Education How to Access Health Informa tion Online using Patient Portal and [employer]rd [employer] Apps Indication:Nonsmoker Start:31-Jan-2022 Instruction Type:Patient Education Patient Instructions Indication:Nonsmoker Start:31-Jan-2022 Instruction Type:Provider Instructions for Treatment Patient Instructions Indication:BMI 25.0-25.9,adult Start:02-Jan-2022 Instruction Type:Provider Instructions for Treatment How to Access Health Informa tion Online using Patient Portal and [employer]rd [employer] Apps Indication:BMI 25.0-25.9,adult Start:02-Jan-2022 Instruction Type:Patient Education Patient Instructions Indication:BMI 25.0-25.9,adult Start:04-Jul-2021 Instruction Type:Provider Instructions for Treatment How to Access Health Informa tion Online using Patient Portal and [employer]rd [employer] Apps Indication:BMI 25.0-25.9,adult Start:04-Jul-2021 Instruction Type:Patient Education Patient Instructions Indication:Attention deficit disorder (ADD) in adult Start:30-Jun-2021 Instruction Type:Provider Instructions for Treatment How to Access Health Informa tion Online using Patient Portal and [employer]rd [employer] Apps Indication:Attention deficit disorder (ADD) in adult Start:30-Jun-2021 Instruction Type:Patient Education Patient Instructions Indication:Nonsmoker Start:27-Jun-2021 Instruction Type:Provider Instructions for Treatment How to Access Health Informa tion Online using Patient Portal and [employer]rd [employer] Apps Indication:Nonsmoker Start:27-Jun-2021 Instruction Type:Patient Education Patient Instructions Indication:Attention deficit disorder (ADD) in adult Start:05-Oct-2020 Instruction Type:Provider Instructions for Treatment How to Access Health Informa tion Online using Patient Portal and [employer]rd [employer] Apps Indication:Attention deficit disorder (ADD) in adult Start:05-Oct-2020 Instruction Type:Patient Education Patient Instructions Indication:Nonsmoker Start:01-Oct-2020 Instruction Type:Provider Instructions for Treatment How to Access Health Informa tion Online using Patient Portal and [employer]rd [employer] Apps Indication:Nonsmoker Start:01-Oct-2020 Instruction Type:Patient Education Patient Instructions Indication:BMI 25.0-25.9,adult Start:01-Jun-2020 Instruction Type:Provider Instructions for Treatment How to Access Health Informa tion Online using Patient Portal and [employer]rd [employer] Apps Indication:BMI 25.0-25.9,adult Start:01-Jun-2020 Instruction Type:Patient Education Patient Instructions Indication:Nonsmoker Start:05-Apr-2020 Instruction Type:Provider Instructions for Treatment How to Access Health Informa tion Online using Patient Portal and [employer]rd [employer] Apps Indication:Nonsmoker Start:05-Apr-2020 Instruction Type:Patient Education Patient Instructions Indication:Nonsmoker Start:30-Mar-2020 Instruction Type:Provider Instructions for Treatment How to Access Health Informa tion Online using Patient Portal and [employer]rd [employer] Apps Indication:Nonsmoker Start:30-Mar-2020 Instruction Type:Patient Education How to access health informa tion online Indication:Nonsmoker Start:10-Feb-2020 Instruction Type:Patient Education How to access health informa tion online - Detail Indication:Nonsmoker Start:10-Feb-2020 Instruction Type:Patient Education Patient Instructions Indication:Hypercholesteremia Start:10-Feb-2020 Instruction Type:Provider Instructions for Treatment How to access health informa tion online Indication:Attention deficit disorder (ADD) in adult Start:13-Jan-2020 Instruction Type:Patient Education How to access health informa tion online - Detail Indication:Attention deficit disorder (ADD) in adult Start:13-Jan-2020 Instruction Type:Patient Education Patient Instructions Indication:Attention deficit disorder (ADD) in adult Start:13-Jan-2020 Instruction Type:Provider Instructions for Treatment How to access health informa tion online Indication:Nonsmoker Start:24-Nov-2019 Instruction Type:Patient Education How to access health informa tion online - Detail Indication:Nonsmoker Start:24-Nov-2019 Instruction Type:Patient Education Instructions Indication:BMI 24.0-24.9, adult Start:24-Nov-2019 Instruction Type:Provider Instructions for Treatment How to access health informa tion online Indication:Attention deficit disorder (ADD) in adult Start:31-Jul-2019 Instruction Type:Patient Education How to access health informa tion online - Detail Indication:Attention deficit disorder (ADD) in adult Start:31-Jul-2019 Instruction Type:Patient Education Patient Instructions Indication:Attention deficit disorder (ADD) in adult Start:31-Jul-2019 Instruction Type:Provider Instructions for Treatment How to access health informa tion online Indication:Attention deficit disorder (ADD) in adult Start:30-Jan-2019 Instruction Type:Patient Education How to access health informa tion online - Detail Indication:Attention deficit disorder (ADD) in adult Start:30-Jan-2019 Instruction Type:Patient Education Patient Instructions Indication:Attention deficit disorder (ADD) in adult Start:30-Jan-2019 Instruction Type:Provider Instructions for Treatment How to access health informa tion online Indication:Nonsmoker Start:23-Oct-2018 Instruction Type:Patient Education How to access health informa tion online - Detail Indication:Nonsmoker Start:23-Oct-2018 Instruction Type:Patient Education Patient Instructions Indication:Depression with anxiety Start:23-Oct-2018 Instruction Type:Provider Instructions for Treatment How to access health informa tion online Indication:BMI 25.0-25.9,adult Start:15-Jul-2018 Instruction Type:Patient Education How to access health informa tion online - Detail Indication:BMI 25.0-25.9,adult Start:15-Jul-2018 Instruction Type:Patient Education Patient Instructions Indication:BMI 25.0-25.9,adult Start:15-Jul-2018 Instruction Type:Provider Instructions for Treatment How to access health informa tion online Indication:Nonsmoker Start:27-Jun-2018 Instruction Type:Patient Education How to access health informa tion online - Detail Indication:Nonsmoker Start:27-Jun-2018 Instruction Type:Patient Education Patient Instructions Indication:Nonsmoker Start:27-Jun-2018 Instruction Type:Provider Instructions for Treatment How to access health informa tion online Indication:Nonsmoker Start:20-May-2018 Instruction Type:Patient Education How to access health informa tion online - Detail Indication:Nonsmoker Start:20-May-2018 Instruction Type:Patient Education Patient Instructions Indication:Sore throat Start:20-May-2018 Instruction Type:Provider Instructions for Treatment How to access health informa tion online Indication:Attention deficit disorder (ADD) in adult Start:02-May-2018 Instruction Type:Patient Education How to access health informa tion online - Detail Indication:Attention deficit disorder (ADD) in adult Start:02-May-2018 Instruction Type:Patient Education Patient Instructions Indication:Attention deficit disorder (ADD) in adult Start:02-May-2018 Instruction Type:Provider Instructions for Treatment How to access health informa tion online Indication:Nonsmoker Start:10-Apr-2018 Instruction Type:Patient Education How to access health informa tion online - Detail Indication:Nonsmoker Start:10-Apr-2018 Instruction Type:Patient Education Patient Instructions Indication:Nonsmoker Start:10-Apr-2018 Instruction Type:Provider Instructions for Treatment How to access health informa tion online Indication:Nonsmoker Start:31-Oct-2017 Instruction Type:Patient Education How to access health informa tion online - Detail Indication:Nonsmoker Start:31-Oct-2017 Instruction Type:Patient Education Patient Instructions Indication:Nonsmoker Start:31-Oct-2017 Instruction Type:Provider Instructions for Treatment How to access health informa tion online Indication:Hypothyroid Start:17-Oct-2017 Instruction Type:Patient Education How to access health informa tion online - Detail Indication:Hypothyroid Start:17-Oct-2017 Instruction Type:Patient Education Patient Instructions Indication:BMI 24.0-24.9, adult Start:17-Oct-2017 Instruction Type:Provider Instructions for Treatment [facility]; [facility] Work Phone: Instructions* Name Dates Details Patient Instructions Indication:Hypertension Start:06-Dec-2022 Instruction Type:Provider Instructions for Treatment How to Access Health Informa tion Online using Patient Portal and [employer]rd [employer] Apps Indication:Hypertension Start:06-Dec-2022 Instruction Type:Patient Education Patient Instructions Indication:Hypertension Start:18-Sep-2022 Instruction Type:Provider Instructions for Treatment How to Access Health Informa tion Online using Patient Portal and [employer]rd [employer] Apps Indication:Hypertension Start:18-Sep-2022 Instruction Type:Patient Education Patient Instructions Indication:Hypertension Start:31-Jul-2022 Instruction Type:Provider Instructions for Treatment How to Access Health Informa tion Online using Patient Portal and [employer]rd [employer] Apps Indication:Hypertension Start:31-Jul-2022 Instruction Type:Patient Education Patient Instructions Indication:BMI 25.0-25.9,adult Start:04-Jul-2022 Instruction Type:Provider Instructions for Treatment How to Access Health Informa tion Online using Patient Portal and [employer]rd [employer] Apps Indication:BMI 25.0-25.9,adult Start:04-Jul-2022 Instruction Type:Patient Education How to Access Health Informa tion Online using Patient Portal and [employer]rd [employer] Apps Indication:Nonsmoker Start:31-Jan-2022 Instruction Type:Patient Education Patient Instructions Indication:Nonsmoker Start:31-Jan-2022 Instruction Type:Provider Instructions for Treatment Patient Instructions Indication:BMI 25.0-25.9,adult Start:02-Jan-2022 Instruction Type:Provider Instructions for Treatment How to Access Health Informa tion Online using Patient Portal and [employer]rd [employer] Apps Indication:BMI 25.0-25.9,adult Start:02-Jan-2022 Instruction Type:Patient Education Patient Instructions Indication:BMI 25.0-25.9,adult Start:04-Jul-2021 Instruction Type:Provider Instructions for Treatment How to Access Health Informa tion Online using Patient Portal and [employer]rd [employer] Apps Indication:BMI 25.0-25.9,adult Start:04-Jul-2021 Instruction Type:Patient Education Patient Instructions Indication:Attention deficit disorder (ADD) in adult Start:30-Jun-2021 Instruction Type:Provider Instructions for Treatment How to Access Health Informa tion Online using Patient Portal and [employer]rd [employer] Apps Indication:Attention deficit disorder (ADD) in adult Start:30-Jun-2021 Instruction Type:Patient Education Patient Instructions Indication:Nonsmoker Start:27-Jun-2021 Instruction Type:Provider Instructions for Treatment How to Access Health Informa tion Online using Patient Portal and [employer]rd [employer] Apps Indication:Nonsmoker Start:27-Jun-2021 Instruction Type:Patient Education Patient Instructions Indication:Attention deficit disorder (ADD) in adult Start:05-Oct-2020 Instruction Type:Provider Instructions for Treatment How to Access Health Informa tion Online using Patient Portal and [employer]rd [employer] Apps Indication:Attention deficit disorder (ADD) in adult Start:05-Oct-2020 Instruction Type:Patient Education Patient Instructions Indication:Nonsmoker Start:01-Oct-2020 Instruction Type:Provider Instructions for Treatment How to Access Health Informa tion Online using Patient Portal and [employer]rd [employer] Apps Indication:Nonsmoker Start:01-Oct-2020 Instruction Type:Patient Education Patient Instructions Indication:BMI 25.0-25.9,adult Start:01-Jun-2020 Instruction Type:Provider Instructions for Treatment How to Access Health Informa tion Online using Patient Portal and [employer]rd [employer] Apps Indication:BMI 25.0-25.9,adult Start:01-Jun-2020 Instruction Type:Patient Education Patient Instructions Indication:Nonsmoker Start:05-Apr-2020 Instruction Type:Provider Instructions for Treatment How to Access Health Informa tion Online using Patient Portal and [employer]rd [employer] Apps Indication:Nonsmoker Start:05-Apr-2020 Instruction Type:Patient Education Patient Instructions Indication:Nonsmoker Start:30-Mar-2020 Instruction Type:Provider Instructions for Treatment How to Access Health Informa tion Online using Patient Portal and [employer] Apps Indication:Nonsmoker Start:30-Mar-2020 Instruction Type:Patient Education How to access health informa tion online Indication:Nonsmoker Start:10-Feb-2020 Instruction Type:Patient Education How to access health informa tion online - Detail Indication:Nonsmoker Start:10-Feb-2020 Instruction Type:Patient Education Patient Instructions Indication:Hypercholesteremia Start:10-Feb-2020 Instruction Type:Provider Instructions for Treatment How to access health informa tion online Indication:Attention deficit disorder (ADD) in adult Start:13-Jan-2020 Instruction Type:Patient Education How to access health informa tion online - Detail Indication:Attention deficit disorder (ADD) in adult Start:13-Jan-2020 Instruction Type:Patient Education Patient Instructions Indication:Attention deficit disorder (ADD) in adult Start:13-Jan-2020 Instruction Type:Provider Instructions for Treatment How to access health informa tion online Indication:Nonsmoker Start:24-Nov-2019 Instruction Type:Patient Education How to access health informa tion online - Detail Indication:Nonsmoker Start:24-Nov-2019 Instruction Type:Patient Education Instructions Indication:BMI 24.0-24.9, adult Start:24-Nov-2019 Instruction Type:Provider Instructions for Treatment How to access health informa tion online Indication:Attention deficit disorder (ADD) in adult Start:31-Jul-2019 Instruction Type:Patient Education How to access health informa tion online - Detail Indication:Attention deficit disorder (ADD) in adult Start:31-Jul-2019 Instruction Type:Patient Education Patient Instructions Indication:Attention deficit disorder (ADD) in adult Start:31-Jul-2019 Instruction Type:Provider Instructions for Treatment How to access health informa tion online Indication:Attention deficit disorder (ADD) in adult Start:30-Jan-2019 Instruction Type:Patient Education How to access health informa tion online - Detail Indication:Attention deficit disorder (ADD) in adult Start:30-Jan-2019 Instruction Type:Patient Education Patient Instructions Indication:Attention deficit disorder (ADD) in adult Start:30-Jan-2019 Instruction Type:Provider Instructions for Treatment How to access health informa tion online Indication:Nonsmoker Start:23-Oct-2018 Instruction Type:Patient Education How to access health informa tion online - Detail Indication:Nonsmoker Start:23-Oct-2018 Instruction Type:Patient Education Patient Instructions Indication:Depression with anxiety Start:23-Oct-2018 Instruction Type:Provider Instructions for Treatment How to access health informa tion online Indication:BMI 25.0-25.9,adult Start:15-Jul-2018 Instruction Type:Patient Education How to access health informa tion online - Detail Indication:BMI 25.0-25.9,adult Start:15-Jul-2018 Instruction Type:Patient Education Patient Instructions Indication:BMI 25.0-25.9,adult Start:15-Jul-2018 Instruction Type:Provider Instructions for Treatment How to access health informa tion online Indication:Nonsmoker Start:27-Jun-2018 Instruction Type:Patient Education How to access health informa tion online - Detail Indication:Nonsmoker Start:27-Jun-2018 Instruction Type:Patient Education Patient Instructions Indication:Nonsmoker Start:27-Jun-2018 Instruction Type:Provider Instructions for Treatment How to access health informa tion online Indication:Nonsmoker Start:20-May-2018 Instruction Type:Patient Education How to access health informa tion online - Detail Indication:Nonsmoker Start:20-May-2018 Instruction Type:Patient Education Patient Instructions Indication:Sore throat Start:20-May-2018 Instruction Type:Provider Instructions for Treatment How to access health informa tion online Indication:Attention deficit disorder (ADD) in adult Start:02-May-2018 Instruction Type:Patient Education How to access health informa tion online - Detail Indication:Attention deficit disorder (ADD) in adult Start:02-May-2018 Instruction Type:Patient Education Patient Instructions Indication:Attention deficit disorder (ADD) in adult Start:02-May-2018 Instruction Type:Provider Instructions for Treatment How to access health informa tion online Indication:Nonsmoker Start:10-Apr-2018 Instruction Type:Patient Education How to access health informa tion online - Detail Indication:Nonsmoker Start:10-Apr-2018 Instruction Type:Patient Education Patient Instructions Indication:Nonsmoker Start:10-Apr-2018 Instruction Type:Provider Instructions for Treatment How to access health informa tion online Indication:Nonsmoker Start:31-Oct-2017 Instruction Type:Patient Education How to access health informa tion online - Detail Indication:Nonsmoker Start:31-Oct-2017 Instruction Type:Patient Education Patient Instructions Indication:Nonsmoker Start:31-Oct-2017 Instruction Type:Provider Instructions for Treatment How to access health informa tion online Indication:Hypothyroid Start:17-Oct-2017 Instruction Type:Patient Education How to access health informa tion online - Detail Indication:Hypothyroid Start:17-Oct-2017 Instruction Type:Patient Education Patient Instructions Indication:BMI 24.0-24.9, adult Start:17-Oct-2017 Instruction Type:Provider Instructions for Treatment [facility]; [facility] Work Phone: Instructions* Name Dates Details Patient Instructions Indication:BMI 24.0-24.9, adult Start:06-Dec-2022 Instruction Type:Provider Instructions for Treatment How to Access Health Informa tion Online using Patient Portal and [employer]rd [employer] Apps Indication:BMI 24.0-24.9, adult Start:06-Dec-2022 Instruction Type:Patient Education Patient Instructions Indication:Hypertension Start:18-Sep-2022 Instruction Type:Provider Instructions for Treatment How to Access Health Informa tion Online using Patient Portal and [employer]rd [employer] Apps Indication:Hypertension Start:18-Sep-2022 Instruction Type:Patient Education Patient Instructions Indication:Hypertension Start:31-Jul-2022 Instruction Type:Provider Instructions for Treatment How to Access Health Informa tion Online using Patient Portal and [employer]rd [employer] Apps Indication:Hypertension Start:31-Jul-2022 Instruction Type:Patient Education Patient Instructions Indication:BMI 25.0-25.9,adult Start:04-Jul-2022 Instruction Type:Provider Instructions for Treatment How to Access Health Informa tion Online using Patient Portal and [employer]rd [employer] Apps Indication:BMI 25.0-25.9,adult Start:04-Jul-2022 Instruction Type:Patient Education How to Access Health Informa tion Online using Patient Portal and [employer]rd [employer] Apps Indication:Nonsmoker Start:31-Jan-2022 Instruction Type:Patient Education Patient Instructions Indication:Nonsmoker Start:31-Jan-2022 Instruction Type:Provider Instructions for Treatment Patient Instructions Indication:BMI 25.0-25.9,adult Start:02-Jan-2022 Instruction Type:Provider Instructions for Treatment How to Access Health Informa tion Online using Patient Portal and [employer]rd [employer] Apps Indication:BMI 25.0-25.9,adult Start:02-Jan-2022 Instruction Type:Patient Education Patient Instructions Indication:BMI 25.0-25.9,adult Start:04-Jul-2021 Instruction Type:Provider Instructions for Treatment How to Access Health Informa tion Online using Patient Portal and [employer]rd [employer] Apps Indication:BMI 25.0-25.9,adult Start:04-Jul-2021 Instruction Type:Patient Education Patient Instructions Indication:Attention deficit disorder (ADD) in adult Start:30-Jun-2021 Instruction Type:Provider Instructions for Treatment How to Access Health Informa tion Online using Patient Portal and [employer] Apps Indication:Attention deficit disorder (ADD) in adult Start:30-Jun-2021 Instruction Type:Patient Education Patient Instructions Indication:Nonsmoker Start:27-Jun-2021 Instruction Type:Provider Instructions for Treatment How to Access Health Informa tion Online using Patient Portal and [employer] Apps Indication:Nonsmoker Start:27-Jun-2021 Instruction Type:Patient Education Patient Instructions Indication:Attention deficit disorder (ADD) in adult Start:05-Oct-2020 Instruction Type:Provider Instructions for Treatment How to Access Health Informa tion Online using Patient Portal and [employer] Apps Indication:Attention deficit disorder (ADD) in adult Start:05-Oct-2020 Instruction Type:Patient Education Patient Instructions Indication:Nonsmoker Start:01-Oct-2020 Instruction Type:Provider Instructions for Treatment How to Access Health Informa tion Online using Patient Portal and [employer] Apps Indication:Nonsmoker Start:01-Oct-2020 Instruction Type:Patient Education Patient Instructions Indication:BMI 25.0-25.9,adult Start:01-Jun-2020 Instruction Type:Provider Instructions for Treatment How to Access Health Informa tion Online using Patient Portal and [employer] Apps Indication:BMI 25.0-25.9,adult Start:01-Jun-2020 Instruction Type:Patient Education Patient Instructions Indication:Nonsmoker Start:05-Apr-2020 Instruction Type:Provider Instructions for Treatment How to Access Health Informa tion Online using Patient Portal and [employer] Apps Indication:Nonsmoker Start:05-Apr-2020 Instruction Type:Patient Education Patient Instructions Indication:Nonsmoker Start:30-Mar-2020 Instruction Type:Provider Instructions for Treatment How to Access Health Informa tion Online using Patient Portal and [employer] Apps Indication:Nonsmoker Start:30-Mar-2020 Instruction Type:Patient Education How to access health informa tion online Indication:Nonsmoker Start:10-Feb-2020 Instruction Type:Patient Education How to access health informa tion online - Detail Indication:Nonsmoker Start:10-Feb-2020 Instruction Type:Patient Education Patient Instructions Indication:Hypercholesteremia Start:10-Feb-2020 Instruction Type:Provider Instructions for Treatment How to access health informa tion online Indication:Attention deficit disorder (ADD) in adult Start:13-Jan-2020 Instruction Type:Patient Education How to access health informa tion online - Detail Indication:Attention deficit disorder (ADD) in adult Start:13-Jan-2020 Instruction Type:Patient Education Patient Instructions Indication:Attention deficit disorder (ADD) in adult Start:13-Jan-2020 Instruction Type:Provider Instructions for Treatment How to access health informa tion online Indication:Nonsmoker Start:24-Nov-2019 Instruction Type:Patient Education How to access health informa tion online - Detail Indication:Nonsmoker Start:24-Nov-2019 Instruction Type:Patient Education Instructions Indication:BMI 24.0-24.9, adult Start:24-Nov-2019 Instruction Type:Provider Instructions for Treatment How to access health informa tion online Indication:Attention deficit disorder (ADD) in adult Start:31-Jul-2019 Instruction Type:Patient Education How to access health informa tion online - Detail Indication:Attention deficit disorder (ADD) in adult Start:31-Jul-2019 Instruction Type:Patient Education Patient Instructions Indication:Attention deficit disorder (ADD) in adult Start:31-Jul-2019 Instruction Type:Provider Instructions for Treatment How to access health informa tion online Indication:Attention deficit disorder (ADD) in adult Start:30-Jan-2019 Instruction Type:Patient Education How to access health informa tion online - Detail Indication:Attention deficit disorder (ADD) in adult Start:30-Jan-2019 Instruction Type:Patient Education Patient Instructions Indication:Attention deficit disorder (ADD) in adult Start:30-Jan-2019 Instruction Type:Provider Instructions for Treatment How to access health informa tion online Indication:Nonsmoker Start:23-Oct-2018 Instruction Type:Patient Education How to access health informa tion online - Detail Indication:Nonsmoker Start:23-Oct-2018 Instruction Type:Patient Education Patient Instructions Indication:Depression with anxiety Start:23-Oct-2018 Instruction Type:Provider Instructions for Treatment How to access health informa tion online Indication:BMI 25.0-25.9,adult Start:15-Jul-2018 Instruction Type:Patient Education How to access health informa tion online - Detail Indication:BMI 25.0-25.9,adult Start:15-Jul-2018 Instruction Type:Patient Education Patient Instructions Indication:BMI 25.0-25.9,adult Start:15-Jul-2018 Instruction Type:Provider Instructions for Treatment How to access health informa tion online Indication:Nonsmoker Start:27-Jun-2018 Instruction Type:Patient Education How to access health informa tion online - Detail Indication:Nonsmoker Start:27-Jun-2018 Instruction Type:Patient Education Patient Instructions Indication:Nonsmoker Start:27-Jun-2018 Instruction Type:Provider Instructions for Treatment How to access health informa tion online Indication:Nonsmoker Start:20-May-2018 Instruction Type:Patient Education How to access health informa tion online - Detail Indication:Nonsmoker Start:20-May-2018 Instruction Type:Patient Education Patient Instructions Indication:Sore throat Start:20-May-2018 Instruction Type:Provider Instructions for Treatment How to access health informa tion online Indication:Attention deficit disorder (ADD) in adult Start:02-May-2018 Instruction Type:Patient Education How to access health informa tion online - Detail Indication:Attention deficit disorder (ADD) in adult Start:02-May-2018 Instruction Type:Patient Education Patient Instructions Indication:Attention deficit disorder (ADD) in adult Start:02-May-2018 Instruction Type:Provider Instructions for Treatment How to access health informa tion online Indication:Nonsmoker Start:10-Apr-2018 Instruction Type:Patient Education How to access health informa tion online - Detail Indication:Nonsmoker Start:10-Apr-2018 Instruction Type:Patient Education Patient Instructions Indication:Nonsmoker Start:10-Apr-2018 Instruction Type:Provider Instructions for Treatment How to access health informa tion online Indication:Nonsmoker Start:31-Oct-2017 Instruction Type:Patient Education How to access health informa tion online - Detail Indication:Nonsmoker Start:31-Oct-2017 Instruction Type:Patient Education Patient Instructions Indication:Nonsmoker Start:31-Oct-2017 Instruction Type:Provider Instructions for Treatment How to access health informa tion online Indication:Hypothyroid Start:17-Oct-2017 Instruction Type:Patient Education How to access health informa tion online - Detail Indication:Hypothyroid Start:17-Oct-2017 Instruction Type:Patient Education Patient Instructions Indication:BMI 24.0-24.9, adult Start:17-Oct-2017 Instruction Type:Provider Instructions for Treatment [facility]; [facility] Work Phone: Instructions* Name Dates Details Patient Instructions Indication:BMI 24.0-24.9, adult Start:06-Dec-2022 Instruction Type:Provider Instructions for Treatment How to Access Health Informa tion Online using Patient Portal and [employer] Apps Indication:BMI 24.0-24.9, adult Start:06-Dec-2022 Instruction Type:Patient Education Patient Instructions Indication:Hypertension Start:18-Sep-2022 Instruction Type:Provider Instructions for Treatment How to Access Health Informa tion Online using Patient Portal and [employer] Apps Indication:Hypertension Start:18-Sep-2022 Instruction Type:Patient Education Patient Instructions Indication:Hypertension Start:31-Jul-2022 Instruction Type:Provider Instructions for Treatment How to Access Health Informa tion Online using Patient Portal and [employer] Apps Indication:Hypertension Start:31-Jul-2022 Instruction Type:Patient Education Patient Instructions Indication:BMI 25.0-25.9,adult Start:04-Jul-2022 Instruction Type:Provider Instructions for Treatment How to Access Health Informa tion Online using Patient Portal and [employer] Apps Indication:BMI 25.0-25.9,adult Start:04-Jul-2022 Instruction Type:Patient Education How to Access Health Informa tion Online using Patient Portal and [employer] Apps Indication:Nonsmoker Start:31-Jan-2022 Instruction Type:Patient Education Patient Instructions Indication:Nonsmoker Start:31-Jan-2022 Instruction Type:Provider Instructions for Treatment Patient Instructions Indication:BMI 25.0-25.9,adult Start:02-Jan-2022 Instruction Type:Provider Instructions for Treatment How to Access Health Informa tion Online using Patient Portal and [employer] Apps Indication:BMI 25.0-25.9,adult Start:02-Jan-2022 Instruction Type:Patient Education Patient Instructions Indication:BMI 25.0-25.9,adult Start:04-Jul-2021 Instruction Type:Provider Instructions for Treatment How to Access Health Informa tion Online using Patient Portal and [employer] Apps Indication:BMI 25.0-25.9,adult Start:04-Jul-2021 Instruction Type:Patient Education Patient Instructions Indication:Attention deficit disorder (ADD) in adult Start:30-Jun-2021 Instruction Type:Provider Instructions for Treatment How to Access Health Informa tion Online using Patient Portal and [employer] Apps Indication:Attention deficit disorder (ADD) in adult Start:30-Jun-2021 Instruction Type:Patient Education Patient Instructions Indication:Nonsmoker Start:27-Jun-2021 Instruction Type:Provider Instructions for Treatment How to Access Health Informa tion Online using Patient Portal and [employer] Apps Indication:Nonsmoker Start:27-Jun-2021 Instruction Type:Patient Education Patient Instructions Indication:Attention deficit disorder (ADD) in adult Start:05-Oct-2020 Instruction Type:Provider Instructions for Treatment How to Access Health Informa tion Online using Patient Portal and [employer] Apps Indication:Attention deficit disorder (ADD) in adult Start:05-Oct-2020 Instruction Type:Patient Education Patient Instructions Indication:Nonsmoker Start:01-Oct-2020 Instruction Type:Provider Instructions for Treatment How to Access Health Informa tion Online using Patient Portal and [employer] Apps Indication:Nonsmoker Start:01-Oct-2020 Instruction Type:Patient Education Patient Instructions Indication:BMI 25.0-25.9,adult Start:01-Jun-2020 Instruction Type:Provider Instructions for Treatment How to Access Health Informa tion Online using Patient Portal and [employer] Apps Indication:BMI 25.0-25.9,adult Start:01-Jun-2020 Instruction Type:Patient Education Patient Instructions Indication:Nonsmoker Start:05-Apr-2020 Instruction Type:Provider Instructions for Treatment How to Access Health Informa tion Online using Patient Portal and [employer] Apps Indication:Nonsmoker Start:05-Apr-2020 Instruction Type:Patient Education Patient Instructions Indication:Nonsmoker Start:30-Mar-2020 Instruction Type:Provider Instructions for Treatment How to Access Health Informa tion Online using Patient Portal and [employer] Apps Indication:Nonsmoker Start:30-Mar-2020 Instruction Type:Patient Education How to access health informa tion online Indication:Nonsmoker Start:10-Feb-2020 Instruction Type:Patient Education How to access health informa tion online - Detail Indication:Nonsmoker Start:10-Feb-2020 Instruction Type:Patient Education Patient Instructions Indication:Hypercholesteremia Start:10-Feb-2020 Instruction Type:Provider Instructions for Treatment How to access health informa tion online Indication:Attention deficit disorder (ADD) in adult Start:13-Jan-2020 Instruction Type:Patient Education How to access health informa tion online - Detail Indication:Attention deficit disorder (ADD) in adult Start:13-Jan-2020 Instruction Type:Patient Education Patient Instructions Indication:Attention deficit disorder (ADD) in adult Start:13-Jan-2020 Instruction Type:Provider Instructions for Treatment How to access health informa tion online Indication:Nonsmoker Start:24-Nov-2019 Instruction Type:Patient Education How to access health informa tion online - Detail Indication:Nonsmoker Start:24-Nov-2019 Instruction Type:Patient Education Instructions Indication:BMI 24.0-24.9, adult Start:24-Nov-2019 Instruction Type:Provider Instructions for Treatment How to access health informa tion online Indication:Attention deficit disorder (ADD) in adult Start:31-Jul-2019 Instruction Type:Patient Education How to access health informa tion online - Detail Indication:Attention deficit disorder (ADD) in adult Start:31-Jul-2019 Instruction Type:Patient Education Patient Instructions Indication:Attention deficit disorder (ADD) in adult Start:31-Jul-2019 Instruction Type:Provider Instructions for Treatment How to access health informa tion online Indication:Attention deficit disorder (ADD) in adult Start:30-Jan-2019 Instruction Type:Patient Education How to access health informa tion online - Detail Indication:Attention deficit disorder (ADD) in adult Start:30-Jan-2019 Instruction Type:Patient Education Patient Instructions Indication:Attention deficit disorder (ADD) in adult Start:30-Jan-2019 Instruction Type:Provider Instructions for Treatment How to access health informa tion online Indication:Nonsmoker Start:23-Oct-2018 Instruction Type:Patient Education How to access health informa tion online - Detail Indication:Nonsmoker Start:23-Oct-2018 Instruction Type:Patient Education Patient Instructions Indication:Depression with anxiety Start:23-Oct-2018 Instruction Type:Provider Instructions for Treatment How to access health informa tion online Indication:BMI 25.0-25.9,adult Start:15-Jul-2018 Instruction Type:Patient Education How to access health informa tion online - Detail Indication:BMI 25.0-25.9,adult Start:15-Jul-2018 Instruction Type:Patient Education Patient Instructions Indication:BMI 25.0-25.9,adult Start:15-Jul-2018 Instruction Type:Provider Instructions for Treatment How to access health informa tion online Indication:Nonsmoker Start:27-Jun-2018 Instruction Type:Patient Education How to access health informa tion online - Detail Indication:Nonsmoker Start:27-Jun-2018 Instruction Type:Patient Education Patient Instructions Indication:Nonsmoker Start:27-Jun-2018 Instruction Type:Provider Instructions for Treatment How to access health informa tion online Indication:Nonsmoker Start:20-May-2018 Instruction Type:Patient Education How to access health informa tion online - Detail Indication:Nonsmoker Start:20-May-2018 Instruction Type:Patient Education Patient Instructions Indication:Sore throat Start:20-May-2018 Instruction Type:Provider Instructions for Treatment How to access health informa tion online Indication:Attention deficit disorder (ADD) in adult Start:02-May-2018 Instruction Type:Patient Education How to access health informa tion online - Detail Indication:Attention deficit disorder (ADD) in adult Start:02-May-2018 Instruction Type:Patient Education Patient Instructions Indication:Attention deficit disorder (ADD) in adult Start:02-May-2018 Instruction Type:Provider Instructions for Treatment How to access health informa tion online Indication:Nonsmoker Start:10-Apr-2018 Instruction Type:Patient Education How to access health informa tion online - Detail Indication:Nonsmoker Start:10-Apr-2018 Instruction Type:Patient Education Patient Instructions Indication:Nonsmoker Start:10-Apr-2018 Instruction Type:Provider Instructions for Treatment How to access health informa tion online Indication:Nonsmoker Start:31-Oct-2017 Instruction Type:Patient Education How to access health informa tion online - Detail Indication:Nonsmoker Start:31-Oct-2017 Instruction Type:Patient Education Patient Instructions Indication:Nonsmoker Start:31-Oct-2017 Instruction Type:Provider Instructions for Treatment How to access health informa tion online Indication:Hypothyroid Start:17-Oct-2017 Instruction Type:Patient Education How to access health informa tion online - Detail Indication:Hypothyroid Start:17-Oct-2017 Instruction Type:Patient Education Patient Instructions Indication:BMI 24.0-24.9, adult Start:17-Oct-2017 Instruction Type:Provider Instructions for Treatment [facility]; [facility] Work Phone: Instructions* Name Dates Details Patient Instructions Indication:BMI 24.0-24.9, adult Start:06-Dec-2022 Instruction Type:Provider Instructions for Treatment How to Access Health Informa tion Online using Patient Portal and [employer]rd [employer] Apps Indication:BMI 24.0-24.9, adult Start:06-Dec-2022 Instruction Type:Patient Education Patient Instructions Indication:Hypertension Start:18-Sep-2022 Instruction Type:Provider Instructions for Treatment How to Access Health Informa tion Online using Patient Portal and [employer]rd [employer] Apps Indication:Hypertension Start:18-Sep-2022 Instruction Type:Patient Education Patient Instructions Indication:Hypertension Start:31-Jul-2022 Instruction Type:Provider Instructions for Treatment How to Access Health Informa tion Online using Patient Portal and [employer]rd [employer] Apps Indication:Hypertension Start:31-Jul-2022 Instruction Type:Patient Education Patient Instructions Indication:BMI 25.0-25.9,adult Start:04-Jul-2022 Instruction Type:Provider Instructions for Treatment How to Access Health Informa tion Online using Patient Portal and [employer]rd [employer] Apps Indication:BMI 25.0-25.9,adult Start:04-Jul-2022 Instruction Type:Patient Education How to Access Health Informa tion Online using Patient Portal and [employer]rd [employer] Apps Indication:Nonsmoker Start:31-Jan-2022 Instruction Type:Patient Education Patient Instructions Indication:Nonsmoker Start:31-Jan-2022 Instruction Type:Provider Instructions for Treatment Patient Instructions Indication:BMI 25.0-25.9,adult Start:02-Jan-2022 Instruction Type:Provider Instructions for Treatment How to Access Health Informa tion Online using Patient Portal and [employer] Apps Indication:BMI 25.0-25.9,adult Start:02-Jan-2022 Instruction Type:Patient Education Patient Instructions Indication:BMI 25.0-25.9,adult Start:04-Jul-2021 Instruction Type:Provider Instructions for Treatment How to Access Health Informa tion Online using Patient Portal and [employer]rd [employer] Apps Indication:BMI 25.0-25.9,adult Start:04-Jul-2021 Instruction Type:Patient Education Patient Instructions Indication:Attention deficit disorder (ADD) in adult Start:30-Jun-2021 Instruction Type:Provider Instructions for Treatment How to Access Health Informa tion Online using Patient Portal and [employer]rd [employer] Apps Indication:Attention deficit disorder (ADD) in adult Start:30-Jun-2021 Instruction Type:Patient Education Patient Instructions Indication:Nonsmoker Start:27-Jun-2021 Instruction Type:Provider Instructions for Treatment How to Access Health Informa tion Online using Patient Portal and [employer] Apps Indication:Nonsmoker Start:27-Jun-2021 Instruction Type:Patient Education Patient Instructions Indication:Attention deficit disorder (ADD) in adult Start:05-Oct-2020 Instruction Type:Provider Instructions for Treatment How to Access Health Informa tion Online using Patient Portal and [employer] Apps Indication:Attention deficit disorder (ADD) in adult Start:05-Oct-2020 Instruction Type:Patient Education Patient Instructions Indication:Nonsmoker Start:01-Oct-2020 Instruction Type:Provider Instructions for Treatment How to Access Health Informa tion Online using Patient Portal and [employer] Apps Indication:Nonsmoker Start:01-Oct-2020 Instruction Type:Patient Education Patient Instructions Indication:BMI 25.0-25.9,adult Start:01-Jun-2020 Instruction Type:Provider Instructions for Treatment How to Access Health Informa tion Online using Patient Portal and [employer]rd [employer] Apps Indication:BMI 25.0-25.9,adult Start:01-Jun-2020 Instruction Type:Patient Education Patient Instructions Indication:Nonsmoker Start:05-Apr-2020 Instruction Type:Provider Instructions for Treatment How to Access Health Informa tion Online using Patient Portal and [employer] Apps Indication:Nonsmoker Start:05-Apr-2020 Instruction Type:Patient Education Patient Instructions Indication:Nonsmoker Start:30-Mar-2020 Instruction Type:Provider Instructions for Treatment How to Access Health Informa tion Online using Patient Portal and [employer] Apps Indication:Nonsmoker Start:30-Mar-2020 Instruction Type:Patient Education How to access health informa tion online Indication:Nonsmoker Start:10-Feb-2020 Instruction Type:Patient Education How to access health informa tion online - Detail Indication:Nonsmoker Start:10-Feb-2020 Instruction Type:Patient Education Patient Instructions Indication:Hypercholesteremia Start:10-Feb-2020 Instruction Type:Provider Instructions for Treatment How to access health informa tion online Indication:Attention deficit disorder (ADD) in adult Start:13-Jan-2020 Instruction Type:Patient Education How to access health informa tion online - Detail Indication:Attention deficit disorder (ADD) in adult Start:13-Jan-2020 Instruction Type:Patient Education Patient Instructions Indication:Attention deficit disorder (ADD) in adult Start:13-Jan-2020 Instruction Type:Provider Instructions for Treatment How to access health informa tion online Indication:Nonsmoker Start:24-Nov-2019 Instruction Type:Patient Education How to access health informa tion online - Detail Indication:Nonsmoker Start:24-Nov-2019 Instruction Type:Patient Education Instructions Indication:BMI 24.0-24.9, adult Start:24-Nov-2019 Instruction Type:Provider Instructions for Treatment How to access health informa tion online Indication:Attention deficit disorder (ADD) in adult Start:31-Jul-2019 Instruction Type:Patient Education How to access health informa tion online - Detail Indication:Attention deficit disorder (ADD) in adult Start:31-Jul-2019 Instruction Type:Patient Education Patient Instructions Indication:Attention deficit disorder (ADD) in adult Start:31-Jul-2019 Instruction Type:Provider Instructions for Treatment How to access health informa tion online Indication:Attention deficit disorder (ADD) in adult Start:30-Jan-2019 Instruction Type:Patient Education How to access health informa tion online - Detail Indication:Attention deficit disorder (ADD) in adult Start:30-Jan-2019 Instruction Type:Patient Education Patient Instructions Indication:Attention deficit disorder (ADD) in adult Start:30-Jan-2019 Instruction Type:Provider Instructions for Treatment How to access health informa tion online Indication:Nonsmoker Start:23-Oct-2018 Instruction Type:Patient Education How to access health informa tion online - Detail Indication:Nonsmoker Start:23-Oct-2018 Instruction Type:Patient Education Patient Instructions Indication:Depression with anxiety Start:23-Oct-2018 Instruction Type:Provider Instructions for Treatment How to access health informa tion online Indication:BMI 25.0-25.9,adult Start:15-Jul-2018 Instruction Type:Patient Education How to access health informa tion online - Detail Indication:BMI 25.0-25.9,adult Start:15-Jul-2018 Instruction Type:Patient Education Patient Instructions Indication:BMI 25.0-25.9,adult Start:15-Jul-2018 Instruction Type:Provider Instructions for Treatment How to access health informa tion online Indication:Nonsmoker Start:27-Jun-2018 Instruction Type:Patient Education How to access health informa tion online - Detail Indication:Nonsmoker Start:27-Jun-2018 Instruction Type:Patient Education Patient Instructions Indication:Nonsmoker Start:27-Jun-2018 Instruction Type:Provider Instructions for Treatment How to access health informa tion online Indication:Nonsmoker Start:20-May-2018 Instruction Type:Patient Education How to access health informa tion online - Detail Indication:Nonsmoker Start:20-May-2018 Instruction Type:Patient Education Patient Instructions Indication:Sore throat Start:20-May-2018 Instruction Type:Provider Instructions for Treatment How to access health informa tion online Indication:Attention deficit disorder (ADD) in adult Start:02-May-2018 Instruction Type:Patient Education How to access health informa tion online - Detail Indication:Attention deficit disorder (ADD) in adult Start:02-May-2018 Instruction Type:Patient Education Patient Instructions Indication:Attention deficit disorder (ADD) in adult Start:02-May-2018 Instruction Type:Provider Instructions for Treatment How to access health informa tion online Indication:Nonsmoker Start:10-Apr-2018 Instruction Type:Patient Education How to access health informa tion online - Detail Indication:Nonsmoker Start:10-Apr-2018 Instruction Type:Patient Education Patient Instructions Indication:Nonsmoker Start:10-Apr-2018 Instruction Type:Provider Instructions for Treatment How to access health informa tion online Indication:Nonsmoker Start:31-Oct-2017 Instruction Type:Patient Education How to access health informa tion online - Detail Indication:Nonsmoker Start:31-Oct-2017 Instruction Type:Patient Education Patient Instructions Indication:Nonsmoker Start:31-Oct-2017 Instruction Type:Provider Instructions for Treatment How to access health informa tion online Indication:Hypothyroid Start:17-Oct-2017 Instruction Type:Patient Education How to access [employer] online - Detail Indication:Hypothyroid Start:17-Oct-2017 Instruction Type:Patient Education Patient Instructions Indication:BMI 24.0-24.9, adult Start:17-Oct-2017 Instruction Type:Provider Instructions for Treatment [facility]; [facility] Work Phone: Family History No Family History Records FoundUnknown Family Member Name Dates Details Father Comments:depression, anxiety Status:Active Mother Comments:Lupus, anxiety. dep ression Status:Active Unknown Family Member Name Dates Details Father Comments:depression, anxiety Status:Active Mother Comments:Lupus, anxiety. dep ression Status:Active Unknown Family Member Name Dates Details Father Comments:depression, anxiety Status:Active Mother Comments:Lupus, anxiety. dep ression Status:Active Unknown Family Member Name Dates Details Father Comments:depression, anxiety Status:Active Mother Comments:Lupus, anxiety. dep ression Status:Active Unknown Family Member Name Dates Details Father Comments:depression, anxiety Status:Active Mother Comments:Lupus, anxiety. dep ression Status:Active Unknown Family Member Name Dates Details Father Comments:depression, anxiety Status:Active Mother Comments:Lupus, anxiety. dep ression Status:Active Unknown Family Member Name Dates Details Father Comments:depression, anxiety Status:Active Mother Comments:Lupus, anxiety. dep ression Status:Active Unknown Family Member Name Dates Details Father Comments:depression, anxiety Status:Active Mother Comments:Lupus, anxiety. dep ression Status:Active Unknown Family Member Name Dates Details Father Comments:depression, anxiety Status:Active Mother Comments:Lupus, anxiety. dep ression Status:Active Unknown Family Member Name Dates Details Father Comments:depression, anxiety Status:Active Mother Comments:Lupus, anxiety. dep ression Status:Active Unknown Family Member Name Dates Details Father Comments:depression, anxiety Status:Active Mother Comments:Lupus, anxiety. dep ression Status:Active Unknown Family Member Name Dates Details Father Comments:depression, anxiety Status:Active Mother Comments:Lupus, anxiety. dep ression Status:Active Unknown Family Member Name Dates Details Father Comments:depression, anxiety Status:Active Mother Comments:Lupus, anxiety. dep ression Status:Active Unknown Family Member Name Dates Details Father Comments:depression, anxiety Status:Active Mother Comments:Lupus, anxiety. dep ression Status:Active Unknown Family Member Name Dates Details Father Comments:depression, anxiety Status:Active Mother Comments:Lupus, anxiety. dep ression Status:Active Unknown Family Member Name Dates Details Father Comments:depression, anxiety Status:Active Mother Comments:Lupus, anxiety. dep ression Status:Active Unknown Family Member Name Dates Details Father Comments:depression, anxiety Status:Active Mother Comments:Lupus, anxiety. dep ression Status:Active Unknown Family Member Name Dates Details Father Comments:depression, anxiety Status:Active Mother Comments:Lupus, anxiety. dep ression Status:Active Unknown Family Member Name Dates Details Father Comments:depression, anxiety Status:Active Mother Comments:Lupus, anxiety. dep ression Status:Active Unknown Family Member Name Dates Details Father Comments:depression, anxiety Status:Active Mother Comments:Lupus, anxiety. dep ression Status:Active Unknown Family Member Name Dates Details Father Comments:depression, anxiety Status:Active Mother Comments:Lupus, anxiety. dep ression Status:Active Unknown Family Member Name Dates Details Father Comments:depression, anxiety Status:Active Mother Comments:Lupus, anxiety. dep ression Status:Active Unknown Family Member Name Dates Details Father Comments:depression, anxiety Status:Active Mother Comments:Lupus, anxiety. dep ression Status:Active Unknown Family Member Name Dates Details Father Comments:depression, anxiety Status:Active Mother Comments:Lupus, anxiety. dep ression Status:Active Unknown Family Member Name Dates Details Father Comments:depression, anxiety Status:Active Mother Comments:Lupus, anxiety. dep ression Status:Active Unknown Family Member Name Dates Details Father Comments:depression, anxiety Status:Active Mother Comments:Lupus, anxiety. dep ression Status:Active Unknown Family Member Name Dates Details Father Comments:depression, anxiety Status:Active Mother Comments:Lupus, anxiety. dep ression Status:Active Unknown Family Member Name Dates Details Father Comments:depression, anxiety Status:Active Mother Comments:Lupus, anxiety. dep ression Status:Active Unknown Family Member Name Dates Details Father Comments:depression, anxiety Status:Active Mother Comments:Lupus, anxiety. dep ression Status:Active Unknown Family Member Name Dates Details Father Comments:depression, anxiety Status:Active Mother Comments:Lupus, anxiety. dep ression Status:Active Unknown Family Member Name Dates Details Father Comments:depression, anxiety Status:Active Mother Comments:Lupus, anxiety. dep ression Status:Active Unknown Family Member Name Dates Details Father Comments:depression, anxiety Status:Active Mother Comments:Lupus, anxiety. dep ression Status:Active Unknown Family Member Name Dates Details Father Comments:depression, anxiety Status:Active Mother Comments:Lupus, anxiety. dep ression Status:Active Unknown Family Member Name Dates Details Father Comments:depression, anxiety Status:Active Mother Comments:Lupus, anxiety. dep ression Status:Active Unknown Family Member Name Dates Details Father Comments:depression, anxiety Status:Active Mother Comments:Lupus, anxiety. dep ression Status:Active Unknown Family Member Name Dates Details Father Comments:depression, anxiety Status:Active Mother Comments:Lupus, anxiety. dep ression Status:Active Unknown Family Member Name Dates Details Father Comments:depression, anxiety Status:Active Mother Comments:Lupus, anxiety. dep ression Status:Active Unknown Family Member Name Dates Details Father Comments:depression, anxiety Status:Active Mother Comments:Lupus, anxiety. dep ression Status:Active Unknown Family Member Name Dates Details Father Comments:depression, anxiety Status:Active Mother Comments:Lupus, anxiety. dep ression Status:Active Unknown Family Member Name Dates Details Father Comments:depression, anxiety Status:Active Mother Comments:Lupus, anxiety. dep ression Status:Active Unknown Family Member Name Dates Details Father Comments:depression, anxiety Status:Active Mother Comments:Lupus, anxiety. dep ression Status:Active Unknown Family Member Name Dates Details Father Comments:depression, anxiety Status:Active Mother Comments:Lupus, anxiety. dep ression Status:Active Unknown Family Member Name Dates Details Father Comments:depression, anxiety Status:Active Mother Comments:Lupus, anxiety. dep ression Status:Active Unknown Family Member Name Dates Details Father Comments:depression, anxiety Status:Active Mother Comments:Lupus, anxiety. dep ression Status:Active Unknown Family Member Name Dates Details Father Comments:depression, anxiety Status:Active Mother Comments:Lupus, anxiety. dep ression Status:Active Unknown Family Member Name Dates Details Father Comments:depression, anxiety Status:Active Mother Comments:Lupus, anxiety. dep ression Status:Active Unknown Family Member Name Dates Details Father Comments:depression, anxiety Status:Active Mother Comments:Lupus, anxiety. dep ression Status:Active Unknown Family Member Name Dates Details Father Comments:depression, anxiety Status:Active Mother Comments:Lupus, anxiety. dep ression Status:Active Unknown Family Member Name Dates Details Father Comments:depression, anxiety Status:Active Mother Comments:Lupus, anxiety. dep ression Status:Active Unknown Family Member Name Dates Details Father Comments:depression, anxiety Status:Active Mother Comments:Lupus, anxiety. dep ression Status:Active Unknown Family Member Name Dates Details Father Comments:depression, anxiety Status:Active Mother Comments:Lupus, anxiety. dep ression Status:Active Unknown Family Member Name Dates Details Father Comments:depression, anxiety Status:Active Mother Comments:Lupus, anxiety. dep ression Status:Active Unknown Family Member Name Dates Details Father Comments:depression, anxiety Status:Active Mother Comments:Lupus, anxiety. dep ression Status:Active Unknown Family Member Name Dates Details Father Comments:depression, anxiety Status:Active Mother Comments:Lupus, anxiety. dep ression Status:Active Unknown Family Member Name Dates Details Father Comments:depression, anxiety Status:Active Mother Comments:Lupus, anxiety. dep ression Status:Active Unknown Family Member Name Dates Details Father Comments:depression, anxiety Status:Active Mother Comments:Lupus, anxiety. dep ression Status:Active Unknown Family Member Name Dates Details Father Comments:depression, anxiety Status:Active Mother Comments:Lupus, anxiety. dep ression Status:Active Unknown Family Member Name Dates Details Father Comments:depression, anxiety Status:Active Mother Comments:Lupus, anxiety. dep ression Status:Active Unknown Family Member Name Dates Details Father Comments:depression, anxiety Status:Active Mother Comments:Lupus, anxiety. dep ression Status:Active Unknown Family Member Name Dates Details Father Comments:depression, anxiety Status:Active Mother Comments:Lupus, anxiety. dep ression Status:Active Instructions Name Dates Details Nonsmoker : How to access he alth information online Indication:Nonsmoker Nonsmoker : How to access he alth information online - Detail Indication:Nonsmoker Nonsmoker : Patient Instruct ions Indication:Nonsmoker Hypothyroid : How to access health information online Indication:Hypothyroid Hypothyroid : How to access health information online - Detail Indication:Hypothyroid BMI 24.0-24.9, adult : Patie nt Instructions Indication:BMI 24.0-24.9, adult Name Dates Details Nonsmoker : How to access he alth information online Indication:Nonsmoker Nonsmoker : How to access he alth information online - Detail Indication:Nonsmoker Nonsmoker : Patient Instruct ions Indication:Nonsmoker Hypothyroid : How to access health information online Indication:Hypothyroid Hypothyroid : How to access health information online - Detail Indication:Hypothyroid BMI 24.0-24.9, adult : Patie nt Instructions Indication:BMI 24.0-24.9, adult Name Dates Details Nonsmoker : How to access he alth information online Indication:Nonsmoker Nonsmoker : How to access he alth information online - Detail Indication:Nonsmoker Nonsmoker : Patient Instruct ions Indication:Nonsmoker Hypothyroid : How to access health information online Indication:Hypothyroid Hypothyroid : How to access health information online - Detail Indication:Hypothyroid BMI 24.0-24.9, adult : Patie nt Instructions Indication:BMI 24.0-24.9, adult Name Dates Details Nonsmoker : How to access he alth information online Indication:Nonsmoker Nonsmoker : How to access he alth information online - Detail Indication:Nonsmoker Nonsmoker : Patient Instruct ions Indication:Nonsmoker Hypothyroid : How to access health information online Indication:Hypothyroid Hypothyroid : How to access health information online - Detail Indication:Hypothyroid BMI 24.0-24.9, adult : Patie nt Instructions Indication:BMI 24.0-24.9, adult Name Dates Details Attention deficit disorder ( ADD) in adult : How to access health information online Indication:Attention deficit disorder (ADD) in adult Attention deficit disorder ( ADD) in adult : How to access health information online - Detail Indication:Attention deficit disorder (ADD) in adult Attention deficit disorder ( ADD) in adult : Patient Instructions Indication:Attention deficit disorder (ADD) in adult Nonsmoker : How to access he alth information online Indication:Nonsmoker Nonsmoker : How to access he alth information online - Detail Indication:Nonsmoker Nonsmoker : Patient Instruct ions Indication:Nonsmoker Hypothyroid : How to access health information online Indication:Hypothyroid Hypothyroid : How to access health information online - Detail Indication:Hypothyroid BMI 24.0-24.9, adult : Patie nt Instructions Indication:BMI 24.0-24.9, adult Name Dates Details Nonsmoker : How to access he alth information online Indication:Nonsmoker Nonsmoker : How to access he alth information online - Detail Indication:Nonsmoker Sore throat : Patient Instru ctions Indication:Sore throat Attention deficit disorder ( ADD) in adult : How to access health information online Indication:Attention deficit disorder (ADD) in adult Attention deficit disorder ( ADD) in adult : How to access health information online - Detail Indication:Attention deficit disorder (ADD) in adult Attention deficit disorder ( ADD) in adult : Patient Instructions Indication:Attention deficit disorder (ADD) in adult Nonsmoker : Patient Instruct ions Indication:Nonsmoker Hypothyroid : How to access health information online Indication:Hypothyroid Hypothyroid : How to access health information online - Detail Indication:Hypothyroid BMI 24.0-24.9, adult : Patie nt Instructions Indication:BMI 24.0-24.9, adult Name Dates Details Nonsmoker : How to access he alth information online Indication:Nonsmoker Nonsmoker : How to access he alth information online - Detail Indication:Nonsmoker Nonsmoker : Patient Instruct ions Indication:Nonsmoker Sore throat : Patient Instru ctions Indication:Sore throat Attention deficit disorder ( ADD) in adult : How to access health information online Indication:Attention deficit disorder (ADD) in adult Attention deficit disorder ( ADD) in adult : How to access health information online - Detail Indication:Attention deficit disorder (ADD) in adult Attention deficit disorder ( ADD) in adult : Patient Instructions Indication:Attention deficit disorder (ADD) in adult Hypothyroid : How to access health information online Indication:Hypothyroid Hypothyroid : How to access health information online - Detail Indication:Hypothyroid BMI 24.0-24.9, adult : Patie nt Instructions Indication:BMI 24.0-24.9, adult Name Dates Details Nonsmoker : How to access he alth information online Indication:Nonsmoker Nonsmoker : How to access he alth information online - Detail Indication:Nonsmoker Nonsmoker : Patient Instruct ions Indication:Nonsmoker Sore throat : Patient Instru ctions Indication:Sore throat Attention deficit disorder ( ADD) in adult : How to access health information online Indication:Attention deficit disorder (ADD) in adult Attention deficit disorder ( ADD) in adult : How to access health information online - Detail Indication:Attention deficit disorder (ADD) in adult Attention deficit disorder ( ADD) in adult : Patient Instructions Indication:Attention deficit disorder (ADD) in adult Hypothyroid : How to access health information online Indication:Hypothyroid Hypothyroid : How to access health information online - Detail Indication:Hypothyroid BMI 24.0-24.9, adult : Patie nt Instructions Indication:BMI 24.0-24.9, adult Name Dates Details How to access health informa tion online Indication:Nonsmoker Start:23-Oct-2018 Instruction Type:Patient Education How to access health informa tion online - Detail Indication:Nonsmoker Start:23-Oct-2018 Instruction Type:Patient Education Patient Instructions Indication:Depression with anxiety Start:23-Oct-2018 Instruction Type:Provider Instructions for Treatment How to access health informa tion online Indication:BMI 25.0-25.9,adult Start:15-Jul-2018 Instruction Type:Patient Education How to access health informa tion online - Detail Indication:BMI 25.0-25.9,adult Start:15-Jul-2018 Instruction Type:Patient Education Patient Instructions Indication:BMI 25.0-25.9,adult Start:15-Jul-2018 Instruction Type:Provider Instructions for Treatment How to access health informa tion online Indication:Nonsmoker Start:27-Jun-2018 Instruction Type:Patient Education How to access health informa tion online - Detail Indication:Nonsmoker Start:27-Jun-2018 Instruction Type:Patient Education Patient Instructions Indication:Nonsmoker Start:27-Jun-2018 Instruction Type:Provider Instructions for Treatment How to access health informa tion online Indication:Nonsmoker Start:20-May-2018 Instruction Type:Patient Education How to access health informa tion online - Detail Indication:Nonsmoker Start:20-May-2018 Instruction Type:Patient Education Patient Instructions Indication:Sore throat Start:20-May-2018 Instruction Type:Provider Instructions for Treatment How to access health informa tion online Indication:Attention deficit disorder (ADD) in adult Start:02-May-2018 Instruction Type:Patient Education How to access health informa tion online - Detail Indication:Attention deficit disorder (ADD) in adult Start:02-May-2018 Instruction Type:Patient Education Patient Instructions Indication:Attention deficit disorder (ADD) in adult Start:02-May-2018 Instruction Type:Provider Instructions for Treatment How to access health informa tion online Indication:Nonsmoker Start:10-Apr-2018 Instruction Type:Patient Education How to access health informa tion online - Detail Indication:Nonsmoker Start:10-Apr-2018 Instruction Type:Patient Education Patient Instructions Indication:Nonsmoker Start:10-Apr-2018 Instruction Type:Provider Instructions for Treatment How to access health informa tion online Indication:Nonsmoker Start:31-Oct-2017 Instruction Type:Patient Education How to access health informa tion online - Detail Indication:Nonsmoker Start:31-Oct-2017 Instruction Type:Patient Education Patient Instructions Indication:Nonsmoker Start:31-Oct-2017 Instruction Type:Provider Instructions for Treatment How to access health informa tion online Indication:Hypothyroid Start:17-Oct-2017 Instruction Type:Patient Education How to access health informa tion online - Detail Indication:Hypothyroid Start:17-Oct-2017 Instruction Type:Patient Education Patient Instructions Indication:BMI 24.0-24.9, adult Start:17-Oct-2017 Instruction Type:Provider Instructions for Treatment Name Dates Details How to access health informa tion online Indication:Attention deficit disorder (ADD) in adult Start:30-Jan-2019 Instruction Type:Patient Education How to access health informa tion online - Detail Indication:Attention deficit disorder (ADD) in adult Start:30-Jan-2019 Instruction Type:Patient Education Patient Instructions Indication:Attention deficit disorder (ADD) in adult Start:30-Jan-2019 Instruction Type:Provider Instructions for Treatment How to access health informa tion online Indication:Nonsmoker Start:23-Oct-2018 Instruction Type:Patient Education How to access health informa tion online - Detail Indication:Nonsmoker Start:23-Oct-2018 Instruction Type:Patient Education Patient Instructions Indication:Depression with anxiety Start:23-Oct-2018 Instruction Type:Provider Instructions for Treatment How to access health informa tion online Indication:BMI 25.0-25.9,adult Start:15-Jul-2018 Instruction Type:Patient Education How to access health informa tion online - Detail Indication:BMI 25.0-25.9,adult Start:15-Jul-2018 Instruction Type:Patient Education Patient Instructions Indication:BMI 25.0-25.9,adult Start:15-Jul-2018 Instruction Type:Provider Instructions for Treatment How to access health informa tion online Indication:Nonsmoker Start:27-Jun-2018 Instruction Type:Patient Education How to access health informa tion online - Detail Indication:Nonsmoker Start:27-Jun-2018 Instruction Type:Patient Education Patient Instructions Indication:Nonsmoker Start:27-Jun-2018 Instruction Type:Provider Instructions for Treatment How to access health informa tion online Indication:Nonsmoker Start:20-May-2018 Instruction Type:Patient Education How to access health informa tion online - Detail Indication:Nonsmoker Start:20-May-2018 Instruction Type:Patient Education Patient Instructions Indication:Sore throat Start:20-May-2018 Instruction Type:Provider Instructions for Treatment How to access health informa tion online Indication:Attention deficit disorder (ADD) in adult Start:02-May-2018 Instruction Type:Patient Education How to access health informa tion online - Detail Indication:Attention deficit disorder (ADD) in adult Start:02-May-2018 Instruction Type:Patient Education Patient Instructions Indication:Attention deficit disorder (ADD) in adult Start:02-May-2018 Instruction Type:Provider Instructions for Treatment How to access health informa tion online Indication:Nonsmoker Start:10-Apr-2018 Instruction Type:Patient Education How to access health informa tion online - Detail Indication:Nonsmoker Start:10-Apr-2018 Instruction Type:Patient Education Patient Instructions Indication:Nonsmoker Start:10-Apr-2018 Instruction Type:Provider Instructions for Treatment How to access health informa tion online Indication:Nonsmoker Start:31-Oct-2017 Instruction Type:Patient Education How to access health informa tion online - Detail Indication:Nonsmoker Start:31-Oct-2017 Instruction Type:Patient Education Patient Instructions Indication:Nonsmoker Start:31-Oct-2017 Instruction Type:Provider Instructions for Treatment How to access health informa tion online Indication:Hypothyroid Start:17-Oct-2017 Instruction Type:Patient Education How to access health informa tion online - Detail Indication:Hypothyroid Start:17-Oct-2017 Instruction Type:Patient Education Patient Instructions Indication:BMI 24.0-24.9, adult Start:17-Oct-2017 Instruction Type:Provider Instructions for Treatment Name Dates Details How to access health informa tion online Indication:Attention deficit disorder (ADD) in adult Start:31-Jul-2019 Instruction Type:Patient Education How to access health informa tion online - Detail Indication:Attention deficit disorder (ADD) in adult Start:31-Jul-2019 Instruction Type:Patient Education Patient Instructions Indication:Attention deficit disorder (ADD) in adult Start:31-Jul-2019 Instruction Type:Provider Instructions for Treatment How to access health informa tion online Indication:Attention deficit disorder (ADD) in adult Start:30-Jan-2019 Instruction Type:Patient Education How to access health informa tion online - Detail Indication:Attention deficit disorder (ADD) in adult Start:30-Jan-2019 Instruction Type:Patient Education Patient Instructions Indication:Attention deficit disorder (ADD) in adult Start:30-Jan-2019 Instruction Type:Provider Instructions for Treatment How to access health informa tion online Indication:Nonsmoker Start:23-Oct-2018 Instruction Type:Patient Education How to access health informa tion online - Detail Indication:Nonsmoker Start:23-Oct-2018 Instruction Type:Patient Education Patient Instructions Indication:Depression with anxiety Start:23-Oct-2018 Instruction Type:Provider Instructions for Treatment How to access health informa tion online Indication:BMI 25.0-25.9,adult Start:15-Jul-2018 Instruction Type:Patient Education How to access health informa tion online - Detail Indication:BMI 25.0-25.9,adult Start:15-Jul-2018 Instruction Type:Patient Education Patient Instructions Indication:BMI 25.0-25.9,adult Start:15-Jul-2018 Instruction Type:Provider Instructions for Treatment How to access health informa tion online Indication:Nonsmoker Start:27-Jun-2018 Instruction Type:Patient Education How to access health informa tion online - Detail Indication:Nonsmoker Start:27-Jun-2018 Instruction Type:Patient Education Patient Instructions Indication:Nonsmoker Start:27-Jun-2018 Instruction Type:Provider Instructions for Treatment How to access health informa tion online Indication:Nonsmoker Start:20-May-2018 Instruction Type:Patient Education How to access health informa tion online - Detail Indication:Nonsmoker Start:20-May-2018 Instruction Type:Patient Education Patient Instructions Indication:Sore throat Start:20-May-2018 Instruction Type:Provider Instructions for Treatment How to access health informa tion online Indication:Attention deficit disorder (ADD) in adult Start:02-May-2018 Instruction Type:Patient Education How to access health informa tion online - Detail Indication:Attention deficit disorder (ADD) in adult Start:02-May-2018 Instruction Type:Patient Education Patient Instructions Indication:Attention deficit disorder (ADD) in adult Start:02-May-2018 Instruction Type:Provider Instructions for Treatment How to access health informa tion online Indication:Nonsmoker Start:10-Apr-2018 Instruction Type:Patient Education How to access health informa tion online - Detail Indication:Nonsmoker Start:10-Apr-2018 Instruction Type:Patient Education Patient Instructions Indication:Nonsmoker Start:10-Apr-2018 Instruction Type:Provider Instructions for Treatment How to access health informa tion online Indication:Nonsmoker Start:31-Oct-2017 Instruction Type:Patient Education How to access health informa tion online - Detail Indication:Nonsmoker Start:31-Oct-2017 Instruction Type:Patient Education Patient Instructions Indication:Nonsmoker Start:31-Oct-2017 Instruction Type:Provider Instructions for Treatment How to access health informa tion online Indication:Hypothyroid Start:17-Oct-2017 Instruction Type:Patient Education How to access health informa tion online - Detail Indication:Hypothyroid Start:17-Oct-2017 Instruction Type:Patient Education Patient Instructions Indication:BMI 24.0-24.9, adult Start:17-Oct-2017 Instruction Type:Provider Instructions for Treatment Name Dates Details How to access health informa tion online Indication:Nonsmoker Start:24-Nov-2019 Instruction Type:Patient Education How to access health informa tion online - Detail Indication:Nonsmoker Start:24-Nov-2019 Instruction Type:Patient Education Patient Instructions Indication:Nonsmoker Start:24-Nov-2019 Instruction Type:Provider Instructions for Treatment How to access health informa tion online Indication:Attention deficit disorder (ADD) in adult Start:31-Jul-2019 Instruction Type:Patient Education How to access health informa tion online - Detail Indication:Attention deficit disorder (ADD) in adult Start:31-Jul-2019 Instruction Type:Patient Education Patient Instructions Indication:Attention deficit disorder (ADD) in adult Start:31-Jul-2019 Instruction Type:Provider Instructions for Treatment How to access health informa tion online Indication:Attention deficit disorder (ADD) in adult Start:30-Jan-2019 Instruction Type:Patient Education How to access health informa tion online - Detail Indication:Attention deficit disorder (ADD) in adult Start:30-Jan-2019 Instruction Type:Patient Education Patient Instructions Indication:Attention deficit disorder (ADD) in adult Start:30-Jan-2019 Instruction Type:Provider Instructions for Treatment How to access health informa tion online Indication:Nonsmoker Start:23-Oct-2018 Instruction Type:Patient Education How to access health informa tion online - Detail Indication:Nonsmoker Start:23-Oct-2018 Instruction Type:Patient Education Patient Instructions Indication:Depression with anxiety Start:23-Oct-2018 Instruction Type:Provider Instructions for Treatment How to access health informa tion online Indication:BMI 25.0-25.9,adult Start:15-Jul-2018 Instruction Type:Patient Education How to access health informa tion online - Detail Indication:BMI 25.0-25.9,adult Start:15-Jul-2018 Instruction Type:Patient Education Patient Instructions Indication:BMI 25.0-25.9,adult Start:15-Jul-2018 Instruction Type:Provider Instructions for Treatment How to access health informa tion online Indication:Nonsmoker Start:27-Jun-2018 Instruction Type:Patient Education How to access health informa tion online - Detail Indication:Nonsmoker Start:27-Jun-2018 Instruction Type:Patient Education Patient Instructions Indication:Nonsmoker Start:27-Jun-2018 Instruction Type:Provider Instructions for Treatment How to access health informa tion online Indication:Nonsmoker Start:20-May-2018 Instruction Type:Patient Education How to access health informa tion online - Detail Indication:Nonsmoker Start:20-May-2018 Instruction Type:Patient Education Patient Instructions Indication:Sore throat Start:20-May-2018 Instruction Type:Provider Instructions for Treatment How to access health informa tion online Indication:Attention deficit disorder (ADD) in adult Start:02-May-2018 Instruction Type:Patient Education How to access health informa tion online - Detail Indication:Attention deficit disorder (ADD) in adult Start:02-May-2018 Instruction Type:Patient Education Patient Instructions Indication:Attention deficit disorder (ADD) in adult Start:02-May-2018 Instruction Type:Provider Instructions for Treatment How to access health informa tion online Indication:Nonsmoker Start:10-Apr-2018 Instruction Type:Patient Education How to access health informa tion online - Detail Indication:Nonsmoker Start:10-Apr-2018 Instruction Type:Patient Education Patient Instructions Indication:Nonsmoker Start:10-Apr-2018 Instruction Type:Provider Instructions for Treatment How to access health informa tion online Indication:Nonsmoker Start:31-Oct-2017 Instruction Type:Patient Education How to access health informa tion online - Detail Indication:Nonsmoker Start:31-Oct-2017 Instruction Type:Patient Education Patient Instructions Indication:Nonsmoker Start:31-Oct-2017 Instruction Type:Provider Instructions for Treatment How to access health informa tion online Indication:Hypothyroid Start:17-Oct-2017 Instruction Type:Patient Education How to access health informa tion online - Detail Indication:Hypothyroid Start:17-Oct-2017 Instruction Type:Patient Education Patient Instructions Indication:BMI 24.0-24.9, adult Start:17-Oct-2017 Instruction Type:Provider Instructions for Treatment Name Dates Details How to access health informa tion online Indication:Nonsmoker Start:24-Nov-2019 Instruction Type:Patient Education How to access health informa tion online - Detail Indication:Nonsmoker Start:24-Nov-2019 Instruction Type:Patient Education Instructions Indication:BMI 24.0-24.9, adult Start:24-Nov-2019 Instruction Type:Provider Instructions for Treatment How to access health informa tion online Indication:Attention deficit disorder (ADD) in adult Start:31-Jul-2019 Instruction Type:Patient Education How to access health informa tion online - Detail Indication:Attention deficit disorder (ADD) in adult Start:31-Jul-2019 Instruction Type:Patient Education Patient Instructions Indication:Attention deficit disorder (ADD) in adult Start:31-Jul-2019 Instruction Type:Provider Instructions for Treatment How to access health informa tion online Indication:Attention deficit disorder (ADD) in adult Start:30-Jan-2019 Instruction Type:Patient Education How to access health informa tion online - Detail Indication:Attention deficit disorder (ADD) in adult Start:30-Jan-2019 Instruction Type:Patient Education Patient Instructions Indication:Attention deficit disorder (ADD) in adult Start:30-Jan-2019 Instruction Type:Provider Instructions for Treatment How to access health informa tion online Indication:Nonsmoker Start:23-Oct-2018 Instruction Type:Patient Education How to access health informa tion online - Detail Indication:Nonsmoker Start:23-Oct-2018 Instruction Type:Patient Education Patient Instructions Indication:Depression with anxiety Start:23-Oct-2018 Instruction Type:Provider Instructions for Treatment How to access health informa tion online Indication:BMI 25.0-25.9,adult Start:15-Jul-2018 Instruction Type:Patient Education How to access health informa tion online - Detail Indication:BMI 25.0-25.9,adult Start:15-Jul-2018 Instruction Type:Patient Education Patient Instructions Indication:BMI 25.0-25.9,adult Start:15-Jul-2018 Instruction Type:Provider Instructions for Treatment How to access health informa tion online Indication:Nonsmoker Start:27-Jun-2018 Instruction Type:Patient Education How to access health informa tion online - Detail Indication:Nonsmoker Start:27-Jun-2018 Instruction Type:Patient Education Patient Instructions Indication:Nonsmoker Start:27-Jun-2018 Instruction Type:Provider Instructions for Treatment How to access health informa tion online Indication:Nonsmoker Start:20-May-2018 Instruction Type:Patient Education How to access health informa tion online - Detail Indication:Nonsmoker Start:20-May-2018 Instruction Type:Patient Education Patient Instructions Indication:Sore throat Start:20-May-2018 Instruction Type:Provider Instructions for Treatment How to access health informa tion online Indication:Attention deficit disorder (ADD) in adult Start:02-May-2018 Instruction Type:Patient Education How to access health informa tion online - Detail Indication:Attention deficit disorder (ADD) in adult Start:02-May-2018 Instruction Type:Patient Education Patient Instructions Indication:Attention deficit disorder (ADD) in adult Start:02-May-2018 Instruction Type:Provider Instructions for Treatment How to access health informa tion online Indication:Nonsmoker Start:10-Apr-2018 Instruction Type:Patient Education How to access health informa tion online - Detail Indication:Nonsmoker Start:10-Apr-2018 Instruction Type:Patient Education Patient Instructions Indication:Nonsmoker Start:10-Apr-2018 Instruction Type:Provider Instructions for Treatment How to access health informa tion online Indication:Nonsmoker Start:31-Oct-2017 Instruction Type:Patient Education How to access health informa tion online - Detail Indication:Nonsmoker Start:31-Oct-2017 Instruction Type:Patient Education Patient Instructions Indication:Nonsmoker Start:31-Oct-2017 Instruction Type:Provider Instructions for Treatment How to access health informa tion online Indication:Hypothyroid Start:17-Oct-2017 Instruction Type:Patient Education How to access health informa tion online - Detail Indication:Hypothyroid Start:17-Oct-2017 Instruction Type:Patient Education Patient Instructions Indication:BMI 24.0-24.9, adult Start:17-Oct-2017 Instruction Type:Provider Instructions for Treatment Name Dates Details How to access health informa tion online Indication:Nonsmoker Start:24-Nov-2019 Instruction Type:Patient Education How to access health informa tion online - Detail Indication:Nonsmoker Start:24-Nov-2019 Instruction Type:Patient Education Instructions Indication:BMI 24.0-24.9, adult Start:24-Nov-2019 Instruction Type:Provider Instructions for Treatment How to access health informa tion online Indication:Attention deficit disorder (ADD) in adult Start:31-Jul-2019 Instruction Type:Patient Education How to access health informa tion online - Detail Indication:Attention deficit disorder (ADD) in adult Start:31-Jul-2019 Instruction Type:Patient Education Patient Instructions Indication:Attention deficit disorder (ADD) in adult Start:31-Jul-2019 Instruction Type:Provider Instructions for Treatment How to access health informa tion online Indication:Attention deficit disorder (ADD) in adult Start:30-Jan-2019 Instruction Type:Patient Education How to access health informa tion online - Detail Indication:Attention deficit disorder (ADD) in adult Start:30-Jan-2019 Instruction Type:Patient Education Patient Instructions Indication:Attention deficit disorder (ADD) in adult Start:30-Jan-2019 Instruction Type:Provider Instructions for Treatment How to access health informa tion online Indication:Nonsmoker Start:23-Oct-2018 Instruction Type:Patient Education How to access health informa tion online - Detail Indication:Nonsmoker Start:23-Oct-2018 Instruction Type:Patient Education Patient Instructions Indication:Depression with anxiety Start:23-Oct-2018 Instruction Type:Provider Instructions for Treatment How to access health informa tion online Indication:BMI 25.0-25.9,adult Start:15-Jul-2018 Instruction Type:Patient Education How to access health informa tion online - Detail Indication:BMI 25.0-25.9,adult Start:15-Jul-2018 Instruction Type:Patient Education Patient Instructions Indication:BMI 25.0-25.9,adult Start:15-Jul-2018 Instruction Type:Provider Instructions for Treatment How to access health informa tion online Indication:Nonsmoker Start:27-Jun-2018 Instruction Type:Patient Education How to access health informa tion online - Detail Indication:Nonsmoker Start:27-Jun-2018 Instruction Type:Patient Education Patient Instructions Indication:Nonsmoker Start:27-Jun-2018 Instruction Type:Provider Instructions for Treatment How to access health informa tion online Indication:Nonsmoker Start:20-May-2018 Instruction Type:Patient Education How to access health informa tion online - Detail Indication:Nonsmoker Start:20-May-2018 Instruction Type:Patient Education Patient Instructions Indication:Sore throat Start:20-May-2018 Instruction Type:Provider Instructions for Treatment How to access health informa tion online Indication:Attention deficit disorder (ADD) in adult Start:02-May-2018 Instruction Type:Patient Education How to access health informa tion online - Detail Indication:Attention deficit disorder (ADD) in adult Start:02-May-2018 Instruction Type:Patient Education Patient Instructions Indication:Attention deficit disorder (ADD) in adult Start:02-May-2018 Instruction Type:Provider Instructions for Treatment How to access health informa tion online Indication:Nonsmoker Start:10-Apr-2018 Instruction Type:Patient Education How to access health informa tion online - Detail Indication:Nonsmoker Start:10-Apr-2018 Instruction Type:Patient Education Patient Instructions Indication:Nonsmoker Start:10-Apr-2018 Instruction Type:Provider Instructions for Treatment How to access health informa tion online Indication:Nonsmoker Start:31-Oct-2017 Instruction Type:Patient Education How to access health informa tion online - Detail Indication:Nonsmoker Start:31-Oct-2017 Instruction Type:Patient Education Patient Instructions Indication:Nonsmoker Start:31-Oct-2017 Instruction Type:Provider Instructions for Treatment How to access health informa tion online Indication:Hypothyroid Start:17-Oct-2017 Instruction Type:Patient Education How to access health informa tion online - Detail Indication:Hypothyroid Start:17-Oct-2017 Instruction Type:Patient Education Patient Instructions Indication:BMI 24.0-24.9, adult Start:17-Oct-2017 Instruction Type:Provider Instructions for Treatment Name Dates Details How to access health informa tion online Indication:Nonsmoker Start:24-Nov-2019 Instruction Type:Patient Education How to access health informa tion online - Detail Indication:Nonsmoker Start:24-Nov-2019 Instruction Type:Patient Education Instructions Indication:BMI 24.0-24.9, adult Start:24-Nov-2019 Instruction Type:Provider Instructions for Treatment How to access health informa tion online Indication:Attention deficit disorder (ADD) in adult Start:31-Jul-2019 Instruction Type:Patient Education How to access health informa tion online - Detail Indication:Attention deficit disorder (ADD) in adult Start:31-Jul-2019 Instruction Type:Patient Education Patient Instructions Indication:Attention deficit disorder (ADD) in adult Start:31-Jul-2019 Instruction Type:Provider Instructions for Treatment How to access health informa tion online Indication:Attention deficit disorder (ADD) in adult Start:30-Jan-2019 Instruction Type:Patient Education How to access health informa tion online - Detail Indication:Attention deficit disorder (ADD) in adult Start:30-Jan-2019 Instruction Type:Patient Education Patient Instructions Indication:Attention deficit disorder (ADD) in adult Start:30-Jan-2019 Instruction Type:Provider Instructions for Treatment How to access health informa tion online Indication:Nonsmoker Start:23-Oct-2018 Instruction Type:Patient Education How to access health informa tion online - Detail Indication:Nonsmoker Start:23-Oct-2018 Instruction Type:Patient Education Patient Instructions Indication:Depression with anxiety Start:23-Oct-2018 Instruction Type:Provider Instructions for Treatment How to access health informa tion online Indication:BMI 25.0-25.9,adult Start:15-Jul-2018 Instruction Type:Patient Education How to access health informa tion online - Detail Indication:BMI 25.0-25.9,adult Start:15-Jul-2018 Instruction Type:Patient Education Patient Instructions Indication:BMI 25.0-25.9,adult Start:15-Jul-2018 Instruction Type:Provider Instructions for Treatment How to access health informa tion online Indication:Nonsmoker Start:27-Jun-2018 Instruction Type:Patient Education How to access health informa tion online - Detail Indication:Nonsmoker Start:27-Jun-2018 Instruction Type:Patient Education Patient Instructions Indication:Nonsmoker Start:27-Jun-2018 Instruction Type:Provider Instructions for Treatment How to access health informa tion online Indication:Nonsmoker Start:20-May-2018 Instruction Type:Patient Education How to access health informa tion online - Detail Indication:Nonsmoker Start:20-May-2018 Instruction Type:Patient Education Patient Instructions Indication:Sore throat Start:20-May-2018 Instruction Type:Provider Instructions for Treatment How to access health informa tion online Indication:Attention deficit disorder (ADD) in adult Start:02-May-2018 Instruction Type:Patient Education How to access health informa tion online - Detail Indication:Attention deficit disorder (ADD) in adult Start:02-May-2018 Instruction Type:Patient Education Patient Instructions Indication:Attention deficit disorder (ADD) in adult Start:02-May-2018 Instruction Type:Provider Instructions for Treatment How to access health informa tion online Indication:Nonsmoker Start:10-Apr-2018 Instruction Type:Patient Education How to access health informa tion online - Detail Indication:Nonsmoker Start:10-Apr-2018 Instruction Type:Patient Education Patient Instructions Indication:Nonsmoker Start:10-Apr-2018 Instruction Type:Provider Instructions for Treatment How to access health informa tion online Indication:Nonsmoker Start:31-Oct-2017 Instruction Type:Patient Education How to access health informa tion online - Detail Indication:Nonsmoker Start:31-Oct-2017 Instruction Type:Patient Education Patient Instructions Indication:Nonsmoker Start:31-Oct-2017 Instruction Type:Provider Instructions for Treatment How to access health informa tion online Indication:Hypothyroid Start:17-Oct-2017 Instruction Type:Patient Education How to access health informa tion online - Detail Indication:Hypothyroid Start:17-Oct-2017 Instruction Type:Patient Education Patient Instructions Indication:BMI 24.0-24.9, adult Start:17-Oct-2017 Instruction Type:Provider Instructions for Treatment Name Dates Details How to access health informa tion online Indication:Attention deficit disorder (ADD) in adult Start:13-Jan-2020 Instruction Type:Patient Education How to access health informa tion online - Detail Indication:Attention deficit disorder (ADD) in adult Start:13-Jan-2020 Instruction Type:Patient Education Patient Instructions Indication:Attention deficit disorder (ADD) in adult Start:13-Jan-2020 Instruction Type:Provider Instructions for Treatment How to access health informa tion online Indication:Nonsmoker Start:24-Nov-2019 Instruction Type:Patient Education How to access health informa tion online - Detail Indication:Nonsmoker Start:24-Nov-2019 Instruction Type:Patient Education Instructions Indication:BMI 24.0-24.9, adult Start:24-Nov-2019 Instruction Type:Provider Instructions for Treatment How to access health informa tion online Indication:Attention deficit disorder (ADD) in adult Start:31-Jul-2019 Instruction Type:Patient Education How to access health informa tion online - Detail Indication:Attention deficit disorder (ADD) in adult Start:31-Jul-2019 Instruction Type:Patient Education Patient Instructions Indication:Attention deficit disorder (ADD) in adult Start:31-Jul-2019 Instruction Type:Provider Instructions for Treatment How to access health informa tion online Indication:Attention deficit disorder (ADD) in adult Start:30-Jan-2019 Instruction Type:Patient Education How to access health informa tion online - Detail Indication:Attention deficit disorder (ADD) in adult Start:30-Jan-2019 Instruction Type:Patient Education Patient Instructions Indication:Attention deficit disorder (ADD) in adult Start:30-Jan-2019 Instruction Type:Provider Instructions for Treatment How to access health informa tion online Indication:Nonsmoker Start:23-Oct-2018 Instruction Type:Patient Education How to access health informa tion online - Detail Indication:Nonsmoker Start:23-Oct-2018 Instruction Type:Patient Education Patient Instructions Indication:Depression with anxiety Start:23-Oct-2018 Instruction Type:Provider Instructions for Treatment How to access health informa tion online Indication:BMI 25.0-25.9,adult Start:15-Jul-2018 Instruction Type:Patient Education How to access health informa tion online - Detail Indication:BMI 25.0-25.9,adult Start:15-Jul-2018 Instruction Type:Patient Education Patient Instructions Indication:BMI 25.0-25.9,adult Start:15-Jul-2018 Instruction Type:Provider Instructions for Treatment How to access health informa tion online Indication:Nonsmoker Start:27-Jun-2018 Instruction Type:Patient Education How to access health informa tion online - Detail Indication:Nonsmoker Start:27-Jun-2018 Instruction Type:Patient Education Patient Instructions Indication:Nonsmoker Start:27-Jun-2018 Instruction Type:Provider Instructions for Treatment How to access health informa tion online Indication:Nonsmoker Start:20-May-2018 Instruction Type:Patient Education How to access health informa tion online - Detail Indication:Nonsmoker Start:20-May-2018 Instruction Type:Patient Education Patient Instructions Indication:Sore throat Start:20-May-2018 Instruction Type:Provider Instructions for Treatment How to access health informa tion online Indication:Attention deficit disorder (ADD) in adult Start:02-May-2018 Instruction Type:Patient Education How to access health informa tion online - Detail Indication:Attention deficit disorder (ADD) in adult Start:02-May-2018 Instruction Type:Patient Education Patient Instructions Indication:Attention deficit disorder (ADD) in adult Start:02-May-2018 Instruction Type:Provider Instructions for Treatment How to access health informa tion online Indication:Nonsmoker Start:10-Apr-2018 Instruction Type:Patient Education How to access health informa tion online - Detail Indication:Nonsmoker Start:10-Apr-2018 Instruction Type:Patient Education Patient Instructions Indication:Nonsmoker Start:10-Apr-2018 Instruction Type:Provider Instructions for Treatment How to access health informa tion online Indication:Nonsmoker Start:31-Oct-2017 Instruction Type:Patient Education How to access health informa tion online - Detail Indication:Nonsmoker Start:31-Oct-2017 Instruction Type:Patient Education Patient Instructions Indication:Nonsmoker Start:31-Oct-2017 Instruction Type:Provider Instructions for Treatment How to access health informa tion online Indication:Hypothyroid Start:17-Oct-2017 Instruction Type:Patient Education How to access health informa tion online - Detail Indication:Hypothyroid Start:17-Oct-2017 Instruction Type:Patient Education Patient Instructions Indication:BMI 24.0-24.9, adult Start:17-Oct-2017 Instruction Type:Provider Instructions for Treatment Name Dates Details How to access health informa tion online Indication:Attention deficit disorder (ADD) in adult Start:13-Jan-2020 Instruction Type:Patient Education How to access health informa tion online - Detail Indication:Attention deficit disorder (ADD) in adult Start:13-Jan-2020 Instruction Type:Patient Education Patient Instructions Indication:Attention deficit disorder (ADD) in adult Start:13-Jan-2020 Instruction Type:Provider Instructions for Treatment How to access health informa tion online Indication:Nonsmoker Start:24-Nov-2019 Instruction Type:Patient Education How to access health informa tion online - Detail Indication:Nonsmoker Start:24-Nov-2019 Instruction Type:Patient Education Instructions Indication:BMI 24.0-24.9, adult Start:24-Nov-2019 Instruction Type:Provider Instructions for Treatment How to access health informa tion online Indication:Attention deficit disorder (ADD) in adult Start:31-Jul-2019 Instruction Type:Patient Education How to access health informa tion online - Detail Indication:Attention deficit disorder (ADD) in adult Start:31-Jul-2019 Instruction Type:Patient Education Patient Instructions Indication:Attention deficit disorder (ADD) in adult Start:31-Jul-2019 Instruction Type:Provider Instructions for Treatment How to access health informa tion online Indication:Attention deficit disorder (ADD) in adult Start:30-Jan-2019 Instruction Type:Patient Education How to access health informa tion online - Detail Indication:Attention deficit disorder (ADD) in adult Start:30-Jan-2019 Instruction Type:Patient Education Patient Instructions Indication:Attention deficit disorder (ADD) in adult Start:30-Jan-2019 Instruction Type:Provider Instructions for Treatment How to access health informa tion online Indication:Nonsmoker Start:23-Oct-2018 Instruction Type:Patient Education How to access health informa tion online - Detail Indication:Nonsmoker Start:23-Oct-2018 Instruction Type:Patient Education Patient Instructions Indication:Depression with anxiety Start:23-Oct-2018 Instruction Type:Provider Instructions for Treatment How to access health informa tion online Indication:BMI 25.0-25.9,adult Start:15-Jul-2018 Instruction Type:Patient Education How to access health informa tion online - Detail Indication:BMI 25.0-25.9,adult Start:15-Jul-2018 Instruction Type:Patient Education Patient Instructions Indication:BMI 25.0-25.9,adult Start:15-Jul-2018 Instruction Type:Provider Instructions for Treatment How to access health informa tion online Indication:Nonsmoker Start:27-Jun-2018 Instruction Type:Patient Education How to access health informa tion online - Detail Indication:Nonsmoker Start:27-Jun-2018 Instruction Type:Patient Education Patient Instructions Indication:Nonsmoker Start:27-Jun-2018 Instruction Type:Provider Instructions for Treatment How to access health informa tion online Indication:Nonsmoker Start:20-May-2018 Instruction Type:Patient Education How to access health informa tion online - Detail Indication:Nonsmoker Start:20-May-2018 Instruction Type:Patient Education Patient Instructions Indication:Sore throat Start:20-May-2018 Instruction Type:Provider Instructions for Treatment How to access health informa tion online Indication:Attention deficit disorder (ADD) in adult Start:02-May-2018 Instruction Type:Patient Education How to access health informa tion online - Detail Indication:Attention deficit disorder (ADD) in adult Start:02-May-2018 Instruction Type:Patient Education Patient Instructions Indication:Attention deficit disorder (ADD) in adult Start:02-May-2018 Instruction Type:Provider Instructions for Treatment How to access health informa tion online Indication:Nonsmoker Start:10-Apr-2018 Instruction Type:Patient Education How to access health informa tion online - Detail Indication:Nonsmoker Start:10-Apr-2018 Instruction Type:Patient Education Patient Instructions Indication:Nonsmoker Start:10-Apr-2018 Instruction Type:Provider Instructions for Treatment How to access health informa tion online Indication:Nonsmoker Start:31-Oct-2017 Instruction Type:Patient Education How to access health informa tion online - Detail Indication:Nonsmoker Start:31-Oct-2017 Instruction Type:Patient Education Patient Instructions Indication:Nonsmoker Start:31-Oct-2017 Instruction Type:Provider Instructions for Treatment How to access health informa tion online Indication:Hypothyroid Start:17-Oct-2017 Instruction Type:Patient Education How to access health informa tion online - Detail Indication:Hypothyroid Start:17-Oct-2017 Instruction Type:Patient Education Patient Instructions Indication:BMI 24.0-24.9, adult Start:17-Oct-2017 Instruction Type:Provider Instructions for Treatment Name Dates Details How to access health informa tion online Indication:Nonsmoker Start:10-Feb-2020 Instruction Type:Patient Education How to access health informa tion online - Detail Indication:Nonsmoker Start:10-Feb-2020 Instruction Type:Patient Education Patient Instructions Indication:Hypercholesteremia Start:10-Feb-2020 Instruction Type:Provider Instructions for Treatment How to access health informa tion online Indication:Attention deficit disorder (ADD) in adult Start:13-Jan-2020 Instruction Type:Patient Education How to access health informa tion online - Detail Indication:Attention deficit disorder (ADD) in adult Start:13-Jan-2020 Instruction Type:Patient Education Patient Instructions Indication:Attention deficit disorder (ADD) in adult Start:13-Jan-2020 Instruction Type:Provider Instructions for Treatment How to access health informa tion online Indication:Nonsmoker Start:24-Nov-2019 Instruction Type:Patient Education How to access health informa tion online - Detail Indication:Nonsmoker Start:24-Nov-2019 Instruction Type:Patient Education Instructions Indication:BMI 24.0-24.9, adult Start:24-Nov-2019 Instruction Type:Provider Instructions for Treatment How to access health informa tion online Indication:Attention deficit disorder (ADD) in adult Start:31-Jul-2019 Instruction Type:Patient Education How to access health informa tion online - Detail Indication:Attention deficit disorder (ADD) in adult Start:31-Jul-2019 Instruction Type:Patient Education Patient Instructions Indication:Attention deficit disorder (ADD) in adult Start:31-Jul-2019 Instruction Type:Provider Instructions for Treatment How to access health informa tion online Indication:Attention deficit disorder (ADD) in adult Start:30-Jan-2019 Instruction Type:Patient Education How to access health informa tion online - Detail Indication:Attention deficit disorder (ADD) in adult Start:30-Jan-2019 Instruction Type:Patient Education Patient Instructions Indication:Attention deficit disorder (ADD) in adult Start:30-Jan-2019 Instruction Type:Provider Instructions for Treatment How to access health informa tion online Indication:Nonsmoker Start:23-Oct-2018 Instruction Type:Patient Education How to access health informa tion online - Detail Indication:Nonsmoker Start:23-Oct-2018 Instruction Type:Patient Education Patient Instructions Indication:Depression with anxiety Start:23-Oct-2018 Instruction Type:Provider Instructions for Treatment How to access health informa tion online Indication:BMI 25.0-25.9,adult Start:15-Jul-2018 Instruction Type:Patient Education How to access health informa tion online - Detail Indication:BMI 25.0-25.9,adult Start:15-Jul-2018 Instruction Type:Patient Education Patient Instructions Indication:BMI 25.0-25.9,adult Start:15-Jul-2018 Instruction Type:Provider Instructions for Treatment How to access health informa tion online Indication:Nonsmoker Start:27-Jun-2018 Instruction Type:Patient Education How to access health informa tion online - Detail Indication:Nonsmoker Start:27-Jun-2018 Instruction Type:Patient Education Patient Instructions Indication:Nonsmoker Start:27-Jun-2018 Instruction Type:Provider Instructions for Treatment How to access health informa tion online Indication:Nonsmoker Start:20-May-2018 Instruction Type:Patient Education How to access health informa tion online - Detail Indication:Nonsmoker Start:20-May-2018 Instruction Type:Patient Education Patient Instructions Indication:Sore throat Start:20-May-2018 Instruction Type:Provider Instructions for Treatment How to access health informa tion online Indication:Attention deficit disorder (ADD) in adult Start:02-May-2018 Instruction Type:Patient Education How to access health informa tion online - Detail Indication:Attention deficit disorder (ADD) in adult Start:02-May-2018 Instruction Type:Patient Education Patient Instructions Indication:Attention deficit disorder (ADD) in adult Start:02-May-2018 Instruction Type:Provider Instructions for Treatment How to access health informa tion online Indication:Nonsmoker Start:10-Apr-2018 Instruction Type:Patient Education How to access health informa tion online - Detail Indication:Nonsmoker Start:10-Apr-2018 Instruction Type:Patient Education Patient Instructions Indication:Nonsmoker Start:10-Apr-2018 Instruction Type:Provider Instructions for Treatment How to access health informa tion online Indication:Nonsmoker Start:31-Oct-2017 Instruction Type:Patient Education How to access health informa tion online - Detail Indication:Nonsmoker Start:31-Oct-2017 Instruction Type:Patient Education Patient Instructions Indication:Nonsmoker Start:31-Oct-2017 Instruction Type:Provider Instructions for Treatment How to access health informa tion online Indication:Hypothyroid Start:17-Oct-2017 Instruction Type:Patient Education How to access health informa tion online - Detail Indication:Hypothyroid Start:17-Oct-2017 Instruction Type:Patient Education Patient Instructions Indication:BMI 24.0-24.9, adult Start:17-Oct-2017 Instruction Type:Provider Instructions for Treatment Name Dates Details How to access health informa tion online Indication:Nonsmoker Start:10-Feb-2020 Instruction Type:Patient Education How to access health informa tion online - Detail Indication:Nonsmoker Start:10-Feb-2020 Instruction Type:Patient Education Patient Instructions Indication:Hypercholesteremia Start:10-Feb-2020 Instruction Type:Provider Instructions for Treatment How to access health informa tion online Indication:Attention deficit disorder (ADD) in adult Start:13-Jan-2020 Instruction Type:Patient Education How to access health informa tion online - Detail Indication:Attention deficit disorder (ADD) in adult Start:13-Jan-2020 Instruction Type:Patient Education Patient Instructions Indication:Attention deficit disorder (ADD) in adult Start:13-Jan-2020 Instruction Type:Provider Instructions for Treatment How to access health informa tion online Indication:Nonsmoker Start:24-Nov-2019 Instruction Type:Patient Education How to access health informa tion online - Detail Indication:Nonsmoker Start:24-Nov-2019 Instruction Type:Patient Education Instructions Indication:BMI 24.0-24.9, adult Start:24-Nov-2019 Instruction Type:Provider Instructions for Treatment How to access health informa tion online Indication:Attention deficit disorder (ADD) in adult Start:31-Jul-2019 Instruction Type:Patient Education How to access health informa tion online - Detail Indication:Attention deficit disorder (ADD) in adult Start:31-Jul-2019 Instruction Type:Patient Education Patient Instructions Indication:Attention deficit disorder (ADD) in adult Start:31-Jul-2019 Instruction Type:Provider Instructions for Treatment How to access health informa tion online Indication:Attention deficit disorder (ADD) in adult Start:30-Jan-2019 Instruction Type:Patient Education How to access health informa tion online - Detail Indication:Attention deficit disorder (ADD) in adult Start:30-Jan-2019 Instruction Type:Patient Education Patient Instructions Indication:Attention deficit disorder (ADD) in adult Start:30-Jan-2019 Instruction Type:Provider Instructions for Treatment How to access health informa tion online Indication:Nonsmoker Start:23-Oct-2018 Instruction Type:Patient Education How to access health informa tion online - Detail Indication:Nonsmoker Start:23-Oct-2018 Instruction Type:Patient Education Patient Instructions Indication:Depression with anxiety Start:23-Oct-2018 Instruction Type:Provider Instructions for Treatment How to access health informa tion online Indication:BMI 25.0-25.9,adult Start:15-Jul-2018 Instruction Type:Patient Education How to access health informa tion online - Detail Indication:BMI 25.0-25.9,adult Start:15-Jul-2018 Instruction Type:Patient Education Patient Instructions Indication:BMI 25.0-25.9,adult Start:15-Jul-2018 Instruction Type:Provider Instructions for Treatment How to access health informa tion online Indication:Nonsmoker Start:27-Jun-2018 Instruction Type:Patient Education How to access health informa tion online - Detail Indication:Nonsmoker Start:27-Jun-2018 Instruction Type:Patient Education Patient Instructions Indication:Nonsmoker Start:27-Jun-2018 Instruction Type:Provider Instructions for Treatment How to access health informa tion online Indication:Nonsmoker Start:20-May-2018 Instruction Type:Patient Education How to access health informa tion online - Detail Indication:Nonsmoker Start:20-May-2018 Instruction Type:Patient Education Patient Instructions Indication:Sore throat Start:20-May-2018 Instruction Type:Provider Instructions for Treatment How to access health informa tion online Indication:Attention deficit disorder (ADD) in adult Start:02-May-2018 Instruction Type:Patient Education How to access health informa tion online - Detail Indication:Attention deficit disorder (ADD) in adult Start:02-May-2018 Instruction Type:Patient Education Patient Instructions Indication:Attention deficit disorder (ADD) in adult Start:02-May-2018 Instruction Type:Provider Instructions for Treatment How to access health informa tion online Indication:Nonsmoker Start:10-Apr-2018 Instruction Type:Patient Education How to access health informa tion online - Detail Indication:Nonsmoker Start:10-Apr-2018 Instruction Type:Patient Education Patient Instructions Indication:Nonsmoker Start:10-Apr-2018 Instruction Type:Provider Instructions for Treatment How to access health informa tion online Indication:Nonsmoker Start:31-Oct-2017 Instruction Type:Patient Education How to access health informa tion online - Detail Indication:Nonsmoker Start:31-Oct-2017 Instruction Type:Patient Education Patient Instructions Indication:Nonsmoker Start:31-Oct-2017 Instruction Type:Provider Instructions for Treatment How to access health informa tion online Indication:Hypothyroid Start:17-Oct-2017 Instruction Type:Patient Education How to access health informa tion online - Detail Indication:Hypothyroid Start:17-Oct-2017 Instruction Type:Patient Education Patient Instructions Indication:BMI 24.0-24.9, adult Start:17-Oct-2017 Instruction Type:Provider Instructions for Treatment Name Dates Details Patient Instructions Indication:Nonsmoker Start:30-Mar-2020 Instruction Type:Provider Instructions for Treatment How to Access Health Informa tion Online using Patient Portal and [employer]rd [employer] Apps Indication:Nonsmoker Start:30-Mar-2020 Instruction Type:Patient Education How to access health informa tion online Indication:Nonsmoker Start:10-Feb-2020 Instruction Type:Patient Education How to access health informa tion online - Detail Indication:Nonsmoker Start:10-Feb-2020 Instruction Type:Patient Education Patient Instructions Indication:Hypercholesteremia Start:10-Feb-2020 Instruction Type:Provider Instructions for Treatment How to access health informa tion online Indication:Attention deficit disorder (ADD) in adult Start:13-Jan-2020 Instruction Type:Patient Education How to access health informa tion online - Detail Indication:Attention deficit disorder (ADD) in adult Start:13-Jan-2020 Instruction Type:Patient Education Patient Instructions Indication:Attention deficit disorder (ADD) in adult Start:13-Jan-2020 Instruction Type:Provider Instructions for Treatment How to access health informa tion online Indication:Nonsmoker Start:24-Nov-2019 Instruction Type:Patient Education How to access health informa tion online - Detail Indication:Nonsmoker Start:24-Nov-2019 Instruction Type:Patient Education Instructions Indication:BMI 24.0-24.9, adult Start:24-Nov-2019 Instruction Type:Provider Instructions for Treatment How to access health informa tion online Indication:Attention deficit disorder (ADD) in adult Start:31-Jul-2019 Instruction Type:Patient Education How to access health informa tion online - Detail Indication:Attention deficit disorder (ADD) in adult Start:31-Jul-2019 Instruction Type:Patient Education Patient Instructions Indication:Attention deficit disorder (ADD) in adult Start:31-Jul-2019 Instruction Type:Provider Instructions for Treatment How to access health informa tion online Indication:Attention deficit disorder (ADD) in adult Start:30-Jan-2019 Instruction Type:Patient Education How to access health informa tion online - Detail Indication:Attention deficit disorder (ADD) in adult Start:30-Jan-2019 Instruction Type:Patient Education Patient Instructions Indication:Attention deficit disorder (ADD) in adult Start:30-Jan-2019 Instruction Type:Provider Instructions for Treatment How to access health informa tion online Indication:Nonsmoker Start:23-Oct-2018 Instruction Type:Patient Education How to access health informa tion online - Detail Indication:Nonsmoker Start:23-Oct-2018 Instruction Type:Patient Education Patient Instructions Indication:Depression with anxiety Start:23-Oct-2018 Instruction Type:Provider Instructions for Treatment How to access health informa tion online Indication:BMI 25.0-25.9,adult Start:15-Jul-2018 Instruction Type:Patient Education How to access health informa tion online - Detail Indication:BMI 25.0-25.9,adult Start:15-Jul-2018 Instruction Type:Patient Education Patient Instructions Indication:BMI 25.0-25.9,adult Start:15-Jul-2018 Instruction Type:Provider Instructions for Treatment How to access health informa tion online Indication:Nonsmoker Start:27-Jun-2018 Instruction Type:Patient Education How to access health informa tion online - Detail Indication:Nonsmoker Start:27-Jun-2018 Instruction Type:Patient Education Patient Instructions Indication:Nonsmoker Start:27-Jun-2018 Instruction Type:Provider Instructions for Treatment How to access health informa tion online Indication:Nonsmoker Start:20-May-2018 Instruction Type:Patient Education How to access health informa tion online - Detail Indication:Nonsmoker Start:20-May-2018 Instruction Type:Patient Education Patient Instructions Indication:Sore throat Start:20-May-2018 Instruction Type:Provider Instructions for Treatment How to access health informa tion online Indication:Attention deficit disorder (ADD) in adult Start:02-May-2018 Instruction Type:Patient Education How to access health informa tion online - Detail Indication:Attention deficit disorder (ADD) in adult Start:02-May-2018 Instruction Type:Patient Education Patient Instructions Indication:Attention deficit disorder (ADD) in adult Start:02-May-2018 Instruction Type:Provider Instructions for Treatment How to access health informa tion online Indication:Nonsmoker Start:10-Apr-2018 Instruction Type:Patient Education How to access health informa tion online - Detail Indication:Nonsmoker Start:10-Apr-2018 Instruction Type:Patient Education Patient Instructions Indication:Nonsmoker Start:10-Apr-2018 Instruction Type:Provider Instructions for Treatment How to access health informa tion online Indication:Nonsmoker Start:31-Oct-2017 Instruction Type:Patient Education How to access health informa tion online - Detail Indication:Nonsmoker Start:31-Oct-2017 Instruction Type:Patient Education Patient Instructions Indication:Nonsmoker Start:31-Oct-2017 Instruction Type:Provider Instructions for Treatment How to access health informa tion online Indication:Hypothyroid Start:17-Oct-2017 Instruction Type:Patient Education How to access health informa tion online - Detail Indication:Hypothyroid Start:17-Oct-2017 Instruction Type:Patient Education Patient Instructions Indication:BMI 24.0-24.9, adult Start:17-Oct-2017 Instruction Type:Provider Instructions for Treatment Name Dates Details Patient Instructions Indication:Nonsmoker Start:30-Mar-2020 Instruction Type:Provider Instructions for Treatment How to Access Health Informa tion Online using Patient Portal and [employer]rd [employer] Apps Indication:Nonsmoker Start:30-Mar-2020 Instruction Type:Patient Education How to access health informa tion online Indication:Nonsmoker Start:10-Feb-2020 Instruction Type:Patient Education How to access health informa tion online - Detail Indication:Nonsmoker Start:10-Feb-2020 Instruction Type:Patient Education Patient Instructions Indication:Hypercholesteremia Start:10-Feb-2020 Instruction Type:Provider Instructions for Treatment How to access health informa tion online Indication:Attention deficit disorder (ADD) in adult Start:13-Jan-2020 Instruction Type:Patient Education How to access health informa tion online - Detail Indication:Attention deficit disorder (ADD) in adult Start:13-Jan-2020 Instruction Type:Patient Education Patient Instructions Indication:Attention deficit disorder (ADD) in adult Start:13-Jan-2020 Instruction Type:Provider Instructions for Treatment How to access health informa tion online Indication:Nonsmoker Start:24-Nov-2019 Instruction Type:Patient Education How to access health informa tion online - Detail Indication:Nonsmoker Start:24-Nov-2019 Instruction Type:Patient Education Instructions Indication:BMI 24.0-24.9, adult Start:24-Nov-2019 Instruction Type:Provider Instructions for Treatment How to access health informa tion online Indication:Attention deficit disorder (ADD) in adult Start:31-Jul-2019 Instruction Type:Patient Education How to access health informa tion online - Detail Indication:Attention deficit disorder (ADD) in adult Start:31-Jul-2019 Instruction Type:Patient Education Patient Instructions Indication:Attention deficit disorder (ADD) in adult Start:31-Jul-2019 Instruction Type:Provider Instructions for Treatment How to access health informa tion online Indication:Attention deficit disorder (ADD) in adult Start:30-Jan-2019 Instruction Type:Patient Education How to access health informa tion online - Detail Indication:Attention deficit disorder (ADD) in adult Start:30-Jan-2019 Instruction Type:Patient Education Patient Instructions Indication:Attention deficit disorder (ADD) in adult Start:30-Jan-2019 Instruction Type:Provider Instructions for Treatment How to access health informa tion online Indication:Nonsmoker Start:23-Oct-2018 Instruction Type:Patient Education How to access health informa tion online - Detail Indication:Nonsmoker Start:23-Oct-2018 Instruction Type:Patient Education Patient Instructions Indication:Depression with anxiety Start:23-Oct-2018 Instruction Type:Provider Instructions for Treatment How to access health informa tion online Indication:BMI 25.0-25.9,adult Start:15-Jul-2018 Instruction Type:Patient Education How to access health informa tion online - Detail Indication:BMI 25.0-25.9,adult Start:15-Jul-2018 Instruction Type:Patient Education Patient Instructions Indication:BMI 25.0-25.9,adult Start:15-Jul-2018 Instruction Type:Provider Instructions for Treatment How to access health informa tion online Indication:Nonsmoker Start:27-Jun-2018 Instruction Type:Patient Education How to access health informa tion online - Detail Indication:Nonsmoker Start:27-Jun-2018 Instruction Type:Patient Education Patient Instructions Indication:Nonsmoker Start:27-Jun-2018 Instruction Type:Provider Instructions for Treatment How to access health informa tion online Indication:Nonsmoker Start:20-May-2018 Instruction Type:Patient Education How to access health informa tion online - Detail Indication:Nonsmoker Start:20-May-2018 Instruction Type:Patient Education Patient Instructions Indication:Sore throat Start:20-May-2018 Instruction Type:Provider Instructions for Treatment How to access health informa tion online Indication:Attention deficit disorder (ADD) in adult Start:02-May-2018 Instruction Type:Patient Education How to access health informa tion online - Detail Indication:Attention deficit disorder (ADD) in adult Start:02-May-2018 Instruction Type:Patient Education Patient Instructions Indication:Attention deficit disorder (ADD) in adult Start:02-May-2018 Instruction Type:Provider Instructions for Treatment How to access health informa tion online Indication:Nonsmoker Start:10-Apr-2018 Instruction Type:Patient Education How to access health informa tion online - Detail Indication:Nonsmoker Start:10-Apr-2018 Instruction Type:Patient Education Patient Instructions Indication:Nonsmoker Start:10-Apr-2018 Instruction Type:Provider Instructions for Treatment How to access health informa tion online Indication:Nonsmoker Start:31-Oct-2017 Instruction Type:Patient Education How to access health informa tion online - Detail Indication:Nonsmoker Start:31-Oct-2017 Instruction Type:Patient Education Patient Instructions Indication:Nonsmoker Start:31-Oct-2017 Instruction Type:Provider Instructions for Treatment How to access health informa tion online Indication:Hypothyroid Start:17-Oct-2017 Instruction Type:Patient Education How to access health informa tion online - Detail Indication:Hypothyroid Start:17-Oct-2017 Instruction Type:Patient Education Patient Instructions Indication:BMI 24.0-24.9, adult Start:17-Oct-2017 Instruction Type:Provider Instructions for Treatment Name Dates Details Patient Instructions Indication:Nonsmoker Start:05-Apr-2020 Instruction Type:Provider Instructions for Treatment How to Access Health Informa tion Online using Patient Portal and [employer]rd [employer] Apps Indication:Nonsmoker Start:05-Apr-2020 Instruction Type:Patient Education Patient Instructions Indication:Nonsmoker Start:30-Mar-2020 Instruction Type:Provider Instructions for Treatment How to Access Health Informa tion Online using Patient Portal and [employer]rd [employer] Apps Indication:Nonsmoker Start:30-Mar-2020 Instruction Type:Patient Education How to access health informa tion online Indication:Nonsmoker Start:10-Feb-2020 Instruction Type:Patient Education How to access health informa tion online - Detail Indication:Nonsmoker Start:10-Feb-2020 Instruction Type:Patient Education Patient Instructions Indication:Hypercholesteremia Start:10-Feb-2020 Instruction Type:Provider Instructions for Treatment How to access health informa tion online Indication:Attention deficit disorder (ADD) in adult Start:13-Jan-2020 Instruction Type:Patient Education How to access health informa tion online - Detail Indication:Attention deficit disorder (ADD) in adult Start:13-Jan-2020 Instruction Type:Patient Education Patient Instructions Indication:Attention deficit disorder (ADD) in adult Start:13-Jan-2020 Instruction Type:Provider Instructions for Treatment How to access health informa tion online Indication:Nonsmoker Start:24-Nov-2019 Instruction Type:Patient Education How to access health informa tion online - Detail Indication:Nonsmoker Start:24-Nov-2019 Instruction Type:Patient Education Instructions Indication:BMI 24.0-24.9, adult Start:24-Nov-2019 Instruction Type:Provider Instructions for Treatment How to access health informa tion online Indication:Attention deficit disorder (ADD) in adult Start:31-Jul-2019 Instruction Type:Patient Education How to access health informa tion online - Detail Indication:Attention deficit disorder (ADD) in adult Start:31-Jul-2019 Instruction Type:Patient Education Patient Instructions Indication:Attention deficit disorder (ADD) in adult Start:31-Jul-2019 Instruction Type:Provider Instructions for Treatment How to access health informa tion online Indication:Attention deficit disorder (ADD) in adult Start:30-Jan-2019 Instruction Type:Patient Education How to access health informa tion online - Detail Indication:Attention deficit disorder (ADD) in adult Start:30-Jan-2019 Instruction Type:Patient Education Patient Instructions Indication:Attention deficit disorder (ADD) in adult Start:30-Jan-2019 Instruction Type:Provider Instructions for Treatment How to access health informa tion online Indication:Nonsmoker Start:23-Oct-2018 Instruction Type:Patient Education How to access health informa tion online - Detail Indication:Nonsmoker Start:23-Oct-2018 Instruction Type:Patient Education Patient Instructions Indication:Depression with anxiety Start:23-Oct-2018 Instruction Type:Provider Instructions for Treatment How to access health informa tion online Indication:BMI 25.0-25.9,adult Start:15-Jul-2018 Instruction Type:Patient Education How to access health informa tion online - Detail Indication:BMI 25.0-25.9,adult Start:15-Jul-2018 Instruction Type:Patient Education Patient Instructions Indication:BMI 25.0-25.9,adult Start:15-Jul-2018 Instruction Type:Provider Instructions for Treatment How to access health informa tion online Indication:Nonsmoker Start:27-Jun-2018 Instruction Type:Patient Education How to access health informa tion online - Detail Indication:Nonsmoker Start:27-Jun-2018 Instruction Type:Patient Education Patient Instructions Indication:Nonsmoker Start:27-Jun-2018 Instruction Type:Provider Instructions for Treatment How to access health informa tion online Indication:Nonsmoker Start:20-May-2018 Instruction Type:Patient Education How to access health informa tion online - Detail Indication:Nonsmoker Start:20-May-2018 Instruction Type:Patient Education Patient Instructions Indication:Sore throat Start:20-May-2018 Instruction Type:Provider Instructions for Treatment How to access health informa tion online Indication:Attention deficit disorder (ADD) in adult Start:02-May-2018 Instruction Type:Patient Education How to access health informa tion online - Detail Indication:Attention deficit disorder (ADD) in adult Start:02-May-2018 Instruction Type:Patient Education Patient Instructions Indication:Attention deficit disorder (ADD) in adult Start:02-May-2018 Instruction Type:Provider Instructions for Treatment How to access health informa tion online Indication:Nonsmoker Start:10-Apr-2018 Instruction Type:Patient Education How to access health informa tion online - Detail Indication:Nonsmoker Start:10-Apr-2018 Instruction Type:Patient Education Patient Instructions Indication:Nonsmoker Start:10-Apr-2018 Instruction Type:Provider Instructions for Treatment How to access health informa tion online Indication:Nonsmoker Start:31-Oct-2017 Instruction Type:Patient Education How to access health informa tion online - Detail Indication:Nonsmoker Start:31-Oct-2017 Instruction Type:Patient Education Patient Instructions Indication:Nonsmoker Start:31-Oct-2017 Instruction Type:Provider Instructions for Treatment How to access health informa tion online Indication:Hypothyroid Start:17-Oct-2017 Instruction Type:Patient Education How to access health informa tion online - Detail Indication:Hypothyroid Start:17-Oct-2017 Instruction Type:Patient Education Patient Instructions Indication:BMI 24.0-24.9, adult Start:17-Oct-2017 Instruction Type:Provider Instructions for Treatment Name Dates Details Nonsmoker : How to access he alth information online Indication:Nonsmoker Nonsmoker : How to access he alth information online - Detail Indication:Nonsmoker Sore throat : Patient Instru ctions Indication:Sore throat Attention deficit disorder ( ADD) in adult : How to access health information online Indication:Attention deficit disorder (ADD) in adult Attention deficit disorder ( ADD) in adult : How to access health information online - Detail Indication:Attention deficit disorder (ADD) in adult Attention deficit disorder ( ADD) in adult : Patient Instructions Indication:Attention deficit disorder (ADD) in adult Nonsmoker : Patient Instruct ions Indication:Nonsmoker Hypothyroid : How to access health information online Indication:Hypothyroid Hypothyroid : How to access health information online - Detail Indication:Hypothyroid BMI 24.0-24.9, adult : Patie nt Instructions Indication:BMI 24.0-24.9, adult Name Dates Details Patient Instructions Indication:BMI 25.0-25.9,adult Start:01-Jun-2020 Instruction Type:Provider Instructions for Treatment How to Access Health Informa tion Online using Patient Portal and [employer] Apps Indication:BMI 25.0-25.9,adult Start:01-Jun-2020 Instruction Type:Patient Education Patient Instructions Indication:Nonsmoker Start:05-Apr-2020 Instruction Type:Provider Instructions for Treatment How to Access Health Informa tion Online using Patient Portal and [employer] Apps Indication:Nonsmoker Start:05-Apr-2020 Instruction Type:Patient Education Patient Instructions Indication:Nonsmoker Start:30-Mar-2020 Instruction Type:Provider Instructions for Treatment How to Access Health Informa tion Online using Patient Portal and [employer]rd [employer] Apps Indication:Nonsmoker Start:30-Mar-2020 Instruction Type:Patient Education How to access health informa tion online Indication:Nonsmoker Start:10-Feb-2020 Instruction Type:Patient Education How to access health informa tion online - Detail Indication:Nonsmoker Start:10-Feb-2020 Instruction Type:Patient Education Patient Instructions Indication:Hypercholesteremia Start:10-Feb-2020 Instruction Type:Provider Instructions for Treatment How to access health informa tion online Indication:Attention deficit disorder (ADD) in adult Start:13-Jan-2020 Instruction Type:Patient Education How to access health informa tion online - Detail Indication:Attention deficit disorder (ADD) in adult Start:13-Jan-2020 Instruction Type:Patient Education Patient Instructions Indication:Attention deficit disorder (ADD) in adult Start:13-Jan-2020 Instruction Type:Provider Instructions for Treatment How to access health informa tion online Indication:Nonsmoker Start:24-Nov-2019 Instruction Type:Patient Education How to access health informa tion online - Detail Indication:Nonsmoker Start:24-Nov-2019 Instruction Type:Patient Education Instructions Indication:BMI 24.0-24.9, adult Start:24-Nov-2019 Instruction Type:Provider Instructions for Treatment How to access health informa tion online Indication:Attention deficit disorder (ADD) in adult Start:31-Jul-2019 Instruction Type:Patient Education How to access health informa tion online - Detail Indication:Attention deficit disorder (ADD) in adult Start:31-Jul-2019 Instruction Type:Patient Education Patient Instructions Indication:Attention deficit disorder (ADD) in adult Start:31-Jul-2019 Instruction Type:Provider Instructions for Treatment How to access health informa tion online Indication:Attention deficit disorder (ADD) in adult Start:30-Jan-2019 Instruction Type:Patient Education How to access health informa tion online - Detail Indication:Attention deficit disorder (ADD) in adult Start:30-Jan-2019 Instruction Type:Patient Education Patient Instructions Indication:Attention deficit disorder (ADD) in adult Start:30-Jan-2019 Instruction Type:Provider Instructions for Treatment How to access health informa tion online Indication:Nonsmoker Start:23-Oct-2018 Instruction Type:Patient Education How to access health informa tion online - Detail Indication:Nonsmoker Start:23-Oct-2018 Instruction Type:Patient Education Patient Instructions Indication:Depression with anxiety Start:23-Oct-2018 Instruction Type:Provider Instructions for Treatment How to access health informa tion online Indication:BMI 25.0-25.9,adult Start:15-Jul-2018 Instruction Type:Patient Education How to access health informa tion online - Detail Indication:BMI 25.0-25.9,adult Start:15-Jul-2018 Instruction Type:Patient Education Patient Instructions Indication:BMI 25.0-25.9,adult Start:15-Jul-2018 Instruction Type:Provider Instructions for Treatment How to access health informa tion online Indication:Nonsmoker Start:27-Jun-2018 Instruction Type:Patient Education How to access health informa tion online - Detail Indication:Nonsmoker Start:27-Jun-2018 Instruction Type:Patient Education Patient Instructions Indication:Nonsmoker Start:27-Jun-2018 Instruction Type:Provider Instructions for Treatment How to access health informa tion online Indication:Nonsmoker Start:20-May-2018 Instruction Type:Patient Education How to access health informa tion online - Detail Indication:Nonsmoker Start:20-May-2018 Instruction Type:Patient Education Patient Instructions Indication:Sore throat Start:20-May-2018 Instruction Type:Provider Instructions for Treatment How to access health informa tion online Indication:Attention deficit disorder (ADD) in adult Start:02-May-2018 Instruction Type:Patient Education How to access health informa tion online - Detail Indication:Attention deficit disorder (ADD) in adult Start:02-May-2018 Instruction Type:Patient Education Patient Instructions Indication:Attention deficit disorder (ADD) in adult Start:02-May-2018 Instruction Type:Provider Instructions for Treatment How to access health informa tion online Indication:Nonsmoker Start:10-Apr-2018 Instruction Type:Patient Education How to access health informa tion online - Detail Indication:Nonsmoker Start:10-Apr-2018 Instruction Type:Patient Education Patient Instructions Indication:Nonsmoker Start:10-Apr-2018 Instruction Type:Provider Instructions for Treatment How to access health informa tion online Indication:Nonsmoker Start:31-Oct-2017 Instruction Type:Patient Education How to access health informa tion online - Detail Indication:Nonsmoker Start:31-Oct-2017 Instruction Type:Patient Education Patient Instructions Indication:Nonsmoker Start:31-Oct-2017 Instruction Type:Provider Instructions for Treatment How to access health informa tion online Indication:Hypothyroid Start:17-Oct-2017 Instruction Type:Patient Education How to access health informa tion online - Detail Indication:Hypothyroid Start:17-Oct-2017 Instruction Type:Patient Education Patient Instructions Indication:BMI 24.0-24.9, adult Start:17-Oct-2017 Instruction Type:Provider Instructions for Treatment Name Dates Details How to access health informa tion online Indication:Attention deficit disorder (ADD) in adult Start:13-Jan-2020 Instruction Type:Patient Education How to access health informa tion online - Detail Indication:Attention deficit disorder (ADD) in adult Start:13-Jan-2020 Instruction Type:Patient Education Patient Instructions Indication:Attention deficit disorder (ADD) in adult Start:13-Jan-2020 Instruction Type:Provider Instructions for Treatment How to access health informa tion online Indication:Nonsmoker Start:24-Nov-2019 Instruction Type:Patient Education How to access health informa tion online - Detail Indication:Nonsmoker Start:24-Nov-2019 Instruction Type:Patient Education Instructions Indication:BMI 24.0-24.9, adult Start:24-Nov-2019 Instruction Type:Provider Instructions for Treatment How to access health informa tion online Indication:Attention deficit disorder (ADD) in adult Start:31-Jul-2019 Instruction Type:Patient Education How to access health informa tion online - Detail Indication:Attention deficit disorder (ADD) in adult Start:31-Jul-2019 Instruction Type:Patient Education Patient Instructions Indication:Attention deficit disorder (ADD) in adult Start:31-Jul-2019 Instruction Type:Provider Instructions for Treatment How to access health informa tion online Indication:Attention deficit disorder (ADD) in adult Start:30-Jan-2019 Instruction Type:Patient Education How to access health informa tion online - Detail Indication:Attention deficit disorder (ADD) in adult Start:30-Jan-2019 Instruction Type:Patient Education Patient Instructions Indication:Attention deficit disorder (ADD) in adult Start:30-Jan-2019 Instruction Type:Provider Instructions for Treatment How to access health informa tion online Indication:Nonsmoker Start:23-Oct-2018 Instruction Type:Patient Education How to access health informa tion online - Detail Indication:Nonsmoker Start:23-Oct-2018 Instruction Type:Patient Education Patient Instructions Indication:Depression with anxiety Start:23-Oct-2018 Instruction Type:Provider Instructions for Treatment How to access health informa tion online Indication:BMI 25.0-25.9,adult Start:15-Jul-2018 Instruction Type:Patient Education How to access health informa tion online - Detail Indication:BMI 25.0-25.9,adult Start:15-Jul-2018 Instruction Type:Patient Education Patient Instructions Indication:BMI 25.0-25.9,adult Start:15-Jul-2018 Instruction Type:Provider Instructions for Treatment How to access health informa tion online Indication:Nonsmoker Start:27-Jun-2018 Instruction Type:Patient Education How to access health informa tion online - Detail Indication:Nonsmoker Start:27-Jun-2018 Instruction Type:Patient Education Patient Instructions Indication:Nonsmoker Start:27-Jun-2018 Instruction Type:Provider Instructions for Treatment How to access health informa tion online Indication:Nonsmoker Start:20-May-2018 Instruction Type:Patient Education How to access health informa tion online - Detail Indication:Nonsmoker Start:20-May-2018 Instruction Type:Patient Education Patient Instructions Indication:Sore throat Start:20-May-2018 Instruction Type:Provider Instructions for Treatment How to access health informa tion online Indication:Attention deficit disorder (ADD) in adult Start:02-May-2018 Instruction Type:Patient Education How to access health informa tion online - Detail Indication:Attention deficit disorder (ADD) in adult Start:02-May-2018 Instruction Type:Patient Education Patient Instructions Indication:Attention deficit disorder (ADD) in adult Start:02-May-2018 Instruction Type:Provider Instructions for Treatment How to access health informa tion online Indication:Nonsmoker Start:10-Apr-2018 Instruction Type:Patient Education How to access health informa tion online - Detail Indication:Nonsmoker Start:10-Apr-2018 Instruction Type:Patient Education Patient Instructions Indication:Nonsmoker Start:10-Apr-2018 Instruction Type:Provider Instructions for Treatment How to access health informa tion online Indication:Nonsmoker Start:31-Oct-2017 Instruction Type:Patient Education How to access health informa tion online - Detail Indication:Nonsmoker Start:31-Oct-2017 Instruction Type:Patient Education Patient Instructions Indication:Nonsmoker Start:31-Oct-2017 Instruction Type:Provider Instructions for Treatment How to access health informa tion online Indication:Hypothyroid Start:17-Oct-2017 Instruction Type:Patient Education How to access health informa tion online - Detail Indication:Hypothyroid Start:17-Oct-2017 Instruction Type:Patient Education Patient Instructions Indication:BMI 24.0-24.9, adult Start:17-Oct-2017 Instruction Type:Provider Instructions for Treatment Name Dates Details How to access health informa tion online Indication:BMI 25.0-25.9,adult Start:15-Jul-2018 Instruction Type:Patient Education How to access health informa tion online - Detail Indication:BMI 25.0-25.9,adult Start:15-Jul-2018 Instruction Type:Patient Education Patient Instructions Indication:BMI 25.0-25.9,adult Start:15-Jul-2018 Instruction Type:Provider Instructions for Treatment How to access health informa tion online Indication:Nonsmoker Start:27-Jun-2018 Instruction Type:Patient Education How to access health informa tion online - Detail Indication:Nonsmoker Start:27-Jun-2018 Instruction Type:Patient Education Patient Instructions Indication:Nonsmoker Start:27-Jun-2018 Instruction Type:Provider Instructions for Treatment How to access health informa tion online Indication:Nonsmoker Start:20-May-2018 Instruction Type:Patient Education How to access health informa tion online - Detail Indication:Nonsmoker Start:20-May-2018 Instruction Type:Patient Education Patient Instructions Indication:Sore throat Start:20-May-2018 Instruction Type:Provider Instructions for Treatment How to access health informa tion online Indication:Attention deficit disorder (ADD) in adult Start:02-May-2018 Instruction Type:Patient Education How to access health informa tion online - Detail Indication:Attention deficit disorder (ADD) in adult Start:02-May-2018 Instruction Type:Patient Education Patient Instructions Indication:Attention deficit disorder (ADD) in adult Start:02-May-2018 Instruction Type:Provider Instructions for Treatment How to access health informa tion online Indication:Nonsmoker Start:10-Apr-2018 Instruction Type:Patient Education How to access health informa tion online - Detail Indication:Nonsmoker Start:10-Apr-2018 Instruction Type:Patient Education Patient Instructions Indication:Nonsmoker Start:10-Apr-2018 Instruction Type:Provider Instructions for Treatment How to access health informa tion online Indication:Nonsmoker Start:31-Oct-2017 Instruction Type:Patient Education How to access health informa tion online - Detail Indication:Nonsmoker Start:31-Oct-2017 Instruction Type:Patient Education Patient Instructions Indication:Nonsmoker Start:31-Oct-2017 Instruction Type:Provider Instructions for Treatment How to access health informa tion online Indication:Hypothyroid Start:17-Oct-2017 Instruction Type:Patient Education How to access health informa tion online - Detail Indication:Hypothyroid Start:17-Oct-2017 Instruction Type:Patient Education Patient Instructions Indication:BMI 24.0-24.9, adult Start:17-Oct-2017 Instruction Type:Provider Instructions for Treatment Name Dates Details Patient Instructions Indication:Nonsmoker Start:30-Mar-2020 Instruction Type:Provider Instructions for Treatment How to Access Health Informa tion Online using Patient Portal and 3rd [employer] Apps Indication:Nonsmoker Start:30-Mar-2020 Instruction Type:Patient Education How to access health informa tion online Indication:Nonsmoker Start:10-Feb-2020 Instruction Type:Patient Education How to access health informa tion online - Detail Indication:Nonsmoker Start:10-Feb-2020 Instruction Type:Patient Education Patient Instructions Indication:Hypercholesteremia Start:10-Feb-2020 Instruction Type:Provider Instructions for Treatment How to access health informa tion online Indication:Attention deficit disorder (ADD) in adult Start:13-Jan-2020 Instruction Type:Patient Education How to access health informa tion online - Detail Indication:Attention deficit disorder (ADD) in adult Start:13-Jan-2020 Instruction Type:Patient Education Patient Instructions Indication:Attention deficit disorder (ADD) in adult Start:13-Jan-2020 Instruction Type:Provider Instructions for Treatment How to access health informa tion online Indication:Nonsmoker Start:24-Nov-2019 Instruction Type:Patient Education How to access health informa tion online - Detail Indication:Nonsmoker Start:24-Nov-2019 Instruction Type:Patient Education Instructions Indication:BMI 24.0-24.9, adult Start:24-Nov-2019 Instruction Type:Provider Instructions for Treatment How to access health informa tion online Indication:Attention deficit disorder (ADD) in adult Start:31-Jul-2019 Instruction Type:Patient Education How to access health informa tion online - Detail Indication:Attention deficit disorder (ADD) in adult Start:31-Jul-2019 Instruction Type:Patient Education Patient Instructions Indication:Attention deficit disorder (ADD) in adult Start:31-Jul-2019 Instruction Type:Provider Instructions for Treatment How to access health informa tion online Indication:Attention deficit disorder (ADD) in adult Start:30-Jan-2019 Instruction Type:Patient Education How to access health informa tion online - Detail Indication:Attention deficit disorder (ADD) in adult Start:30-Jan-2019 Instruction Type:Patient Education Patient Instructions Indication:Attention deficit disorder (ADD) in adult Start:30-Jan-2019 Instruction Type:Provider Instructions for Treatment How to access health informa tion online Indication:Nonsmoker Start:23-Oct-2018 Instruction Type:Patient Education How to access health informa tion online - Detail Indication:Nonsmoker Start:23-Oct-2018 Instruction Type:Patient Education Patient Instructions Indication:Depression with anxiety Start:23-Oct-2018 Instruction Type:Provider Instructions for Treatment How to access health informa tion online Indication:BMI 25.0-25.9,adult Start:15-Jul-2018 Instruction Type:Patient Education How to access health informa tion online - Detail Indication:BMI 25.0-25.9,adult Start:15-Jul-2018 Instruction Type:Patient Education Patient Instructions Indication:BMI 25.0-25.9,adult Start:15-Jul-2018 Instruction Type:Provider Instructions for Treatment How to access health informa tion online Indication:Nonsmoker Start:27-Jun-2018 Instruction Type:Patient Education How to access health informa tion online - Detail Indication:Nonsmoker Start:27-Jun-2018 Instruction Type:Patient Education Patient Instructions Indication:Nonsmoker Start:27-Jun-2018 Instruction Type:Provider Instructions for Treatment How to access health informa tion online Indication:Nonsmoker Start:20-May-2018 Instruction Type:Patient Education How to access health informa tion online - Detail Indication:Nonsmoker Start:20-May-2018 Instruction Type:Patient Education Patient Instructions Indication:Sore throat Start:20-May-2018 Instruction Type:Provider Instructions for Treatment How to access health informa tion online Indication:Attention deficit disorder (ADD) in adult Start:02-May-2018 Instruction Type:Patient Education How to access health informa tion online - Detail Indication:Attention deficit disorder (ADD) in adult Start:02-May-2018 Instruction Type:Patient Education Patient Instructions Indication:Attention deficit disorder (ADD) in adult Start:02-May-2018 Instruction Type:Provider Instructions for Treatment How to access health informa tion online Indication:Nonsmoker Start:10-Apr-2018 Instruction Type:Patient Education How to access health informa tion online - Detail Indication:Nonsmoker Start:10-Apr-2018 Instruction Type:Patient Education Patient Instructions Indication:Nonsmoker Start:10-Apr-2018 Instruction Type:Provider Instructions for Treatment How to access health informa tion online Indication:Nonsmoker Start:31-Oct-2017 Instruction Type:Patient Education How to access health informa tion online - Detail Indication:Nonsmoker Start:31-Oct-2017 Instruction Type:Patient Education Patient Instructions Indication:Nonsmoker Start:31-Oct-2017 Instruction Type:Provider Instructions for Treatment How to access health informa tion online Indication:Hypothyroid Start:17-Oct-2017 Instruction Type:Patient Education How to access health informa tion online - Detail Indication:Hypothyroid Start:17-Oct-2017 Instruction Type:Patient Education Patient Instructions Indication:BMI 24.0-24.9, adult Start:17-Oct-2017 Instruction Type:Provider Instructions for Treatment Advance Directives No Advanced Directives Records Found Name Dates Details Immunization Registry [place] - Effective on 12/18/2017. Expiration date unspecified Effective:18-Dec-2017 Name Dates Details Immunization Registry [place] - Effective on 12/18/2017. Expiration date unspecified Effective:18-Dec-2017 Name Dates Details Immunization Registry [place] - Effective on 12/18/2017. Expiration date unspecified Effective:18-Dec-2017 Name Dates Details Immunization Registry [place] - Effective on 12/18/2017. Expiration date unspecified Effective:18-Dec-2017 Name Dates Details Immunization Registry [place] - Effective on 12/18/2017. Expiration date unspecified Effective:18-Dec-2017 Name Dates Details Immunization Registry [place] - Effective on 12/18/2017. Expiration date unspecified Effective:18-Dec-2017 Name Dates Details Immunization Registry [place] - Effective on 12/18/2017. Expiration date unspecified Effective:18-Dec-2017 Name Dates Details Immunization Registry [place] - Effective on 12/18/2017. Expiration date unspecified Effective:18-Dec-2017 Name Dates Details Immunization Registry [place] - Effective on 12/18/2017. Expiration date unspecified Effective:18-Dec-2017 Name Dates Details Immunization Registry [place] - Effective on 12/18/2017. Expiration date unspecified Effective:18-Dec-2017 Name Dates Details Immunization Registry [place] - Effective on 12/18/2017. Expiration date unspecified Effective:18-Dec-2017 Name Dates Details Immunization Registry [place] - Effective on 12/18/2017. Expiration date unspecified Effective:18-Dec-2017 Name Dates Details Immunization Registry [place] - Effective on 12/18/2017. Expiration date unspecified Effective:18-Dec-2017 Name Dates Details Immunization Registry [place] - Effective on 12/18/2017. Expiration date unspecified Effective:18-Dec-2017 Name Dates Details Immunization Registry [place] - Effective on 12/18/2017. Expiration date unspecified Effective:18-Dec-2017 Name Dates Details Immunization Registry [place] - Effective on 12/18/2017. Expiration date unspecified Effective:18-Dec-2017 Name Dates Details Immunization Registry [place] - Effective on 12/18/2017. Expiration date unspecified Effective:18-Dec-2017 Name Dates Details Immunization Registry [place] - Effective on 12/18/2017. Expiration date unspecified Effective:18-Dec-2017 Name Dates Details Immunization Registry [place] - Effective on 12/18/2017. Expiration date unspecified Effective:18-Dec-2017 Name Dates Details Immunization Registry [place] - Effective on 12/18/2017. Expiration date unspecified Effective:18-Dec-2017 Name Dates Details Immunization Registry [place] - Effective on 12/18/2017. Expiration date unspecified Effective:18-Dec-2017 Name Dates Details Immunization Registry [place] - Effective on 12/18/2017. Expiration date unspecified Effective:18-Dec-2017 Name Dates Details Immunization Registry [place] - Effective on 12/18/2017. Expiration date unspecified Effective:18-Dec-2017 Name Dates Details Immunization Registry [place] - Effective on 12/18/2017. Expiration date unspecified Effective:18-Dec-2017 Name Dates Details Immunization Registry [place] - Effective on 12/18/2017. Expiration date unspecified Effective:18-Dec-2017 Name Dates Details Immunization Registry [place] - Effective on 12/18/2017. Expiration date unspecified Effective:18-Dec-2017 Name Dates Details Immunization Registry [place] - Effective on 12/18/2017. Expiration date unspecified Effective:18-Dec-2017 Name Dates Details Immunization Registry [place] - Effective on 12/18/2017. Expiration date unspecified Effective:18-Dec-2017 Name Dates Details Immunization Registry [place] - Effective on 12/18/2017. Expiration date unspecified Effective:18-Dec-2017 Name Dates Details Immunization Registry [place] - Effective on 12/18/2017. Expiration date unspecified Effective:18-Dec-2017 Name Dates Details Immunization Registry [place] - Effective on 12/18/2017. Expiration date unspecified Effective:18-Dec-2017 Name Dates Details Immunization Registry [place] - Effective on 12/18/2017. Expiration date unspecified Effective:18-Dec-2017 Name Dates Details Immunization Registry [place] - Effective on 12/18/2017. Expiration date unspecified Effective:18-Dec-2017 Name Dates Details Immunization Registry [place] - Effective on 12/18/2017. Expiration date unspecified Effective:18-Dec-2017 Name Dates Details Immunization Registry [place] - Effective on 12/18/2017. Expiration date unspecified Effective:18-Dec-2017 Name Dates Details Immunization Registry [place] - Effective on 12/18/2017. Expiration date unspecified Effective:18-Dec-2017 Name Dates Details Immunization Registry [place] - Effective on 12/18/2017. Expiration date unspecified Effective:18-Dec-2017 Name Dates Details Immunization Registry [place] - Effective on 12/18/2017. Expiration date unspecified Effective:18-Dec-2017 Name Dates Details Immunization Registry [place] - Effective on 12/18/2017. Expiration date unspecified Effective:18-Dec-2017 Name Dates Details Immunization Registry [place] - Effective on 12/18/2017. Expiration date unspecified Effective:18-Dec-2017 Name Dates Details Immunization Registry [place] - Effective on 12/18/2017. Expiration date unspecified Effective:18-Dec-2017 Name Dates Details Immunization Registry [place] - Effective on 12/18/2017. Expiration date unspecified Effective:18-Dec-2017 Name Dates Details Immunization Registry [place] - Effective on 12/18/2017. Expiration date unspecified Effective:18-Dec-2017 Name Dates Details Immunization Registry [place] - Effective on 12/18/2017. Expiration date unspecified Effective:18-Dec-2017 Name Dates Details Immunization Registry [place] - Effective on 12/18/2017. Expiration date unspecified Effective:18-Dec-2017 Name Dates Details Immunization Registry [place] - Effective on 12/18/2017. Expiration date unspecified Effective:18-Dec-2017 Name Dates Details Immunization Registry [place] - Effective on 12/18/2017. Expiration date unspecified Effective:18-Dec-2017 Name Dates Details Immunization Registry [place] - Effective on 12/18/2017. Expiration date unspecified Effective:18-Dec-2017 Name Dates Details Immunization Registry [place] - Effective on 12/18/2017. Expiration date unspecified Effective:18-Dec-2017 Name Dates Details Immunization Registry [place] - Effective on 12/18/2017. Expiration date unspecified Effective:18-Dec-2017 Name Dates Details Immunization Registry [place] - Effective on 12/18/2017. Expiration date unspecified Effective:18-Dec-2017 Name Dates Details Immunization Registry [place] - Effective on 12/18/2017. Expiration date unspecified Effective:18-Dec-2017 Name Dates Details Immunization Registry [place] - Effective on 12/18/2017. Expiration date unspecified Effective:18-Dec-2017 Name Dates Details Immunization Registry [place] - Effective on 12/18/2017. Expiration date unspecified Effective:18-Dec-2017 Summary Purpose Additional Source Comments (unrecognized sect ion and content) No Status Records FoundNo Status Records FoundNo Status Records FoundNo Status Records Found INFORMATION SOURCE (unrecogn ized section and content) DATE CREATED AUTHOR 06/22/2018 [facility] DATE CREATED AUTHOR AUTHOR'S ORGANIZ ATION 06/22/2018 [facility] DATE CREATED AUTHOR AUTHOR'S ORGANIZ ATION 08/01/2022 [facility] DATE CREATED AUTHOR AUTHOR'S ORGANIZ ATION 01/30/2025 [facility] FOR RECORDS PERTAINING TO PATIENTS WHO ARE OR HAVE BEEN ENROLLED IN A CHEMICAL DEPENDENCY/SUBSTANCEABUSE PROGRAM, SOME INFORMATION MAY BE OMITTED. This clinical summary was aggregated from multiple sources. Caution should be exercised in using it in the provision of clinical care. This summary normalizes information from multiple sources, and as a consequence, information in this document may materially change the coding, format and clinical context of patient data. In addition, data may be omitted in some cases. CLINICAL DECISIONS SHOULD BE BASED ON THE PRIMARY CLINICAL RECORDS. [employer] [facility]. provides no warranty or guarantee of the accuracy or completeness of information in this document.
--- NOTE | 2025-01-30 07:57 | PCM.HP.STD ---
[facility] - General General Date of Admission: 01/30/25 Date of Service: 01/30/25 Chief Complaint: Screening colonoscopy HPI Narrative ALFONZO DILLON, is a 49 M who presents [today for screening colonoscopy. He has never had a colonoscopy in the past. He is not having abdominal pain, cramping, chest pain or shortness of breath. Overall he is in fairly good health.] [facility] Medical History Wears glasses History of Clostridium difficile infection Anxiety Marijuana use Hypothyroid Thyroid disease High cholesterol Hypertension Gastric reflux Former smoker History of humerus fracture History of hypertension Arthritis Home Medications Medication Instructions Recorded Last Taken Type amlodipine 10 mg tablet 10 mg PO QDAY 10/03/23 Unknown History buspirone 5 mg tablet 5 mg PO BID 10/03/23 Unknown History dextroamphetamine-amphetamine ER 1 cap PO QAM 10/03/23 Unknown History 10 mg 24hr capsule,extend release duloxetine 60 mg capsule,delayed 60 mg PO QDAY 10/03/23 Unknown History release levothyroxine 100 mcg tablet 100 mcg PO QDAY 10/03/23 Unknown History lorazepam 0.5 mg tablet 0.5 mg PO QDAY PRN anxiety 10/03/23 Unknown History rosuvastatin 5 mg tablet 5 mg PO QHS 10/03/23 Unknown History dupilumab 300 mg/2 mL subcutaneous 300 mg subcut .QOWEEK 01/28/25 Unknown History pen injector (Dupixent) Allergy/AdvReac Type Severity Reaction Status Date / Time No Known Allergies Allergy Verified 01/30/25 07:51 Family History Other Anxiety Depression Lupus Surgical History History of colonoscopy History of lymph node dissection of right axilla History of Neck Dissectiom Social History Smoking Status: Former smoker alcohol intake: current details: "very little these days" substance use type: does not use what type of physical activity do you participate in: running and other details: Soccer/Softball frequency: 3-4 times per week ROS Constitutional Constitutional: Denies fatigue, fever(s), poor appetite, weight gain or weight loss Gastrointestinal Gastrointestinal: Denies belching, bloating, change in bowel habits, change in stool character, chewing difficulty, coffee ground emesis, constipation, cramping, diarrhea, dyspepsia, dysphagia, early satiety, excessive flatus, fecal incontinence, heartburn, hematemesis, hematochezia, hemorrhoids, loose stools, melena, nausea, odynophagia, rectal bleeding, tenesmus, vomiting or weight changes Vital Signs Vital Signs Vital Signs: 01/30/25 07:52 01/30/25 07:52 Temperature 98.0 F Temperature Source Temporal Pulse Rate 85 Respiratory Rate 16 Respiratory Pattern Normal Blood Pressure 152/95 H Blood Pressure Mean 114 Blood Pressure Source Monitor Blood Pressure Position Sitting Blood Pressure Location Left Arm Pulse Ox 97 Oxygen Delivery Method Room Air Weight Weight: 192 lb 10.944 oz Body Mass Index (BMI) 26.1 Physical Exam Const alert, oriented x3, no apparent distress and healthy appearing General Appearance: cooperative GI normal to inspection, nondistended, normoactive bowel sounds, soft to palpation, non-tender and non-distended Percussion: normal to percussion Rectal Exam: deferred Assessment & Plan Assessment/Plan (1) Encounter for screening colonoscopy: PLAN: He was explained alternatives, risk and benefits include not withstanding bleeding, infection, sepsis, perforation, need for brain surgery . He will have an ASA of 3.
[2025-01-30] MEDS: Lactated Ringers 1,000 ML 15 ML IV (07:58)
--- NOTE | 2025-01-30 08:03 | PCM.PRE.AN2 ---
ASA Classification* ASA Classification ASA Classification: 2 Assessment & Plan Anesthesia* Anesthesia Assessment Anesthesia Assessment: Discussed sedation and/or anesthesia options, risks, benefits, and alternatives with patient/parents/legal guardian/POA. Questions invited. The patient/parents/legal guardian/POA seems to understand and agrees to proceed with anesthesia plan. Reviewed the physical assessment, medical history, allergy history and patient home medications list prior to surgery/procedure/anesthetic and documented any changes. Performed airway and anesthesia risk assessments. Anesthesia Type Anesthesia Type: MAC History Source History Obtained from:: Patient and Chart Anesthesia Focused Assessment* Temperature: 98.0 F Pulse Rate: 85 Blood Pressure: 152/95 Respiratory Rate: 16 Pulse Ox: 97 Oxygen Delivery Method: Room Air Airway Assessment Mouth opens: >3 cm Mallampati Score: II Teeth Condition: Caps/Crowns (Patient has couple caps. They are tight.) Neck Range of motion (ROM): Limited ROM (Slight Decrease) Labs Anesthesia Preop lab: CBC WBC, (4.4-11.0) 6.1 K/mm3 03/31/21, 08:45 RBC, (4.6-6.2) 5.26 M/mm3 03/31/21, 08:45 Hgb, (13.0-16.5) 15.0 g/dL 03/31/21, 08:45 Hct, (40-54) 44.5 % 03/31/21, 08:45 Plt Count, (150-450) 275 K/mm3 03/31/21, 08:45 CHEMISTRY Potassium, (3.5-5.1) 4.6 mmol/L 03/31/21, 08:45 Sodium, (136-145) 137 mmol/L 03/31/21, 08:45 BUN, (7-18) 16 mg/dL 03/31/21, 08:45 Creatinine, (0.70-1.30) 0.96 mg/dL 03/31/21, 08:45 Glucose, (74-106) 110 mg/dL H 03/31/21, 08:45 COAG Pre-Assessment Diagnosis/Proposed Procedure Planned Operative Procedure(s): CSCOPE Anesthesia History Anesthesia History - manager photo: Anesthesia History - manager photo Hx Hospitalization No 01/28/25 10:04 Any Problems With Anesthesia No 01/28/25 10:04 Cholinesterase deficiency No 01/28/25 10:04 You/Your Family Experience No 01/28/25 10:04 fever (hyperthermia) with Relationship Recent Exposure to Contagious No 01/30/25 07:52 Disease Does patient have nerve No 01/28/25 10:04 stimulator Patient instructed to have device shut off --Does patient have Pacemaker No 01/30/25 07:52 or ICD? When Was Last Pacemaker Check QUESTION #4 FULL TEXT: You/Your Family Experience fever (hyperthermia) with Anesthesia Last Oral Intake Last Oral intake: Last Oral Intake NPO since 04:00 01/30/25 07:52 Meds taken in AM with sips of No 01/30/25 07:52 water? Meds patient instructed to take am of surgery Any additional information?: Yes NPO since: 04:00 (Patient finished prep at 4 AM.) Meds taken in AM with sips of water?: No PONV PONV - manager photo: PONV - manager photo Female No 01/28/25 10:04 HX of Motion Sickness No 01/28/25 10:04 HX of N/V After Surgery No 01/28/25 10:04 Non-Smoker Yes 01/28/25 10:04 Duration of Surgery greater No 01/28/25 10:04 than 60 minutes Number of Risk Factors 1 01/28/25 10:04 PONV Score Low Risk 01/28/25 10:04 Height & Weight Height & Weight: Anesthesia: Height & Weight Height 6 ft 01/30/25 07:52 Weight: 87.4 kg 01/30/25 07:52 Body Mass Index (BMI) 26.1 01/30/25 07:52 Respiratory Assessment Respiratory Assessment - manager photo: Respiratory Tract Infection Hx - manager photo Hx Respiratory Tract Infection No 01/28/25 10:04 STOP Sleep Apnea STOP Sleep Apnea - manager photo: STOP Sleep Apnea - manager photo Hx Hypertension Yes: CONTROLLED WITH MED 01/28/25 10:04 Hx Sleep Apnea No 01/28/25 10:04 CPAP BIPAP Do you snore loudly (louder Yes 01/28/25 10:04 than talking or can be heard Do you often feel tired/ No 01/28/25 10:04 fatigued/ sleepy during daytime? Has anyone observed you stop No 01/28/25 10:04 breathing during sleep? STOP Results Positive 01/28/25 10:04 QUESTION #5 FULL TEXT : Do you snore loudly (louder than talking or can be heard through closed doors)? 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 Specify any problems Hx of Preganancy in last 3 N/A 01/28/25 10:04 Months Nurse Filling Out Transfusion NBUCHER 01/28/25 10:04 & Questions: Date: 01/28/25 01/28/25 10:04 Time: 10:05 01/28/25 10:04 Patient unable to answer at this time (ie. confused, unrespo /Reproduction History /Reproductive History - manager photo: /Reproductive Hx- manager photo Hx Now No 01/28/25 10:04 Gestational Age (in weeks): EDC: Hx Hx Para Hx Section SAB No 01/28/25 10:04 Does the father of the baby or his family experience fever w Father of the baby Malignant Hypertension history comment Active Medications Active Medications: Current Medications Generic Name Dose Route Start Last Admin Trade Name Freq PRN Reason Stop Dose Admin Lactated Ringer's 1,000 mls @ 15 mls/hr 01/30/25 07:30 01/30/25 07:58 IV 15 mls/hr .Q48H COLETTE Administration PFSH Medical History Wears glasses History of Clostridium difficile infection Anxiety Marijuana use Hypothyroid Thyroid disease High cholesterol Hypertension Gastric reflux Former smoker History of humerus fracture History of hypertension Arthritis Home Medications Medication Instructions Recorded Last Taken Type amlodipine 10 mg tablet 10 mg PO QDAY 10/03/23 Unknown History buspirone 5 mg tablet 5 mg PO BID 10/03/23 Unknown History dextroamphetamine-amphetamine ER 1 cap PO QAM 10/03/23 Unknown History 10 mg 24hr capsule,extend release duloxetine 60 mg capsule,delayed 60 mg PO QDAY 10/03/23 Unknown History release levothyroxine 100 mcg tablet 100 mcg PO QDAY 10/03/23 Unknown History lorazepam 0.5 mg tablet 0.5 mg PO QDAY PRN anxiety 10/03/23 Unknown History rosuvastatin 5 mg tablet 5 mg PO QHS 10/03/23 Unknown History dupilumab 300 mg/2 mL subcutaneous 300 mg subcut .QOWEEK 01/28/25 Unknown History pen injector (Dupixent) Allergy/AdvReac Type Severity Reaction Status Date / Time No Known Allergies Allergy Verified 01/30/25 07:51 Family History Other Anxiety Depression Lupus Surgical History History of colonoscopy History of lymph node dissection of right axilla History of Neck Dissectiom Social History Smoking Status: Former smoker alcohol intake: current details: "very little these days" substance use type: does not use what type of physical activity do you participate in: running and other details: Soccer/Softball frequency: 3-4 times per week Review of Systems (Anesthesia) ROS Narrative System reviewed and no additional complaints, except as documented.
--- NOTE | 2025-01-30 09:52 | PCM.POST.ANE ---
Anesthesia: Postop Eval I Current Vital Signs Temperature: 97 F Pulse Rate: 88 Blood Pressure: 123/82 Respiratory Rate: 16 Pulse Ox: 96 Oxygen Delivery Method: Room Air Assessment Airway patent: Yes Spontaneous unlabored respirations: Yes Mental status: Asleep nausea: No Vomiting: No Anesthesia Complication: No Fluid Hydration Crystalloid volume administer (ml): 800 Total IV fluid infused: 800 Progress Note Anesthesia document: Postop Eval 1 completed: Yes
--- NOTE | 2025-01-30 09:59 | OP.COLON_ITS ---
Patient Name: Andrew Almanza Procedure Date: 01/30/2025 9:20 AM Date of : 1975 Age: 49 Procedure: Colonoscopy Indications: Screening for colorectal malignant neoplasm Providers: Ronny West DO Referring MD: No Primary Care Physician Medicines: Monitored Anesthesia Care Patient Profile: This is a 49 year old male. Refer to note in patient chart for documentation of history and physical. Last Colonoscopy: more than 10 years ago. Complications: No immediate complications. Procedure: Pre-Anesthesia Assessment: - Prior to the procedure, a History and Physical was performed, and patient medications and allergies were reviewed. The patient is competent. The risks and benefits of the procedure and the sedation options and risks were discussed with the patient. All questions were answered and informed consent was obtained. Patient identification and proposed procedure were verified by the physician in the pre-procedure area. Mental Status Examination: alert and oriented. Airway Examination: normal oropharyngeal airway and neck mobility. Respiratory Examination: clear to auscultation. CV Examination: normal. Prophylactic Antibiotics: The patient does not require prophylactic antibiotics. Prior Anticoagulants: The patient has taken no anticoagulant or antiplatelet agents. ASA Grade Assessment: II - A patient with mild systemic disease. After reviewing the risks and benefits, the patient was deemed in satisfactory condition to undergo the procedure. The anesthesia plan was to use monitored anesthesia care (MAC). Immediately prior to administration of medications, the patient was re-assessed for adequacy to receive sedatives. The heart rate, respiratory rate, oxygen saturations, blood pressure, adequacy of pulmonary ventilation, and response to care were monitored throughout the procedure. The physical status of the patient was re-assessed after the procedure. After I obtained informed consent, the scope was passed under direct vision. Throughout the procedure, the patient's blood pressure, pulse, and oxygen saturations were monitored continuously. The pediatric colonoscope was introduced through the anus and advanced to the cecum, identified by appendiceal orifice and ileocecal valve. The colonoscopy was performed without difficulty. The patient tolerated the procedure well. The quality of the bowel preparation was adequate. The ileocecal valve, appendiceal orifice, and rectum were photographed. Scope In: 9:29:41 AM Scope Withdrawal Time 0 hours 10 minutes 6 seconds Scope Out: 9:41:55 AM Total Procedure Duration Time 0 hours 12 minutes 14 seconds Findings: The perianal and digital rectal examinations were normal. The colon (entire examined portion) appeared normal. The exam was otherwise without abnormality on direct and retroflexion views. Impression: - The entire examined colon is normal. - The examination was otherwise normal on direct and retroflexion views. - No specimens collected. Recommendation: - Discharge patient to home. - Resume previous diet. - Continue present medications. - Repeat colonoscopy in 10 years for screening purposes. Procedure Code(s): --- Professional --- G0121, Colorectal cancer screening; colonoscopy on individual not meeting criteria for high risk CPT copyright 2021 [employer]. All rights reserved. The codes documented in this report are preliminary and upon footwear sales leader review may be revised to meet current compliance requirements. Ronny West DO 01/30/2025 9:59:08 AM This report has been signed electronically. Number of Addenda: 0 Note Initiated On: 01/30/2025 9:20 AM
--- NOTE | 2025-01-30 09:59 | OP.PROVAT_ITS ---
01/30/2025 No Primary Care Physician Re : Colonoscopy procedure for Andrew Almanza Dear Care Physician This procedure was performed on Thursday, January 30, 2025. My impressions and recommendations are as follows: Impressions : - The entire examined colon is normal. - The examination was otherwise normal on direct and retroflexion views. - No specimens collected. Recommendations : - Discharge patient to home. - Resume previous diet. - Continue present medications. - Repeat colonoscopy in 10 years for screening purposes. My findings are described in the full procedure note, which is enclosed. If I can be of further assistance, please feel free to contact me at . Sincerely, Ronny West, 01/30/2025 9:59:08 AM This report has been signed electronically.
--- NOTE | 2025-01-30 12:30 | PCM.POSTANE2 ---
Anesthesia Postop Eval I Sum Postop Eval Completion status Anesthesia document: Postop Eval 1 completed: Yes Anesthesia Postop Eval I Summary Anesthesia Postop Eval I Summary: Anesthesia Postop Eval I: Assessment Summary Airway patent Yes 01/30/25 09:52 [email or web address] Spontaneous unlabored Yes 01/30/25 09:52 [email or web address] respirations Mental status Asleep 01/30/25 09:52 [email or web address] nausea No 01/30/25 09:52 [email or web address] Vomiting No 01/30/25 09:52 [email or web address] Anesthesia Postop Eval I: Fluid Summary Crystalloid volume administer 800 01/30/25 09:52 [email or web address] (ml) Colloids volume administered ( ml) Blood Product volume administered (ml) Total IV fluid infused 800 01/30/25 09:52 [email or web address] Anesthesia Postop Eval I: Summary Notes Anesthesia Complication No 01/30/25 09:52 [email or web address] Anesthesia Complication Comment: Post-operative progress note Anesthesia: Postop Eval II Evaluation Mental status: Awake Pain Level: 0 nausea: No Vomiting: No Complications Anesthesia Complication: No
== END 2025-01-30 10:36 | disposition home or self-care (01) ==
LOC: EN 07:21 → AC 07:22
PROVIDERS: Visit Provider Internal Medicine Gastroenterology
DX: Z12.11 Encounter for screening for malignant neoplasm of colon (principal); I10 Essential (primary) hypertension; Z87.891 Personal history of nicotine dependence; E78.00 Pure hypercholesterolemia, unspecified; Z79.890 Hormone replacement therapy; Z79.899 Other long term (current) drug therapy; F41.9 Anxiety disorder, unspecified; E03.9 Hypothyroidism, unspecified
CPT/HCPCS: 45378; J2405